=== PATIENT | female | born 1965 | race Caucasian/White ===

== ENCOUNTER → 2016-05-09 | Outpatient (CLI) | payer BC ==
[~2016-05-09] MED LIST: ACT/35 PO; ADVIN50050 INH; ALBINS/ INH; ALBU0.08 INH; ATV/1 PO; AZITTAB PO; BUPR-102 PO; BUPR-79 PO; CLON0.5T3 PO; FLUT1INH7 INH; IPRA1AER2 INH; LEVO1TAB35 PO; MONT1TAB3 PO; OMEP40CA41 PO; OXGN; PRED10TA PO; PRILOSEC PO; ROFL1TAB5 PO; SPRIN/30 INH; TIOTCAP INH; TRAZ50TA35 PO; ZOLP10TA PO; ZOLP10TA6 PO
[2016-05-09 12:49] LABS: BASO % 0.4 %; BASO ABS # 0.06 K/uL (0-0.2); COMPLETE YES; EOS % 3.6 %; HEMATOCRIT 41.9 % (37-47); IG% 0.3 %; LYMPH % 21.3 %; LYMPH ABS # 2.98 K/uL (1.2-3.4); MEAN CELL VOLUME 92.7 fL (80-100); MEAN CORPUSCULAR HEMOGLOBIN 30.5 pg (25-34); MEAN CORPUSCULAR HGB CONC 32.9 g/dl (32-36); MEAN PLATELET VOLUME 9.8 fL (7.4-10.4); MONO % 10.5 %; NEUT % 63.9 %; PLATELET COUNT 593 K/uL (130-400); RED BLOOD COUNT 4.52 M/uL (4.2-5.4); WHITE BLOOD COUNT 13.97 K/uL (4.8-10.8)
[2016-05-09 13:12] LABS: ESTIMATED AVERAGE GLUCOSE 120 mg/dl; HA1C FLAG Normal (Normal)
[2016-05-09 13:18] LABS: BLOOD UREA NITROGEN 6 mg/dl (7-18); BUN/CREATININE RATIO 8.1 (10-20); CALCIUM 9.4 mg/dl (8.5-10.1); CARBON DIOXIDE 30 mmol/L (21-32); CHLORIDE 102 mmol/L (98-107); CHOLESTEROL 184 mg/dl (0-200); CREATININE 0.76 mg/dl (0.60-1.20); GLUCOSE 104 mg/dl (70-99); POTASSIUM 4.4 mmol/L (3.5-5.1); SODIUM 141 mmol/L (136-145)
[2016-05-09 13:32] LABS: CHOLESTEROL/HDL RATIO 2.5; FERRITIN 898.2 ng/ml (8.0-388.0); HDL CHOLESTEROL 75 mg/dl; LDL CHOLESTEROL CALCULATED 84 mg/dl; MAGNESIUM 2.3 mg/dl (1.8-2.4); THYROID STIMULATING HORMONE 0.882 uIu/ml (0.300-4.500); TRIGLYCERIDES 127 mg/dl (0-150); VERY LOW DENSITY LIPOPROT CALC 25 mg/dl
== END | disposition home or self-care (01) ==
LOC: C.LABBFT 08:31
DX: E61.1 Iron deficiency (principal); J44.9 Chronic obstructive pulmonary disease, unspecified; R73.9 Hyperglycemia, unspecified; R53.83 Other fatigue; Z13.220 Encounter for screening for lipoid disorders

== ENCOUNTER → 2017-05-01 | Outpatient (CLI) | payer BC ==
[~2017-05-01] MED LIST changes: -CLON0.5T3 PO; +KLN/5 PO
== END | disposition home or self-care (01) ==
LOC: C.LABBFT 13:23
DX: E11.9 Type 2 diabetes mellitus without complications (principal)

== ENCOUNTER 2017-05-09 20:34 | Inpatient (IN) | payer OTHER ==
[~2017-05-09] VITALS: Ht 167.6 cm; Wt 72.5 kg
[~2017-05-09 20:34] MED LIST changes: -ACT/35 PO; -ALBINS/ INH; -AZITTAB PO; -BUPR-102 PO; +CLON0.5T3 PO; -FLUT1INH7 INH; -KLN/5 PO; -LEVO1TAB35 PO; -MONT1TAB3 PO; -OMEP40CA41 PO; -OXGN; -PRED10TA PO; -ROFL1TAB5 PO; -SPRIN/30 INH; -TRAZ50TA35 PO; -ZOLP10TA6 PO
[2017-05-09 20:39] VITALS: Ht 167.6 cm; Wt 72.5 kg
[2017-05-09] MEDS ORDERED: SODIUM CHLORIDE 0.9% 500ML 500 ML IV STA (21:16)
[2017-05-09] MEDS ORDERED: FENTANYL CITRATE INJ 50 MCG/1 ML 2 ML VIAL IV STA (21:16)
[2017-05-09] MEDS ORDERED: OPTIRAY 320 IV PRN (21:30)
--- NOTE | 2017-05-09 21:37 | EMERGENCY ROOM VISIT NOTE ---
History Report prepared by Neel: Haris Russell Under the Supervision of: Dr. Crystal Palmer D.O. First contact with patient: 21:00 Chief Complaint: CHEST PAIN Stated Complaint: CHEST PAINS History of Present Illness The patient is a 52 year old female who presents to the Emergency Room with complaints of severe and worsening chest pains that began last night. She describes her pain as "sharp" and notes that is is worsened by leaning over and deep inspiration. The pain is localized to her left chest, and was radiating into the left shoulder until this radiation spontaneously resolving. 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 She also has a history of "severe" COPD. The patient is experiencing chills and is congested in her chest, but she denies any fevers. She feels the need to cough but notes that it will hurt too much. The patient took 1 gram of Zithromax today due to the congestion in her chest. Source of History: patient Onset: One night [employer] Position: chest (left) Symptom Intensity: severe Quality: sharp Timing: constant Associated Symptoms: + chills, + cough, No fevers Review of Systems Pt denies headache, change in vision, fevers, chest pain, shortness of breath, nausea, vomiting, diarrhea, pain with urination, and melena. Past Medical & Surgical Medical Problems: (1) COPD (chronic obstructive pulmonary disease) (2) Pneumonia (3) Pulmonary emphysema Family History Patient reports no known family medical history. Social History Smoking Status: Former Smoker Alcohol Use: occasionally Marital Status: Housing Status: lives with family Occupation Status: employed Current/Historical Medications Scheduled Albuterol Sulf (Proventil 0.083% 2.5MG/3ML), 2.5 MG INH BID Bupropion Hcl (Smoking Deterre (Bupropion Hcl Sr), 10 MG PO BID Fluticasone Furoate-Vilanterol (Breo Ellipta 200-25 Mcg/INH), 1 PUFF INH DAILY Home O2 Therapy (Oxygen), 2 LITERS NA UD Montelukast Sodium (Singulair), 10 MG PO HS Omeprazole (Prilosec), 40 MG PO DAILY Risedronate Sod (Actonel), 35 MG PO WK Roflumilast (Daliresp), 500 MG PO DAILY Tiotropium [place] (Spiriva Handihaler), 1 CAP INH DAILY Trazodone Hcl (Trazodone), 25 MG PO HS Scheduled PRN Azithromycin (Zithromax Z-Benjamin), 250 MG PO UD PRN for COPD Rescue Ipratropium-Albuterol (Combivent Respimat), 1 PUFF INH Q4H PRN for SOB/Wheezing Zolpidem Tartrate (Zolpidem Tartrate), 10 MG PO HS PRN for Sleep Allergies Coded Allergies: Penicillins (Verified Allergy, Unknown, ?, 07/05/15) Physical Exam Vital Signs Date Time Temp Pulse Resp B/P (MAP) Pulse Ox O2 Delivery O2 Flow Rate FiO2 05/10/17 02:18 83 16 111/65 95 Nasal Cannula 2.0 05/10/17 02:16 Nasal Cannula 2.0 05/10/17 00:49 85 16 121/65 96 Nasal Cannula 2.0 05/10/17 00:02 88 05/09/17 23:22 94 16 156/78 95 Nasal Cannula 2.0 05/09/17 22:47 95 22 153/82 95 Nasal Cannula 2.0 05/09/17 20:39 37.1 109 18 157/81 99 Room Air Physical Exam GENERAL: alert, mild distress and uncomfortable appearing. well nourished, non- toxic EYE EXAM: normal conjunctiva, PERRL and EOM's grossly intact OROPHARYNX: no exudate, no erythema, lips, buccal mucosa, and tongue normal and mucous membranes are moist NECK: supple, no nuchal rigidity, no adenopathy, non-tender LUNGS: Clear to auscultation. Normal chest wall mechanics HEART: No reproducible tenderness to the chest. no murmurs, S1 normal and S2 normal ABDOMEN: abdomen soft, non-tender, normo-active bowel sounds, no masses, no rebound or guarding. BACK: Back is symmetrical on inspection and there is no deformity, no midline tenderness, no CVA tenderness. SKIN: no rashes and no bruising UPPER EXTREMITIES: upper extremities are grossly normal. LOWER EXTREMITIES: No pitting edema. NEURO EXAM: Normal sensorium. Medical Decision & Procedures ER Provider Diagnostic Interpretation: CT angio chest: Compared to 06/07/15 No PE. No aortic dissection. Emphysema. Lingular consolidation suspicious for pneumonia. Calcified pulmonary granulomas. Apical scarring also associated with calcified nodules are stable and the interval, felt to be benign. Radiologist: Saul Tapia M.D. Laboratory Results 05/09/17 21:25 Red Blood Count 4.17, Mean Corpuscular Volume 92.6, Mean Corpuscular Hemoglobin 31.2, Mean Corpuscular Hemoglobin Concent 33.7, Mean Platelet Volume 9.4, Neutrophils (%) (Auto) 72.0, Lymphocytes (%) (Auto) 16.2, Monocytes (%) (Auto) 10.3, Eosinophils (%) (Auto) 1.0, Basophils (%) (Auto) 0.2, Neutrophils # (Auto ) 12.73, Lymphocytes # (Auto) 2.86, Monocytes # (Auto) 1.82, Eosinophils # (Auto ) 0.17, Basophils # (Auto) 0.04 05/09/17 21:25 Test 05/09/17 21:25 05/09/17 21:42 White Blood Count 17.68 K/uL (4.8-10.8) Red Blood Count 4.17 M/uL (4.2-5.4) Hemoglobin 13.0 g/dL (12.0-16.0) Hematocrit 38.6 % (37-47) Mean Corpuscular Volume 92.6 fL (80-100) Mean Corpuscular Hemoglobin 31.2 pg (25-34) Mean Corpuscular Hemoglobin Concent 33.7 g/dl (32-36) Platelet Count 481 K/uL (130-400) Mean Platelet Volume 9.4 fL (7.4-10.4) Neutrophils (%) (Auto) 72.0 % Lymphocytes (%) (Auto) 16.2 % Monocytes (%) (Auto) 10.3 % Eosinophils (%) (Auto) 1.0 % Basophils (%) (Auto) 0.2 % Neutrophils # (Auto) 12.73 K/uL (1.4-6.5) Lymphocytes # (Auto) 2.86 K/uL (1.2-3.4) Monocytes # (Auto) 1.82 K/uL (0.11-0.59) Eosinophils # (Auto) 0.17 K/uL (0-0.5) Basophils # (Auto) 0.04 K/uL (0-0.2) RDW Standard Deviation 41.5 fL (36.4-46.3) RDW Coefficient of Variation 12.3 % (11.5-14.5) Immature Granulocyte % (Auto) 0.3 % Immature Granulocyte # (Auto) 0.06 K/uL (0.00-0.02) Prothrombin Time 9.6 SECONDS (9.0-12.0) Prothromb Time International Ratio 0.9 (0.9-1.1) Est Creatinine Clear Calc Drug Dose 88.6 ml/min Estimated GFR () 106.5 Estimated GFR (Non- 91.8 BUN/Creatinine Ratio 9.7 (10-20) Calcium Level 8.9 mg/dl (8.5-10.1) Magnesium Level 2.0 mg/dl (1.8-2.4) Total Bilirubin 0.4 mg/dl (0.2-1) Aspartate Amino Transf (AST/SGOT) 16 U/L (15-37) Alanine Aminotransferase (ALT/SGPT) 24 U/L (12-78) Alkaline Phosphatase 86 U/L (45-117) Troponin I < 0.015 ng/ml (0-0.045) Pro-B-Type Natriuretic Peptide 84 pg/ml (0-900) Total Protein 7.8 gm/dl (6.4-8.2) Albumin 3.6 gm/dl (3.4-5.0) Globulin 4.2 gm/dl (2.5-4.0) Albumin/Globulin Ratio 0.9 (0.9-2) Lipase 252 U/L (73-393) Bedside Hemoglobin 12.6 g/dl (12.0-16.0) Bedside Hematocrit 37 % (37-47) Bedside Sodium 139 mEq/L (135-144) Bedside Potassium 3.2 mEq/L (3.3-5.0) Bedside Chloride 102 mEq/L (101-112) Bedside Total CO2 26 mEq/l (24-31) Anion Gap 16.0 mmol/L (16-25) Bedside Blood Urea Nitrogen 6 mg/dl (7-18) Bedside Creatinine 0.7 mg/dl (0.6-1.3) Bedside Glucose (other) 122 mg/dl (70-99) Bedside Ionized Calcium (Alex) 1.14 mmol/l (1.12-1.32) Laboratory results per my review. Medications Administered Medications (Trade) Dose Ordered Sig/Vazquez Route Start Time Stop Time Status Last Admin Dose Admin Sodium Chloride 500 ml @ 999 mls/hr Q31M STAT IV 05/09/17 21:16 05/09/17 21:46 DC 05/09/17 21:46 999 MLS/HR Fentanyl Citrate (Fentanyl Inj) 50 mcg NOW STAT IV 05/09/17 21:16 05/09/17 21:18 DC 05/09/17 21:46 50 MCG Hydromorphone HCl (Dilaudid Inj) 1 mg NOW STAT IV 05/09/17 22:41 05/09/17 22:42 DC 05/09/17 22:44 1 MG Hydromorphone HCl (Dilaudid Inj) 1 mg Q15M PRN IV 05/09/17 23:30 05/10/17 06:42 DC 05/09/17 23:43 1 MG Ondansetron HCl (Zofran Inj) 4 mg NOW STAT IV 05/10/17 00:02 05/10/17 00:03 DC 05/10/17 00:05 4 MG Levofloxacin (Levaquin / D5W) 750 mg NOW STAT IV 05/10/17 00:35 05/10/17 00:36 DC 05/10/17 00:51 750 MG Methylprednisolone Sodium Succinate (Solu-Medrol IV) 60 mg NOW STAT IV 05/10/17 00:35 05/10/17 00:36 DC 05/10/17 00:50 60 MG Albuterol/ Ipratropium (Duoneb) 3 ml NOW STAT INH 05/10/17 00:36 05/10/17 00:37 DC 05/10/17 00:53 3 ML Ketorolac Tromethamine (Toradol Inj) 30 mg NOW STAT IV 05/10/17 00:37 05/10/17 00:38 DC 05/10/17 00:51 30 MG Ondansetron HCl (Zofran Inj) 4 mg NOW STAT IV 05/10/17 01:06 05/10/17 01:07 DC 05/10/17 00:53 4 MG Metoclopramide HCl (Reglan Inj) 10 mg STK-MED ONCE .ROUTE 05/10/17 01:58 05/10/17 01:59 DC 05/10/17 02:00 5 MG Acetaminophen (Tylenol Tab) 650 mg Q4H PRN PO 05/10/17 02:15 06/09/17 02:14 05/10/17 20:39 650 MG Albuterol/ Ipratropium (Duoneb) 3 ml QIDR INH 05/10/17 02:30 06/09/17 02:29 05/10/17 20:11 3 ML Zolpidem Tartrate (Ambien Tab) 10 mg HS PRN PO 05/10/17 02:30 06/09/17 02:29 05/10/17 22:01 10 MG ECG Indication: chest pain Rate (beats per minute): 96 Rhythm: normal sinus Findings: ST depression (Questionable V4, V5, V6), no acute ischemic change, no ectopy Comparison ECG Date: Change: PVC are not present from previous. ED Course 2101: The patient was evaluated in room C7. A complete history and physical exam was performed. 2115: Ordered Fentanyl 50 mcg IV, Sodium Chloride 500 mL @ 999 mL/hr IV. 2240: Ordered Dilaudid Inj 1 mg IV. 30: Updated pt on all results. Pt still with chest pain. Medical Decision Differential diagnosis: Etiologies such as cardiac ischemia, aortic dissection, pulmonary embolism, pneumonia, pneumothorax, musculoskeletal, infections, pericarditis, myocarditis , esophageal rupture, gastrointestinal, as well as others were entertained. Pt not overtly hypoxic, however concern given pneumonia with her hx of COPD and severe chest pain which required several doses of IV narcotics to help improve. VS otw stable. Pt subjectively felt improved with oxygen in place. No change with nebs. Pt given solumedrol and levaquin. No evidence of pe, dissection, other vascular pathology, no tamponade, no effusion. Leukocytosis noted. I have a low suspicion for bacteremia/sepsis. Doubt ACS, trop negative after >8 hours of pain. Discussed with hospitalist for additional evaluation. Medication Reconcilliation Current Medication List: was personally reviewed by me Blood Pressure Screening Patient's blood pressure: Elevated blood pressure Blood pressure disposition: Referred to PCP Consults Time Called: 39 Consulting Physician: Checo Returned Call: [address] Kessler. Impression Primary Impression: Chest pain Additional Impressions: Pneumonia COPD (chronic obstructive pulmonary disease) Scribe Attestation The scribe's documentation has been prepared under my direction and personally reviewed by me in its entirety. I confirm that the note above accurately reflects all work, treatment, procedures, and medical decision making performed by me. Departure Information Dispostion Being Evaluated By Hospitalist Referrals Sunday Villalobos Jr,D.O. (PCP) Patient Instructions My [facility] Problem Qualifiers Primary Impression: Chest pain Chest pain type: unspecified Qualified Codes: R07.9 - Chest pain, unspecified Additional Impressions: Pneumonia Pneumonia type: due to unspecified organism Laterality: left Lung location : unspecified part of lung Qualified Codes: J18.9 - Pneumonia, unspecified organism COPD (chronic obstructive pulmonary disease) COPD type: unspecified COPD Qualified Codes: J44.9 - Chronic obstructive pulmonary disease, unspecified
[2017-05-09] MEDS ORDERED: FLUT1INH7 INH (21:41)
[2017-05-09] MEDS ORDERED: BUPR-102 PO (21:41)
[2017-05-09] MEDS ORDERED: ROFL1TAB5 PO (21:41)
[2017-05-09] MEDS ORDERED: SPRIN/30 INH (21:41)
[2017-05-09] MEDS ORDERED: AZITTAB PO (21:41)
[2017-05-09] MEDS ORDERED: OMEP40CA41 PO (21:41)
[2017-05-09] MEDS ORDERED: IPRA1AER2 INH (21:41)
[2017-05-09] MEDS ORDERED: ALBINS/ INH (21:41)
[2017-05-09] MEDS ORDERED: ACT/35 PO (21:41)
[2017-05-09] MEDS ORDERED: MONT1TAB3 PO (21:41)
[2017-05-09] MEDS ORDERED: ZOLP10TA6 PO (21:41)
[2017-05-09] MEDS ORDERED: TRAZ50TA35 PO (21:41)
[2017-05-09] MEDS ORDERED: OXGN (21:41)
[2017-05-09 21:52] LABS: BASO % 0.2 %; BASO ABS # 0.04 K/uL (0-0.2); EOS ABS # 0.17 K/uL (0-0.5); HEMATOCRIT 38.6 % (37-47); IG# 0.06 K/uL (0.00-0.02); LYMPH % 16.2 %; LYMPH ABS # 2.86 K/uL (1.2-3.4); MEAN CELL VOLUME 92.6 fL (80-100); MEAN CORPUSCULAR HEMOGLOBIN 31.2 pg (25-34); MEAN CORPUSCULAR HGB CONC 33.7 g/dl (32-36); MEAN PLATELET VOLUME 9.4 fL (7.4-10.4); MONO % 10.3 %; MONO ABS # 1.82 K/uL (0.11-0.59); NEUT ABS # 12.73 K/uL (1.4-6.5); PLATELET COUNT 481 K/uL (130-400); RED CELL DISTRIBUTION WIDTH CV 12.3 % (11.5-14.5); RED CELL DISTRIBUTION WIDTH SD 41.5 fL (36.4-46.3); WHITE BLOOD COUNT 17.68 K/uL (4.8-10.8)
[2017-05-09 21:54] LABS: ISTAT CREATININE 0.7 mg/dl (0.6-1.3); ISTAT IONIZED CALCIUM 1.14 mmol/l (1.12-1.32); ISTAT POTASSIUM 3.2 mEq/L (3.3-5.0)
[2017-05-09 22:03] LABS: INR 0.9 (0.9-1.1)
[2017-05-09] MEDS ORDERED: HYDROmorphone INJ 1 MG/ML SYR IV STA (22:41)
[2017-05-09 22:53] LABS: ALBUMIN 3.6 gm/dl (3.4-5.0); ALKALINE PHOSPHATASE 86 U/L (45-117); ALT/SGPT 24 U/L (12-78); AST/SGOT 16 U/L (15-37); BLOOD UREA NITROGEN 7 mg/dl (7-18); CALCIUM 8.9 mg/dl (8.5-10.1); CARBON DIOXIDE 26 mmol/L (21-32); CREATININE 0.74 mg/dl (0.60-1.20); GLUCOSE 114 mg/dl (70-99); LIPASE 252 U/L (73-393); POTASSIUM 3.2 mmol/L (3.5-5.1); SODIUM 137 mmol/L (136-145); TOTAL PROTEIN 7.8 gm/dl (6.4-8.2)
[2017-05-09] MEDS ORDERED: HYDROmorphone INJ 1 MG/ML SYR IV PRN (23:30)
[2017-05-10] VITALS (8 sets, daily range): BP systolic 111–132; BP diastolic 57–78; PULSE 75–93; TEMP 36.3–37.1; O2SAT 92–98
[2017-05-10] MEDS ORDERED: ONDANSETRON INJ 2 MG/ML 2 ML VIAL IV STA ×2 (00:02→01:06)
[2017-05-10] MEDS ORDERED: ONDANSETRON INJ 2 MG/ML 2 ML VIAL ONE (00:03)
[2017-05-10] MEDS ORDERED: METHYLPREDNISOLONE 125 MG VIAL IV STA (00:35)
[2017-05-10] MEDS ORDERED: LEVAQUIN 750MG / 150ML D5W IV STA (00:35)
[2017-05-10] MEDS ORDERED: ALBUT/IPRATROP 3MG/0.5MG NEB 3 ML VIAL INH STA (00:36)
[2017-05-10] MEDS ORDERED: KETOROLAC TROMETHAMINE 30 MG/ML VIAL IV STA (00:37)
[2017-05-10] MEDS ORDERED: ONDANSETRON 4MG OD TAB PO ONE (01:00)
[2017-05-10] MEDS ORDERED: METOCLOPRAMIDE HCL INJ 5 MG/ML 2 ML VIAL IM STA (01:57)
[2017-05-10] MEDS ORDERED: METOCLOPRAMIDE HCL INJ 5 MG/ML 2 ML VIAL ONE (01:58)
[2017-05-10] MEDS ORDERED: MoRPHine SULFATE 2 MG/ML CARP IV PRN (02:15)
[2017-05-10] MEDS ORDERED: MAGNESIUM HYDROXIDE SUSP 30 ML UDC PO PRN (02:15)
[2017-05-10] MEDS ORDERED: ONDANSETRON INJ 2 MG/ML 2 ML VIAL IV PRN (02:15)
[2017-05-10] MEDS ORDERED: ALUMINUM/MAGNESIUM/SIMETH (MAALOX MAX) 30 ML UDC PO PRN (02:15)
[2017-05-10] MEDS ORDERED: ZOLPIDEM TARTRATE 10 MG TAB PO PRN (02:30)
[2017-05-10] MEDS ORDERED: IPRATROPIUM BROMIDE/ALBUTEROL respimat INH INH PRN (02:30)
--- NOTE | 2017-05-10 03:22 | History and Physical ---
History & Physical Date & Time of Service: May 10, 2017 at 02:32 Chief Complaint: Chest Pains Primary Care Physician: Sunday Villalobos Jr,D.O. History of Present Illness Patient is a 52 year old female with a past medical history of COPD and lung cancer s/p lobectomy that presents with a 3 days history of worsening shortness of breath. The patient also states that she has been having associated productive cough with yellow dark sputum and chills. The patient was previously on home oxygen and prednisone but has been able to weak her self off and has not been using those over the last 6 weeks. She has now been requiring 2L of oxygen the last few days (she was still using oxygen intermittently with exercise and with sleep through her CPAP). She states her chest has been tight and has felt very wheezy. She also began experiencing a sharp left sided chest pain associated with taking deep breaths this morning that continued throughout the day. She has been otherwise taking all of her home inhalers as prescribed. She also took her first dose of Azithromycin today but did not take any steroids. She states she has not smoked in the last 2 years. Past Medical/Surgical History Medical Problems: (1) COPD (chronic obstructive pulmonary disease) Status: Chronic (2) Pulmonary emphysema Status: Chronic Family History Patient reports no known family medical history. Social History Smoking Status: Former Smoker Marital Status: Housing status: lives with family Occupational Status: employed Immunizations History of Influenza Vaccine: Unknown History of Tetanus Vaccine?: Unknown History of Pneumococcal: Unknown History of Hepatitis B Vaccine: Unknown Multi-Drug Resistant Organisms History of MDRO: Yes Type of MDRO: MRSA Allergies Coded Allergies: Penicillins (Verified Allergy, Unknown, ?, 07/05/15) Home Medications Scheduled Albuterol Sulf (Proventil 0.083% 2.5MG/3ML), 2.5 MG INH BID Bupropion Hcl (Smoking [place] (Bupropion Hcl Sr), 10 MG PO BID Fluticasone Furoate-Vilanterol (Breo Ellipta 200-25 Mcg/INH), 1 PUFF INH DAILY Home O2 Therapy (Oxygen), 2 LITERS NA UD Montelukast Sodium (Singulair), 10 MG PO HS Omeprazole (Prilosec), 40 MG PO DAILY Risedronate Sod (Actonel), 35 MG PO WK Roflumilast (Daliresp), 500 MG PO DAILY Tiotropium [place] (Spiriva Handihaler), 1 CAP INH DAILY Trazodone Hcl (Trazodone), 25 MG PO HS Scheduled PRN Azithromycin (Zithromax Z-Benjamin), 250 MG PO UD PRN for COPD Rescue Ipratropium-Albuterol (Combivent Respimat), 1 PUFF INH Q4H PRN for SOB/Wheezing Zolpidem Tartrate (Zolpidem Tartrate), 10 MG PO HS PRN for Sleep Review of Systems Constitutional: + fatigue, No fever Respiratory: + cough, + sputum, + wheezing, + shortness of breath, + dyspnea on exertion, + dyspnea at rest Cardiovascular: + chest pain, No orthopnea, No edema, No palpitations Abdomen: No pain, No nausea, No vomiting, No diarrhea, No constipation Musculoskeletal: No joint pain Genitourinary - Female: No dysuria Integumentary: No rash Physical Exam Vital Signs Date Time Temp Pulse Resp B/P (MAP) Pulse Ox O2 Delivery O2 Flow Rate FiO2 05/10/17 02:18 83 16 111/65 95 Nasal Cannula 2.0 05/10/17 00:49 85 16 121/65 96 Nasal Cannula 2.0 05/10/17 00:02 88 05/09/17 23:22 94 16 156/78 95 Nasal Cannula 2.0 05/09/17 22:47 95 22 153/82 95 Nasal Cannula 2.0 05/09/17 20:39 37.1 109 18 157/81 99 Room Air General Appearance: WD/WN, no apparent distress Head: normocephalic, atraumatic Eyes: normal inspection, sclerae normal Neck: supple, no carotid bruits Respiratory/Chest: chest non-tender, lungs clear, normal breath sounds Cardiovascular: regular rate, rhythm, no edema, no gallop, no murmur Abdomen/GI: normal bowel sounds, non tender, soft Extremities/Musculoskelatal: no calf tenderness, no pedal edema Neurologic/Psych: alert, normal mood/affect, oriented x 3 Diagnostics Laboratory Results Results Past 24 Hours Test 05/09/17 21:25 05/09/17 21:42 Range/Units White Blood Count 17.68 4.8-10.8 K/uL Red Blood Count 4.17 4.2-5.4 M/uL Hemoglobin 13.0 12.0-16.0 g/dL Hematocrit 38.6 37-47 % Mean Corpuscular Volume 92.6 80-100 fL Mean Corpuscular Hemoglobin 31.2 25-34 pg Mean Corpuscular Hemoglobin Concent 33.7 32-36 g/dl Platelet Count 481 130-400 K/uL Mean Platelet Volume 9.4 7.4-10.4 fL Neutrophils (%) (Auto) 72.0 % Lymphocytes (%) (Auto) 16.2 % Monocytes (%) (Auto) 10.3 % Eosinophils (%) (Auto) 1.0 % Basophils (%) (Auto) 0.2 % Neutrophils # (Auto) 12.73 1.4-6.5 K/uL Lymphocytes # (Auto) 2.86 1.2-3.4 K/uL Monocytes # (Auto) 1.82 0.11-0.59 K/uL Eosinophils # (Auto) 0.17 0-0.5 K/uL Basophils # (Auto) 0.04 0-0.2 K/uL RDW Standard Deviation 41.5 36.4-46.3 fL RDW Coefficient of Variation 12.3 11.5-14.5 % Immature Granulocyte % (Auto) 0.3 % Immature Granulocyte # (Auto) 0.06 0.00-0.02 K/uL Prothrombin Time 9.6 9.0-12.0 SECONDS Prothromb Time International Ratio 0.9 0.9-1.1 Sodium Level 137 136-145 mmol/L Potassium Level 3.2 3.5-5.1 mmol/L Chloride Level 103 98-107 mmol/L Carbon Dioxide Level 26 21-32 mmol/L Anion Gap 8.0 16.0 16-25 mmol/L Blood Urea Nitrogen 7 7-18 mg/dl Creatinine 0.74 0.60-1.20 mg/dl Est Creatinine Clear Calc Drug Dose 88.6 ml/min Estimated GFR () 106.5 Estimated GFR (Non- 91.8 BUN/Creatinine Ratio 9.7 10-20 Random Glucose 114 70-99 mg/dl Calcium Level 8.9 8.5-10.1 mg/dl Magnesium Level 2.0 1.8-2.4 mg/dl Total Bilirubin 0.4 0.2-1 mg/dl Aspartate Amino Transf (AST/SGOT) 16 15-37 U/L Alanine Aminotransferase (ALT/SGPT) 24 12-78 U/L Alkaline Phosphatase 86 45-117 U/L Troponin I < 0.015 0-0.045 ng/ml Pro-B-Type Natriuretic Peptide 84 0-900 pg/ml Total Protein 7.8 6.4-8.2 gm/dl Albumin 3.6 3.4-5.0 gm/dl Globulin 4.2 2.5-4.0 gm/dl Albumin/Globulin Ratio 0.9 0.9-2 Lipase 252 73-393 U/L Bedside Hemoglobin 12.6 12.0-16.0 g/dl Bedside Hematocrit 37 37-47 % Bedside Sodium 139 135-144 mEq/L Bedside Potassium 3.2 3.3-5.0 mEq/L Bedside Chloride 102 101-112 mEq/L Bedside Total CO2 26 24-31 mEq/l Bedside Blood Urea Nitrogen 6 7-18 mg/dl Bedside Creatinine 0.7 0.6-1.3 mg/dl Bedside Glucose (other) 122 70-99 mg/dl Bedside Ionized Calcium (Alex) 1.14 1.12-1.32 mmol/l Impression Assessment and Plan Patient is a 52 year old female with a past medical history of COPD and lung cancer s/p lobectomy that presents with a 3 days history of worsening shortness of breath 1) Acute Hypoxic Respiratory failure Secondary to Community Acquired Pneumonia - Levaquin 750mg daily - Solumedrol 60mg IV q6h - Duonebs qid and q3h PRN - Supplemental oxygen as needed to maintain SpO2 > 90% --> Currently on 2L NC - Chest CT: Left Lingular Infiltrate, No PEs Visualized - Admit to med/surg 2) COPD Exacerbation - Medications as mentioned above - Continue home Combivent, Singulair, Dailiresp, Spiriva, and Breo Ellipta 3) Pleuritis - Toradol 30mg IV q6h - Morphine 2mg q4h IV for breakthrough pain 4) Smoking Cessation - Continue home Bupropion 10mg PO BID 5) GERD - Protonix 40mg Daily (On Prilosec 40mg PO Daily at home) 6) DVT - Lovenox 30mg 7) Code Status - Full Resuscitation Resident Physician Supervision Note: I was present with Dr. Land during the history and exam. I discussed the case with the resident and agree with the findings and plan as documented in the note. Any exceptions or clarifications are listed here: 52 y/o F Hx COPD, lobectomy due to nodules which in turn were benign - presenting with SOB, cough, pleuritic CP - CT chest is consistent with a lingular consolidation - she has required 02 continuously - normally uses intermittently only OE AAO x 3 S1,2 R Reduced air at L base NT, ND No CCE P: Pt will be treated for PNM and COPD exacerbation - Abx, nebs, 02 protocol Advised on smoking cessation Documented By: Mervin Ratliff Level of Care Med/Surg Resuscitation Status FULL RESUSCITATION VTE Prophylaxis VTE Risk Assessment Done? Y/N: Yes Risk Level: Moderate Given or contraindicated: Enoxaparin (Lovenox)SQ Resident Tracking Resident Involvement: Resident Care Provided Care Provided: Adult Hospital Medicine
[2017-05-10] MEDS ORDERED: IV FLUIDS COMPLETED PRN ×2 (05:30)
[2017-05-10] MEDS ORDERED: KETOROLAC TROMETHAMINE 30 MG/ML VIAL IV SCH (07:00)
[2017-05-10] MEDS: METHYLPREDNISOLONE IV 60 MG in SYRINGE 0 ML IV SCH ×3 (07:25→23:30)
--- NOTE | 2017-05-10 07:55 | DIAGNOSTIC IMAGING REPORT ---
(CHEST FOR PE) ANGIO WITH CT DOSE: 262.85 mGy.cm HISTORY: 52 years-old Female presents with acute left-sided chest pain. History of prior lobectomy TECHNIQUE: Multiple CTA images of the chest were obtained after the intravenous administration of 94 ml Optiray 320. Coronal and sagittal MIPS were obtained from the axial data set and were submitted for review. A dose lowering technique was utilized adhering to the principles of ALARA. COMPARISON: CTA of the chest 06/07/2015. FINDINGS: CTA: Heart is normal in size without pericardial effusion. No aortic aneurysm or dissection. There is mild atherosclerosis of the aorta. Proximal great vessels are patent. Pulmonary arterial tree is opacified to level of the distal segmental branches. The subsegmental branches are obscured secondary to respiratory motion. No pulmonary emboli identified. CT CHEST: Thyroid is homogeneous. No pathologic adenopathy identified. Multiple calcified granulomas are present bilaterally. Moderate emphysema with areas of pleural-parenchymal scarring. Surgical suture material is noted at the left lung apex anteromedially suggesting prior wedge resection of the left upper lobe. Associated nodularity near the suture material is again seen measuring up to 1.5 x 1.0 cm on image 223 series 4 which appears unchanged previously measuring 1.4 x 0.9 cm. Additionally, there is unchanged noncalcified nodules of the apical site in the right upper lobe adjacent to calcified granulomas, largest of which measures up to 7 mm on image 239 series 4. Nodules within this distribution appears somewhat linear. Calcified granulomas with areas of pleural-parenchymal scarring noted within the right upper lobe. There are patchy groundglass and consolidative opacities within the lingula suggesting pneumonia. Central airways are patent. Prior embolization of the left upper abdomen. Soft tissues are unremarkable. Bones appear intact. IMPRESSION: 1. No acute aortic pathology or evidence of pulmonary thromboembolic disease. 2. Patchy alveolar opacities of the lingula suggest pneumonia. 3. Postoperative changes of the left upper lobe redemonstrated as above with unchanged nodularity adjacent to the suture material suggesting associated scarring. 4. Prior granulomatous disease. There are a few new noncalcified pulmonary nodules of the right upper lobe apical segment adjacent to calcified granulomas as above measuring up to 7 mm. These likely reflect noncalcified granulomas, however could be followed accordingly as a precautionary measure. 5. Moderate emphysema. Please refer to below summary of Fleischner criteria recommendations for follow-up of incidental CT nodules (Casey Burgess, Guidelines for management of small pulmonary nodules detected on CT scans: A statement from the Fleischner Society, Radiology 237: [phone].) SOLID NODULES Multiple nodules size: 6-8 mm * Low risk patients: follow-up at 3-6 months, then consider further follow-up at 18-24 months * high risk patients: follow-up at 3-6 months, then at 18-24 months if no change Note: newly detected indeterminate nodule in persons 35 years of age or older. * Low risk patients: minimal or absent history of smoking and/or other known risk factors * high risk patients: history of smoking or of other known risk factors (e.g. first degree relative with lung cancer, or exposure to asbestos, radon, uranium) * if a nodule up to 8 mm is partly solid or is ground glass further follow-up is required after 24 months to exclude possible slow growing adenocarcinoma (ASHKAN) The above report was generated using voice recognition software. It may contain grammatical, syntax or spelling errors. Electronically signed by: Jr Carolina M.D. 05/10/2017 7:54 AM Dictated Date/Time: 05/10/2017 6:47 AM
[2017-05-10] MEDS: ALBUT/IPRATROP 3MG/0.5MG NEB 3 ML VIAL INH SCH ×3 (08:00→20:11)
[2017-05-10] MEDS: ROFLUMILAST 500 MCG TAB PO SCH (09:56)
[2017-05-10] MEDS: PANTOprazole SOD 40 MG TAB PO SCH (09:56)
[2017-05-10] MEDS: BuPROPion SR 150 MG TABCR PO SCH ×2 (09:57→20:39)
[2017-05-10] MEDS: TIOTROPIUM BROMIDE 5 PUFF/90 MCG INH INH SCH (09:57)
[2017-05-10] MEDS: ENOXAPARIN 30 MG/0.3 ML SYR SQ SCH ×2 (09:59→20:40)
--- NOTE | 2017-05-10 10:25 | Hospitalist Progress Note ---
Hospitalist Progress Note Date of Service May 10, 2017. (Malia Freeman ., PA-C) Subjective Pt evaluation today including: conversation w/ patient, physical exam, lab review, review of studies, review of inpatient medication list Voiding: no voiding problems Patient states she is feeling significantly improved since admission. Eating and drinking OK. On O2 NC supplement for comfort- has O2 supplement at home +productive cough- yellow sputum. L chest wall pain has improved to 4/10. Worse w/ movements, deep breathing, coughing- CT negative for PE. Recently got off chronic Prednisone 6 weeks ago. Follows w/ [facility]. Patient denies any fever, chills, sweats, lightheadedness, dizziness, vision changes, palpitations, edema, SOB, wheezing, abdominal pain, nausea, vomiting, diarrhea, urinary symptoms, melena, numbness/tingling, weakness, muscle/joint pain, anxiety/depression, active bleeding, or new skin discoloration/changes. (Malia Freeman ., PA-C) Medications Current Inpatient Medications Medications (Trade) Dose Ordered Sig/Vazquez Route Start Time Stop Time Status Last Admin Dose Admin Ioversol (Optiray 320) 100 ml UD PRN IV 05/09/17 21:30 05/13/17 21:29 Enoxaparin Sodium (Lovenox Inj) 30 mg Q12 SQ 05/10/17 09:00 06/09/17 08:59 05/10/17 09:59 30 MG Acetaminophen (Tylenol Tab) 650 mg Q4H PRN PO 05/10/17 02:15 06/09/17 02:14 Al Hydrox/Mg Hydrox/Simethicone (Maalox Max Susp) 15 ml Q4H PRN PO 05/10/17 02:15 06/09/17 02:14 Magnesium Hydroxide (Milk Of Magnesia Susp) 30 ml Q6H PRN PO 05/10/17 02:15 06/09/17 02:14 Ondansetron HCl (Zofran Inj) 4 mg Q6H PRN IV 05/10/17 02:15 06/09/17 02:14 Levofloxacin 750 mg/Prmx 150 ml @ 100 mls/hr Q24H IV 05/10/17 23:00 05/12/17 22:59 Methylprednisolone Sodium Succinate 60 mg/Syringe 0.96 ml @ 1.5 mls/min Q8H IV 05/10/17 08:00 06/09/17 07:59 05/10/17 07:25 1.5 MLS/MIN Ketorolac Tromethamine (Toradol Inj) 30 mg Q6H IV 05/10/17 07:00 05/15/17 06:59 05/10/17 07:24 30 MG Morphine Sulfate (MoRPHine SULFATE INJ) 2 mg Q4H PRN IV 05/10/17 02:15 05/24/17 02:14 Albuterol/ Ipratropium (Duoneb) 3 ml QIDR INH 05/10/17 02:30 06/09/17 02:29 Albuterol/ Ipratropium (Combivent Respimat Inh) 2 puffs Q4H PRN INH 05/10/17 02:30 06/09/17 02:29 Montelukast Sodium (Singulair Tab) 10 mg HS PO 05/10/17 21:00 06/09/17 20:59 Roflumilast (Daliresp Tab) 500 mcg DAILY PO 05/10/17 09:00 06/09/17 08:59 05/10/17 09:56 500 MCG Tiotropium [place] (Spiriva Handihaler Inhaler) 1 puff DAILY INH 05/10/17 09:00 06/09/17 08:59 05/10/17 09:57 1 PUFF Trazodone HCl (Desyrel Tab) 25 mg HS PO 05/10/17 21:00 06/09/17 20:59 Zolpidem Tartrate (Ambien Tab) 10 mg HS PRN PO 05/10/17 02:30 06/09/17 02:29 Bupropion HCl (Wellbutrin-Sr Tab) 150 mg BID PO 05/10/17 09:00 06/09/17 08:59 05/10/17 09:57 150 MG Miscellaneous Information (Order Awaiting Action) 1 ea QS N/A 05/10/17 08:00 06/09/17 07:59 Pantoprazole Sodium (Protonix Tab) 40 mg QAM PO 05/10/17 09:00 06/09/17 08:59 05/10/17 09:56 40 MG Miscellaneous (Iv Fluids Completed) 1 ea PRN PRN N/A 05/10/17 05:30 05/10/18 05:29 Potassium Chloride (Klor-Con Tab) 20 meq BID PO 05/10/17 09:00 05/11/17 09:01 (Malia Freeman PA-C) Objective Vital Signs Date Time Temp Pulse Resp B/P (MAP) Pulse Ox O2 Delivery O2 Flow Rate FiO2 05/10/17 07:03 36.4 75 16 111/65 (80) 97 Room Air 05/10/17 03:30 Room Air 05/10/17 03:30 37.1 85 16 132/78 (96) 93 Room Air 05/10/17 03:14 81 05/10/17 03:10 84 16 102/66 96 05/10/17 02:18 83 16 111/65 95 Nasal Cannula 2.0 05/10/17 02:16 Nasal Cannula 2.0 05/10/17 00:49 85 16 121/65 96 Nasal Cannula 2.0 05/10/17 00:02 88 05/09/17 23:22 94 16 156/78 95 Nasal Cannula 2.0 05/09/17 22:47 95 22 153/82 95 Nasal Cannula 2.0 05/09/17 20:39 37.1 109 18 157/81 99 Room Air (Malia Freeman PA-C) Physical Exam General Appearance: no apparent distress, + pertinent finding (O2 NC ) Eyes: normal inspection, PERRL ENT: hearing grossly normal Neck: supple Respiratory/Chest: no respiratory distress, no accessory muscle use, + decreased breath sounds (throughout ), + crackles (mild L lung base ) Cardiovascular: regular rate, rhythm Abdomen: normal bowel sounds, non tender, soft Extremities: no pedal edema, no calf tenderness, + pertinent finding (SCDs on ) Neurologic/Psychiatric: alert, normal mood/affect, oriented x 3 Skin: normal color, warm/dry, no rash (Malia Freeman PA-C) Laboratory Results Last 24 Hours Test 05/09/17 21:25 05/09/17 21:42 White Blood Count 17.68 K/uL Red Blood Count 4.17 M/uL Hemoglobin 13.0 g/dL Hematocrit 38.6 % Mean Corpuscular Volume 92.6 fL Mean Corpuscular Hemoglobin 31.2 pg Mean Corpuscular Hemoglobin Concent 33.7 g/dl Platelet Count 481 K/uL Mean Platelet Volume 9.4 fL Neutrophils (%) (Auto) 72.0 % Lymphocytes (%) (Auto) 16.2 % Monocytes (%) (Auto) 10.3 % Eosinophils (%) (Auto) 1.0 % Basophils (%) (Auto) 0.2 % Neutrophils # (Auto) 12.73 K/uL Lymphocytes # (Auto) 2.86 K/uL Monocytes # (Auto) 1.82 K/uL Eosinophils # (Auto) 0.17 K/uL Basophils # (Auto) 0.04 K/uL RDW Standard Deviation 41.5 fL RDW Coefficient of Variation 12.3 % Immature Granulocyte % (Auto) 0.3 % Immature Granulocyte # (Auto) 0.06 K/uL Prothrombin Time 9.6 SECONDS Prothromb Time International Ratio 0.9 Sodium Level 137 mmol/L Potassium Level 3.2 mmol/L Chloride Level 103 mmol/L Carbon Dioxide Level 26 mmol/L Anion Gap 8.0 mmol/L 16.0 mmol/L Blood Urea Nitrogen 7 mg/dl Creatinine 0.74 mg/dl Est Creatinine Clear Calc Drug Dose 88.6 ml/min Estimated GFR () 106.5 Estimated GFR (Non- 91.8 BUN/Creatinine Ratio 9.7 Random Glucose 114 mg/dl Calcium Level 8.9 mg/dl Magnesium Level 2.0 mg/dl Total Bilirubin 0.4 mg/dl Aspartate Amino Transf (AST/SGOT) 16 U/L Alanine Aminotransferase (ALT/SGPT) 24 U/L Alkaline Phosphatase 86 U/L Troponin I < 0.015 ng/ml Pro-B-Type Natriuretic Peptide 84 pg/ml Total Protein 7.8 gm/dl Albumin 3.6 gm/dl Globulin 4.2 gm/dl Albumin/Globulin Ratio 0.9 Lipase 252 U/L Bedside Hemoglobin 12.6 g/dl Bedside Hematocrit 37 % Bedside Sodium 139 mEq/L Bedside Potassium 3.2 mEq/L Bedside Chloride 102 mEq/L Bedside Total CO2 26 mEq/l Bedside Blood Urea Nitrogen 6 mg/dl Bedside Creatinine 0.7 mg/dl Bedside Glucose (other) 122 mg/dl Bedside Ionized Calcium (Alex) 1.14 mmol/l (Malia Freeman PA-C) Assessment and Plan Patient is a 52 y/o female with a past medical history of COPD and lung cancer s /p lobectomy that presents with a 3 days history of worsening shortness of breath Acute hypoxic respiratory failure, secondary to community-acquired PNA and acute on chronic COPD exacerbation: - Admitted to med/surg - O2 protocol, wean as tolerated- has O2 supplement at home - Levaquin 750 mg daily- treatment started on 05/10 - Solu-Medrol 60mg IV q6h - DuoNebs QID and PRN for SOB/wheezing - Continue home Combivent, Singulair, Dailiresp, Spiriva, and Breo Ellipta - Pleuritis: IV Toradol 30 mg q6 hrs and Morphine IV PRN- will changed vazquez Toradol to PRN due to IV Steroids for inflammation - Chest CT- L lingular infiltrate, no PEs visualized - Sputum culture pending Hypokalemia at 3.2: Replace w/ PO 20 mEq KCL supplement BID x3 doses, follow PRP and replace PRN Smoking cessation: Continue Bupropion 10mg PO BID GERD: Protonix 40mg daily- resume Prilosec at discharge DVT prophylaxis: Lovenox SQ BID Code Status: LEVEL I, FULL Dispo: From home- no discharge needs anticipated- likely discharge tomorrow (Malia Freeman ., PA-C) PA Physician Supervision Note: I interviewed and examined the patient. Discussed with Malia Freeamn PAC and agree with findings and plan as documented in the note. Any exceptions or clarifications are listed here: None Patient admitted with a left lingula pneumonia under her baseline history of COPD the patient states that she's had a good 6 months prior to this attributed to her stopping smoking she however usually gets bronchitis but waited too long and now she has x-ray evidence of a mild pneumonia. She feels approximately 50 % improved she'll are also notes she is not ready to leave the facility yet. We are continuing steroid nebulized treatment as well as intravenous antibiotics the patient had significant pleuritic chest pain on presentation which has improved to a great extent Vitals stable but the patient should require oxygen supplementation and she'll then she needs lungs show poor air movement consistent with her history of COPD there is no focal air loss or egophony cardiac exam is regular. Left lingular pneumonia in a patient with COPD continue levofloxacin Blood medications and steroid taper as appropriate Documented By: Dillon Prather (Dillon Prather M.D.)
[2017-05-10] MEDS: POTASSIUM CHLORIDE 20 MEQ TABCR PO SCH ×2 (11:41→20:38)
[2017-05-10] MEDS: KETOROLAC TROMETHAMINE 30 MG/ML VIAL IV PRN ×2 (16:28→22:03)
[2017-05-10] MEDS: ACETAMINOPHEN 325 MG TAB PO PRN (20:39)
[2017-05-10] MEDS ORDERED: TRAZODONE HCL 50 MG TAB PO SCH (21:00)
[2017-05-10] MEDS ORDERED: MONTELUKAST SOD 10 MG TAB PO SCH (21:00)
[2017-05-10] MEDS ORDERED: LEVOFLOXACIN / D5W 750 MG in PREMIXED IN D5W 150 ML IV SCH (23:00)
[2017-05-11 06:35] LABS: HEMATOCRIT 34.6 % (37-47); HEMOGLOBIN 11.5 g/dL (12.0-16.0); MEAN CELL VOLUME 92.8 fL (80-100); MEAN CORPUSCULAR HEMOGLOBIN 30.8 pg (25-34); MEAN CORPUSCULAR HGB CONC 33.2 g/dl (32-36); MEAN PLATELET VOLUME 9.3 fL (7.4-10.4); PLATELET COUNT 470 K/uL (130-400); RED CELL DISTRIBUTION WIDTH CV 12.3 % (11.5-14.5); RED CELL DISTRIBUTION WIDTH SD 41.9 fL (36.4-46.3); WHITE BLOOD COUNT 20.04 K/uL (4.8-10.8)
[2017-05-11 07:11] VITALS: BP 119/69; PULSE 97; TEMP 36.7; O2SAT 93
[2017-05-11 07:17] LABS: CALCIUM 8.5 mg/dl (8.5-10.1); CREATININE 0.72 mg/dl (0.60-1.20); POTASSIUM 3.7 mmol/L (3.5-5.1)
[2017-05-11 07:33] VITALS: PULSE 97; O2SAT 93
[2017-05-11] MEDS: ALBUT/IPRATROP 3MG/0.5MG NEB 3 ML VIAL INH SCH ×3 (07:33→15:51)
[2017-05-11] MEDS: TIOTROPIUM BROMIDE 5 PUFF/90 MCG INH INH SCH (08:46)
[2017-05-11] MEDS: POTASSIUM CHLORIDE 20 MEQ TABCR PO SCH (08:47)
[2017-05-11] MEDS: BuPROPion SR 150 MG TABCR PO SCH (08:47)
[2017-05-11] MEDS: ENOXAPARIN 30 MG/0.3 ML SYR SQ SCH (08:48)
[2017-05-11] MEDS: PANTOprazole SOD 40 MG TAB PO SCH (08:48)
[2017-05-11] MEDS: ROFLUMILAST 500 MCG TAB PO SCH (08:48)
[2017-05-11] MEDS: ACETAMINOPHEN 325 MG TAB PO PRN (12:03)
[2017-05-11] MEDS ORDERED: PRED10TA PO (12:10)
[2017-05-11] MEDS ORDERED: LEVO1TAB35 PO (12:10)
--- NOTE | 2017-05-11 12:17 | Discharge Instructions ---
Discharge Instructions Date of Service May 11, 2017. Admission Reason for Admission: Pneumonia Discharge Discharge Diagnosis / Problem: Pneumonia Discharge Goals Goal(s): Decrease discomfort, Improve function, Increase independence, Improve disease control Activity Recommendations Activity Limitations: resume your previous activity Lifting Limitations: no more than 25 pounds Exercise/Sports Limitations: rest today, gradually increase as tolerated May Resume Sexual Activity: when tolerated Shower/Bathe: no limitations Driving or Machine Use: no limitations . Instructions / Follow-Up Instructions / Follow-Up You were admitted to [facility] with pneumonia and diagnosed with the same. During your stay here you were treated with supportive care with antibiotics, steroids and supplemental oxygen. You were able to be weaned to your home oxygen needs. Imaging studies which were completed include CT of the chest, and were abnormal showing chronic changes as well as a lingular pneumonia which was treated. Your symptoms improved, substernal chest pain improved, cardiac workup was negative and you were stable for discharge to home. Medications: Continue taking your medications as above. Continue taking levaquin as directed x next 5 days to complete a 7 day course. Continue Prednisone taper as directed: Take 40 mg (4 tabs) x 2 days, then take Take 30 mg (3 tabs) x 3 days Take 20 mg (2 tabs) x 3 days Take 10 mg (1 tab) x 3 days then stop. FINISH on 05/22 Appointments: Follow up with your Primary Care Provider within 1 week. Current Hospital Diet Patient's current hospital diet: Regular Diet Discharge Diet Recommended Diet: Regular Diet Pending Studies Studies pending at discharge: no Medical Emergencies . Who to Call and When: Medical Emergencies: If at any time you feel your situation is an emergency, please call 911 immediately. . Non-Emergent Contact Non-Emergency issues call your: Primary Care Provider Call Non-Emergent contact if: you have a fever, temperature is above 100.5, your pain is not controlled, your pain is worsening, your pain is unusual for you, your pain is concerning you, you have any medication questions . Past History Medical & Surgical History: (1) Pneumonia (2) COPD (chronic obstructive pulmonary disease) (3) Pulmonary emphysema . "Provider Documentation" section prepared by Daisy Mixon. . VTE Core Measure Inpt VTE Proph given/why not?: Enoxaparin (Lovenox)SQ
[2017-05-11 13:30] VITALS: BP 119/69; PULSE 97; TEMP 36.7; O2SAT 93
--- NOTE | 2017-05-11 14:07 | Discharge Summary ---
Discharge Summary Date of Service May 11, 2017. Discharge Summary Admission Date: May 10, 2017 at 02:31 Discharge Date: May 11, 2017 Discharge Disposition: Home Principal Diagnosis: Pneumonia Problems/Secondary Diagnoses: Medical Problems: (1) COPD (chronic obstructive pulmonary disease) (2) Pneumonia (3) Pulmonary emphysema Pulmonary nodules Hx of Lung cx s/p lobectomy Hx of tobacco use - quit smoking 2 years ago Immunizations: Have You Had Influenza Vaccine: Unknown History of Tetanus Vaccine?: Unknown History of Pneumococcal: Unknown History of Hepatitis B Vaccine: Unknown Procedures: (CHEST FOR PE) ANGIO WITH 05/10/17 IMPRESSION: 1. No acute aortic pathology or evidence of pulmonary thromboembolic disease. 2. Patchy alveolar opacities of the lingula suggest pneumonia. 3. Postoperative changes of the left upper lobe redemonstrated as above with unchanged nodularity adjacent to the suture material suggesting associated scarring. 4. Prior granulomatous disease. There are a few new noncalcified pulmonary nodules of the right upper lobe apical segment adjacent to calcified granulomas as above measuring up to 7 mm. These likely reflect noncalcified granulomas, however could be followed accordingly as a precautionary measure. 5. Moderate emphysema. Medication Reconciliation New Medications: Levofloxacin (Levaquin) 750 Mg Tab 750 MG PO DAILY for 5 Days, #5 TAB Prednisone Tab (Prednisone) 10 Mg Tab 10 MG PO UD for 11 Days, #22 TAB Take 40 mg (4 tabs) x 2 days, then 30 mg x 3 days, then 20 mg x 3 days, then 10 mg x 3 days and STOP. Finish on 05/22 Continued Medications: Albuterol Sulf (Proventil 0.083% 2.5MG/3ML) 2.5 Mg/3 Ml Nebu 2.5 MG INH BID, EA Bupropion Hcl (Smoking [place] (Bupropion Hcl Sr) 150 Mg Tab 10 MG PO BID, TAB Fluticasone Furoate-Vilanterol (Breo Ellipta 200-25 Mcg/INH) 1 Inh Inh 1 PUFF INH DAILY RINSE MOUTH AFTER USE Home O2 Therapy (Oxygen) Gas 2 LITERS NA UD, BTL Ipratropium-Albuterol (Combivent Respimat) 1 Aer Aer 1 PUFF INH Q4H PRN for SOB/Wheezing, INH Montelukast Sodium (Singulair) 10 Mg Tab 10 MG PO HS, TAB Omeprazole (Prilosec) 40 Mg Cap 40 MG PO DAILY, CAP Risedronate Sod (Actonel) 35 Mg Tab 35 MG PO WK, TAB TAKE THIS MEDICATION EVERY SATURDAY Roflumilast (Daliresp) 500 Mcg Tab 500 MG PO DAILY, TAB Tiotropium [place] (Spiriva Handihaler) 30 Puff/540 Mcg Aerp 1 CAP INH DAILY, CAP Trazodone Hcl (Trazodone) 50 Mg Tab 25 MG PO HS, TAB Zolpidem Tartrate (Zolpidem Tartrate) 10 Mg Tab 10 MG PO HS PRN for Sleep, TAB Discontinued Medications: Azithromycin (Zithromax Z-Benjamin) 250 Mg Tab 250 MG PO UD PRN for COPD Rescue for 5 Days, #1 T COPD RESCUE KIT FOLLOWS: TAKE 2 TABLETS DAY 1 THEN 1 TABLET DAILY UNTIL GONE Discharge Exam The patient was seen and examined this morning. Pt reports doing well today. She has been up ambulating about the room without shortness of breath and is on room air. She feels well enough currently to go home. She reports the chest tightness has resolved. She denies any headache, chest pain, flutter, palpitations. Review of Systems: Constitutional: No fever, No chills, No sweats, No weight loss, No fatigue Eyes: No redness, No diplopia ENT: No unusual epistaxis, No sore throat Respiratory: No cough, No sputum, No wheezing, No shortness of breath Cardiovascular: No chest pain, No edema Abdomen: No pain, No nausea, No vomiting, No diarrhea, No constipation Musculoskeletal: No joint pain, No swelling Genitourinary - Female: No dysuria Neurologic: No memory loss, No weakness, No numbness/tingling Psychiatric: No depression symptoms, No anxiety Endocrine: No fatigue Integumentary: No rash, No itch Physical Exam: General Appearance: WD/WN, no apparent distress Eyes: PERRL, EOMI ENT: hearing grossly normal, pharynx normal Neck: supple, no JVD Respiratory/Chest: no respiratory distress, no accessory muscle use, + pertinent finding (faint crackles in bilateral bases, on RA, no other adventitious breath sounds) Cardiovascular: regular rate, rhythm, no murmur Abdomen / GI: normal bowel sounds, non tender, soft Extremities: no calf tenderness, no pedal edema Neurologic/Psychiatric: alert, normal mood/affect, oriented x 3 Skin: normal color, warm/dry Hospital Course History of Present Illness Patient is a 52 year old female with a past medical history of COPD and lung cancer s/p lobectomy that presents with a 3 days history of worsening shortness of breath. The patient also states that she has been having associated productive cough with yellow dark sputum and chills. The patient was previously on home oxygen and prednisone but has been able to weak her self off and has not been using those over the last 6 weeks. She has now been requiring 2L of oxygen the last few days (she was still using oxygen intermittently with exercise and with sleep through her CPAP). She states her chest has been tight and has felt very wheezy. She also began experiencing a sharp left sided chest pain associated with taking deep breaths this morning that continued throughout the day. She has been otherwise taking all of her home inhalers as prescribed. She also took her first dose of Azithromycin today but did not take any steroids. She states she has not smoked in the last 2 years. Physical Exam General Appearance: WD/WN, no apparent distress Head: normocephalic, atraumatic Eyes: normal inspection, sclerae normal Neck: supple, no carotid bruits Respiratory/Chest: chest non-tender, lungs clear, normal breath sounds Cardiovascular: regular rate, rhythm, no edema, no gallop, no murmur Abdomen/GI: normal bowel sounds, non tender, soft Extremities/Musculoskelatal: no calf tenderness, no pedal edema Neurologic/Psych: alert, normal mood/affect, oriented x 3 Hospital Course: Patient is a 52 year old female with a past medical history of COPD and lung cancer s/p lobectomy that presents with a 3 days history of worsening shortness of breath 1) Acute Hypoxic Respiratory failure Secondary to Community Acquired Pneumonia - Levaquin 750mg daily x 5 more days to complete a 7 day course. Finish on 05/16 - Solumedrol weaned down to prednisone- taper to finish 05/22/16. - Duonebs qid and q3h PRN - Supplemental oxygen as needed to maintain SpO2 > 90% - pt was able to be weaned down to room air. She has cpap QHS. - Chest CT: Left Lingular Infiltrate, No PEs Visualized 2) COPD Exacerbation - Medications as mentioned above - Continue home Combivent, Singulair, Dailiresp, Spiriva, and Breo Ellipta 3) Pleuritis - resolved - Toradol 30mg IV q6h - Morphine 2mg q4h IV for breakthrough pain 4) Smoking Cessation - quit 2 years ago - Continue home Bupropion 10mg PO BID 5) GERD - Protonix 40mg Daily (On Prilosec 40mg PO Daily at home) 6) DVT - Lovenox 30mg 7) Code Status - Full Resuscitation Disposition: From home, discharge home today. PA Physician Supervision Note: I interviewed and examined the patient. Discussed with Kate Mixon PAC and agree with findings and plan as documented in the note. Any exceptions or clarifications are listed here: None Patient states she feels remarkably better she's having no dyspnea with exertion she feels she is able to go home Vitals are stable she is off oxygen Cardiac exam is regular lungs are clear without wheezes or significant prolonged expiratory phase The patient be discharged to complete a course of levofloxacin for her pneumonia tapering her steroids continuing smoking cessation and her pulmonary medications as previous recommending follow-up in one week with her primary care provider Documented By: Dillon Prather Total Time Spent: Greater than 30 minutes This includes examination of the patient, discharge planning, medication reconciliation, and communication with other providers. Discharge Instructions Please refer to the electronic Patient Visit Report (Discharge Instructions) for additional information. Follow-Up Follow up with your Primary Care Provider within 1 week. Additional Copies To Sunday Villalobos Jr,LuisaO.
== END 2017-05-11 15:52 | disposition home or self-care (01) | DRG 193 ==
LOC: C.EDB 20:35 → C.MSN 05-10 02:31 → ENRESERV 05-10 03:05
PROVIDERS: ADMIT Student in an Organized Health Care Education/Training Program; ATTEND Internal Medicine
DX: J18.9 Pneumonia, unspecified organism (principal); J96.01 Acute respiratory failure with hypoxia; J44.1 Chronic obstructive pulmonary disease with (acute) exacerbation; I82.409 Acute embolism and thrombosis of unspecified deep veins of unspecified lower extremity; R91.1 Solitary pulmonary nodule; E87.6 Hypokalemia; Z87.01 Personal history of pneumonia (recurrent); Z87.891 Personal history of nicotine dependence

== ENCOUNTER 2018-11-26 15:57 | Inpatient (IN) ==
[2018-11-26] MEDS ORDERED: ACETAMINOPHEN 325 MG TAB PO PRN (18:33)
[2018-11-26] MEDS ORDERED: cefTRIAXone SODIUM 1,000 MG in DEXTROSE 5% 50 ML IV SCH (18:45)
--- NOTE | 2018-11-26 18:45 | History & Physical Report ---
Date of Service November 26, 2018 Assessment & Plan (1) COPD exacerbation: Patient has severe COPD with FEV1 only 32% of predicted at 0.82 L. Likely from smoking. She has a strong family history of COPD with her brother passing away from COPD recently. - IV abx, steroids, DuoNebs. - Sputum culture ordered - Guaifenacin - Continue home inhalers -> Transitioned to our formulary - Continue home O2 (2) Depression: Due to her COPD and trouble breathing. - Continue home meds - Lorazepam PRN (3) Hypothyroidism: TSH was 1.9 in 05/2018. No signs/symptoms of hypo-/hyperthyroidism. - Continue home Synthroid 50 mcg (4) DVT prophylaxis: SCDs - Low DVT risk per admission calculator History of Present Illness Primary Care Provider: Sunday Villalobos Jr, DO 53-year-old female with a history of severe COPD who presents with increased shortness of breath over the course of approximately 2 months. The patient reports that her increased shortness of breath began approximately in September. She reports she is also had increased cough with increased sputum production over this time course. Shortness of breath is been gradually increasing, and she presented in early November to the ED and was offered admission, but declined. She now visited her outpatient jitterbug operator Dr. das who instructed her that she had to go to the emergency department given her prolonged exacerbation of COPD. She denies any fevers or chills, nausea, vomiting, sweats, weight loss, chest pain, or other issues with her COPD exacerbation. She had a CTA chest today ordered by Dr. das which showed some right upper lobe nodular opacities that were consistent with a possible infectious or inflammatory cause. Allergies Allergy/AdvReac Type Severity Reaction Status Date / Time Penicillins Allergy Unknown Unknown Verified 11/08/18 20:06 Home Medications Home Medications Medication Instructions Recorded Confirmed Type albuterol sulfate 2 puff INHALATION Q6H PRN 06/11/18 11/08/18 History aripiprazole 10 mg PO QPM 06/11/18 11/08/18 History ascorbic acid (vitamin C) [Vitamin 500 mg PO QPM 06/11/18 11/08/18 History C] bupropion HCl 150 mg PO BID 06/11/18 11/08/18 History escitalopram oxalate 20 mg PO QAM 06/11/18 11/08/18 History dvxapswzpwy-tvuvwcujm-ubayeins 1 puff INHALATION QAM 06/11/18 11/08/18 History ipratropium-albuterol 1 puff INHALATION Q4H PRN 06/11/18 11/08/18 History montelukast 10 mg PO QPM 06/11/18 11/08/18 History omeprazole 40 mg PO QAM 06/11/18 11/08/18 History roflumilast 500 mcg PO QAM 06/11/18 11/08/18 History zolpidem 10 mg PO HS 06/11/18 11/08/18 History Trokendi XR 50 mg PO QPM 07/03/18 11/08/18 History albuterol sulfate 2.5 mg INHALATION QID PRN 07/03/18 11/08/18 History cholecalciferol (vitamin D3) 2,000 unit PO QAM 07/03/18 11/08/18 History [Vitamin D3] levothyroxine 50 mcg PO QAM 07/03/18 11/08/18 History multivitamin 1 tab PO QAM 07/03/18 11/08/18 History prednisone 10 mg PO DIRECTED 07/16/18 11/08/18 History azithromycin [Zithromax Z-Benjamin] See Rx Instructions .ROUTE 11/08/18 Rx .COMPLEX #6 tab mycophenolate mofetil 250 mg PO BID 11/08/18 11/08/18 History Past Med/Surg History Medical History COPD (chronic obstructive pulmonary disease) (Chronic) inhalers daily/prn Pulmonary emphysema (Chronic) Anxiety Depression Hypothyroidism On home oxygen therapy 2L at hs and prn Sleep apnea cpap with 2L Surgical History History of abdominal surgery repair of ruptured spleen History of appendectomy History of bronchoscopy History of cardiac cath SOB--05/22/2018 @ [facility]--no stents History of lung surgery benign nodule removal from left lung History of open reduction and internal fixation (ORIF) procedure left wrist--hardware removed History of tooth extraction all upper teeth History of wisdom tooth extraction Family History Daughter Family history of reaction to anesthesia takes a lot to put her out Brother Family history of cancer of tongue Social History Preferred Language: Lithuanian Communication Ability: Effective Beliefs That Will Affect Care: None Current Living Situation: Spouse Feels Safe at Home: Yes Smoking Status: Former smoker Cigarettes Per Day: 30 Second Hand Exposure: Yes ( smoked) Hx Alcohol Use: Yes Alcohol type: beer Hx Substance Use: No Review of Systems Review of Systems: All systems reviewed & are unremarkable except as noted in HPI & below Physical Exam Constitutional: WD/WN, vitals as above Eyes: EOM intact bilaterally; no conjunctival abnormality ENMT: external ear and nose normal, oropharynx normal Neck: trachea midline, no thyromegaly normal visual inspection Respiratory: normal respiratory effort, lungs clear to auscultation + uses accessory muscles; no respiratory distress Auscultation: + wheezes (Throughout) Cardiovascular: RRR, no murmur, no edema Gastrointestinal (Abdomen): Inspection/Auscultation: abdomen normal to inspection; abdomen not distended Musculoskeletal: no cyanosis or clubbing, extremities motor strength 5/5 Skin: no rashes, warm and dry Neurologic: moves all extremities and awake Psychiatric: Orientation: alert, oriented to person and cooperative Results & Data Vital Signs (Past 12 Hours) Vital Signs Temp Pulse Resp BP Pulse Ox 11/26/18 17:02 36.8 C 90 20 116/74 96 PG Care Time/CCT Total # of Minutes Spent Total Time Spent with Patient: Total time spent is greater than 50% in coordination of care (as documented) at patient's floor/unit and/or counseling patient:
[2018-11-26 19:08] LABS: Basophils # (auto) 0.07 K/uL (0-0.2); Basophils % (auto) 0.6 %; Eosinophils # (auto) 0.46 K/uL (0-0.5); Eosinophils % (auto) 3.8 %; Hematocrit (blood only) 38.2 % (37-47); Hemoglobin 12.2 g/dL (12.0-16.0); Immature Granulocytes # (auto) 0.04 K/uL (0.00-0.02); Immature Granulocytes % (auto) 0.3 %; Lymphocytes % (auto) 22.4 %; Mean Corpuscular Hgb Conc 31.9 g/dL (32-36); Mean Corpuscular Volume 93.6 fL (80-100); Mean Platelet Volume 9.1 fL (7.4-10.4); Monocytes # (auto) 1.02 K/uL (0.11-0.59); Monocytes % (auto) 8.5 %; Neutrophils # (auto) 7.74 K/uL (1.4-6.5); Neutrophils % (auto) 64.4 %; Platelet Count 504 K/uL (130-400); RDW Coefficient of Variation 13.5 % (11.5-14.5); RDW Standard Deviation 46.3 fL (36.4-46.3); Red Blood Count 4.08 M/uL (4.2-5.4); White Blood Count 12.03 K/uL (4.8-10.8)
[2018-11-26 19:26] LABS: Alanine Aminotransferase 30 U/L (12-78); Albumin Level 3.5 gm/dl (3.4-5.0); Aspartate Aminotransferase 21 U/L (15-37); BUN Creatinine Ratio 7.6 (10-20); Blood Urea Nitrogen 6 mg/dl (7-18); Calcium 8.9 mg/dl (8.5-10.1); Carbon Dioxide 29 mmol/L (21-32); Chloride 104 mmol/L (98-107); Est GFR (African American) 100.7; Est GFR (Non-African American) 86.9; Glucose 125 mg/dl (70-99); Magnesium 2.2 mg/dl (1.8-2.4); Potassium 3.6 mmol/L (3.5-5.1); Sodium 139 mmol/L (136-145)
[2018-11-26 19:28] LABS: Albumin Globulin Ratio 0.9 (0.9-2); Alkaline Phosphatase 77 U/L (45-117); Bilirubin,Total 0.3 mg/dl (0.2-1); Globulin 3.7 gm/dl (2.5-4.0); Phosphorus 3.8 mg/dl (2.5-4.9); Total Protein 7.2 gm/dl (6.4-8.2)
[2018-11-26] MEDS ORDERED: PATIENT'S HEIGHT AND/OR WEIGHT NEEDED SCH (19:30)
[2018-11-26] MEDS: methylPREDNISolone 60 MG in SYRINGE 0 ML IV SCH (20:57)
[2018-11-26] MEDS: BUDESONIDE/FORMOTEROL FUMARATE 160/4.5 60 PUFFS/INHALER INH SCH (21:00)
[2018-11-26] MEDS: AZITHROMYCIN 250 MG TAB PO SCH (21:03)
[2018-11-26] MEDS: TOPIRAMATE 25 MG TAB PO SCH (21:04)
[2018-11-26] MEDS: MONTELUKAST SODIUM 10 MG TABLET PO SCH (21:04)
[2018-11-26] MEDS: ASCORBIC ACID 500 MG TAB PO SCH (21:04)
[2018-11-26] MEDS: BuPROPion SR 150 MG TABCR PO SCH (21:04)
[2018-11-26] MEDS: guaiFENesin 600 MG TABCR PO SCH (21:04)
[2018-11-26] MEDS: ARIPiprazole 10 MG TAB PO SCH (21:04)
[2018-11-26] MEDS: ALBUT/IPRATROP 3MG/0.5MG NEB 3 ML VIAL NEB SCH ×2 (21:11→23:01)
[2018-11-26] MEDS: cefTRIAXone SODIUM 2,000 MG in DEXTROSE 5% 50 ML IV SCH (22:10)
[2018-11-26] MEDS: ZOLPIDEM TARTRATE 10 MG TAB PO SCH ×3 (22:11→23:45)
[2018-11-27] MEDS: ALBUT/IPRATROP 3MG/0.5MG NEB 3 ML VIAL NEB SCH ×6 (03:05→23:22)
[2018-11-27] MEDS: LEVOTHYROXINE SODIUM 50 MCG TABLET PO SCH (06:43)
[2018-11-27] MEDS: ESCITALOPRAM OXALATE 20 MG TAB PO SCH (07:53)
[2018-11-27] MEDS: BuPROPion SR 150 MG TABCR PO SCH ×2 (07:53→22:11)
[2018-11-27] MEDS: ROFLUMILAST 500 MCG TAB PO SCH (07:53)
[2018-11-27] MEDS: AZITHROMYCIN 250 MG TAB PO SCH (07:54)
[2018-11-27] MEDS: TOPIRAMATE 25 MG TAB PO SCH ×2 (07:54→22:10)
[2018-11-27] MEDS: BUDESONIDE/FORMOTEROL FUMARATE 160/4.5 60 PUFFS/INHALER INH SCH ×2 (07:54→22:06)
[2018-11-27] MEDS: guaiFENesin 600 MG TABCR PO SCH ×2 (07:55→22:10)
[2018-11-27] MEDS: TIOTROPIUM BROMIDE 5 PUFF/90 MCG INH INH SCH (07:55)
[2018-11-27] MEDS: methylPREDNISolone 60 MG in SYRINGE 0 ML IV SCH ×2 (08:32→22:06)
[2018-11-27] MEDS ORDERED: LORazepam 0.5 MG TAB PO PRN (14:41)
--- NOTE | 2018-11-27 14:41 | Hospitalist Progress Note ---
Date of Service November 27, 2018 Assessment & Plan (1) COPD exacerbation: Patient has severe COPD with FEV1 only 32% of predicted at 0.82 L. Likely from smoking. She has a strong family history of COPD with her brother passing away from COPD recently. - IV abx, steroids, DuoNebs. - Continue home inhalers -> Transitioned to our formulary - Continue home O2 - Sputum culture collected - Will follow up results (2) Depression: Due to her COPD and trouble breathing. - Continue home meds - Lorazepam PRN (3) Hypothyroidism: TSH was 1.9 in 05/2018. No signs/symptoms of hypo-/hyperthyroidism. - Continue home Synthroid 50 mcg (4) DVT prophylaxis: SCDs - Low DVT risk per admission calculator Subjective Maybe mild improvement. Not much. Review of Systems Review of Systems: All systems reviewed & are unremarkable except as noted in HPI & below Physical Exam Constitutional: WD/WN, vitals as above Eyes: EOM intact bilaterally; no conjunctival abnormality ENMT: external ear and nose normal, oropharynx normal Neck: trachea midline, no thyromegaly normal visual inspection Respiratory: normal respiratory effort, lungs clear to auscultation + uses accessory muscles; no respiratory distress Auscultation: + wheezes (Improving) Cardiovascular: RRR, no murmur, no edema Gastrointestinal (Abdomen): Inspection/Auscultation: abdomen normal to inspection; abdomen not distended Musculoskeletal: no cyanosis or clubbing, extremities motor strength 5/5 Skin: no rashes, warm and dry Neurologic: moves all extremities and awake Psychiatric: Orientation: alert, oriented to person and cooperative Results & Data Vital Signs (Past 12 Hours) Vital Signs Temp Pulse Resp BP Pulse Ox 11/27/18 11:32 100 H 16 94 11/27/18 07:16 36.2 C L 102 H 20 147/87 H 94 11/27/18 07:06 102 H 20 94 11/27/18 03:06 77 18 96 PG Care Time/CCT Total # of Minutes Spent Total Time Spent with Patient: Total time spent is greater than 50% in coordination of care (as documented) at patient's floor/unit and/or counseling patient:
[2018-11-27] MEDS: ASCORBIC ACID 500 MG TAB PO SCH (22:10)
[2018-11-27] MEDS: MONTELUKAST SODIUM 10 MG TABLET PO SCH (22:10)
[2018-11-27] MEDS: ARIPiprazole 10 MG TAB PO SCH (22:10)
[2018-11-27] MEDS: cefTRIAXone SODIUM 2,000 MG in DEXTROSE 5% 50 ML IV SCH (22:11)
[2018-11-27] MEDS: ZOLPIDEM TARTRATE 10 MG TAB PO SCH (22:13)
[2018-11-28] MEDS: ALBUT/IPRATROP 3MG/0.5MG NEB 3 ML VIAL NEB SCH ×2 (03:53→07:11)
[2018-11-28] MEDS: LEVOTHYROXINE SODIUM 50 MCG TABLET PO SCH (05:42)
[2018-11-28] MEDS: AZITHROMYCIN 250 MG TAB PO SCH (08:37)
[2018-11-28] MEDS: TOPIRAMATE 25 MG TAB PO SCH ×2 (08:38→21:02)
[2018-11-28] MEDS: guaiFENesin 600 MG TABCR PO SCH ×2 (08:38→21:02)
[2018-11-28] MEDS: ESCITALOPRAM OXALATE 20 MG TAB PO SCH (08:38)
[2018-11-28] MEDS: BuPROPion SR 150 MG TABCR PO SCH ×2 (08:38→21:02)
[2018-11-28] MEDS: ROFLUMILAST 500 MCG TAB PO SCH (08:38)
[2018-11-28] MEDS: TIOTROPIUM BROMIDE 5 PUFF/90 MCG INH INH SCH (08:39)
[2018-11-28] MEDS: methylPREDNISolone 60 MG in SYRINGE 0 ML IV SCH ×2 (08:39→20:58)
[2018-11-28] MEDS: BUDESONIDE/FORMOTEROL FUMARATE 160/4.5 60 PUFFS/INHALER INH SCH ×2 (08:39→20:57)
[2018-11-28] MEDS: IPRATROPIUM BROMIDE/ALBUTEROL respimat INH INH SCH ×3 (12:24→20:58)
--- NOTE | 2018-11-28 16:25 | Hospitalist Progress Note ---
Date of Service November 28, 2018 Assessment & Plan (1) COPD exacerbation: Patient has severe COPD with FEV1 only 32% of predicted at 0.82 L. Likely from smoking. She has a strong family history of COPD with her brother passing away from COPD recently. - IV abx, steroids, DuoNebs. - Continue home inhalers -> Transitioned to our formulary - Continue home O2 - Sputum culture collected on 11/27 - Light maximilian still present. (2) Depression: Due to her COPD and trouble breathing. - Continue home meds - Lorazepam PRN (3) Hypothyroidism: TSH was 1.9 in 05/2018. No signs/symptoms of hypo-/hyperthyroidism. - Continue home Synthroid 50 mcg (4) DVT prophylaxis: SCDs - Low DVT risk per admission calculator & she is walking the halls. Subjective Significant Narciso improved breathing today. Still with some sputum production. Feels she needs to stay another day for full improvement. Review of Systems Review of Systems: All systems reviewed & are unremarkable except as noted in HPI & below Physical Exam Constitutional: WD/WN, vitals as above Eyes: EOM intact bilaterally; no conjunctival abnormality ENMT: external ear and nose normal, oropharynx normal Neck: trachea midline, no thyromegaly normal visual inspection Respiratory: normal respiratory effort, lungs clear to auscultation + uses accessory muscles; no respiratory distress Auscultation: + wheezes (Improving) Cardiovascular: RRR, no murmur, no edema Gastrointestinal (Abdomen): Inspection/Auscultation: abdomen normal to inspection; abdomen not distended Musculoskeletal: no cyanosis or clubbing, extremities motor strength 5/5 Skin: no rashes, warm and dry Neurologic: moves all extremities and awake Psychiatric: Orientation: alert, oriented to person and cooperative Results & Data Vital Signs (Past 12 Hours) Vital Signs Temp Pulse Resp BP Pulse Ox 11/28/18 14:37 36.6 C 92 H 20 126/79 94 11/28/18 07:23 36.8 C 91 H 20 128/79 97 11/28/18 07:11 92 H 18 98 PG Care Time/CCT Total # of Minutes Spent Total Time Spent with Patient: Total time spent is greater than 50% in coordination of care (as documented) at patient's floor/unit and/or counseling patient:
[2018-11-28] MEDS: ALBUT/IPRATROP 3MG/0.5MG NEB 3 ML VIAL NEB PRN (19:07)
[2018-11-28] MEDS: MONTELUKAST SODIUM 10 MG TABLET PO SCH (21:02)
[2018-11-28] MEDS: ASCORBIC ACID 500 MG TAB PO SCH (21:02)
[2018-11-28] MEDS: ARIPiprazole 10 MG TAB PO SCH (21:02)
[2018-11-28] MEDS: cefTRIAXone SODIUM 2,000 MG in DEXTROSE 5% 50 ML IV SCH (21:07)
[2018-11-28] MEDS: ZOLPIDEM TARTRATE 10 MG TAB PO SCH (21:07)
[2018-11-29] MEDS: LEVOTHYROXINE SODIUM 50 MCG TABLET PO SCH (06:48)
[2018-11-29] MEDS: ALBUT/IPRATROP 3MG/0.5MG NEB 3 ML VIAL NEB PRN (07:02)
[2018-11-29] MEDS: guaiFENesin 600 MG TABCR PO SCH (08:01)
[2018-11-29] MEDS: IPRATROPIUM BROMIDE/ALBUTEROL respimat INH INH SCH (08:01)
[2018-11-29] MEDS: AZITHROMYCIN 250 MG TAB PO SCH (08:01)
[2018-11-29] MEDS: TOPIRAMATE 25 MG TAB PO SCH (08:02)
[2018-11-29] MEDS: BuPROPion SR 150 MG TABCR PO SCH (08:02)
[2018-11-29] MEDS: BUDESONIDE/FORMOTEROL FUMARATE 160/4.5 60 PUFFS/INHALER INH SCH (08:02)
[2018-11-29] MEDS: ESCITALOPRAM OXALATE 20 MG TAB PO SCH (08:02)
[2018-11-29] MEDS: ROFLUMILAST 500 MCG TAB PO SCH (08:02)
[2018-11-29] MEDS: TIOTROPIUM BROMIDE 5 PUFF/90 MCG INH INH SCH (08:02)
[2018-11-29] MEDS: methylPREDNISolone 60 MG in SYRINGE 0 ML IV SCH (08:02)
--- NOTE | 2018-11-29 18:48 | Discharge Summary ---
Date of Service November 29, 2018 Admission HPI Per Admitting Provider 53-year-old female with a history of severe COPD who presents with increased shortness of breath over the course of approximately 2 months. The patient reports that her increased shortness of breath began approximately in September. She reports she is also had increased cough with increased sputum production over this time course. Shortness of breath is been gradually increasing, and she presented in early November to the ED and was offered admission, but declined. She now visited her outpatient lithographic photographer Dr. retana who instructed her that she had to go to the emergency department given her prolonged exacerbation of COPD. She denies any fevers or chills, nausea, vomiting, sweats, weight loss, chest pain, or other issues with her COPD exacerbation. She had a CTA chest today ordered by Dr. retana which showed some right upper lobe nodular opacities that were consistent with a possible infectious or inflammatory cause. Principal Diagnosis COPD exacerbation Discharge Exam Constitutional WD/WN, vitals as above Eyes EOM intact bilaterally; no conjunctival abnormality ENMT external ear and nose normal, oropharynx normal Neck trachea midline, no thyromegaly normal visual inspection Respiratory normal respiratory effort, lungs clear to auscultation no respiratory distress and does not use accessory muscles Auscultation: + wheezes (Improving) Cardiovascular RRR, no murmur, no edema Gastrointestinal (Abdomen) Inspection/Auscultation: abdomen normal to inspection; abdomen not distended Musculoskeletal no cyanosis or clubbing, extremities motor strength 5/5 Skin no rashes, warm and dry Neurologic moves all extremities and awake Psychiatric Orientation: alert, oriented to person and cooperative Discharge Data Allergies Allergy/AdvReac Type Severity Reaction Status Date / Time Penicillins Allergy Unknown Unknown Verified 11/08/18 20:06 Hospital Course (1) COPD exacerbation: Patient has severe COPD with FEV1 only 32% of predicted at 0.82 L. Likely from smoking. She has a strong family history of COPD with her brother passing away from COPD recently. - IV abx, steroids, DuoNebs. - Continued home inhalers -> Transitioned to our formulary - Switched to PO abx and steroid taper on discharge. (2) Depression: Due to her COPD and trouble breathing. - Continue home meds - Lorazepam PRN (3) Hypothyroidism: TSH was 1.9 in 05/2018. No signs/symptoms of hypo-/hyperthyroidism. - Continue home Synthroid 50 mcg (4) DVT prophylaxis: SCDs - Low DVT risk per admission calculator & she is walking the halls. Total Time Total Time Spent Total Time Spent (In Minutes): 35 Total Time Includes: Examination of the Patient Discharge Plan Discharge Items Patient Disposition: Home - Self-Care Reason For Visit: COPD EXACERBATION Discharge Diagnosis: COPD exacerbation Discharge Goals: Decrease discomfort and Diagnostic testing Activity: Resume your previous activity Non-emergency contact: Primary Care Provider and Industrial Gas Servicer Helper Call non-emergency contact if: your symptoms worsen Follow-up/Referrals: Linden Retana, [Physician] - 12/02/18 2:30 pm (Please, follow up at [facility] Pulmonology Office with Dr. Retana's associate, Isabel SHARP, on SaturdayDecember 02 at 2:30 pm. *If you need to change this appointment, call their office at [phone].) Sunday Villalobos Jr, [Primary Care Provider] - 12/01/18 11:00 am (Please, follow up with Dr. Villalobos on SaturdayDecember 01 at 11:00 am. *If you need to change this appointment, call the office at [phone].) Diet: Regular Addtl Provider Instructions: Please take your prednisone as follows: Prednisone 40 mg (4 tabs) x 3 days, Prednisone 30 mg (3 tabs) x 3 days, Prednisone 20 mg (2 tabs) x 3 days, Prednisone 10 mg (1 tab) x 3 days, then stop. Please take your antibiotics for 3 more days, then you are finished with it. Take your first dose tonight. Prescriptions: New prednisone 10 mg tablet 40 mg PO DAILY Qty: 30 RF: 0 cephalexin [Keflex] 500 mg capsule 500 mg PO Q12H Qty: 7 RF: 0 Continued bupropion HCl 150 mg tablet sustained-release 12 hr 150 mg PO BID RF: 0 omeprazole 40 mg capsule,delayed release(DR/EC) 40 mg PO QAM RF: 0 ascorbic acid (vitamin C) [Vitamin C] 500 mg Tablet 500 mg PO QPM RF: 0 montelukast 10 mg tablet 10 mg PO QPM RF: 0 zolpidem 10 mg tablet 10 mg PO HS RF: 0 albuterol sulfate 90 mcg/actuation HFA aerosol inhaler 2 puff Inhalation Q6H PRN (Reason: Shortness Of Breath Or Wheezing) RF: 0 escitalopram oxalate 20 mg tablet 20 mg PO QAM RF: 0 roflumilast 500 mcg tablet 500 mcg PO QAM RF: 0 ipratropium-albuterol 20-100 mcg/actuation mist 1 puff Inhalation Q4H PRN (Reason: Shortness Of Breath Or Wheezing) RF: 0 u[place]gvn[place]apak-[place]-vkcornor 100-62.5-25 mcg blister with device 1 puff Inhalation QAM RF: 0 aripiprazole 10 mg tablet 10 mg PO QPM RF: 0 multivitamin Tablet 1 tab PO QAM RF: 0 albuterol sulfate 2.5 mg /3 mL (0.083 %) Solution For Nebulization 2.5 mg INHALATION QID PRN (Reason: Shortness Of Breath) RF: 0 levothyroxine 50 mcg Tablet 50 mcg PO QAM RF: 0 cholecalciferol (vitamin D3) [Vitamin D3] 2,000 unit Capsule 2,000 unit PO QAM RF: 0 Trokendi XR 50 mg Capsule,Extended Release 24hr 50 mg PO QPM RF: 0 Discontinued prednisone 10 mg Tablet 10 mg PO DIRECTED RF: 0 mycophenolate mofetil 250 mg capsule 250 mg PO BID RF: 0 azithromycin [Zithromax Z-Benjamin] 250 mg tablet See Rx Instructions .ROUTE .COMPLEX Qty: 6 RF: 0 Stand-Alone Forms: [facility], [facility] Discharge Orders: Discharge Order (Routine); Ordered 11/29/18 Ordered By: Mayank Haile Admission Data Admit Date/Time: 11/26/18 16:22 Attending Provider: Mayank Haile Admit Provider: Mayank Haile Primary Care Provider: Sunday Villalobos Jr Service: Medical Other Interventions: Discharge Summary Assessment (RN) Last Done: 11/29/18 13:09 DC Date/Time DO NOT enter until pt leaves facility: 11/29/18 13:48
== END 2018-11-29 13:48 | disposition home or self-care (01) | DRG 192 ==
LOC: 2W 16:22

== ENCOUNTER 2020-07-03 05:16 | Inpatient (IN) ==
[2020-07-03] MEDS ORDERED: DEXAMETHASONE SOD INJ 10 MG/ML VIAL IV ONE (05:41)
[2020-07-03] MEDS ORDERED: SODIUM CHLORIDE 0.9% 1000ML 1,000 ML IV ONE (05:41)
[2020-07-03] MEDS ORDERED: ALBUT/IPRATROP 3MG/0.5MG NEB 3 ML VIAL NEB ONE (05:41)
[2020-07-03] MEDS ORDERED: KETOROLAC TROMETHAMINE 15 MG/ML VIAL IV STA (05:41)
[2020-07-03] MEDS ORDERED: ONDANSETRON INJ 2 MG/ML 2 ML VIAL IV STA (05:42)
[2020-07-03] MEDS ORDERED: diphenhydrAMINE 50 MG/ML VIAL IV STA (05:43)
--- NOTE | 2020-07-03 05:44 | Emergency Department Note ---
Impression & Plan Acute exacerbation of chronic obstructive pulmonary disease, Headache ED Provider Note Name: EDDIE MCGARRY Age: 55 Sex: F Arrives Via: Walk-In Informant: Patient ED Provider: Alex Erazo MD Chief Complaint: Headache Impression: Acute Exacerbation of COPD Headache Medical Decision Makin yr old yr old female arrives for evaluation of headache and shortness of breath. Patient with history of COPD and trying to get on lung transplant list who notes recent treatment of azithro/prednisone with now worsening symptoms. Now having headache last few days without neuro deficits nor findings of sepsis nor meningitis. Suspect headache due to increased WOB and not sleeping the last few days due to breathing difficulties. She was feeling better with IV meds. She is finally able to breath some with prolonged neb though still quite short of breath. She is not back to her baseline and has failed outpatient treatment. Discussed with hospitalist for further management. With no fever, wbc at baseline, no infiltrate, will defer abx to hospitalist. Triage/Nursing Notes reviewed by Me Differentials:Reactive airway disease, pneumonia, pneumothorax, COPD, CHF, infections, cardiac ischemia, pulmonary embolism, musculoskeletal, gastrointestinal, as well as other pathologies. Vital Signs: reviewed and remarkable for no significant abnormalities Interventions: saline lock, toradol, benadryl, decadron, fentanyl, zofran, nss bolus, duoneb Labs:Reviewed and remarkable for no significant abnormalities (WBC at baseline) Imaging:X ray results are stated below per my interpretation: Chest: 1 view: No infiltrate, no effusion, normal cardiac border. EKG:Per My Interpretation: Indication shob: NSR 99 bpm, qtc 405. No Ectopy. No Ischemia. Compared to EKG 04/04/19, no significant changes. Cardiac/Tele Monitoring: Cardiac Monitoring: An Order was placed for continuous cardiac monitoring. The monitor shows a rate of 100 with a normal sinus rhythm. Consults:Dr Crescencio QUEEN Hospitlaist Plan: Disposition:Hospitalization. Condition: Fair History of Present Illness:55 yr old female arrives for evaluation of headache. Patient notes that she has had gradually worsening headache over the last 2 days. Associated with lack of sleep and anxiety. Frontal and right sided. No syncope, trauma, injuries, fevers, neck stiffness, rashes. She notes that her COPD has been acting up for the last 4 weeks, treated 2 weeks ago with azithro and prednisone. Notes symptoms of shortness of breath only briefly got better before worsening. Have continued worsening and she is concerned her lack of ability to breath is worsening her anxiety and causing her to loss sleep. Admits using BID Nebulizers without improvement. Currently on 10mg PO Pred nisone. Patient denies Headache and SOB. COPD exacerbation 2 weeks ago with azithro/prednisone. Minimally improved. Worsening sob last week. Neb BID without improvement. Now 2 days headache, frontal right. No syncope trauma nor sudden onset. Not usually getting headaches. ROS: See above HPI for pertinent positives & negatives. A total of 10 systems reviewed and were otherwise negative. Past Medical History:See Below Past Surgical History:See Below Family History:See Below Social History:See Below Home Medications:See Below Allergies:PNC Vitals:Blood Pressure: 155/85, Pulse 103, RR 23, T 36.3C, O2 97% on NC 4L Physical Exam: GENERAL: Patient is unwell appearing and in moderate distress. HEAD: AT/NC EYES: No scleral icterus, unremarkable pupils. ENT: Mucous membranes moist, no nasal congestion. NECK: No masses appreciated, nomeningismus, trachea is midline. RESPIRATORY: Very tight lung sounds distant wheezing, severely tachypne ic/dyspneic CARDIOVASCULAR: Tachy.No murmurs, rubs, gallops appreciated. GASTROINTESTINAL: Abdomen soft, non-tender, no peritonitis.Bowel sounds positive.No masses appreciated. BACK: No midline tenderness, no CVA tenderness EXTREMITIES: Normal motion all extremities, no cyanosis, no edema. NEUROLOGIC: Alert and oriented, no acute motor or sensory deficits, no focal weakness, cranial nerves grossly intact. SKIN: No rash, no jaundice, no diaphoresis. PSYCH: Appropriate GCS: 15 ED Course: Times/Reassessments: Improvement in breathing though still very tight and wheezing loudly now Alex Erazo MD Past Med/Surg History Medical History (Updated 07/03/20 @ 09:22 by Dillon Prather MD) Anxiety Chronic intermittent hypoxia with obstructive sleep apnea COPD (chronic obstructive pulmonary disease) Depression Hypothyroidism On home oxygen therapy 2L at hs and prn SAMUEL (obstructive sleep apnea) Overweight Pulmonary emphysema Sleep apnea cpap with 2L Surgical History (System 10/19/19 @ 10:22 by Norma Bell) History of abdominal surgery repair of ruptured spleen History of appendectomy History of bronchoscopy History of cardiac cath SOB--05/22/2018 @ [facility]--no stents History of lung surgery benign nodule removal from left lung History of open reduction and internal fixation (ORIF) procedure left wrist--hardware removed History of tooth extraction all upper teeth History of wisdom tooth extraction Family History (System 10/19/19 @ 10:22 by Norma Bell) Daughter Family history of reaction to anesthesia takes a lot to put her out Brother Family history of cancer of tongue Social History (System 10/19/19 @ 10:22 by Norma Bell) Smoking Status: Former smoker Tobacco Type: Cigarettes Cigarettes Per Day: 30; Second Hand Exposure: No ( also quit smoking); Hx Alcohol Use: Yes Alcohol type: beer Hx Substance Use: No Preferred Language: Monegasque Communication Ability: Effective Veneer Taper Required: No Beliefs That Will Affect Care: None Current Living Situation: Spouse Other Information That Helps Us Care for You: No Feels Safe at Home: Yes Safety Concerns: Feels Safe At This Time Assistive Devices: Oxygen - Continuous Allergies Allergies Allergy/AdvReac Type Severity Reaction Status Date / Time Penicillins Allergy Unknown Unknown Verified 07/03/20 05:46 Home Meds Home Medications Medication Instructions Recorded Confirmed albuterol sulfate [Ventolin HFA] 2 puff INHALATION Q6H PRN 06/11/18 07/03/20 aripiprazole [Abilify] 10 mg PO HS 06/11/18 07/03/20 ascorbic acid (vitamin C) [Vitamin 500 mg PO QPM 06/11/18 07/03/20 C] escitalopram oxalate [Lexapro] 20 mg PO QAM 06/11/18 07/03/20 [id number]-[id number] 1 puff INHALATION QAM 06/11/18 07/03/20 [Trelegy Ellipta] montelukast [Singulair] 10 mg PO HS 06/11/18 07/03/20 omeprazole 40 mg PO QAM 06/11/18 07/03/20 roflumilast [Daliresp] 500 mcg PO QAM 06/11/18 07/03/20 zolpidem [Ambien] 10 mg PO HS PRN 06/11/18 07/03/20 cholecalciferol (vitamin D3) 2,000 unit PO QAM 07/03/18 07/03/20 [Vitamin D3] phentermine [Adipex-P] 37.5 mg PO DAILY 04/04/19 07/03/20 budesonide 1 mg/2 mL suspension 0.5 mg INHALATION DAILY ml 05/20/19 07/03/20 for nebulization bupropion HCl 150 mg tablet,12 hr 150 mg PO DAILY ea 05/20/19 07/03/20 sustained-release trazodone 50 mg tablet 25 mg PO HS tab 05/20/19 07/03/20 albuterol sulfate 2.5 mg INHALATION DIRECTED PRN 07/03/20 07/03/20 ipratropium-albuterol 3 ml INHALATION DIRECTED PRN 07/03/20 07/03/20 ipratropium-albuterol [Combivent 1 puff INHALATION Q4H PRN 07/03/20 07/03/20 Respimat] prednisone 10 mg PO DAILY 07/03/20 07/03/20 Previous Rx's Medication Instructions Recorded nebulizers #1 ea 05/30/20 Results & Data (ED) Vital Signs Vital Signs - 24 hr 07/03/20 05:19 07/03/20 05:30 07/03/20 05:36 Temperature 36.3 C L Temperature Source Oral Pulse Rate 102 H 101 H 102 H Pulse Rate [Right Apical] Pulse Rate from SpO2 Sensor 101 H 102 H Respiratory Rate 20 20 21 Respiratory Effort / Characteristics Blood Pressure 128/74 155/85 H Blood Pressure Mean 92 108 Blood Pressure Position Lying Pulse Oximetry 96 98 97 Oxygen Delivery Method Nasal Cannula Oxygen Flow Rate 4 Sepsis Recent Fever Within 48 Hours No Sepsis New/Unexplained Change in Mental Status N/A Sepsis Action Taken by Nursing No Action Required 07/03/20 06:00 07/03/20 06:11 07/03/20 06:35 Temperature Temperature Source Pulse Rate 103 H 99 H Pulse Rate [Right Apical] 99 H Pulse Rate from SpO2 Sensor 101 H 99 H Respiratory Rate 24 23 19 Respiratory Effort / Characteristics Spontaneous SOB on Exertion Blood Pressure 138/90 Blood Pressure Mean 106 Blood Pressure Position Pulse Oximetry 99 97 98 Oxygen Delivery Method Nasal Cannula Oxygen Flow Rate 4 Sepsis Recent Fever Within 48 Hours Sepsis New/Unexplained Change in Mental Status Sepsis Action Taken by Nursing 07/03/20 07:00 Temperature Temperature Source Pulse Rate 99 H Pulse Rate [Right Apical] Pulse Rate from SpO2 Sensor 99 H Respiratory Rate 17 Respiratory Effort / Characteristics Blood Pressure 137/90 Blood Pressure Mean 105 Blood Pressure Position Pulse Oximetry 100 Oxygen Delivery Method Nebulizer Oxygen Flow Rate 7 Sepsis Recent Fever Within 48 Hours Sepsis New/Unexplained Change in Mental Status Sepsis Action Taken by Nursing Laboratory Data Result diagrams: 07/03/20 05:40 07/03/20 05:40 Lab Results 07/03/20 07/03/20 07/03/20 Range/Units 05:40 05:40 06:16 WBC 14.00 H (4.8-10.8) K/uL RBC 4.16 L (4.2-5.4) M/uL Hgb 11.7 L (12.0-16.0) g/dL Hct 39.8 (37-47) % MCV 95.7 (80-100) fL MCH 28.1 (25-34) pg MCHC 29.4 L (32-36) g/dL RDW Std Deviation 45.7 (36.4-46.3) fL RDW Coeff of Nicolle 13.2 (11.5-14.5) % Plt Count 497 H (130-400) K/uL MPV 9.2 (7.4-10.4) fL Immature Gran % (Auto) 0.2 % Neut % (Auto) 69.2 % Lymph % (Auto) 18.4 % [place] % (Auto) 7.9 % Eos % (Auto) 4.1 % Baso % (Auto) 0.2 % Neut # (Auto) 9.68 H (1.4-6.5) K/uL Lymph # (Auto) 2.58 (1.2-3.4) K/uL [place] # (Auto) 1.10 H (0.11-0.59) K/uL Eos # (Auto) 0.58 H (0-0.5) K/uL Baso # (Auto) 0.03 (0-0.2) K/uL Immature Gran # (Auto) 0.03 H (0.00-0.02) K/uL Sodium 140 (136-145) mmol/L Potassium 3.9 (3.5-5.1) mmol/L Chloride 101 (98-107) mmol/L Carbon Dioxide 36 H (21-32) mmol/L Anion Gap 3.0 (3-11) BUN 6 L (7-18) mg/dl Creatinine 0.60 (0.6-1.2) mg/dl Est Cr Clr Drug Dosing Not Reportable Est GFR ( Amer) 117.3 Est GFR (Non-Af Amer) 101.2 BUN/Creatinine Ratio 10.8 (10-20) Glucose 121 H (70-99) mg/dl Calcium 9.1 (8.5-10.1) mg/dl Magnesium 2.2 (1.8-2.4) mg/dl Troponin I < 0.015 (0-0.045) ng/ml COVID-19 Eval [facility] SARS-CoV-2, RNA, NAAT (NEGATIVE) 07/03/20 Range/Units 06:16 WBC (4.8-10.8) K/uL RBC (4.2-5.4) M/uL Hgb (12.0-16.0) g/dL Hct (37-47) % MCV (80-100) fL MCH (25-34) pg MCHC (32-36) g/dL RDW Std Deviation (36.4-46.3) fL RDW Coeff of Nicolle (11.5-14.5) % Plt Count (130-400) K/uL MPV (7.4-10.4) fL Immature Gran % (Auto) % Neut % (Auto) % Lymph % (Auto) % [place] % (Auto) % Eos % (Auto) % Baso % (Auto) % Neut # (Auto) (1.4-6.5) K/uL Lymph # (Auto) (1.2-3.4) K/uL [place] # (Auto) (0.11-0.59) K/uL Eos # (Auto) (0-0.5) K/uL Baso # (Auto) (0-0.2) K/uL Immature Gran # (Auto) (0.00-0.02) K/uL Sodium (136-145) mmol/L Potassium (3.5-5.1) mmol/L Chloride (98-107) mmol/L Carbon Dioxide (21-32) mmol/L Anion Gap (3-11) BUN (7-18) mg/dl Creatinine (0.6-1.2) mg/dl Est Cr Clr Drug Dosing Est GFR ( Amer) Est GFR (Non-Af Amer) BUN/Creatinine Ratio (10-20) Glucose (70-99) mg/dl Calcium (8.5-10.1) mg/dl Magnesium (1.8-2.4) mg/dl Troponin I (0-0.045) ng/ml COVID-19 Eval Order SARS-CoV-2, RNA, NAAT NEGATIVE (NEGATIVE) Administered Medications Acetaminophen (Acetaminophen 325 Mg Tab) 650 mg PO Q4H PRN PRN Reason: Pain or Fever Stop: 08/02/20 09:17 Last Admin: 07/04/20 00:39 Dose: 650 mg Documented by: [id number] Admin: 07/03/20 18:53 Dose: 650 mg Documented by: [id number] Admin: 07/03/20 11:59 Dose: 650 mg Documented by: [id number] Albuterol (Albut/Ipratrop 3mg/0.5mg Neb 3 Ml Vial) 3 ml INH Q4R [facility] Stop: 08/02/20 10:59 Last Admin: 07/03/20 22:12 Dose: Not Given Documented by: [id number] Admin: 07/03/20 19:08 Dose: 3 ml Documented by: [id number] Admin: 07/03/20 15:18 Dose: 3 ml Documented by: [id number] Admin: 07/03/20 11:24 Dose: 3 ml Documented by: [id number] Aripiprazole (Aripiprazole 10 Mg Tab) 10 mg PO [facility] Stop: 08/02/20 20:59 Last Admin: 07/03/20 20:04 Dose: 10 mg Documented by: [id number] Bupropion HCl (Bupropion Sr 150 Mg Tabcr) 150 mg PO [facility] Stop: 08/02/20 20:59 Last Admin: 07/03/20 20:03 Dose: 150 mg Documented by: [id number] Doxycycline Hyclate (Doxycycline Hyclate 100 Mg Cap) 100 mg PO BID [facility]; Protocol Stop: 07/10/20 09:17 Last Admin: 07/03/20 20:03 Dose: 100 mg Documented by: [id number] Admin: 07/03/20 11:59 Dose: 100 mg Documented by: [id number] Enoxaparin Sodium (Enoxaparin Inj 40 Mg/0.4 Ml Syr) 40 mg SQ Q24H [facility] Stop: 08/02/20 10:59 Last Admin: 07/03/20 10:42 Dose: 40 mg Documented by: [id number] Escitalopram Oxalate (Escitalopram Oxalate 20 Mg Tab) 20 mg PO QAM [facility] Stop: 08/02/20 09:17 Last Admin: 07/03/20 10:40 Dose: 20 mg Documented by: [id number] Formoterol Fumarate (Formoterol 20 Mcg/2 Ml Vial) 20 mcg NEB BIDR [facility] Stop: 08/02/20 18:59 Last Admin: 07/03/20 19:08 Dose: 20 mcg Documented by: [id number] Guaifenesin (Guaifenesin 600 Mg Tabcr) 1,200 mg PO BID [facility] Stop: 08/02/20 09:17 Last Admin: 07/03/20 20:03 Dose: 1,200 mg Documented by: [id number] Admin: 07/03/20 10:40 Dose: 1,200 mg Documented by: [id number] Hydromorphone HCl (Hydromorphone Inj 0.5 Mg/0.5 Ml Syr) 0.5 mg IV Q4H PRN PRN Reason: Pain Stop: 07/17/20 09:17 Last Admin: 07/03/20 15:16 Dose: 0.5 mg Documented by: [id number] Methylprednisolone 40 mg/ (Syringe) 0.64 mls @ 1.5 mls/min IV Q12H [facility] Stop: 08/02/20 17:59 Last Admin: 07/03/20 17:04 Dose: 1.5 mls/min Documented by: [id number] Montelukast Sodium (Montelukast Sodium 10 Mg Tablet) 10 mg PO [facility] Stop: 08/02/20 20:59 Last Admin: 07/03/20 20:04 Dose: 10 mg Documented by: [id number] Pantoprazole Sodium (Pantoprazole 40 Mg Tab) 40 mg PO QAM [facility] Stop: 08/02/20 09:17 Last Admin: 07/03/20 10:41 Dose: 40 mg Documented by: [id number] [facility]oflumilast ([facility]il[facility] 500 Mcg Tab) [facility] Stop: 08/02/20 09:17 Last Admin: 07/03/20 10:40 Dose: 500 mcg Documented by: [id number] Trazodone HCl (Trazodone Hcl 50 Mg Tab) 25 mg PO [facility] Stop: 08/02/20 20:59 Last Admin: 07/03/20 20:04 Dose: 25 mg Documented by: [id number] Vitamin D (Cholecalciferol 1,000 Units 25 Mcg Tab) 2,000 units PO QAM [facility] Stop: 08/02/20 09:17 Last Admin: 07/03/20 10:41 Dose: 2,000 units Documented by: [id number] Zolpidem Tartrate (Zolpidem Tartrate 10 Mg Tab) 10 mg PO HS PRN PRN Reason: Sleep Stop: 08/02/20 09:17 Last Admin: 07/03/20 20:03 Dose: 10 mg Documented by: [id number] Discontinued Medications Albuterol (Albut/Ipratrop 3mg/0.5mg Neb 3 Ml Vial) 12 ml NEB ONE ONE Stop: 07/03/20 05:42 Last Admin: 07/03/20 05:59 Dose: 12 ml Documented by: [id number] Bupropion HCl (Bupropion Sr 150 Mg Tabcr) 150 mg PO DAILY [facility] Stop: 08/02/20 09:17 Last Admin: 07/03/20 11:13 Dose: Not Given Documented by: [id number] Dexamethasone (Dexamethasone Sod Inj 10 Mg/Ml Vial) 10 mg IV NOW ONE Stop: 07/03/20 05:42 Last Admin: 07/03/20 05:49 Dose: 10 mg Documented by: [id number] Diphenhydramine HCl (Diphenhydramine 50 Mg/Ml Vial) 25 mg IV NOW STA Stop: 07/03/20 05:44 Last Admin: 07/03/20 05:55 Dose: 25 mg Documented by: [id number] Fentanyl Citrate (Fentanyl Citrate 100 Mcg/2 Ml Vial) 50 mcg IV NOW STA Stop: 07/03/20 07:23 Last Admin: 07/03/20 07:30 Dose: 50 mcg Documented by: [id number] Hydromorphone HCl (Hydromorphone Inj 0.5 Mg/0.5 Ml Syr) Confirm Administered Dose 0.5 mg .ROUTE .STK-MED ONE Stop: 07/03/20 09:31 Last Admin: 07/03/20 09:35 Dose: 0.5 mg Documented by: [id number] Sodium Chloride (Nss 1000ml) 1,000 mls @ 999 mls/hr IV .Q1H1M ONE Stop: 07/03/20 06:41 Last Infusion: 07/03/20 06:56 Dose: 0 mls/hr Documented by: [id number] Admin: 07/03/20 05:55 Dose: 999 mls/hr Documented by: [id number] Ketorolac Tromethamine (Ketorolac Tromethamine 15 Mg/Ml Vial) 15 mg IV NOW STA Stop: 07/03/20 05:42 Last Admin: 07/03/20 05:55 Dose: 15 mg Documented by: [id number] Ondansetron HCl (Ondansetron Inj 2 Mg/Ml 2 Ml Vial) 4 mg IV NOW STA Stop: 07/03/20 05:43 Last Admin: 07/03/20 05:49 Dose: 4 mg Documented by: [id number] Discharge Plan Visit Data Chief Complaint: Headache Stated Complaint: MIGRAINE ED Provider: Alex Erazo Discharge Problem: Acute exacerbation of chronic obstructive pulmonary disease, Headache Patient Disposition: Admitted As Inpatient Discharge Instructions Interventions: ED Discharge Assessment Last Done: 07/03/20 08:32 Discharge Problem: Headache Qualifiers: Headache type: unspecified Headache chronicity pattern: acute headache Intractability: not intractable Qualified Code(s): R51.9 - Headache, unspecified
[2020-07-03 05:49] LABS: Basophils # (auto) 0.03 K/uL (0-0.2); Basophils % (auto) 0.2 %; Eosinophils # (auto) 0.58 K/uL (0-0.5); Eosinophils % (auto) 4.1 %; Hematocrit (blood only) 39.8 % (37-47); Hemoglobin 11.7 g/dL (12.0-16.0); Immature Granulocytes # (auto) 0.03 K/uL (0.00-0.02); Immature Granulocytes % (auto) 0.2 %; Lymphocytes # (auto) 2.58 K/uL (1.2-3.4); Lymphocytes % (auto) 18.4 %; Mean Corpuscular Hemoglobin 28.1 pg (25-34); Mean Corpuscular Hgb Conc 29.4 g/dL (32-36); Mean Corpuscular Volume 95.7 fL (80-100); Mean Platelet Volume 9.2 fL (7.4-10.4); Monocytes % (auto) 7.9 %; Neutrophils # (auto) 9.68 K/uL (1.4-6.5); Neutrophils % (auto) 69.2 %; Platelet Count 497 K/uL (130-400); RDW Coefficient of Variation 13.2 % (11.5-14.5); RDW Standard Deviation 45.7 fL (36.4-46.3); Red Blood Count 4.16 M/uL (4.2-5.4)
[2020-07-03 06:06] LABS: BUN Creatinine Ratio 10.8 (10-20); Blood Urea Nitrogen 6 mg/dl (7-18); Calcium 9.1 mg/dl (8.5-10.1); Carbon Dioxide 36 mmol/L (21-32); Chloride 101 mmol/L (98-107); Est GFR (African American) 117.3; Est GFR (Non-African American) 101.2; Glucose 121 mg/dl (70-99); Magnesium 2.2 mg/dl (1.8-2.4); Potassium 3.9 mmol/L (3.5-5.1); Sodium 140 mmol/L (136-145)
[2020-07-03 06:11] LABS: Troponin I < 0.015 ng/ml (0-0.045)
--- NOTE | 2020-07-03 07:01 | CT Scan Report ---
CT OF THE HEAD WITHOUT CONTRAST CLINICAL HISTORY: frontal/right headache x 2 days COMPARISON STUDY: No previous studies for comparison. CT DOSE: 1225.46 mGy.cm TECHNIQUE: Helical axial images of the head were obtained without IV contrast. Automated exposure con trol was utilized for the study. A dose lowering technique was utilized adhering to the principles o f ALARA. FINDINGS: This exam is mildly compromised by motion artifact. No acute intracranial hemorrhage, midli ne shift or mass effect is present. The ventricular system is unremarkable. The basal cisterns are pa tent. No extra-axial collections are present. There are no findings to suggest acute dural sinus thro mbosis or acute territorial infarct. No significant calvarial abnormalities are present. Visualized p ortions of the sinuses and mastoid air cells are clear. IMPRESSION: No acute intracranial findings. Exam mildly compromised by artifact. ACT 112: Negative or not required by law. Electronically signed by: Emigdio Torres M.D. 07/03/2020 7:00 AM
--- NOTE | 2020-07-03 07:03 | XRay Report ---
XR chest 1V portable CLINICAL HISTORY: Shortness of breath. COMPARISON STUDY: Chest CT November 26, 2018. Chest radiograph March 18, 2019. FINDINGS: Lung volumes are normal. Lungs are clear. There is no pneumothorax or pleural effusion. Car diac size is normal. Mediastinal contours are normal. There is no evidence for pulmonary edema. Calci fied upper lobe nodules are unchanged. There is emphysema. IMPRESSION: No acute cardiopulmonary findings. No change in appearance of the chest. ACT 112: Negative or not required by law. Electronically signed by: Emigdio Torres M.D. 07/03/2020 7:01 AM
[2020-07-03] MEDS ORDERED: fentaNYL citrate 100 MCG/2 ML VIAL IV STA (07:22)
[2020-07-03] MEDS ORDERED: buPROPion SR 150 MG TABCR PO SCH (09:18)
[2020-07-03] MEDS ORDERED: MoRPHine SULFATE 2 MG/ML CARP IV PRN (09:18)
[2020-07-03] MEDS ORDERED: ALUMINUM/MAGNESIUM SUSP 30 ML UDC PO PRN (09:18)
[2020-07-03] MEDS ORDERED: ONDANSETRON INJ 2 MG/ML 2 ML VIAL IV PRN (09:18)
--- NOTE | 2020-07-03 09:21 | Electrocardiogram Report ---
Test Reason : Blood Pressure : / mmHG Vent. Rate : 099 BPM Atrial Rate : 099 BPM P-R Int : 146 ms QRS Dur : 072 ms QT Int : 316 ms P-R-T Axes : 058 059 054 degrees QTc Int : 405 ms Poor data quality, interpretation may be adversely affected Normal sinus rhythm Normal ECG When compared with ECG of 04-APR-2019 12:36, No significant change Confirmed by Jaden Goss [id number] on 07/03/2020 9:21:18 AM Referred By: REFERRED SELF Confirmed By:Jaden Goss
[2020-07-03] MEDS ORDERED: HYDROmorphone INJ 0.5 MG/0.5 ML SYR ONE (09:30)
[2020-07-03] MEDS ORDERED: PATIENT'S HEIGHT AND/OR WEIGHT NEEDED SCH (09:45)
--- NOTE | 2020-07-03 10:27 | History & Physical Report ---
Date of Service July 03, 2020 Assessment & Plan (1) Acute exacerbation of chronic obstructive pulmonary disease: Patient has COPD plus minus bronchitis as she has had change in sputum color will have on Solu-Medrol doxycycline albuterol Solu-Medrol she is maintained on oxygen for which she typically wears 5 L and BiPAP at night (2) Headache: Headache sounds to be more like a tension headache is not concerning for meningitis Contrast CT scan of the head performed 07/03/2020 shows no acute intracranial findings (3) SAMUEL (obstructive sleep apnea): Patient typically wears BiPAP 12/5 with a 5 L oxygen bleed in (4) Hypothyroidism: This is by history we will check it TSH and T4 she is on any supplementation (5) Depression: Continues on trazodone Lexapro and Wellbutrin Abilify (6) DVT prophylaxis: Patient is a full code remains on enoxaparin 40-day for DVT prevention Admission and Anticipated Discharge Date Admission Date: July 03, 2020 History of Present Illness Primary Care Provider: Sunday Villalobos Jr, DO 55-year-old female with a history of severe COPD secondary tobacco use who has been off cigarettes for 6 to 7 years. Patient is currently following with [facility] for consideration of lung transplant. Patient is attempting to have weight loss to be approved for the surgery. Patient was treated for a COPD exacerbation approximately 2 weeks ago with azithromycin and an outpatient prednisone. She is currently on 10 mg. Patient states over the last few days she has not been able to sleep due to severe shortness of breath and orthopnea. She is having a headache which is described as generalized bilaterally and did improve with opiates in the emergency department. Screening in the ER shows no fevers no leukocytosis no concern for secondary infection there is no pneumonia on chest x-ray and the thought is that she is having a COPD exacerbation causing sleep deprivation and headache. Allergies Allergy/AdvReac Type Severity Reaction Status Date / Time Penicillins Allergy Unknown Unknown Verified 07/03/20 05:46 Home Medications Medication Instructions Recorded Confirmed Type albuterol sulfate [Ventolin HFA] 2 puff INHALATION Q6H PRN 06/11/18 07/03/20 History aripiprazole [Abilify] 10 mg PO HS 06/11/18 07/03/20 History ascorbic acid (vitamin C) [Vitamin 500 mg PO QPM 06/11/18 07/03/20 History C] escitalopram oxalate [Lexapro] 20 mg PO QAM 06/11/18 07/03/20 History [id number] 1 puff INHALATION QAM 06/11/18 07/03/20 History [Trelegy Ellipta] montelukast [Singulair] 10 mg PO HS 06/11/18 07/03/20 History omeprazole 40 mg PO QAM 06/11/18 07/03/20 History roflumilast [Daliresp] 500 mcg PO QAM 06/11/18 07/03/20 History zolpidem [Ambien] 10 mg PO HS PRN 06/11/18 07/03/20 History cholecalciferol (vitamin D3) 2,000 unit PO QAM 07/03/18 07/03/20 History [Vitamin D3] phentermine [Adipex-P] 37.5 mg PO DAILY 04/04/19 07/03/20 History budesonide 1 mg/2 mL suspension 0.5 mg INHALATION DAILY ml 05/20/19 07/03/20 History for nebulization bupropion HCl 150 mg tablet,12 hr 150 mg PO DAILY ea 05/20/19 07/03/20 History sustained-release trazodone 50 mg tablet 25 mg PO HS tab 05/20/19 07/03/20 History nebulizers #1 ea 05/30/20 Rx albuterol sulfate 2.5 mg INHALATION DIRECTED PRN 07/03/20 07/03/20 History ipratropium-albuterol 3 ml INHALATION DIRECTED PRN 07/03/20 07/03/20 History ipratropium-albuterol [Combivent 1 puff INHALATION Q4H PRN 07/03/20 07/03/20 History Respimat] prednisone 10 mg PO DAILY 07/03/20 07/03/20 History Past Med/Surg History Medical History (Updated 07/03/20 @ 09:22 by Dillon Prather MD) Anxiety Chronic intermittent hypoxia with obstructive sleep apnea COPD (chronic obstructive pulmonary disease) Depression Hypothyroidism On home oxygen therapy 2L at hs and prn SAMUEL (obstructive sleep apnea) Overweight Pulmonary emphysema Sleep apnea cpap with 2L Surgical History (System 10/19/19 @ 10:22 by Norma Bell) History of abdominal surgery repair of ruptured spleen History of appendectomy History of bronchoscopy History of cardiac cath SOB--05/22/2018 @ [facility]--no stents History of lung surgery benign nodule removal from left lung History of open reduction and internal fixation (ORIF) procedure left wrist--hardware removed History of tooth extraction all upper teeth History of wisdom tooth extraction Family History (System 10/19/19 @ 10:22 by Norma Bell) Daughter Family history of reaction to anesthesia takes a lot to put her out Brother Family history of cancer of tongue Social History (System 10/19/19 @ 10:22 by Norma Bell) Smoking Status: Former smoker Tobacco Type: Cigarettes Cigarettes Per Day: 30; Second Hand Exposure: No ( also quit smoking); Hx Alcohol Use: Yes Alcohol type: beer Hx Substance Use: No Preferred Language: Kenyan Communication Ability: Effective Tavern Keeper Required: No Beliefs That Will Affect Care: None Current Living Situation: Spouse Other Information That Helps Us Care for You: No Feels Safe at Home: Yes Safety Concerns: Feels Safe At This Time Assistive Devices: Denture - Upper, Glasses and Oxygen - Continuous Review of Systems Review of Systems: Moderate distress and fatigue no headache, blurry or double vision no speech or swallowing issues no chest pain, pressure or palpitations Significant shortness of breath speaking in short sentences prolonged expiration phase no abdominal pain, nausea or vomiting, diarrhea or constipation no dysuria, hematuria or frequency no focal joint pain or swelling no back pain, CVA tenderness or radicular pain no bruising, bleeding or rashes no focal signs of weakness or numbness or altered sensation no complaints of anxiety or depression.. Physical Exam Physical Exam: The patient appeared well nourished and normally developed. She is in mild to moderate respiratory distress respiration rate is 24 in the chart however she appears to be higher on my examination Vital signs as documented. Head exam is normocephalic atraumatic no scleral icterus Neck is without JVD, thyromegaly, or carotid bruits. Lungs very poor air movement scant wheezes when she does move air Cardiac exam, Rhythm is regular.. No murmurs, rubs or gallops. Abdominal exam reveals normal bowel sounds, soft non tender, no masses Extremities are nonedematous and both pedal pulses are present Neurologic exam is alert and oriented, no focal loss of strength or sensation Skin is without bruises or rashes Psychologically is without concerns for anxiety or depression Results & Data Results & Data ([facility]) Vital Signs (Past 12 Hours) Vital Signs Temp Pulse Pulse Resp BP Pulse Ox 07/03/20 08:00 105 H 15 106/68 99 07/03/20 07:00 99 H 17 137/90 100 07/03/20 06:35 99 H 19 138/90 98 07/03/20 06:11 103 H 23 97 07/03/20 06:00 99 H 24 99 07/03/20 05:36 102 H 21 97 07/03/20 05:30 101 H 20 155/85 H 98 07/03/20 05:19 97.3 F L 102 H 20 128/74 96 Code Status & VTE Plan VTE Prophylaxis Plan VTE Prophylaxis will be ordered: Yes PG Care Time/CCT Total # of Minutes Spent Total Time Spent with Patient: Total time spent is greater than 50% in coordination of care (as documented) at patient's floor/unit and/or counseling patient: Coding Level of Care Code 30333 Initial Inpt Care Lvl 3 Diagnoses Acute exacerbation of chronic obstructive pulmonary disease J44.1 Headache R51.9 Headache chronicity pattern: acute headache Headache type: unspecified Intractability: not intractable SAMUEL (obstructive sleep apnea) G47.33 Hypothyroidism E03.9 Depression F32.9 DVT prophylaxis Z29.9 (1) Headache Headache chronicity pattern: acute headache Headache type: unspecified Intractability: not intractable Qualified Code(s): R51.9 - Headache, unspecified
[2020-07-03] MEDS ORDERED: Nursing to Pharmacy Communication SCH (10:30)
[2020-07-03] MEDS: ESCITALOPRAM OXALATE 20 MG TAB PO SCH (10:40)
[2020-07-03] MEDS: ROFLUMILAST 500 MCG TAB PO SCH (10:40)
[2020-07-03] MEDS: guaiFENesin 600 MG TABCR PO SCH ×2 (10:40→20:03)
[2020-07-03] MEDS: PANTOprazole 40 MG TAB PO SCH (10:41)
[2020-07-03] MEDS: CHOLECALCIFEROL 1,000 UNITS 25 MCG TAB PO SCH (10:41)
[2020-07-03] MEDS: ENOXAPARIN INJ 40 MG/0.4 ML SYR SQ SCH (10:42)
[2020-07-03] MEDS: ALBUT/IPRATROP 3MG/0.5MG NEB 3 ML VIAL INH SCH ×4 (11:24→22:12)
[2020-07-03] MEDS: ACETAMINOPHEN 325 MG TAB PO PRN ×2 (11:59→18:53)
[2020-07-03] MEDS: DOXYCYCLINE HYCLATE 100 MG CAP PO SCH ×2 (11:59→20:03)
[2020-07-03] MEDS: HYDROmorphone INJ 0.5 MG/0.5 ML SYR IV PRN (15:16)
[2020-07-03] MEDS: methylPREDNISolone 40 MG in SYRINGE 0 ML IV SCH (17:04)
[2020-07-03] MEDS: FORMOTEROL 20 MCG/2 ML VIAL NEB SCH (19:08)
[2020-07-03] MEDS: ZOLPIDEM TARTRATE 10 MG TAB PO PRN (20:03)
[2020-07-03] MEDS: buPROPion SR 150 MG TABCR PO SCH (20:03)
[2020-07-03] MEDS: MONTELUKAST SODIUM 10 MG TABLET PO SCH (20:04)
[2020-07-03] MEDS: ARIPiprazole 10 MG TAB PO SCH (20:04)
[2020-07-03] MEDS: traZODone HCL 50 MG TAB PO SCH (20:04)
[2020-07-04] MEDS: ACETAMINOPHEN 325 MG TAB PO PRN (00:39)
[2020-07-04] MEDS: ALBUT/IPRATROP 3MG/0.5MG NEB 3 ML VIAL INH SCH ×6 (03:13→22:19)
[2020-07-04] MEDS: methylPREDNISolone 40 MG in SYRINGE 0 ML IV SCH ×2 (06:51→17:19)
[2020-07-04] MEDS: FORMOTEROL 20 MCG/2 ML VIAL NEB SCH ×2 (07:35→19:17)
[2020-07-04] MEDS: HYDROmorphone INJ 0.5 MG/0.5 ML SYR IV PRN ×2 (08:09→12:34)
[2020-07-04] MEDS: ESCITALOPRAM OXALATE 20 MG TAB PO SCH (08:11)
[2020-07-04] MEDS: PANTOprazole 40 MG TAB PO SCH (08:11)
[2020-07-04] MEDS: ROFLUMILAST 500 MCG TAB PO SCH (08:11)
[2020-07-04] MEDS: guaiFENesin 600 MG TABCR PO SCH ×2 (08:11→20:26)
[2020-07-04] MEDS: CHOLECALCIFEROL 1,000 UNITS 25 MCG TAB PO SCH (08:12)
[2020-07-04] MEDS: DOXYCYCLINE HYCLATE 100 MG CAP PO SCH ×2 (08:12→20:23)
[2020-07-04] MEDS: ENOXAPARIN INJ 40 MG/0.4 ML SYR SQ SCH (12:34)
--- NOTE | 2020-07-04 14:51 | Hospitalist Progress Note ---
Date of Service July 04, 2020 Assessment & Plan (1) Acute exacerbation of chronic obstructive pulmonary disease: Patient has COPD plus minus bronchitis as she has had change in sputum color feeling a little better today Solu-Medrol 40mg IV q12 doxycycline albuterol maintained on oxygen for which she typically wears 5 L and BiPAP at night, no changes at this time (2) Headache: Headache sounds to be more like a tension headache but any headache that is described as 10 out of 10 could be a migraine Contrast CT scan of the head performed 07/03/2020 shows no acute intracranial findings which is good will try Maxalt, can have Benadryl, Phenergan, already on Solu Medrol schedule Tylenol 650mg q6 (3) SAMUEL (obstructive sleep apnea): Patient typically wears BiPAP 12/5 with a 5 L oxygen (4) Hypothyroidism: This is by history we will check it TSH and T4 she is on any supplementation (5) Depression: Continues on trazodone Lexapro and Wellbutrin Abilify (6) DVT prophylaxis: Patient is a full code remains on enoxaparin 40-day for DVT prevention Admission and Anticipated Discharge Date Admission Date: July 03, 2020 Subjective chart and labs reviewed patient still experiencing headache, has had it several times today, required Dilaudid her breathing is improved she is asking about tele monitor, no issues while here, can downgrade to medical status she said that the headache started on Saturday, got worse over the weekend, never gets headaches like this it was 10/10 at its worst, right now it is 3/10 but she got some Dilaudid recently she denies any h/o migraine headaches, no visual auras were seen, but she did have some changes in vision discussed that Dilaudid is not a great strategy, will try some Maxalt, can try Phenergan, Benadryl if needed, Tylenol Review of Systems Review of Systems: All systems reviewed & are unremarkable except as noted in Subjective Constitutional: no fever, no chills, no fatigue and no weakness Respiratory: + cough, + chest congestion, + dyspnea, + dyspnea on exertion and + wheezing Cardiovascular: no chest pain and no edema Neurologic: + headache(s) Physical Exam Constitutional: WD/WN, vitals as above Neck: trachea midline, no thyromegaly Respiratory: normal respiratory effort and + cough; no respiratory distress Auscultation: + diminished lung sounds and + wheezes; no crackles, no rales and no rhonchi Cardiovascular: RRR, no murmur, no edema Gastrointestinal (Abdomen): normal bowel sounds, soft, nontender, no hepatosplenomegaly Musculoskeletal: no cyanosis or clubbing, extremities motor strength 5/5 Skin: no rashes, warm and dry Neurologic: patellar DTR's 2+ bilat, sensation intact and PERRL, EOMI, accommodation nl, no face palsy, no dysarthria Psychiatric: A+Ox3, euthymic affect Lymphatic: no cervical or axillary lymphadenopathy Results & Data Results & Data ([facility] [place]) Vital Signs (Past 12 Hours) Vital Signs Temp Pulse Pulse Resp BP Pulse Ox 07/04/20 14:44 36.5 C 94 H 16 113/65 91 07/04/20 11:12 92 H 16 98 07/04/20 11:07 36.6 C 87 20 111/68 96 07/04/20 07:36 87 89 20 98 07/04/20 07:06 36.7 C 89 20 103/64 97 07/04/20 02:52 36.7 C 84 20 108/73 92 Medications Administered Current Inpatient Medications Acetaminophen (Acetaminophen 325 Mg Tab) 650 mg PO Q4H PRN PRN Reason: Pain or Fever Stop: 08/02/20 09:17 Last Admin: 07/04/20 00:39 Dose: 650 mg Documented by: Al Hydrox/Mg Hydrox/Simethicone (Aluminum/Magnesium Susp 30 Ml Udc) 15 ml PO Q4H PRN PRN Reason: Dyspepsia Stop: 08/02/20 09:17 Albuterol (Albut/Ipratrop 3mg/0.5mg Neb 3 Ml Vial) 3 ml INH Q4R [facility] Stop: 08/02/20 10:59 Last Admin: 07/04/20 11:11 Dose: 3 ml Documented by: Aripiprazole (Aripiprazole 10 Mg Tab) 10 mg PO HS [facility] Stop: 08/02/20 20:59 Last Admin: 07/03/20 20:04 Dose: 10 mg Documented by: Bupropion HCl (Bupropion Sr 150 Mg Tabcr) 150 mg PO HS [facility] Stop: 08/02/20 20:59 Last Admin: 07/03/20 20:03 Dose: 150 mg Documented by: Doxycycline Hyclate (Doxycycline Hyclate 100 Mg Cap) 100 mg PO BID [facility]; Protocol Stop: 07/10/20 09:17 Last Admin: 07/04/20 08:12 Dose: 100 mg Documented by: Enoxaparin Sodium (Enoxaparin Inj 40 Mg/0.4 Ml Syr) 40 mg SQ Q24H [facility] Stop: 08/02/20 10:59 Last Admin: 07/04/20 12:34 Dose: 40 mg Documented by: Escitalopram Oxalate (Escitalopram Oxalate 20 Mg Tab) 20 mg PO QAM [facility] Stop: 08/02/20 09:17 Last Admin: 07/04/20 08:11 Dose: 20 mg Documented by: Formoterol Fumarate (Formoterol 20 Mcg/2 Ml Vial) 20 mcg NEB BIDR [facility] Stop: 08/02/20 18:59 Last Admin: 07/04/20 07:35 Dose: 20 mcg Documented by: Guaifenesin (Guaifenesin 600 Mg Tabcr) 1,200 mg PO BID [facility] Stop: 08/02/20 09:17 Last Admin: 07/04/20 08:11 Dose: 1,200 mg Documented by: Hydromorphone HCl (Hydromorphone Inj 0.5 Mg/0.5 Ml Syr) 0.5 mg IV Q4H PRN PRN Reason: Pain Stop: 07/17/20 09:17 Last Admin: 07/04/20 12:34 Dose: 0.5 mg Documented by: Methylprednisolone 40 mg/ (Syringe) 0.64 mls @ 1.5 mls/min IV Q12H [facility] Stop: 08/02/20 17:59 Last Admin: 07/04/20 06:51 Dose: 1.5 mls/min Documented by: Montelukast Sodium (Montelukast Sodium 10 Mg Tablet) 10 mg PO HS [facility] Stop: 08/02/20 20:59 Last Admin: 07/03/20 20:04 Dose: 10 mg Documented by: Morphine Sulfate (Morphine Sulfate 2 Mg/Ml Carp) 2 mg IV Q30M PRN PRN Reason: Chest Pain Stop: 07/17/20 09:17 Ondansetron HCl (Ondansetron Inj 2 Mg/Ml 2 Ml Vial) 4 mg IV Q6H PRN PRN Reason: Nausea Stop: 08/02/20 09:17 Pantoprazole Sodium (Pantoprazole 40 Mg Tab) 40 mg PO QAM [facility] Stop: 08/02/20 09:17 Last Admin: 07/04/20 08:11 Dose: 40 mg Documented by: Roflumilast (Roflumilast 500 Mcg Tab) 500 mcg PO QAM [facility] Stop: 08/02/20 09:17 Last Admin: 07/04/20 08:11 Dose: 500 mcg Documented by: Trazodone HCl (Trazodone Hcl 50 Mg Tab) 25 mg PO HS [facility] Stop: 08/02/20 20:59 Last Admin: 07/03/20 20:04 Dose: 25 mg Documented by: Vitamin D (Cholecalciferol 1,000 Units 25 Mcg Tab) 2,000 units PO QAM [facility] Stop: 08/02/20 09:17 Last Admin: 07/04/20 08:12 Dose: 2,000 units Documented by: Zolpidem Tartrate (Zolpidem Tartrate 10 Mg Tab) 10 mg PO HS PRN PRN Reason: Sleep Stop: 08/02/20 09:17 Last Admin: 07/03/20 20:03 Dose: 10 mg Documented by: PG Care Time/CCT Total # of Minutes Spent Total Time Spent with Patient: Total time spent is greater than 50% in coordination of care (as documented) at patient's floor/unit and/or counseling patient: Coding Level of Care Code 54765 Subseq Hosp Care Lvl 2 Diagnoses Acute exacerbation of chronic obstructive pulmonary disease J44.1 Headache R51.9 Headache chronicity pattern: acute headache Headache type: unspecified Intractability: not intractable SAMUEL (obstructive sleep apnea) G47.33 Hypothyroidism E03.9 Depression F32.9 DVT prophylaxis Z29.9 (1) Headache Headache chronicity pattern: acute headache Headache type: unspecified Intractability: not intractable Qualified Code(s): R51.9 - Headache, unspecified
[2020-07-04] MEDS ORDERED: PROMETHAZINE HCL 12.5 MG in SODIUM CHLORIDE 0.9% 50 ML IV PRN (16:52)
[2020-07-04] MEDS ORDERED: HYDROmorphone INJ 0.5 MG/0.5 ML SYR IV PRN (16:52)
[2020-07-04] MEDS: ACETAMINOPHEN 325 MG TAB PO SCH ×2 (17:19→23:46)
[2020-07-04] MEDS: RIZATRIPTAN BENZOATE 10 MG TAB PO PRN (17:59)
[2020-07-04] MEDS: MONTELUKAST SODIUM 10 MG TABLET PO SCH (20:22)
[2020-07-04] MEDS: traZODone HCL 50 MG TAB PO SCH (20:24)
[2020-07-04] MEDS: ARIPiprazole 10 MG TAB PO SCH (20:25)
[2020-07-04] MEDS: buPROPion SR 150 MG TABCR PO SCH (20:26)
[2020-07-04] MEDS: ZOLPIDEM TARTRATE 10 MG TAB PO PRN (20:30)
[2020-07-05] MEDS: ALBUT/IPRATROP 3MG/0.5MG NEB 3 ML VIAL INH SCH ×6 (03:25→22:15)
[2020-07-05] MEDS: ACETAMINOPHEN 325 MG TAB PO SCH ×3 (05:23→17:45)
[2020-07-05] MEDS: methylPREDNISolone 40 MG in SYRINGE 0 ML IV SCH ×2 (05:23→17:45)
[2020-07-05] MEDS: FORMOTEROL 20 MCG/2 ML VIAL NEB SCH ×2 (07:00→19:23)
[2020-07-05] MEDS: DOXYCYCLINE HYCLATE 100 MG CAP PO SCH ×2 (08:04→20:54)
[2020-07-05] MEDS: guaiFENesin 600 MG TABCR PO SCH ×2 (08:04→20:54)
[2020-07-05] MEDS: PANTOprazole 40 MG TAB PO SCH (08:05)
[2020-07-05] MEDS: ROFLUMILAST 500 MCG TAB PO SCH (08:05)
[2020-07-05] MEDS: ESCITALOPRAM OXALATE 20 MG TAB PO SCH (08:05)
[2020-07-05] MEDS: CHOLECALCIFEROL 1,000 UNITS 25 MCG TAB PO SCH (08:05)
--- NOTE | 2020-07-05 09:42 | Hospitalist Progress Note ---
Date of Service July 05, 2020 Assessment & Plan (1) Acute exacerbation of chronic obstructive pulmonary disease: Patient has COPD plus minus bronchitis as she has had change in sputum color, it is yellow, typically clear breathing is stable at rest, gets short of breath on exertion in the room Solu-Medrol 40mg IV q12 for today, change to Prednisone 50mg tomorrow morning doxycycline 100mg BID x 7 days albuterol maintained on oxygen for which she typically wears 5 L and BiPAP at night, no changes at this time might be ready for discharge tomorrow (2) Headache: Headache sounds to be more like a tension headache but any headache that is described as 10 out of 10 could be a migraine Contrast CT scan of the head performed 07/03/2020 shows no acute intracranial findings which is good will try Maxalt -- no relief, makes Migraine less likely headache is only a 4 out of 10 today on scheduled Tylenol can have Benadryl, Phenergan, already on Solu Medrol (3) SAMUEL (obstructive sleep apnea): Patient typically wears BiPAP 12/5 with a 5 L oxygen she is compliant (4) Hypothyroidism: TSH stable (5) Depression: Continues on trazodone Lexapro and Wellbutrin Abilify (6) DVT prophylaxis: Patient is a full code remains on enoxaparin 40-day for DVT prevention Admission and Anticipated Discharge Date Admission Date: July 03, 2020 Subjective patient feeling a little better, coughing up more phlegm with the flutter valve, the sputum is still yellow, typically white/clear breathing is good at rest, gets winded quickly with any activity no fever/chills, no chest pain she says her headache is a 4 out of 10, overall better, the Tylenol is helping she did not see any relief with the Maxalt yesterday she was OOB in a chair three times yesterday, already up today, eating well discussed changing to Prednisone tomorrow, might be ready to go home tomorrow afternoon Review of Systems Review of Systems: All systems reviewed & are unremarkable except as noted in Subjective Physical Exam Constitutional: WD/WN, vitals as above Neck: trachea midline, no thyromegaly Respiratory: normal respiratory effort and + cough; no respiratory distress Auscultation: + diminished lung sounds and + wheezes; no crackles, no rales and no rhonchi Cardiovascular: RRR, no murmur, no edema Gastrointestinal (Abdomen): normal bowel sounds, soft, nontender, no hepatosplenomegaly Musculoskeletal: no cyanosis or clubbing, extremities motor strength 5/5 Skin: no rashes, warm and dry Neurologic: patellar DTR's 2+ bilat, sensation intact and PERRL, EOMI, accommodation nl, no face palsy, no dysarthria Psychiatric: A+Ox3, euthymic affect Lymphatic: no cervical or axillary lymphadenopathy Results & Data Results & Data ([facility]) Vital Signs (Past 12 Hours) Vital Signs Temp Pulse Resp BP Pulse Ox Pulse Ox 07/05/20 09:00 94 07/05/20 07:02 36.6 C 75 20 111/70 94 07/05/20 07:00 97 H 18 98 07/04/20 23:42 36.8 C 92 H 20 115/69 94 Medications Administered Current Inpatient Medications Acetaminophen (Acetaminophen 325 Mg Tab) 650 mg PO Q6H [facility] Stop: 08/03/20 16:59 Last Admin: 07/05/20 05:23 Dose: 650 mg Documented by: Al Hydrox/Mg Hydrox/Simethicone (Aluminum/Magnesium Susp 30 Ml Udc) 15 ml PO Q4H PRN PRN Reason: Dyspepsia Stop: 08/02/20 09:17 Albuterol (Albut/Ipratrop 3mg/0.5mg Neb 3 Ml Vial) 3 ml INH Q4R [facility] Stop: 08/02/20 10:59 Last Admin: 07/05/20 07:00 Dose: Not Given Documented by: Aripiprazole (Aripiprazole 10 Mg Tab) 10 mg PO HS [facility] Stop: 08/02/20 20:59 Last Admin: 07/04/20 20:25 Dose: 10 mg Documented by: Bupropion HCl (Bupropion Sr 150 Mg Tabcr) 150 mg PO HS [facility] Stop: 08/02/20 20:59 Last Admin: 07/04/20 20:26 Dose: 150 mg Documented by: Doxycycline Hyclate (Doxycycline Hyclate 100 Mg Cap) 100 mg PO BID [facility]; Protocol Stop: 07/10/20 09:17 Last Admin: 07/05/20 08:04 Dose: 100 mg Documented by: Enoxaparin Sodium (Enoxaparin Inj 40 Mg/0.4 Ml Syr) 40 mg SQ Q24H [facility] Stop: 08/02/20 10:59 Last Admin: 07/04/20 12:34 Dose: 40 mg Documented by: Escitalopram Oxalate (Escitalopram Oxalate 20 Mg Tab) 20 mg PO QAM [facility] Stop: 08/02/20 09:17 Last Admin: 07/05/20 08:05 Dose: 20 mg Documented by: Formoterol Fumarate (Formoterol 20 Mcg/2 Ml Vial) 20 mcg NEB BIDR [facility] Stop: 08/02/20 18:59 Last Admin: 07/05/20 07:00 Dose: 20 mcg Documented by: Guaifenesin (Guaifenesin 600 Mg Tabcr) 1,200 mg PO BID [facility] Stop: 08/02/20 09:17 Last Admin: 07/05/20 08:04 Dose: 1,200 mg Documented by: Hydromorphone HCl (Hydromorphone Inj 0.5 Mg/0.5 Ml Syr) 0.5 mg IV Q8 PRN PRN Reason: Pain Stop: 07/17/20 09:17 Methylprednisolone 40 mg/ (Syringe) 0.64 mls @ 1.5 mls/min IV Q12H [facility] Stop: 08/02/20 17:59 Last Admin: 07/05/20 05:23 Dose: 1.5 mls/min Documented by: Promethazine HCl 12.5 mg/ (Sodium Chloride) 50.5 mls @ 202 mls/hr IV Q6H PRN PRN Reason: Headache Stop: 08/03/20 16:51 Montelukast Sodium (Montelukast Sodium 10 Mg Tablet) 10 mg PO HS [facility] Stop: 08/02/20 20:59 Last Admin: 07/04/20 20:22 Dose: 10 mg Documented by: Ondansetron HCl (Ondansetron Inj 2 Mg/Ml 2 Ml Vial) 4 mg IV Q6H PRN PRN Reason: Nausea Stop: 08/02/20 09:17 Pantoprazole Sodium (Pantoprazole 40 Mg Tab) 40 mg PO QAM [facility] Stop: 08/02/20 09:17 Last Admin: 07/05/20 08:05 Dose: 40 mg Documented by: Rizatriptan Benzoate (Rizatriptan Benzoate 10 Mg Tab) 10 mg PO DAILY PRN PRN Reason: Headache Stop: 08/03/20 16:21 Last Admin: 07/04/20 17:59 Dose: 10 mg Documented by: Roflumilast (Roflumilast 500 Mcg Tab) 500 mcg PO QAM [facility] Stop: 08/02/20 09:17 Last Admin: 07/05/20 08:05 Dose: 500 mcg Documented by: Trazodone HCl (Trazodone Hcl 50 Mg Tab) 25 mg PO HS [facility] Stop: 08/02/20 20:59 Last Admin: 07/04/20 20:24 Dose: 25 mg Documented by: Vitamin D (Cholecalciferol 1,000 Units 25 Mcg Tab) 2,000 units PO QAM [facility] Stop: 08/02/20 09:17 Last Admin: 07/05/20 08:05 Dose: 2,000 units Documented by: Zolpidem Tartrate (Zolpidem Tartrate 10 Mg Tab) 10 mg PO HS PRN PRN Reason: Sleep Stop: 08/02/20 09:17 Last Admin: 07/04/20 20:30 Dose: 10 mg Documented by: PG Care Time/CCT Total # of Minutes Spent Total Time Spent with Patient: Total time spent is greater than 50% in coordination of care (as documented) at patient's floor/unit and/or counseling patient: Coding Level of Care Code 17149 Subseq Hosp Care Lvl 2 Diagnoses Acute exacerbation of chronic obstructive pulmonary disease J44.1 Headache R51.9 Headache chronicity pattern: acute headache Headache type: unspecified Intractability: not intractable SAMUEL (obstructive sleep apnea) G47.33 Hypothyroidism E03.9 Depression F32.9 DVT prophylaxis Z29.9 (1) Headache Headache chronicity pattern: acute headache Headache type: unspecified Intractability: not intractable Qualified Code(s): R51.9 - Headache, unspecified
[2020-07-05] MEDS: RIZATRIPTAN BENZOATE 10 MG TAB PO PRN (10:27)
[2020-07-05] MEDS: ENOXAPARIN INJ 40 MG/0.4 ML SYR SQ SCH (10:27)
[2020-07-05] MEDS: buPROPion SR 150 MG TABCR PO SCH (20:53)
[2020-07-05] MEDS: ARIPiprazole 10 MG TAB PO SCH (20:53)
[2020-07-05] MEDS: traZODone HCL 50 MG TAB PO SCH (20:53)
[2020-07-05] MEDS: MONTELUKAST SODIUM 10 MG TABLET PO SCH (20:54)
[2020-07-05] MEDS: ZOLPIDEM TARTRATE 10 MG TAB PO PRN (20:57)
[2020-07-06] MEDS: ACETAMINOPHEN 325 MG TAB PO SCH ×3 (01:03→12:02)
[2020-07-06] MEDS: ALBUT/IPRATROP 3MG/0.5MG NEB 3 ML VIAL INH SCH ×3 (02:10→11:37)
[2020-07-06] MEDS: ESCITALOPRAM OXALATE 20 MG TAB PO SCH (07:31)
[2020-07-06] MEDS: CHOLECALCIFEROL 1,000 UNITS 25 MCG TAB PO SCH (07:31)
[2020-07-06] MEDS: guaiFENesin 600 MG TABCR PO SCH (07:31)
[2020-07-06] MEDS: PANTOprazole 40 MG TAB PO SCH (07:31)
[2020-07-06] MEDS: ROFLUMILAST 500 MCG TAB PO SCH (07:32)
[2020-07-06] MEDS: DOXYCYCLINE HYCLATE 100 MG CAP PO SCH (07:32)
[2020-07-06] MEDS: FORMOTEROL 20 MCG/2 ML VIAL NEB SCH (07:50)
[2020-07-06] MEDS ORDERED: predniSONE 50 MG TAB PO SCH (09:00)
[2020-07-06] MEDS: ENOXAPARIN INJ 40 MG/0.4 ML SYR SQ SCH (10:52)
--- NOTE | 2020-07-06 12:54 | Discharge Summary ---
Date of Service July 06, 2020 Admission HPI Per Admitting Provider 55-year-old female with a history of severe COPD secondary tobacco use who has been off cigarettes for 6 to 7 years. Patient is currently following with [facility] for consideration of lung transplant. Patient is attempting to have weight loss to be approved for the surgery. Patient was treated for a COPD exacerbation approximately 2 weeks ago with azithromycin and an outpatient prednisone. She is currently on 10 mg. Patient states over the last few days she has not been able to sleep due to severe shortness of breath and orthopnea. She is having a headache which is described as generalized bilaterally and did improve with opiates in the emergency department. Screening in the ER shows no fevers no leukocytosis no concern for secondary infection there is no pneumonia on chest x-ray and the thought is that she is having a COPD exacerbation causing sleep deprivation and headache. Principal Diagnosis COPD exacerbation Discharge Exam Constitutional WD/WN, vitals as above Neck trachea midline, no thyromegaly Respiratory normal respiratory effort and + cough; no respiratory distress Auscultation: + diminished lung sounds; no crackles, no rales, no rhonchi and no wheezes Cardiovascular RRR, no murmur, no edema Gastrointestinal (Abdomen) normal bowel sounds, soft, nontender, no hepatosplenomegaly Musculoskeletal no cyanosis or clubbing, extremities motor strength 5/5 Skin no rashes, warm and dry Neurologic patellar DTR's 2+ bilat, sensation intact and PERRL, EOMI, accommodation nl, no face palsy, no dysarthria Psychiatric A+Ox3, euthymic affect Lymphatic no cervical or axillary lymphadenopathy Discharge Data Allergies Allergy/AdvReac Type Severity Reaction Status Date / Time Penicillins Allergy Unknown Unknown Verified 07/03/20 05:46 Consultations 07/03/20 07:22 ED Decision to Admit Stat 07/03/20 09:18 Consult Case Management - Discharge Planning Routine Ordered Studies 07/03/20 05:41 CT head/brain wo con Urgent Hospital Course (1) Acute exacerbation of chronic obstructive pulmonary disease: Patient has COPD plus minus bronchitis as she has had change in sputum color, it is yellow, typically clear breathing is stable at rest, gets short of breath on exertion in the room but now much better, close to her baseline dyspnea Solu-Medrol 40mg IV q12 initially, change to Prednisone 50mg qAM doxycycline 100mg BID x 7 days albuterol maintained on oxygen for which she typically wears 5 L and BiPAP at night, no changes at this time will discharge to home on Prednisone taper, finish Doxycycline follow up with PCP, she will be in contact with her transplant team in [facility] (2) Headache: Headache sounds to be more like a tension headache but any headache that is described as 10 out of 10 could be a migraine Contrast CT scan of the head performed 07/03/2020 shows no acute intracranial findings which is good will try Maxalt -- got some relief headache is only a 3 out of 10 today on scheduled Tylenol as outpatient, instructed her to try Tylenol, Ibuprofen if it is 10 out of 10 gave her prescription for Maxalt, take one tablet and lay down in dark, quiet environment follow up with PCP (3) SAMUEL (obstructive sleep apnea): Patient typically wears BiPAP / with a 5 L oxygen she is compliant (4) Hypothyroidism: TSH stable (5) Depression: Continues on trazodone Lexapro and Wellbutrin Abilify (6) Hypoxemia: chronic respiratory failure with hypoxemia continue on baseline 5L NC Total Time Total Time Spent Total Time Spent (In Minutes): 34 minutes Total Time Includes: Examination of the Patient, Discharge Planning and Medication Reconciliation Discharge Plan Discharge Items Patient Disposition: Home - Self-Care Reason For Visit: ACUTE ON CHRONIC RESPIRATORY FAILURE W/O HYPOXIA Discharge Diagnosis: COPD exacerbation Headache Chronic hypoxic respiratory failure Condition on Discharge: Good Goals: complete Prednisone taper Activity: Resume your previous activity Weightbearing: Full weightbearing Non-emergency contact: Primary Care Provider Call non-emergency contact if: you have any medication questions and your symptoms worsen Follow-up/Referrals: Sunday Villalobos Jr, [Primary Care Provider] - (one week) Diet: Regular Addtl Attending Provider Instructions: Medications: - PREDNISONE: complete the following taper, starting tomorrow morning, take 50mg daily x 2 days, 40mg daily x 3 days, 30mg daily x 3 days, 20mg daily x 3 days then resume 10mg daily - MUCINEX: over the counter, take 1200mg twice a day for several more days - DOXYCYCLINE: 100mg twice a day, next dose this evening, take for 6 more doses - MAXALT: can take as needed for any severe/migraine headache in the future you take at the onset of headache, 10mg, if you still have a severe headache at 2 hours later you can repeat the dose and if you still have a headache 2 hours after that you can take a 3rd dose but this is the max dose in 24 hour recommend taking Tylenol 650mg every 6 hours for the headache and you can always try ibuprofen 600mg every 8 hours as needed as well turn off lights, lay down, quiet room please follow up closely with Dr. Villalobos Pending Studies at Discharge: No Stand-Alone Forms: My [facility], Smoking Cessation Medications and DC Order Prescriptions: New rizatriptan 10 mg Tablet 10 mg PO DAILY PRN (Reason: migraine headache) 30 Days Qty: 30 RF: 0 prednisone 10 mg tablet 50 mg PO DAILY 10 Days Qty: 50 RF: 0 Continued (DME) AeroEclipse II Nebulizer Misc See Rx Instructions .ROUTE .MEDSUPPLY Qty: 1 RF: 0 omeprazole 40 mg capsule,delayed release(DR/EC) 40 mg PO QAM RF: 0 ascorbic acid (vitamin C) [Vitamin C] 500 mg Tablet 500 mg PO QPM RF: 0 montelukast [Singulair] 10 mg tablet 10 mg PO HS RF: 0 zolpidem [Ambien] 10 mg tablet 10 mg PO HS PRN (Reason: Sleep) RF: 0 albuterol sulfate [Ventolin HFA] 90 mcg/actuation HFA aerosol inhaler 2 puff Inhalation Q6H PRN (Reason: Shortness Of Breath Or Wheezing) RF: 0 escitalopram oxalate [Lexapro] 20 mg tablet 20 mg PO QAM RF: 0 Daliresp 500 mcg tablet 500 mcg PO QAM RF: 0 Trelegy Ellipta 100-62.5-25 mcg blister with device 1 puff Inhalation QAM RF: 0 aripiprazole [Abilify] 10 mg tablet 10 mg PO HS RF: 0 bupropion HCl [Wellbutrin SR] 150 mg tablet sustained-release 12 hr 150 mg PO DAILY RF: 0 cholecalciferol (vitamin D3) [Vitamin D3] 2,000 unit Capsule 2,000 unit PO QAM RF: 0 phentermine [Adipex-P] 37.5 mg tablet 37.5 mg PO DAILY RF: 0 budesonide 1 mg/2 mL suspension for nebulization 0.5 mg inhalation DAILY RF: 0 trazodone 50 mg tablet 25 mg PO HS RF: 0 prednisone 10 mg tablet 10 mg PO DAILY RF: 0 ipratropium-albuterol 0.5 mg-3 mg(2.5 mg base)/3 mL solution for nebulization 3 ml INHALATION DIRECTED PRN (Reason: Shortness Of Breath) RF: 0 albuterol sulfate 2.5 mg /3 mL (0.083 %) solution for nebulization 2.5 mg inhalation DIRECTED PRN (Reason: Shortness Of Breath) RF: 0 Combivent Respimat 20-100 mcg/actuation mist 1 puff INHALATION Q4H PRN (Reason: Cough) RF: 0 Discharge Orders: Discharge Order (Routine); Ordered 07/06/20 Ordered By: Ross Carranza Admission Data Admit Date/Time: 07/03/20 07:42 Attending Provider: Ross Carranza Admit Provider: Dillon Prather Primary Care Provider: Sunday Villalobos Jr Other Providers: Sil Garcia Other Interventions: Discharge Summary Assessment (RN) Last Done: 07/06/20 13:40 Coding Level of Care Code D/C Day Management >30 mins Diagnoses Acute exacerbation of chronic obstructive pulmonary disease J44.1 Headache R51.9 Headache chronicity pattern: acute headache Headache type: unspecified Intractability: not intractable SAMUEL (obstructive sleep apnea) G47.33 Hypothyroidism E03.9 Depression F32.9 Hypoxemia R09.02
[2020-07-06] MEDS: RIZATRIPTAN BENZOATE 10 MG TAB PO PRN (13:46)
== END 2020-07-06 14:18 | disposition home or self-care (01) | DRG 190 ==
LOC: ED 05:16 → SUATTDRO 07:42 → 2N 08:32

== ENCOUNTER 2021-02-23 17:29 | Inpatient (IN) ==
[2021-02-23 18:54] LABS: Mean Corpuscular Hgb Conc 33.2 g/dL (32-36); Mean Platelet Volume 8.7 fL (7.4-10.4); Platelet Count 349 K/uL (130-400)
[2021-02-23 19:19] LABS: Albumin Level 3.9 gm/dl (3.4-5.0); BUN Creatinine Ratio 16.6 (10-20); Bilirubin,Total 0.3 mg/dl (0.2-1); Calcium 9.5 mg/dl (8.5-10.1); Creatinine Clr Calc Pharmacy 29.3 ml/min; Est GFR (African American) 30.4 ml/min; Est GFR (Non-African American) 26.2 ml/min; Potassium 7.6 mmol/L (3.5-5.1); Total Protein 7.9 gm/dl (6.4-8.2)
[2021-02-23] MEDS ORDERED: CALCIUM GLUCONATE 1,000 MG/60 ML BAG IV STA (19:23)
[2021-02-23] MEDS ORDERED: SODIUM CHLORIDE 0.9% 1000ML 1,000 ML IV SCH ×2 (19:30→23:37)
[2021-02-23] MEDS ORDERED: NovoLIN-R INSULIN PER UNIT CHARGE IV STA ×2 (19:35→21:50)
[2021-02-23] MEDS ORDERED: DEXTROSE 50% 50 ML SYRINGE IV STA ×3 (19:35→22:04)
[2021-02-23 19:38] LABS: ALC (manual) 0.08 K/uL (1.2-3.4); ANC (manual) 8.24 K/uL (1.4-6.5); Echinocytes 1+; Eosinophils # (manual) 0.08 K/uL (0-0.5); Eosinophils % (manual) 0.9 %; Hematocrit (blood only) 34.6 % (37-47); Hemoglobin 11.5 g/dL (12.0-16.0); Lymphocytes # (manual) 0.08 K/uL (1.2-3.4); Lymphocytes % (manual) 0.9 %; Mean Corpuscular Hemoglobin 29.3 pg (25-34); Monocytes % (manual) 3.5 %; Neutrophils # (manual) 8.24 K/uL (1.4-6.5); Neutrophils % (manual) 94.7 %; Polychromasia 1+; RDW Coefficient of Variation 15.2 % (11.5-14.5); RDW Standard Deviation 49.6 fL (36.4-46.3); Red Blood Count 3.93 M/uL (4.2-5.4)
[2021-02-23 20:26] LABS: Albumin Level 3.4 gm/dl (3.4-5.0); BUN Creatinine Ratio 16.5 (10-20); Calcium 8.8 mg/dl (8.5-10.1); Creatinine Clr Calc Pharmacy 29.5 ml/min; Est GFR (African American) 30.6 ml/min; Est GFR (Non-African American) 26.4 ml/min; Potassium 7.8 mmol/L (3.5-5.1)
[2021-02-23 20:27] LABS: Bilirubin,Total 0.3 mg/dl (0.2-1); Globulin 3.5 gm/dl (2.5-4.0); Total Protein 6.9 gm/dl (6.4-8.2)
[2021-02-23] MEDS ORDERED: ONDANSETRON INJ 2 MG/ML 2 ML VIAL IV STA (20:51)
[2021-02-23] MEDS ORDERED: PANTOprazole 40 MG in SYRINGE 0 ML IV ONE (20:52)
[2021-02-23 21:23] LABS: BUN Creatinine Ratio 16.2 (10-20); Calcium 9.5 mg/dl (8.5-10.1); Creatinine Clr Calc Pharmacy 29.5 ml/min; Est GFR (African American) 30.6 ml/min; Est GFR (Non-African American) 26.4 ml/min; Potassium 6.8 mmol/L (3.5-5.1)
[2021-02-23] MEDS ORDERED: PATIROMER CALCIUM SORBITEX 8.4 GM PACK PO STA (21:51)
[2021-02-23] MEDS ORDERED: INSULIN HUMAN REGULAR PER UNIT 10 UNITS in SYRINGE 9.9 ML IV STA (22:05)
--- NOTE | 2021-02-23 22:10 | History & Physical Report ---
Date of Service February 23, 2021 Assessment & Plan (1) Hyperkalemia, diminished renal excretion: Plan: Hyperkalemia secondary to decreased renal excretion- Potassium 7.8 upon admission. In ED was given calcium gluconate 1 g IV, D50 followed by regular insulin 10 units IV, x2 Normal saline [place] 8.4 mg p.o. now, may reassess need of laboratories in the morning Hold amiloride that was added to her regimen 1 week ago, and potassium chloride We will repeat laboratories 1 hour after the above treatments, and repeat as needed (2) Acute kidney injury: Plan: Creatinine 2.03 upon admission, with most recent 1.19 Holding amiloride as noted above Continue NSS overnight, recheck laboratories as noted in in a.m. (3) Lung transplant status, bilateral: Plan: Continue atovaquone, mycophenolate, posaconazole, tacrolimus. Hold Cortef Hydrocortisone 100 mg IV every 8 hours (4) SAMUEL (obstructive sleep apnea): Plan: CPAP at bedtime as needed (5) Depression: Plan: Continue Abilify, Escitalopram, melatonin, trazodone (6) GERD (gastroesophageal reflux disease): Plan: Continue pantoprazole History of Present Illness Chief Complaint: The patient presents to the emergency department with complaint of fatigue, nausea, headache worsening over the past 24 hours Primary Care Provider: Sunday Villalobos Jr, DO The patient is a 56-year-old female with a past medical history including bilateral lung transplant, COPD, obstructive sleep apnea, hypothyroidism, depression, COPD exacerbation, pneumonia and pulmonary emphysema. She presents to the emergency department with the above symptoms, and decreased oral intake for liquids and solids. Abnormal laboratories: Sodium 127 potassium 7.8, creatinine 2.03, BUN 33 and glucose 130. Allergies Allergy/AdvReac Type Severity Reaction Status Date / Time Penicillins Allergy Unknown Unknown Verified 02/23/21 20:03 Home Medications Medication Instructions Recorded Confirmed Type aripiprazole 10 mg tablet (Abilify) 10 mg PO QAM 06/11/18 02/23/21 History escitalopram oxalate 20 mg tablet 20 mg PO QAM 06/11/18 02/23/21 History (Lexapro) acetaminophen 325 mg tablet 650 mg PO Q6H PRN 01/14/21 02/23/21 History (Tylenol) ergocalciferol (vitamin D2) 1,250 50,000 unit PO 3XWK 01/14/21 02/23/21 History mcg (50,000 unit) capsule hydrocortisone 10 mg tablet 10 - 20 mg PO UD 01/14/21 02/23/21 History loperamide 2 mg tablet 2 mg PO Q4H PRN 01/14/21 02/23/21 History magnesium chloride 64 mg PO HS 01/14/21 02/23/21 History melatonin 3 mg tablet 6 mg PO HS 01/14/21 02/23/21 History mycophenolate sodium 180 mg 720 mg PO BID 01/14/21 02/23/21 History tablet,delayed release (Myfortic) omega-3 acid ethyl esters 1 gram 2 g PO AMPM 01/14/21 02/23/21 History capsule ondansetron 4 mg disintegrating 4 mg PO Q8H PRN 01/14/21 02/23/21 History tablet pantoprazole 40 mg tablet,delayed 40 mg PO DAILYBB 01/14/21 02/23/21 History release posaconazole 100 mg tablet,delayed 300 mg PO QAM 01/14/21 02/23/21 History release tacrolimus 0.5 mg capsule, 0.5 mg PO PM 01/14/21 02/23/21 History immediate-release tacrolimus 1 mg capsule, 1 mg PO AMPM 01/14/21 02/23/21 History immediate-release trazodone 100 mg tablet 100 mg PO HS 01/14/21 02/23/21 History amiloride 5 mg tablet 5 mg PO DAILY 02/23/21 02/23/21 History atovaquone 750 mg/5 mL oral 1,500 mg PO DAILY 02/23/21 02/23/21 History suspension potassium chloride 20 mEq 20 meq PO UD 02/23/21 02/23/21 History tablet,extended release(part/cryst) trazodone 50 mg tablet 50 mg PO HS 02/23/21 02/23/21 History Past Med/Surg History Medical History (Updated 02/24/21 @ 05:43 by Gilberto Martinez MD) Anxiety Chronic intermittent hypoxia with obstructive sleep apnea COPD (chronic obstructive pulmonary disease) Depression GERD (gastroesophageal reflux disease) Hypothyroidism On home oxygen therapy 2L at hs and prn SAMUEL (obstructive sleep apnea) Overweight Pulmonary emphysema Sleep apnea cpap with 2L Surgical History (Updated 02/24/21 @ 05:41 by Gilberto Martinez MD) History of abdominal surgery repair of ruptured spleen History of appendectomy History of bronchoscopy History of cardiac cath SOB--05/22/2018 @ [facility]--no stents History of lung surgery benign nodule removal from left lung History of open reduction and internal fixation (ORIF) procedure left wrist--hardware removed History of tooth extraction all upper teeth History of wisdom tooth extraction Family History Daughter Family history of reaction to anesthesia takes a lot to put her out Brother Family history of cancer of tongue Social History Smoking Status: Former smoker Tobacco Type: Cigarettes Cigarettes Per Day: 30; Second Hand Exposure: No; Do You Dip or Chew Tobacco: No; Tobacco Cessation Education Requested by Patient: No Hx Alcohol Use: No Hx Substance Use: No Preferred Language: Chinese Communication Ability: Effective Superintendent Service Required: No Beliefs That Will Affect Care: None Current Living Situation: Family Other Information That Helps Us Care for You: No Feels Safe at Home: Yes Safety Concerns: Feels Safe At This Time Assistive Devices: Glasses Review of Systems Review of Systems: The patient denies chest pain, palpitations, shortness of breath, dyspnea on exertion, cough, lower extremity swelling, sore throat, fevers, chills, sweats, vomiting, diarrhea , constipation, abdominal pain, pelvic pain, blood in urine or stool, dysuria, urinary frequency or urgency, memory loss, loss of consciousness, rash, abnormal bruising or bleeding, imbalance, focal weakness, numbness or tingling in arms or legs, generalized arthralgias or myalgias, back or neck pain, or night sweats. The review of systems is otherwise negative other than for that already noted above, and at least 10 systems have been reviewed. Physical Exam Physical Exam: The patient is awake, alert and oriented 3, well developed and well nourished, normocephalic and atraumatic, lying in bed and in no acute distress. HEENT--PERRL, EOMI, mucous membranes and oropharynx dry. Neck--supple. No JVD. No bruits. Thyroid normal, trachea midline, no adenopathy. Heart--normal S1 and S2. No murmurs, rubs or gallops. Lungs--clear bilaterally, no respiratory distress, no accessory muscle use. Abdomen--normal bowel sounds and soft. Nontender. Nondistended. Extremities--no cyanosis or clubbing. No edema. Dermatologic--normal skin turgor, normal color, no abnormal lymph nodes, no rash. Neurologic--cranial nerves II through XII grossly intact. Rheumatologic--normal range of motion. Psychiatric--normal affect. Results & Data Results & Data ([facility]) Vital Signs (Past 12 Hours) Vital Signs Temp Pulse Resp BP Pulse Ox 02/23/21 21:30 86 21 156/81 H 99 02/23/21 21:00 85 21 170/107 H 99 02/23/21 20:30 88 17 156/77 H 98 02/23/21 20:00 91 H 34 H 181/77 H 98 02/23/21 19:31 112 H 17 97 02/23/21 17:48 97.5 F L 101 H 17 154/91 H 98 Laboratory Results Laboratory Results WBC 8.02 K/uL (4.8-10.8) 02/24/21 04:42 RBC 3.85 M/uL (4.2-5.4) L 02/24/21 04:42 Hgb 11.2 g/dL (12.0-16.0) L 02/24/21 04:42 Hct 34.3 % (37-47) L 02/24/21 04:42 MCV 89.1 fL (80-100) 02/24/21 04:42 MCH 29.1 pg (25-34) 02/24/21 04:42 MCHC 32.7 g/dL (32-36) 02/24/21 04:42 RDW Std Deviation 50.2 fL (36.4-46.3) H 02/24/21 04:42 RDW Coeff of Nicolle 15.4 % (11.5-14.5) H 02/24/21 04:42 Plt Count 332 K/uL (130-400) 02/24/21 04:42 MPV 8.8 fL (7.4-10.4) 02/24/21 04:42 Immature Gran % (Auto) 2.1 % 02/24/21 04:42 Neut % (Auto) 92.5 % 02/24/21 04:42 Lymph % (Auto) 3.4 % 02/24/21 04:42 [place] % (Auto) 1.6 % 02/24/21 04:42 Eos % (Auto) 0.4 % 02/24/21 04:42 Baso % (Auto) 0.0 % 02/24/21 04:42 Neut # (Auto) 7.42 K/uL (1.4-6.5) H 02/24/21 04:42 Lymph # (Auto) 0.27 K/uL (1.2-3.4) L 02/24/21 04:42 [place] # (Auto) 0.13 K/uL (0.11-0.59) 02/24/21 04:42 Eos # (Auto) 0.03 K/uL (0-0.5) 02/24/21 04:42 Baso # (Auto) 0.00 K/uL (0-0.2) 02/24/21 04:42 Immature Gran # (Auto) 0.17 K/uL (0.00-0.02) H 02/24/21 04:42 Neutrophils % (Manual) 94.7 % 02/23/21 18:33 Lymphocytes % (Manual) 0.9 % 02/23/21 18:33 Monocytes % (Manual) 3.5 % 02/23/21 18:33 Eosinophils % (Manual) 0.9 % 02/23/21 18:33 Neutrophils # (Manual) 8.24 K/uL (1.4-6.5) H 02/23/21 18:33 Total Absolute Neuts 8.24 K/uL (1.4-6.5) H 02/23/21 18:33 Lymphocytes # (Manual) 0.08 K/uL (1.2-3.4) L 02/23/21 18:33 Total Abs Lymphocytes 0.08 K/uL (1.2-3.4) L 02/23/21 18:33 Monocytes # (Manual) 0.30 K/uL (0.11-0.59) 02/23/21 18:33 Eosinophils # (Manual) 0.08 K/uL (0-0.5) 02/23/21 18:33 Polychromasia 1+ 02/23/21 18:33 Echinocytes 1+ 02/23/21 18:33 Sodium 129 mmol/L (136-145) L 02/24/21 00:06 Potassium 6.5 mmol/L (3.5-5.1) H* 02/24/21 00:06 Chloride 107 mmol/L (98-107) 02/24/21 00:06 Carbon Dioxide 17 mmol/L (21-32) L 02/24/21 00:06 Anion Gap 5.0 (3-11) 02/24/21 00:06 BUN 32 mg/dl (7-18) H 02/24/21 00:06 Creatinine 1.95 mg/dl (0.6-1.2) H 02/24/21 00:06 Est Cr Clr Drug Dosing 30.8 ml/min 02/24/21 00:06 Est GFR ( Amer) 32.1 ml/min 02/24/21 00:06 Est GFR (Non-Af Amer) 27.7 ml/min 02/24/21 00:06 BUN/Creatinine Ratio 16.4 (10-20) 02/24/21 00:06 Glucose 74 mg/dl (70-99) 02/24/21 00:06 POC Glucose 109 mg/dl (70-99) H 02/24/21 03:22 Calcium 9.5 mg/dl (8.5-10.1) 02/24/21 00:06 Total Bilirubin 0.3 mg/dl (0.2-1) 02/23/21 19:56 AST 12 U/L (15-37) L 02/23/21 19:56 ALT 13 U/L (12-78) 02/23/21 19:56 Alkaline Phosphatase 66 U/L (45-117) 02/23/21 19:56 Total Protein 6.9 gm/dl (6.4-8.2) 02/23/21 19:56 Albumin 3.4 gm/dl (3.4-5.0) 02/23/21 19:56 Globulin 3.5 gm/dl (2.5-4.0) 02/23/21 19:56 Albumin/Globulin Ratio 1.0 (0.9-2) 02/23/21 19:56 Lipase 146 U/L (73-393) 02/23/21 18:33 COVID-19 Eval Order Covid19 at [facility] 02/23/21 20:13 SARS-CoV-2 (PCR) NEGATIVE (Negative) 02/23/21 20:13 Code Status & VTE Plan Code Status Full code VTE Prophylaxis Plan VTE Prophylaxis will be ordered: Yes PG Care Time/CCT Total # of Minutes Spent Total Time Spent with Patient: Total time spent is greater than 50% in coordination of care (as documented) at patient's floor/unit and/or counseling patient: Coding Level of Care Code 75397 Initial Inpt Care Lvl 3 Diagnoses Hyperkalemia, diminished renal excretion E87.5 Acute kidney injury N17.9 SAMUEL (obstructive sleep apnea) G47.33 Depression F32.9 Lung transplant status, bilateral Z94.2 GERD (gastroesophageal reflux disease) K21.9
[2021-02-23] MEDS ORDERED: ACETAMINOPHEN 325 MG TAB PO PRN ×2 (23:37)
[2021-02-23] MEDS ORDERED: ONDANSETRON INJ 2 MG/ML 2 ML VIAL IV PRN (23:37)
[2021-02-23] MEDS ORDERED: HYDROCORTISONE SOD SUCCINATE 100 MG/2 ML VIAL IV SCH (23:37)
[2021-02-23] MEDS ORDERED: ENOXAPARIN INJ 30 MG/0.3 ML SYR SQ SCH (23:45)
[2021-02-23] MEDS ORDERED: TACROLIMUS 0.5 MG CAP PO SCH (23:45)
[2021-02-24] MEDS: MYCOPHENOLATE SODIUM 180 MG TAB PO SCH ×2 (00:24→08:58)
[2021-02-24] MEDS: HYDROCORTISONE SOD 100 MG in SYRINGE 0 ML IV SCH ×2 (00:25→09:18)
[2021-02-24] MEDS: TACROLIMUS 1 MG CAP PO SCH ×2 (00:25→08:49)
[2021-02-24] MEDS: POSACONAZOLE~ORDER AWAITING ACTION SCH ×3 (00:26→13:04)
[2021-02-24 01:01] LABS: BUN Creatinine Ratio 16.4 (10-20); Calcium 9.5 mg/dl (8.5-10.1); Creatinine Clr Calc Pharmacy 30.8 ml/min; Est GFR (African American) 32.1 ml/min; Est GFR (Non-African American) 27.7 ml/min; Potassium 6.5 mmol/L (3.5-5.1)
[2021-02-24 05:35] LABS: Eosinophils # (auto) 0.03 K/uL (0-0.5); Eosinophils % (auto) 0.4 %; Hematocrit (blood only) 34.3 % (37-47); Hemoglobin 11.2 g/dL (12.0-16.0); Immature Granulocytes # (auto) 0.17 K/uL (0.00-0.02); Immature Granulocytes % (auto) 2.1 %; Lymphocytes # (auto) 0.27 K/uL (1.2-3.4); Lymphocytes % (auto) 3.4 %; Mean Corpuscular Hemoglobin 29.1 pg (25-34); Mean Corpuscular Hgb Conc 32.7 g/dL (32-36); Mean Corpuscular Volume 89.1 fL (80-100); Mean Platelet Volume 8.8 fL (7.4-10.4); Monocytes # (auto) 0.13 K/uL (0.11-0.59); Monocytes % (auto) 1.6 %; Neutrophils # (auto) 7.42 K/uL (1.4-6.5); Neutrophils % (auto) 92.5 %; Platelet Count 332 K/uL (130-400); RDW Coefficient of Variation 15.4 % (11.5-14.5); RDW Standard Deviation 50.2 fL (36.4-46.3); Red Blood Count 3.85 M/uL (4.2-5.4); White Blood Count 8.02 K/uL (4.8-10.8)
[2021-02-24] MEDS ORDERED: DEXTROSE 50% 50 ML SYRINGE IV STA ×2 (05:36→10:41)
[2021-02-24] MEDS ORDERED: INSULIN HUMAN REGULAR PER UNIT 10 UNITS in SYRINGE 9.9 ML IV ONE ×2 (05:45→11:00)
[2021-02-24 06:18] LABS: Albumin Globulin Ratio 0.8 (0.9-2); Albumin Level 3.3 gm/dl (3.4-5.0); BUN Creatinine Ratio 15.5 (10-20); Bilirubin,Total 0.4 mg/dl (0.2-1); Calcium 9.2 mg/dl (8.5-10.1); Creatinine Clr Calc Pharmacy 31.7 ml/min; Est GFR (African American) 33.3 ml/min; Est GFR (Non-African American) 28.7 ml/min; Globulin 3.9 gm/dl (2.5-4.0); Magnesium 1.9 mg/dl (1.8-2.4); Potassium 7.3 mmol/L (3.5-5.1); Total Protein 7.2 gm/dl (6.4-8.2)
[2021-02-24] MEDS ORDERED: PANTOprazole 40 MG TAB PO SCH (06:30)
[2021-02-24] MEDS ORDERED: FUROSEMIDE 40 MG in SYRINGE 0 ML IV ONE (07:00)
--- NOTE | 2021-02-24 07:08 | XRay Report ---
XR chest 1V portable CLINICAL HISTORY: Bilateral lung transplant. COMPARISON STUDY: Chest CT July 14, 2020. Chest radiograph January 14, 2021. FINDINGS: Cardiomegaly is unchanged. Postoperative findings consistent with bilateral lung transplant are noted. There is no pneumothorax. There is no evidence for pulmonary edema. Left basilar opacity is noted. This has slightly improved since prior exam. There may be a trace left pleural effusion. En dovascular coils within the upper abdomen are incidentally noted. IMPRESSION: 1. Left basilar opacity, slightly improved since exam January 14, 2021. This could reflect resolvin g pneumonia. Continue radiographic follow-up to ensure complete resolution is recommended. 2. Suspected trace left pleural effusion. ACT 112: Negative or not required by law. Electronically signed by: Emigdio Torres M.D. 02/24/2021 7:07 AM
[2021-02-24] MEDS ORDERED: SODIUM BICARB 8.4% INJ 50 MEQ/50 ML SYR IV STA (07:49)
[2021-02-24] MEDS ORDERED: STAT IV STA (07:53)
[2021-02-24] MEDS ORDERED: CALCIUM GLUCONATE 10% 1,000 MG in SODIUM CHLORIDE 0.9% 50 ML IV ONE ×2 (08:00→18:15)
[2021-02-24] MEDS ORDERED: PATIROMER CALCIUM SORBITEX 8.4 GM PACK PO STA ×2 (08:04→10:58)
[2021-02-24] MEDS ORDERED: SODIUM BICARBONATE 8.4% 150 MEQ in DEXTROSE 5% 1,000 ML IV SCH (08:15)
[2021-02-24] MEDS: HYDROCORTISONE SOD 20 MG in SYRINGE 0 ML IV SCH ×2 (08:57→17:36)
[2021-02-24] MEDS ORDERED: ESCITALOPRAM OXALATE 20 MG TAB PO SCH (09:00)
[2021-02-24] MEDS ORDERED: ARIPiprazole 10 MG TAB PO SCH (09:00)
[2021-02-24] MEDS ORDERED: ATOVAQUONE 750 MG/5 ML UDC PO SCH (09:00)
[2021-02-24 09:06] LABS: Base Excess VBG -6.7 mEq/L; Oxygen Saturation VBG 80.5 %; pH VBG 7.35 (7.36-7.41)
--- NOTE | 2021-02-24 09:08 | Hospitalist Progress Note ---
Date of Service February 24, 2021 Assessment & Plan (1) Hyperkalemia, diminished renal excretion: Plan: Hyperkalemia secondary to decreased renal excretion- Potassium 7.8 upon admission. In ED was given calcium gluconate 1 g IV, D50 followed by regular insulin 10 units IV, x2 Normal saline Veltassa 8.4 mg p.o. now, may reassess need of laboratories in the morning Hold amiloride that was added to her regimen 1 week ago, and potassium chloride We will repeat laboratories 1 hour after the above treatments, and repeat as needed (2) Acute kidney injury: Plan: Creatinine 2.03 upon admission, with most recent 1.19 Holding amiloride as noted above Continue NSS overnight, recheck laboratories as noted in in a.m. (3) Lung transplant status, bilateral: Plan: Continue atovaquone, mycophenolate, posaconazole, tacrolimus. Hold Cortef Hydrocortisone 100 mg IV every 8 hours (4) SAMUEL (obstructive sleep apnea): Plan: CPAP at bedtime as needed (5) Depression: Plan: Continue Abilify, Escitalopram, melatonin, trazodone (6) GERD (gastroesophageal reflux disease): Plan: Continue pantoprazole Admission and Anticipated Discharge Date Admission Date: February 23, 2021 Results & Data Results & Data ([facility]) Vital Signs (Past 12 Hours) Vital Signs Temp Pulse Pulse Resp BP BP Pulse Ox 02/24/21 03:00 36.7 C 95 H 18 169/88 H 96 02/24/21 00:00 86 19 96 02/23/21 23:55 36.7 C 95 H 20 164/89 H 95 02/23/21 23:37 02/23/21 22:30 22 130/97 98 02/23/21 22:00 98 H 21 161/113 H 99 02/23/21 21:30 86 21 156/81 H 99 Pulse Ox 02/24/21 03:00 02/24/21 00:00 02/23/21 23:55 02/23/21 23:37 95 02/23/21 22:30 02/23/21 22:00 02/23/21 21:30 Laboratory Results Laboratory Results - last 24 hr 02/23/21 02/23/21 02/23/21 18:33 18:33 19:56 WBC 8.70 RBC 3.93 L Hgb 11.5 L Hct 34.6 L MCV 88.0 MCH 29.3 MCHC 33.2 RDW Std Deviation 49.6 H RDW Coeff of Nicolle 15.2 H Plt Count 349 MPV 8.7 Immature Gran % (Auto) Neut % (Auto) Lymph % (Auto) [place] % (Auto) Eos % (Auto) Baso % (Auto) Neut # (Auto) Lymph # (Auto) [place] # (Auto) Eos # (Auto) Baso # (Auto) Immature Gran # (Auto) Neutrophils % (Manual) 94.7 Lymphocytes % (Manual) 0.9 Monocytes % (Manual) 3.5 Eosinophils % (Manual) 0.9 Neutrophils # (Manual) 8.24 H Total Absolute Neuts 8.24 H Lymphocytes # (Manual) 0.08 L Total Abs Lymphocytes 0.08 L Monocytes # (Manual) 0.30 Eosinophils # (Manual) 0.08 Polychromasia 1+ Echinocytes 1+ VBG pH VBG pCO2 VBG pO2 VBG HCO3 VBG O2 Saturation VBG Base Excess Sodium 126 L 127 L Potassium 7.6 H* 7.8 H* Chloride 104 105 Carbon Dioxide 14 L 15 L Anion Gap 9.0 7.0 BUN 34 H 33 H Creatinine 2.04 H 2.03 H Est Cr Clr Drug Dosing 29.3 29.5 Est GFR ( Amer) 30.4 30.6 Est GFR (Non-Af Amer) 26.2 26.4 BUN/Creatinine Ratio 16.6 16.5 Glucose 136 H 130 H POC Glucose Calcium 9.5 8.8 Magnesium Total Bilirubin 0.3 0.3 AST 16 12 L ALT 14 13 Alkaline Phosphatase 74 66 Total Protein 7.9 6.9 Albumin 3.9 3.4 Globulin 4.0 3.5 Albumin/Globulin Ratio 1.0 1.0 Lipase 146 TSH COVID-19 Eval Order SARS-CoV-2 (PCR) 02/23/21 02/23/21 02/23/21 20:13 20:13 21:00 WBC RBC Hgb Hct MCV MCH MCHC RDW Std Deviation RDW Coeff of Nicolle Plt Count MPV Immature Gran % (Auto) Neut % (Auto) Lymph % (Auto) [place] % (Auto) Eos % (Auto) Baso % (Auto) Neut # (Auto) Lymph # (Auto) [place] # (Auto) Eos # (Auto) Baso # (Auto) Immature Gran # (Auto) Neutrophils % (Manual) Lymphocytes % (Manual) Monocytes % (Manual) Eosinophils % (Manual) Neutrophils # (Manual) Total Absolute Neuts Lymphocytes # (Manual) Total Abs Lymphocytes Monocytes # (Manual) Eosinophils # (Manual) Polychromasia Echinocytes VBG pH VBG pCO2 VBG pO2 VBG HCO3 VBG O2 Saturation VBG Base Excess Sodium 129 L Potassium 6.8 H* Chloride 106 Carbon Dioxide 16 L Anion Gap 6.0 BUN 33 H Creatinine 2.03 H Est Cr Clr Drug Dosing 29.5 Est GFR ( Amer) 30.6 Est GFR (Non-Af Amer) 26.4 BUN/Creatinine Ratio 16.2 Glucose 122 H POC Glucose Calcium 9.5 Magnesium Total Bilirubin AST ALT Alkaline Phosphatase Total Protein Albumin Globulin Albumin/Globulin Ratio Lipase TSH COVID-19 Eval Order Covid19 at [facility] SARS-CoV-2 (PCR) NEGATIVE 02/24/21 02/24/21 02/24/21 00:06 03:22 04:42 WBC 8.02 RBC 3.85 L Hgb 11.2 L Hct 34.3 L MCV 89.1 MCH 29.1 MCHC 32.7 RDW Std Deviation 50.2 H RDW Coeff of Nicolle 15.4 H Plt Count 332 MPV 8.8 Immature Gran % (Auto) 2.1 Neut % (Auto) 92.5 Lymph % (Auto) 3.4 [place] % (Auto) 1.6 Eos % (Auto) 0.4 Baso % (Auto) 0.0 Neut # (Auto) 7.42 H Lymph # (Auto) 0.27 L [place] # (Auto) 0.13 Eos # (Auto) 0.03 Baso # (Auto) 0.00 Immature Gran # (Auto) 0.17 H Neutrophils % (Manual) Lymphocytes % (Manual) Monocytes % (Manual) Eosinophils % (Manual) Neutrophils # (Manual) Total Absolute Neuts Lymphocytes # (Manual) Total Abs Lymphocytes Monocytes # (Manual) Eosinophils # (Manual) Polychromasia Echinocytes VBG pH VBG pCO2 VBG pO2 VBG HCO3 VBG O2 Saturation VBG Base Excess Sodium 129 L Potassium 6.5 H* Chloride 107 Carbon Dioxide 17 L Anion Gap 5.0 BUN 32 H Creatinine 1.95 H Est Cr Clr Drug Dosing 30.8 Est GFR ( Amer) 32.1 Est GFR (Non-Af Amer) 27.7 BUN/Creatinine Ratio 16.4 Glucose 74 POC Glucose 109 H Calcium 9.5 Magnesium Total Bilirubin AST ALT Alkaline Phosphatase Total Protein Albumin Globulin Albumin/Globulin Ratio Lipase TSH COVID-19 Eval Order SARS-CoV-2 (PCR) 02/24/21 02/24/21 02/24/21 04:42 08:30 08:40 WBC RBC Hgb Hct MCV MCH MCHC RDW Std Deviation RDW Coeff of Nicolle Plt Count MPV Immature Gran % (Auto) Neut % (Auto) Lymph % (Auto) [place] % (Auto) Eos % (Auto) Baso % (Auto) Neut # (Auto) Lymph # (Auto) [place] # (Auto) Eos # (Auto) Baso # (Auto) Immature Gran # (Auto) Neutrophils % (Manual) Lymphocytes % (Manual) Monocytes % (Manual) Eosinophils % (Manual) Neutrophils # (Manual) Total Absolute Neuts Lymphocytes # (Manual) Total Abs Lymphocytes Monocytes # (Manual) Eosinophils # (Manual) Polychromasia Echinocytes VBG pH VBG pCO2 VBG pO2 VBG HCO3 VBG O2 Saturation VBG Base Excess Sodium 127 L Potassium 7.3 H* Chloride 105 Carbon Dioxide 15 L Anion Gap 7.0 BUN 29 H Creatinine 1.89 H Est Cr Clr Drug Dosing 31.7 Est GFR ( Amer) 33.3 Est GFR (Non-Af Amer) 28.7 BUN/Creatinine Ratio 15.5 Glucose 112 H POC Glucose 146 H Calcium 9.2 Magnesium 1.9 Total Bilirubin 0.4 AST 15 ALT 14 Alkaline Phosphatase 72 Total Protein 7.2 Albumin 3.3 L Globulin 3.9 Albumin/Globulin Ratio 0.8 L Lipase TSH Pending COVID-19 Eval Order SARS-CoV-2 (PCR) 02/24/21 02/24/21 08:40 08:41 WBC RBC Hgb Hct MCV MCH MCHC RDW Std Deviation RDW Coeff of Nicolle Plt Count MPV Immature Gran % (Auto) Neut % (Auto) Lymph % (Auto) [place] % (Auto) Eos % (Auto) Baso % (Auto) Neut # (Auto) Lymph # (Auto) [place] # (Auto) Eos # (Auto) Baso # (Auto) Immature Gran # (Auto) Neutrophils % (Manual) Lymphocytes % (Manual) Monocytes % (Manual) Eosinophils % (Manual) Neutrophils # (Manual) Total Absolute Neuts Lymphocytes # (Manual) Total Abs Lymphocytes Monocytes # (Manual) Eosinophils # (Manual) Polychromasia Echinocytes VBG pH Pending VBG pCO2 Pending VBG pO2 Pending VBG HCO3 Pending VBG O2 Saturation Pending VBG Base Excess Pending Sodium Pending Potassium Pending Chloride Pending Carbon Dioxide Pending Anion Gap Pending BUN Pending Creatinine Pending Est Cr Clr Drug Dosing Pending Est GFR ( Amer) Pending Est GFR (Non-Af Amer) Pending BUN/Creatinine Ratio Pending Glucose Pending POC Glucose Calcium Pending Magnesium Total Bilirubin AST ALT Alkaline Phosphatase Total Protein Albumin Globulin Albumin/Globulin Ratio Lipase TSH COVID-19 Eval Order SARS-CoV-2 (PCR) PG Care Time/CCT Total # of Minutes Spent Total Time Spent with Patient: Total time spent is greater than 50% in coordination of care (as documented) at patient's floor/unit and/or counseling patient: Coding Diagnoses Hyperkalemia, diminished renal excretion E87.5 Acute kidney injury N17.9 Lung transplant status, bilateral Z94.2 SAMUEL (obstructive sleep apnea) G47.33 Depression F32.9 GERD (gastroesophageal reflux disease) K21.9
[2021-02-24 09:32] LABS: BUN Creatinine Ratio 15.1 (10-20); Calcium 10.3 mg/dl (8.5-10.1); Creatinine Clr Calc Pharmacy 32.2 ml/min; Est GFR (Non-African American) 29.3 ml/min; Potassium 7.1 mmol/L (3.5-5.1)
--- NOTE | 2021-02-24 10:30 | Electrocardiogram Report ---
Test Reason : Blood Pressure : / mmHG Vent. Rate : 089 BPM Atrial Rate : 089 BPM P-R Int : 192 ms QRS Dur : 112 ms QT Int : 352 ms P-R-T Axes : 042 042 028 degrees QTc Int : 428 ms Normal sinus rhythm Left atrial enlargement T wave abnormality, consider anterior ischemia Abnormal ECG When compared with ECG of 02-FEB-2021 16:29, QRS duration has increased T wave inversion no longer evident in Lateral leads Confirmed by Jaden Goss ([id number]) on 02/24/2021 10:29:55 AM Referred By: REFERRED SELF Confirmed By:Jaden Goss
--- NOTE | 2021-02-24 10:30 | Electrocardiogram Report ---
Test Reason : Blood Pressure : / mmHG Vent. Rate : 090 BPM Atrial Rate : 090 BPM P-R Int : 192 ms QRS Dur : 112 ms QT Int : 360 ms P-R-T Axes : 043 040 026 degrees QTc Int : 440 ms Normal sinus rhythm Left atrial enlargement T wave abnormality, consider anterior ischemia Abnormal ECG When compared with ECG of 23-FEB-2021 19:33, No significant change was found Confirmed by Jaden Goss ([id number]) on 02/24/2021 10:30:01 AM Referred By: REFERRED SELF Confirmed By:Jaden Goss
[2021-02-24 10:35] LABS: BUN Creatinine Ratio 13.8 (10-20); Calcium 9.5 mg/dl (8.5-10.1); Creatinine Clr Calc Pharmacy 31.4 ml/min; Est GFR (African American) 32.9 ml/min; Est GFR (Non-African American) 28.4 ml/min; Potassium 6.7 mmol/L (3.5-5.1)
--- NOTE | 2021-02-24 11:12 | Electrocardiogram Report ---
Test Reason : Blood Pressure : / mmHG Vent. Rate : 087 BPM Atrial Rate : 087 BPM P-R Int : 160 ms QRS Dur : 090 ms QT Int : 344 ms P-R-T Axes : 055 057 040 degrees QTc Int : 413 ms Normal sinus rhythm Left atrial enlargement T-wave inversion in Septal leads Borderline ECG When compared with ECG of 23-FEB-2021 19:33, QRS duration has decreased T-wave inversion in in lead V3 no longer present Confirmed by Jaden Goss ([id number]) on 02/24/2021 11:11:37 AM Referred By: REFERRED SELF Confirmed By:Jaden Goss
[2021-02-24] MEDS ORDERED: GANCICLOVIR SODIUM IV SCH (12:30)
[2021-02-24] MEDS ORDERED: SODIUM CHLORIDE 0.9% IV SCH (12:30)
--- NOTE | 2021-02-24 12:59 | Nephrology Consultation ---
Date of Consultation February 24, 2021 Assessment & Plan (1) Hyperkalemia, diminished renal excretion: (2) Acute kidney injury: (3) Hyponatremia: (4) Metabolic acidosis: 56-year-old critically ill female with recent double lung transplant for severe COPD, on immunosuppressive medications, looks like since her transplant she has been having variable creatinine with YE and multiple electrolyte abnormality including hyperkalemia, hyponatremia, hypomagnesemia, non gap metabolic acidosis. hyperkalemia possibly secondary to combination of multiple factors including YE, recent amiloride, questionable adrenal insufficiency ? Type 4 RTA, Bactrim and tacrolimus. Both YE and hyperkalemia could be secondary to tacrolimus toxicity as level was significantly elevated to more than 60 a month ago and recent level was 18 which is still higher than her goal trough of 10-12. Potassium has been resistant to improve after multiple doses of Veltassa, insulin, D50 and bicarbonate. Creatinine staying around 1.8-2. Sodium and bicarb staying same without any significant changes despite being on bicarb drip. Had communication with transplant center who recommended to keep her off of tacrolimus as well as Myfortic acid. both amiloride and Bactrim has been on hold. Potassium still elevated at 6.7 but the trend has been down. Overall she continues to feel somewhat poorly. CMV titer was extremely high. -- Continue to monitor potassium and sodium every 2 hours, give another dose of insulin and D50 and just received another dose of Veltassa as well. Continue on bicarb drip for now -- hopefully potassium will continue to trend down, if she continues to stay above 6.5, may need to consider a brief session of dialysis. Discussed with her and she is agreeable to that however considering her immunosuppressed status, would like to avoid placing a temporary dialysis catheter as much as possible as she has very high risk of infection. -- hydrocortisone change to 20 mg Q 8 hours as per recommendation from [facility] transplant. -- She is currently waiting for transfer to [facility] however no bed available at this time -- started on ganciclovir -- continue to monitor closely while waiting for transfer to [facility] Will follow Thank you for allowing me to participate in your patient's care. It was a pleasure to see Yashira. History of Present Illness Reason for Consultation: Hyperkalemia, YE and multiple electrolyte abnormality. Attending Physician: Saul oGmes History of Present Illness Ms. Yashira Pastrana is a 56-year-old female with multiple significant comorbidities including bilateral lung transplant, COPD, obstructive sleep apnea, hypothyroidism, depression admitted to hospital with critical hyperkalemia, YE and multiple electrolyte abnormality. Nephrology consult was requested for management mint of hyperkalemia and YE. EMR records are reviewed in detail during patient's visit. Gasper Reeder has history of severe COPD, status post double lung transplant on 11/22/2020 at [facility]. Transplant has been functioning well, no history of rejection. Her immunosuppressive regimens were tacrolimus, CellCept and prednisone however CellCept was discontinued due to GI upset and has been on Myfortic acid. Because of ongoing GI issues Myfortic acid was discontinued a w [place] ago however she continued to take it at home. Her tacrolimus level has been extremely variable, on 01/14/2021 her level was more than 60, dose adjusted and last at level was 17.6 a week ago and since then she has been taking 1 mg in a.m. and 1.5 mg in p.m.. She has been also on hydrocortisone 20 mg q.8 hours for questionable history of adrenal insufficiency. she has been on Bactrim 3 times a week and antiviral prophylaxis. She was starting in on amiloride 3 weeks ago for history of hypomagnesemia with magnesium as low as 1.0 requiring IV magnesium supplement. She has not been taking any NSAID or other nonprescription medication. No known family history of renal dysfunction. Ex- smoker she used to smoke 30 cigarettes per day for many years. She presented to ER yesterday with 3 days history of nausea, vomiting, poor p.o. intake and GI upset although no abdominal pain. She reports getting flu vaccine 2 days ago but no other changes in her medication or her healthy in [facility]. On admission lab showed potassium of 7.8, creatinine 2.0, BUN 33, sodium 127 and bicarb 16. EKG showed changes consistent with hyperkalemia. She was given insulin, D50, Veltassa, bicarbonate and calcium gluconate. potassium slightly improved to 6.7 overnight however, this morning potassium again increased to 7.3. Creatinine staying close to 1.8-2. Bicarb remained low around 16-17 with normal anion gap. Sodium staying around 128-129, urine osmolality appropriately low around 150s.. Record review showed she had normal renal function prior to the lung transplant, baseline creatinine was 0.5-0.6. Transplant was on 11/22/2020 and no labs in our system until January. Labs since January showed variability in creatinine and multiple electrolyte abnormality over last 1 month. Urinalysis was negative for proteinuria. She had lung biopsy last month which was unremarkable. CMV PCR was elevated at 850s on 02/13/2021 and increased to more than 2000 on 02/20/2021.. transplant team at [facility] was contacted last night and recommended to transfer her to [facility] however no bed or transportation was available and she was admitted here. Since admission her blood pressure has been elevated with prior normal blood pressure, has not been on any antihypertensive medications. Amiloride was for hypomagnesemia which is currently on hold. She denies any shortness of breath, no fever or chills however overall she feels poorly, extremely fatigued and continues to have nausea and abdominal discomfort. Allergies Allergy/AdvReac Type Severity Reaction Status Date / Time Penicillins Allergy Unknown Unknown Verified 02/23/21 20:03 Home Medications Medication Instructions Recorded Confirmed Type aripiprazole 10 mg tablet (Abilify) 10 mg PO QAM 06/11/18 02/23/21 History escitalopram oxalate 20 mg tablet 20 mg PO QAM 06/11/18 02/23/21 History (Lexapro) acetaminophen 325 mg tablet 650 mg PO Q6H PRN 01/14/21 02/23/21 History (Tylenol) ergocalciferol (vitamin D2) 1,250 50,000 unit PO 3XWK 01/14/21 02/23/21 History mcg (50,000 unit) capsule hydrocortisone 10 mg tablet 10 - 20 mg PO UD 01/14/21 02/23/21 History loperamide 2 mg tablet 2 mg PO Q4H PRN 01/14/21 02/23/21 History magnesium chloride 64 mg PO HS 01/14/21 02/23/21 History melatonin 3 mg tablet 6 mg PO HS 01/14/21 02/23/21 History mycophenolate sodium 180 mg 720 mg PO BID 01/14/21 02/23/21 History tablet,delayed release (Myfortic) omega-3 acid ethyl esters 1 gram 2 g PO AMPM 01/14/21 02/23/21 History capsule ondansetron 4 mg disintegrating 4 mg PO Q8H PRN 01/14/21 02/23/21 History tablet pantoprazole 40 mg tablet,delayed 40 mg PO DAILYBB 01/14/21 02/23/21 History release posaconazole 100 mg tablet,delayed 300 mg PO QAM 01/14/21 02/23/21 History release tacrolimus 0.5 mg capsule, 0.5 mg PO PM 01/14/21 02/23/21 History immediate-release tacrolimus 1 mg capsule, 1 mg PO AMPM 01/14/21 02/23/21 History immediate-release trazodone 100 mg tablet 100 mg PO HS 01/14/21 02/23/21 History amiloride 5 mg tablet 5 mg PO DAILY 02/23/21 02/23/21 History atovaquone 750 mg/5 mL oral 1,500 mg PO DAILY 02/23/21 02/23/21 History suspension potassium chloride 20 mEq 20 meq PO UD 02/23/21 02/23/21 History tablet,extended release(part/cryst) trazodone 50 mg tablet 50 mg PO HS 02/23/21 02/23/21 History Patient History Medical History (Updated 02/24/21 @ 13:03 by Sarah Marroquin MD) Anxiety Chronic intermittent hypoxia with obstructive sleep apnea COPD (chronic obstructive pulmonary disease) Depression GERD (gastroesophageal reflux disease) Hyponatremia Hypothyroidism Metabolic acidosis On home oxygen therapy 2L at hs and prn SAMUEL (obstructive sleep apnea) Overweight Pulmonary emphysema Sleep apnea cpap with 2L Surgical History (Updated 02/24/21 @ 05:41 by Gilberto Martinez MD) History of abdominal surgery repair of ruptured spleen History of appendectomy History of bronchoscopy History of cardiac cath SOB--05/22/2018 @ [facility]--no stents History of lung surgery benign nodule removal from left lung History of open reduction and internal fixation (ORIF) procedure left wrist--hardware removed History of tooth extraction all upper teeth History of wisdom tooth extraction Family History Daughter Family history of reaction to anesthesia takes a lot to put her out Brother Family history of cancer of tongue Social History Smoking Status: Former smoker Tobacco Type: Cigarettes Cigarettes Per Day: 30; Second Hand Exposure: No; Do You Dip or Chew Tobacco: No; Tobacco Cessation Education Requested by Patient: No Hx Alcohol Use: No Hx Substance Use: No Preferred Language: Arabic Communication Ability: Effective Senior Software Manager Required: No Beliefs That Will Affect Care: None Current Living Situation: Family Other Information That Helps Us Care for You: No Feels Safe at Home: Yes Safety Concerns: Feels Safe At This Time Assistive Devices: Glasses Physical Exam Physical Exam: detailed review of system was done and protein and findings were mentioned in HPI. Constitutional: WD/WN, vitals as above + ill appearing; no acute distress Eyes: + anicteric sclerae ENMT: Ears: no hearing impairment and no external ear abnormality Nose: nasal mucous membranes not dry Neck: normal visual inspection Thyroid: no thyromegaly Respiratory: normal respiratory effort; no respiratory distress and no cough Auscultation: lungs clear to auscultation bilaterally Cardiovascular: Rate/Rhythm: regular rate and regular rhythm Heart Sounds: normal S1 and normal S2 Extremities: no edema Gastrointestinal (Abdomen): Inspection/Auscultation: abdomen normal to inspection and normal bowel sounds Percussion/Palpation: abdomen soft; abdomen nontender Musculoskeletal: Extremities: extremities normal to inspection Skin: normal turgor; no rashes Neurologic: no focal motor deficits and not confused Psychiatric: Orientation: alert and oriented x 3 Affect: euthymic affect Results & Data ([facility]) Vital Signs (Past 12 Hours) Vital Signs Temp Pulse Resp BP Pulse Ox 02/24/21 11:02 36.8 C 96 H 15 158/92 H 97 02/24/21 03:00 36.7 C 95 H 18 169/88 H 96 PG Care Time/CCT Total # of Minutes Spent Total Time Spent with Patient: Total time spent is greater than 50% in coordination of care (as documented) at patient's floor/unit and/or counseling patient: Coding Level of Care Code 59973 Office/OBS Consult Lvl 5 Diagnoses Hyperkalemia, diminished renal excretion E87.5 Acute kidney injury N17.9 Hyponatremia E87.1 Metabolic acidosis E87.2
[2021-02-24 13:29] LABS: BUN Creatinine Ratio 13.1 (10-20); Calcium 10.2 mg/dl (8.5-10.1); Creatinine Clr Calc Pharmacy 28.8 ml/min; Est GFR (African American) 29.7 ml/min; Est GFR (Non-African American) 25.6 ml/min; Potassium 5.4 mmol/L (3.5-5.1)
[2021-02-24] MEDS ORDERED: MoRPHine SULFATE 2 MG/ML CARP IV STA (14:26)
--- NOTE | 2021-02-24 15:04 | Discharge Summary ---
Date of Service date of admission - February 23, 2021 date of discharge - February 24, 2021 Admission HPI Per Admitting Provider The patient is a 56-year-old female with a past medical history including bilateral lung transplant in summer 2020 at [facility], severe COPD, obstructive sleep apnea, hypothyroidism, and depression. She presents to the emergency department with fatigue, nausea, headache, and decreased oral intake for solids/liquids over the previous 2-3 days. Upon presentation laboratories showed a sodium of 127, potassium 7.8, creatinine 2.03, BUN 33 and glucose 130. Principal Diagnosis 1. severe hyperkalemia 2. acute kidney injury 3. bilateral lung transplant status 4. CMV + 5. possible adrenal insufficiency Discharge Exam gen - looks sick, alert/oriented x 3 mouth - MM dry neck - no JVD heart - RRR, s1 s2, no murmur lungs - CTA b/l abd - soft NT ND BS+ ext - no edema, pulses 2+ b/l skin - no rash Discharge Data Allergies Allergy/AdvReac Type Severity Reaction Status Date / Time Penicillins Allergy Unknown Unknown Verified 02/23/21 20:03 Consultations [facility] Procedures Performed Chest X-Ray 02/24/21 05:33 XR chest 1V portable CLINICAL HISTORY: Bilateral lung transplant. COMPARISON STUDY: Chest CT July 14, 2020. Chest radiograph January 14, 2021. FINDINGS: Cardiomegaly is unchanged. Postoperative findings consistent with b ilateral lung transplant are noted. There is no pneumothorax. There is no evidence for pulmonary edema. Left basilar opacity is noted. This has slightly improved since prior exam. There may be a trace left pleural effusion. Endovascular coils within the upper abdomen are incidentally noted. IMPRESSION: 1. Left basilar opacity, slightly improved since exam January 14, 2021. This could reflect resolving pneumonia. Continue radiographic follow-up to ensure complete resolution is recommended. 2. Suspected trace left pleural effusion. ACT 112: Negative or not required by law. Electronically signed by: Emigdio Torres M.D. 02/24/2021 7:07 AM Hospital Course (1) Hyperkalemia, diminished renal excretion: The patient's ACUTE HYPERKALEMIA was secondary to a host of factors including acute kidney injury (baseline Cr ~0.6 pre-lung transplant, creatinine 1.2-1.4 in January 2021, and then 2 upon presentation), recent addition of amiloride, potassium supplementation, as well as possible other factors (e.g. - Tacrolimus toxicity). She was treated with several IV pushes of sodium bicarbonate, insulin/D50, and multiple pushes of IV calcium. She was placed on IV bicarbonate infusion and received 3 doses of Veltassa binder. Amiloride, potassium supplementation, and Tacrolimus were held (latter after speaking with her transplant physician in [place]). Initially the potassium was refractory with levels staying 6 or higher despite aggressive treatment. By the afternoon of 02/24/21 the potassium level finally fell below 6. Fortunately she never had cardiac dysrhythmia during her stay. She remained hemodynamically stable during her brief stay with no hypotension. At time of transfer to [facility] in [place] her K level was 5.8. She was transferred on a bicarbonate infusion. She received additional IV calcium just prior to discharge. Dr Fozia Marroquin, [facility] Neph[facility], provided townsend recommendations for Ms Pastrana's care. (2) Acute kidney injury: Creatinine 2.03 upon admission, with most recent creatinine range of 1.2 to 1.4 in the month of January and early February, 2020. Creatinine upon transfer to [facility] was 1.98. Creatinine prior to her double lung transplant in 2020 was ~0.6. Exact etiology of her acute kidney injury was uncertain but Tacrolimus toxicity was possible. Records from [facility] on 02/02/21 showed that a Tacrolimus level had peaked at 19 sometime in late January with a target range of 10-12. Those same records indicate her Tacrolimus dose was reduced to 1mg BID in response to the high level. Pre-renal etiologies were also possible given lack of PO intake in the days leading up to this admission. Finally, records indicate that patient is positive for CMV and certainly active CMV could be contributing to YE. After speaking with the patient's transplant physician, Dr Pavithra Huerta, on the AM of 02/24/21 she advised a dose of IV gancyclovir. This was indeed administered to the patient prior to transfer/discharge. Again her creatinine was 1.98 upon discharge. Guido was in place. Obstructive etiologies were not suspected, however. (3) Lung transplant status, bilateral: 11/22/[address] [facility]. Transplant physician - Dr Pavithra Huerta. Recent transplant medications include mycophenolate, tacrolimus, and posaconazole/atovaquone. Had been on prednisone which was recently changed to hydrocortisone based on records from January 2021. Basal hydrocortisone dosing was 20mg qam, 10mg qafternoon, and 10mg qevening. During her brief stay here she was placed on Hydrocortisone IV 20mg TID due to NPO status. Atovaquone was given. Family brought posaconazole from home. After speaking with Dr Huerta she advised holding her tacrolimus (patient did r eceive 2 doses during her brief stay prior to this phone conversation). Given the complexity of her history, her severity of illness, inability to obtain tacrolimus levels in a rapid fashion, etc Dr Huerta recommended transfer to [facility] emergently. Ms Pastrana was transferred the afternoon of 02/24/21. Of note - patient had normal O2 sats in room air during her entire stay. (4) SAMUEL (obstructive sleep apnea): CPAP HS (5) Depression: Continue Abilify, Escitalopram, melatonin, trazodone (6) GERD (gastroesophageal reflux disease): Continue pantoprazole (7) CMV (cytomegalovirus infection) status positive: On 02/20/21 at [facility] her CMV RT-PCR was positive with level of >2000. Dr Huerta, her transplant physician, confirmed that patient previously had been taking Valcyte. During this brief stay patient received 1 dose of IV ganciclovir at Dr Huerta's recommendation. (8) COPD (chronic obstructive pulmonary disease): History of. Reason for b/l lung transplant. Normal lung exam and O2 sats during this hospitalization. On day of discharge I provided 120 minutes of critical care time including - complex care coordination, management & treatment of life- threatening/severe/refractory hyperkalemia in a high-risk transplant patient, discussing care with [facility] transplant physician Dr Huerta, transfer preparation, etc. Total Time Total Time Spent Total Time Spent (In Minutes): 120 Discharge Plan Discharge Items Patient Disposition: Transfer Acute Care Hospital Reason For Visit: HYPERKALEMIA, YE Discharge Diagnosis: Severe Hyperkalemia. Acute Kidney Injury. B/l Lung Transplant 2020. Activity: As commented below Activity Comment: bedrest Non-emergency contact: Primary Care Provider Call non-emergency contact if: you have any medication questions Follow-up/Referrals: Sunday Villalobos Jr, DO [Primary Care Provider] - Diet: Other - See Diet Comment Addtl Attending Provider Instructions: Further instructions to follow after your hospitalization at [facility]. Pending Studies at Discharge: No Stand-Alone Forms: My [facility] Skilled Items Patient informed of condition?: Yes DNR: No Discharge Level of Care: Other Communicable Disease: No Discharge Prognosis: Other Lines: Peripheral IV Urinary Catheter: Yes Medications and DC Order Prescriptions: Continued escitalopram oxalate [Lexapro] 20 mg tablet 20 mg PO QAM RF: 0 aripiprazole [Abilify] 10 mg tablet 10 mg PO QAM RF: 0 atovaquone 750 mg/5 mL Suspension 1,500 mg PO DAILY RF: 0 trazodone 50 mg tablet 50 mg PO HS RF: 0 acetaminophen [Tylenol] 325 mg Tablet 650 mg PO Q6H PRN (Reason: Pain) RF: 0 loperamide 2 mg Tablet 2 mg PO Q4H PRN (Reason: Diarrhea) RF: 0 melatonin 3 mg Tablet 6 mg PO HS RF: 0 trazodone 100 mg tablet 100 mg PO HS RF: 0 pantoprazole 40 mg tablet,delayed release (DR/EC) 40 mg PO DAILYBB RF: 0 hydrocortisone 10 mg tablet 10 - 20 mg PO UD RF: 0 ondansetron 4 mg tablet,disintegrating 4 mg PO Q8H PRN (Reason: Nausea) RF: 0 omega-3 acid ethyl esters 1 gram capsule 2 g PO AMPM RF: 0 posaconazole 100 mg tablet,delayed release (DR/EC) 300 mg PO QAM RF: 0 Discontinued amiloride 5 mg tablet 5 mg PO DAILY RF: 0 potassium chloride 20 mEq tablet,ER particles/crystals 20 meq PO UD RF: 0 ergocalciferol (vitamin D2) 1,250 mcg (50,000 unit) capsule 50,000 unit PO 3XWK RF: 0 tacrolimus 1 mg capsule 1 mg PO AMPM RF: 0 tacrolimus 0.5 mg capsule 0.5 mg PO PM RF: 0 mycophenolate sodium [Myfortic] 180 mg Tablet,Delayed Release (Dr/Ec) 720 mg PO BID RF: 0 magnesium chloride 64 mg magnesium Tablet 64 mg PO HS RF: 0 Discharge Orders: Discharge Order (Routine); Ordered 02/24/21 Ordered By: Saul Gomes Admission Data Admit Date/Time: 02/23/21 22:08 Attending Provider: Saul Gomes Admit Provider: Gilberto Martinez Primary Care Provider: Sunday Villalobos Jr Other Providers: Gilberto Martinez ; Sarah Marroquin Other Interventions: Discharge Summary Assessment (RN) Last Done: 02/24/21 19:15 Coding Level of Care Code None Diagnoses Hyperkalemia, diminished renal excretion E87.5 Acute kidney injury N17.9 Lung transplant status, bilateral Z94.2 SAMUEL (obstructive sleep apnea) G47.33 Depression F32.9 GERD (gastroesophageal reflux disease) K21.9 CMV (cytomegalovirus infection) status positive B25.9 COPD (chronic obstructive pulmonary disease) J44.9 COPD type: unspecified COPD Time Spent (min) 120 Comment CPTs -- 34068 + 31306 (CC 1st hour + CC each additional)
[2021-02-24 17:34] LABS: BUN Creatinine Ratio 12.9 (10-20); Calcium 9.3 mg/dl (8.5-10.1); Creatinine Clr Calc Pharmacy 30.3 ml/min; Est GFR (African American) 31.5 ml/min; Est GFR (Non-African American) 27.2 ml/min; Potassium 5.8 mmol/L (3.5-5.1)
[2021-02-24] MEDS ORDERED: MELATONIN 3 MG TAB PO PRN (21:00)
[2021-02-24] MEDS ORDERED: traZODone HCL 50 MG TAB PO SCH (21:00)
[2021-02-24] MEDS ORDERED: MAGNESIUM OXIDE 400 MG TAB PO SCH (21:00)
[2021-02-24] MEDS ORDERED: traZODone HCL 100 MG TAB PO SCH (21:00)
--- NOTE | 2021-02-26 22:41 | Emergency Department Note ---
Impression & Plan Acute hyperkalemia, Acute kidney injury, Lung transplant status, bilateral ED Provider Note CHIEF COMPLAINT: Nausea, vomiting, shaking HISTORY OF PRESENT ILLNESS: This 56-year-old female patient presents to the emergency department with complaints of nausea, vomiting and shaking. The patient had a double lung transplant for advanced COPD in [place] 3 months ago. Patient states she had a flu shot 2 days ago, became flushed, nausea and has been sick ever since. Patient has been able to keep down her medicine she believes. She has had an extremely low magnesium and states she has been supplemented with both magnesium and potassium recently. She does not believe she has been able to keep up with her fluids. Transplant surgery advised her to come to [place] however patient did not feel that she would tolerate the car ride there. They have been advised the patient to come to our facility. Patient denies any recent fevers, blood in the emesis or stools. REVIEW OF SYSTEMS: A review of systems was performed with positives and pertinent negatives listed in the history of present illness. 10 systems were reviewed and are otherwise negative. ALLERGIES: see below MEDICATIONS: see below PMH: see below SOCIAL HISTORY: see below DDx: Transplant rejection, vaccine reaction, pneumonia, UTI, Covid, electrolyte abnormality, metabolic abnormality, dehydration, amongst others PHYSICAL EXAM: Vital signs reviewed. General: Somewhat ill-appearing 56-year-old female, in no significant distress. HEENT: No scleral icterus, PERRLA, neck supple. Atraumatic. Cardiovascular: Tachycardic but regular, no extra sounds Pulmonary: Clear to auscultation bilaterally, normal work of breathing. Abdomen: Soft, nontender, nondistended, positive bowel sounds. Musculoskeletal: Atraumatic, no peripheral edema. Neurologic: Patient awake alert and oriented x 3 Skin: Warm, dry, no rash EMERGENCY DEPARTMENT COURSE/MDM: This patient was evaluated and appeared to be in no significant distress. IV access was obtained and laboratory work was drawn. Patient's laboratory work reveals a potassium of 7.6. EKG reveals a T wave abnormality in the anterior leads although clear peaked T waves is not certain. Patient was given IV calcium gluconate, IV dextrose and IV insulin. I V fluids were initiated really aggressively. I suspect the patient's hyperkalemia is twofold, dehydration and supplemental potassium intake. Case was discussed with the hospitalist service who will evaluate the patient for further management. Patient and daughter were made aware of the plan and a greed. Attempt to contact the transplant team at [facility] was made however they were unable to return a call through the transfer center. MONITORING: An order for cardiac monitoring was placed and the patient is noted to be in a sinus tachycardia at 112 beats per minute. RADIOLOGY: See below EKG: Normal sinus rhythm at 87 bpm. Normal axis, no PVC, no PAC. Normal ST segments. T wave abnormality in the anterior leads. I have personally spent 35 minutes of critical care time in the direct manag ement of this patient. This was a life threatening event. This 35 minutes is in excess of all separately billable procedures. DISPOSITION: Admission Past Med/Surg History Medical History (Updated 03/02/21 @ 00:07 by Background Denisse) Acute kidney injury Anxiety Chronic intermittent hypoxia with obstructive sleep apnea COPD (chronic obstructive pulmonary disease) Depression Hypothyroidism On home oxygen therapy 2L at hs and prn Overweight Pulmonary emphysema Sleep apnea cpap with 2L Surgical History (Updated 03/02/21 @ 00:07 by Background Denisse) History of abdominal surgery repair of ruptured spleen History of appendectomy History of bronchoscopy History of cardiac cath SOB--05/22/[address] [facility]--no stents History of lung surgery benign nodule removal from left lung History of open reduction and internal fixation (ORIF) procedure left wrist--hardware removed History of tooth extraction all upper teeth History of wisdom tooth extraction Lung transplant status, bilateral Family History Daughter Family history of reaction to anesthesia takes a lot to put her out Brother Family history of cancer of tongue Social History Smoking Status: Former smoker Tobacco Type: Cigarettes Cigarettes Per Day: 30; Second Hand Exposure: No; Hx Alcohol Use: No Hx Substance Use: No Preferred Language: Serbian Communication Ability: Effective Chandelier Maker Required: No Beliefs That Will Affect Care: None Current Living Situation: Family Feels Safe at Home: Yes Assistive Devices: None Allergies Allergies Allergy/AdvReac Type Severity Reaction Status Date / Time Penicillins Allergy Unknown Unknown Verified 02/23/21 20:03 Home Meds Home Medications Medication Instructions Recorded Confirmed aripiprazole 10 mg tablet (Abilify) 10 mg PO QAM 06/11/18 02/23/21 escitalopram oxalate 20 mg tablet 20 mg PO QAM 06/11/18 02/23/21 (Lexapro) acetaminophen 325 mg tablet 650 mg PO Q6H PRN 01/14/21 02/23/21 (Tylenol) hydrocortisone 10 mg tablet 10 - 20 mg PO UD 01/14/21 02/23/21 loperamide 2 mg tablet 2 mg PO Q4H PRN 01/14/21 02/23/21 melatonin 3 mg tablet 6 mg PO HS 01/14/21 02/23/21 omega-3 acid ethyl esters 1 gram 2 g PO AMPM 01/14/21 02/23/21 capsule ondansetron 4 mg disintegrating 4 mg PO Q8H PRN 01/14/21 02/23/21 tablet pantoprazole 40 mg tablet,delayed 40 mg PO DAILYBB 01/14/21 02/23/21 release posaconazole 100 mg tablet,delayed 300 mg PO QAM 01/14/21 02/23/21 release trazodone 100 mg tablet 100 mg PO HS 01/14/21 02/23/21 atovaquone 750 mg/5 mL oral 1,500 mg PO DAILY 02/23/21 02/23/21 suspension trazodone 50 mg tablet 50 mg PO HS 02/23/21 02/23/21 Results & Data (ED) Home Medications Current Medication List: was personally reviewed by me Laboratory Data Attestation: I reviewed the patient's lab results. Result diagrams: 02/24/21 04:42 02/24/21 16:38 Lab Results 02/23/21 02/23/21 02/23/21 Range/Units 18:33 18:33 19:56 WBC 8.70 (4.8-10.8) K/uL RBC 3.93 L (4.2-5.4) M/uL Hgb 11.5 L (12.0-16.0) g/dL Hct 34.6 L (37-47) % MCV 88.0 (80-100) fL MCH 29.3 (25-34) pg MCHC 33.2 (32-36) g/dL RDW Std Deviation 49.6 H (36.4-46.3) fL RDW Coeff of Nicolle 15.2 H (11.5-14.5) % Plt Count 349 (130-400) K/uL MPV 8.7 (7.4-10.4) fL Neutrophils % (Manual) 94.7 % Lymphocytes % (Manual) 0.9 % Monocytes % (Manual) 3.5 % Eosinophils % (Manual) 0.9 % Neutrophils # (Manual) 8.24 H (1.4-6.5) K/uL Total Absolute Neuts 8.24 H (1.4-6.5) K/uL Lymphocytes # (Manual) 0.08 L (1.2-3.4) K/uL Total Abs Lymphocytes 0.08 L (1.2-3.4) K/uL Monocytes # (Manual) 0.30 (0.11-0.59) K/uL Eosinophils # (Manual) 0.08 (0-0.5) K/uL Polychromasia 1+ Echinocytes 1+ Sodium 126 L 127 L (136-145) mmol/L Potassium 7.6 H* 7.8 H* (3.5-5.1) mmol/L Chloride 104 105 (98-107) mmol/L Carbon Dioxide 14 L 15 L (21-32) mmol/L Anion Gap 9.0 7.0 (3-11) BUN 34 H 33 H (7-18) mg/dl Creatinine 2.04 H 2.03 H (0.6-1.2) mg/dl Est Cr Clr Drug Dosing 29.3 29.5 ml/min Est GFR ( Amer) 30.4 30.6 ml/min Est GFR (Non-Af Amer) 26.2 26.4 ml/min BUN/Creatinine Ratio 16.6 16.5 (10-20) Glucose 136 H 130 H (70-99) mg/dl Calcium 9.5 8.8 (8.5-10.1) mg/dl Total Bilirubin 0.3 0.3 (0.2-1) mg/dl AST 16 12 L (15-37) U/L ALT 14 13 (12-78) U/L Alkaline Phosphatase 74 66 (45-117) U/L Total Protein 7.9 6.9 (6.4-8.2) gm/dl Albumin 3.9 3.4 (3.4-5.0) gm/dl Globulin 4.0 3.5 (2.5-4.0) gm/dl Albumin/Globulin Ratio 1.0 1.0 (0.9-2) Lipase 146 (73-393) U/L COVID-19 Eval Order SARS-CoV-2 (PCR) (Negative) 02/23/21 02/23/21 02/23/21 Range/Units 20:13 20:13 21:00 WBC (4.8-10.8) K/uL RBC (4.2-5.4) M/uL Hgb (12.0-16.0) g/dL Hct (37-47) % MCV (80-100) fL MCH (25-34) pg MCHC (32-36) g/dL RDW Std Deviation (36.4-46.3) fL RDW Coeff of Nicolle (11.5-14.5) % Plt Count (130-400) K/uL MPV (7.4-10.4) fL Neutrophils % (Manual) % Lymphocytes % (Manual) % Monocytes % (Manual) % Eosinophils % (Manual) % Neutrophils # (Manual) (1.4-6.5) K/uL Total Absolute Neuts (1.4-6.5) K/uL Lymphocytes # (Manual) (1.2-3.4) K/uL Total Abs Lymphocytes (1.2-3.4) K/uL Monocytes # (Manual) (0.11-0.59) K/uL Eosinophils # (Manual) (0-0.5) K/uL Polychromasia Echinocytes Sodium 129 L (136-145) mmol/L Potassium 6.8 H* (3.5-5.1) mmol/L Chloride 106 (98-107) mmol/L Carbon Dioxide 16 L (21-32) mmol/L Anion Gap 6.0 (3-11) BUN 33 H (7-18) mg/dl Creatinine 2.03 H (0.6-1.2) mg/dl Est Cr Clr Drug Dosing 29.5 ml/min Est GFR ( Amer) 30.6 ml/min Est GFR (Non-Af Amer) 26.4 ml/min BUN/Creatinine Ratio 16.2 (10-20) Glucose 122 H (70-99) mg/dl Calcium 9.5 (8.5-10.1) mg/dl Total Bilirubin (0.2-1) mg/dl AST (15-37) U/L ALT (12-78) U/L Alkaline Phosphatase (45-117) U/L Total Protein (6.4-8.2) gm/dl Albumin (3.4-5.0) gm/dl Globulin (2.5-4.0) gm/dl Albumin/Globulin Ratio (0.9-2) Lipase (73-393) U/L COVID-19 Eval Order Covid[address] [facility] SARS-CoV-2 (PCR) NEGATIVE (Negative) Administered Medications Discontinued Medications Acetaminophen (Acetaminophen 325 Mg Tab) 650 mg PO Q4H PRN PRN Reason: Pain or Fever Stop: 03/25/21 23:36 Last Admin: 02/24/21 13:18 Dose: 650 mg Documented by: [id number] Aripiprazole (Aripiprazole 10 Mg Tab) 10 mg PO QAM JEROME Stop: 03/26/21 08:59 Last Admin: 02/24/21 08:49 Dose: 10 mg Documented by: [id number] Atovaquone (Atovaquone 750 Mg/5 Ml Udc) 1,500 mg PO DAILY JEROME Stop: 03/26/21 08:59 Last Admin: 02/24/21 08:49 Dose: 1,500 mg Documented by: [id number] Dextrose (Dextrose 50% 50 Ml Syringe) 50 ml IV NOW STA Stop: 02/23/21 19:36 Last Admin: 02/23/21 19:53 Dose: 50 ml Documented by: [id number] Dextrose (Dextrose 50% 50 Ml Syringe) 50 ml IV ONE STA Stop: 02/23/21 22:05 Last Admin: 02/23/21 22:19 Dose: 50 ml Documented by: [id number] Dextrose (Dextrose 50% 50 Ml Syringe) 50 ml IV ONE STA Stop: 02/24/21 05:37 Last Admin: 02/24/21 05:48 Dose: 50 ml Documented by: [id number] Dextrose (Dextrose 50% 50 Ml Syringe) 50 ml IV NOW STA Stop: 02/24/21 10:42 Last Admin: 02/24/21 11:05 Dose: 50 ml Documented by: [id number] Enoxaparin Sodium (Enoxaparin Inj 30 Mg/0.3 Ml Syr) 30 mg SQ HS JEROME Stop: 03/25/21 23:44 Last Admin: 02/24/21 00:23 Dose: 30 mg Documented by: [id number] Escitalopram Oxalate (Escitalopram Oxalate 20 Mg Tab) 20 mg PO QAM JEROME Stop: 03/26/21 08:59 Last Admin: 02/24/21 08:49 Dose: 20 mg Documented by: [id number] Sodium Chloride (Nss 1000ml) 1,000 mls @ 125 mls/hr IV .Q8H JEROME Stop: 03/25/21 19:29 Last Infusion: 02/24/21 00:45 Dose: 0 mls/hr Documented by: [id number] Admin: 02/23/21 19:54 Dose: 125 mls/hr Documented by: [id number] Calcium Gluconate () 1,000 mg in 60 mls @ 240 mls/hr IV NOW STA Stop: 02/23/21 19:37 Last Infusion: 02/23/21 20:14 Dose: 0 mls/hr Documented by: [id number] Admin: 02/23/21 19:54 Dose: 240 mls/hr Documented by: [id number] Pantoprazole Sodium 40 mg/ (Syringe) 10 mls @ 5 mls/min IV NOW ONE Stop: 02/23/21 20:53 Last Admin: 02/23/21 21:11 Dose: 5 mls/min Documented by: [id number] Insulin Human Regular 10 units (/ Syringe) 10 mls @ 30 mls/min IV ONE STA Stop: 02/23/21 22:06 Last Admin: 02/23/21 22:19 Dose: 30 mls/min Documented by: [id number] Cosigned by: [id number] Sodium Chloride (Nss 1000ml) 1,000 mls @ 100 mls/hr IV .Q10H JEROME Stop: 02/24/21 09:36 Last Infusion: 02/24/21 08:00 Dose: 0 mls/hr Documented by: [id number] Admin: 02/24/21 01:03 Dose: 100 mls/hr Documented by: [id number] Hydrocortisone Sodium (Succinate 100 mg/ Syringe) 2 mls @ 4 mls/min IV Q8H JEROME Stop: 03/26/21 00:00 Last Admin: 02/24/21 09:18 Dose: Not Given Documented by: [id number] Admin: 02/24/21 00:25 Dose: 4 mls/min Documented by: [id number] Insulin Human Regular 10 units (/ Syringe) 10 mls @ 20 mls/min IV ONE ONE Stop: 02/24/21 05:46 Last Admin: 02/24/21 05:47 Dose: 20 mls/min Documented by: [id number] Cosigned by: [id number] Furosemide 40 mg/ Syringe 4 mls @ 4 mls/min IV ONE ONE Stop: 02/24/21 07:01 Last Admin: 02/24/21 07:08 Dose: 4 mls/min Documented by: [id number] Calcium Gluconate 1,000 mg/ (Sodium Chloride) 60 mls @ 240 mls/hr IV NOW ONE Stop: 02/24/21 08:14 Last Infusion: 02/24/21 08:36 Dose: 0 mls/hr Documented by: [id number] Admin: 02/24/21 08:04 Dose: 240 mls/hr Documented by: [id number] Sodium Bicarbonate 150 meq/ (Dextrose) 1,150 mls @ 100 mls/hr IV .[id number] JEROME Stop: 03/26/21 08:14 Last Admin: 02/24/21 08:20 Dose: 100 mls/hr Documented by: [id number] Hydrocortisone Sodium (Succinate 20 mg/ Syringe) 0.4 mls @ 4 mls/min IV Q8H JEROME Stop: 03/26/21 08:29 Last Admin: 02/24/21 17:36 Dose: 4 mls/min Documented by: [id number] Admin: 02/24/21 08:57 Dose: 4 mls/min Documented by: [id number] Insulin Human Regular 10 units (/ Syringe) 10 mls @ 30 mls/min IV ONE ONE Stop: 02/24/21 11:01 Last Admin: 02/24/21 11:05 Dose: 30 mls/min Documented by: [id number] Cosigned by: [id number] Ganciclovir Sodium 173.5 mg/ (Sodium Chloride) 103.47 mls @ 103.47 mls/hr IV Q24H JEROME; Protocol Stop: 03/03/21 12:29 Last Infusion: 02/24/21 15:27 Dose: 0 mls/hr Documented by: [id number] Cosigned by: [id number] Admin: 02/24/21 12:59 Dose: 103.5 mls/hr Documented by: [id number] Cosigned by: [id number] Calcium Gluconate 1,000 mg/ (Sodium Chloride) 60 mls @ 240 mls/hr IV 181 ONE Stop: 02/24/21 18:29 Last Admin: 02/24/21 18:14 Dose: 240 mls/hr Documented by: [id number] Insulin Human Regular (Novolin-R Insulin Per Unit Charge) 10 units IV NOW STA Stop: 02/23/21 19:36 Last Admin: 02/23/21 19:54 Dose: 10 units Documented by: [id number] Cosigned by: [id number] Miscellaneous (Posaconazole~Order Awaiting Action) 1 ea N/A QS [facility] Stop: 03/26/21 00:00 Last Admin: 02/24/21 13:04 Dose: 1 ea Documented by: [id number] Admin: 02/24/21 08:57 Dose: Not Given Documented by: [id number] Admin: 02/24/21 00:26 Dose: Not Given Documented by: [id number] Morphine Sulfate (Morphine Sulfate 2 Mg/Ml Carp) 2 mg IV NOW STA Stop: 02/24/21 14:27 Last Admin: 02/24/21 14:34 Dose: 2 mg Documented by: [id number] Mycophenolate Sodium (Mycophenolate Sodium 180 Mg Tab) 720 mg PO BID [facility] Stop: 03/25/21 23:44 Last Admin: 02/24/21 08:58 Dose: 720 mg Documented by: [id number] Admin: 02/24/21 00:24 Dose: 720 mg Documented by: [id number] Ondansetron HCl (Ondansetron Inj 2 Mg/Ml 2 Ml Vial) 4 mg IV NOW STA Stop: 02/23/21 20:52 Last Admin: 02/23/21 21:11 Dose: 4 mg Documented by: [id number] Ondansetron HCl (Ondansetron Inj 2 Mg/Ml 2 Ml Vial) 4 mg IV Q6H PRN PRN Reason: Nausea Stop: 03/25/21 23:36 Last Admin: 02/24/21 13:33 Dose: 4 mg Documented by: [id number] Pantoprazole Sodium (Pantoprazole 40 Mg Tab) 40 mg PO DAILYBB [facility] Stop: 03/26/21 06:29 Last Admin: 02/24/21 05:07 Dose: 40 mg Documented by: [id number] Patiromer (Patiromer Calcium Sorbitex 8.4 Gm Pack) 8.4 gm PO NOW STA Stop: 02/23/21 21:52 Last Admin: 02/23/21 22:18 Dose: 8.4 gm Documented by: [id number] Patiromer (Patiromer Calcium Sorbitex 8.4 Gm Pack) 8.4 gm PO ONE STA Stop: 02/24/21 08:05 Last Admin: 02/24/21 08:44 Dose: 8.4 gm Documented by: [id number] Patiromer (Patiromer Calcium Sorbitex 8.4 Gm Pack) 8.4 gm PO ONE STA Stop: 02/24/21 10:59 Last Admin: 02/24/21 14:53 Dose: 8.4 gm Documented by: [id number] Sodium Bicarbonate (Sodium Bicarb 8.4% Inj 50 Meq/50 Ml Syr) 50 meq IV NOW STA Stop: 02/24/21 07:50 Last Admin: 02/24/21 08:04 Dose: 50 meq Documented by: [id number] Tacrolimus (Tacrolimus 1 Mg Cap) 1 mg PO BID JEROME Stop: 03/25/21 23:44 Last Admin: 02/24/21 08:49 Dose: 1 mg Documented by: [id number] Admin: 02/24/21 00:25 Dose: 1 mg Documented by: [id number] Tacrolimus (Tacrolimus 0.5 Mg Cap) 0.5 mg PO PM JEROME Stop: 03/25/21 23:44 Last Admin: 02/24/21 00:25 Dose: 0.5 mg Documented by: [id number] Discharge Plan Visit Data Chief Complaint: Vomiting Stated Complaint: DOUBLE LUNG TRANSPLANT, VOMITING ED Provider: Stephanie Robles Discharge Problem: Acute hyperkalemia, Acute kidney injury, Lung transplant status, bilateral Patient Disposition: Admitted As Inpatient Discharge Instructions Interventions: ED Discharge Assessment Last Done: 02/23/21 23:29
== END 2021-02-24 19:17 | disposition short-term general hospital (02) | DRG 683 ==
LOC: ED 17:29 → 1E 22:08 → SUATTDRO 22:08 → 1E 23:29

== ENCOUNTER 2021-03-17 20:15 | Observation (INO) ==
--- NOTE | 2021-03-17 20:51 | XRay Report ---
XR chest 2V PA/lateral CLINICAL HISTORY: Resp sx c/w COVID-19 TECHNIQUE: AP and lateral frontal radiograph of the chest was obtained. Comparison: Comparison is made to chest one view 02/24/2021 FINDINGS: A right PICC terminates in the upper SVC. Median sternotomy wires and surgical clips are unchanged. C ardiomegaly is noted. A bilateral airspace opacities are seen predominantly in the lower lungs. No evidence of pleural effu flakita or pneumothorax. IMPRESSION: Faint bilateral airspace opacities which may represent atelectasis, pneumonia, and/or aspiration. ACT 112: Negative or not required by law. Electronically signed by: Ross Leiva M.D. 03/17/2021 8:50 PM
[2021-03-18] MEDS ORDERED: ACETAMINOPHEN 1000 MG/100 ML IV IV STA (01:13)
[2021-03-18] MEDS ORDERED: diphenhydrAMINE 50 MG/ML VIAL IV STA (01:13)
[2021-03-18] MEDS ORDERED: ONDANSETRON INJ 2 MG/ML 2 ML VIAL IV STA (01:13)
[2021-03-18] MEDS ORDERED: SODIUM CHLORIDE 0.9% 1000ML 1,000 ML IV SCH (01:15)
[2021-03-18 01:52] LABS: Basophils # (auto) 0.02 K/uL (0-0.2); Basophils % (auto) 0.3 %; Eosinophils # (auto) 0.04 K/uL (0-0.5); Eosinophils % (auto) 0.6 %; Hematocrit (blood only) 33.5 % (37-47); Hemoglobin 10.8 g/dL (12.0-16.0); Immature Granulocytes # (auto) 0.07 K/uL (0.00-0.02); Immature Granulocytes % (auto) 1.1 %; Lymphocytes # (auto) 0.58 K/uL (1.2-3.4); Lymphocytes % (auto) 9.3 %; Mean Corpuscular Hemoglobin 29.9 pg (25-34); Mean Corpuscular Hgb Conc 32.2 g/dL (32-36); Mean Corpuscular Volume 92.8 fL (80-100); Mean Platelet Volume 8.9 fL (7.4-10.4); Monocytes # (auto) 0.43 K/uL (0.11-0.59); Monocytes % (auto) 6.9 %; Neutrophils % (auto) 81.8 %; Platelet Count 502 K/uL (130-400); RDW Coefficient of Variation 15.2 % (11.5-14.5); RDW Standard Deviation 51.6 fL (36.4-46.3); Red Blood Count 3.61 M/uL (4.2-5.4); White Blood Count 6.24 K/uL (4.8-10.8)
[2021-03-18 02:12] LABS: Alanine Aminotransferase 12 U/L (12-78); Albumin Level 3.1 gm/dl (3.4-5.0); Aspartate Aminotransferase 14 U/L (15-37); BUN Creatinine Ratio 8.8 (10-20); Blood Urea Nitrogen 21 mg/dl (7-18); Calcium 8.6 mg/dl (8.5-10.1); Carbon Dioxide 20 mmol/L (21-32); Chloride 109 mmol/L (98-107); Est GFR (African American) 24.8 ml/min; Est GFR (Non-African American) 21.4 ml/min; Glucose 111 mg/dl (70-99); Potassium 4.7 mmol/L (3.5-5.1); Sodium 134 mmol/L (136-145)
[2021-03-18 02:14] LABS: Albumin Globulin Ratio 0.8 (0.9-2); Alkaline Phosphatase 66 U/L (45-117); Bilirubin,Total 0.3 mg/dl (0.2-1); Globulin 3.7 gm/dl (2.5-4.0); Total Protein 6.8 gm/dl (6.4-8.2)
--- NOTE | 2021-03-18 03:51 | History & Physical Report ---
Date of Service March 18, 2021 Assessment & Plan (1) Acute kidney injury: Plan: Samreen Pastrana is a 56y/o F who is s/p bilateral lung transplants earlier this year who presents to the hospital for evaluation of decreased oral intake. Acute Kidney injury: -Cr 2.41 (baseline 1.1) -likely secondary to decreased oral intake -1L NSS bolus in ED -continue LR overnight with recheck of labs in AM Bilateral Lung Transplant: -continue home atovaquone, mycophenolate, posconazole, tacrolimus, and amiloride Diet:Regular CODE STATUS: Full code (2) Lung transplant recipient: History of Present Illness Primary Care Provider: Sunday Villalobos Jr, Samreen Pastrana is a 56y/o F who is s/p bilateral lung transplants earlier this year who presents to the hospital for evaluation of decreased oral intake. Over the last several months in combination with her the transplant team at [facility] she has been making continued modifications to her medication regimen. Was last seen by them on 03/16. ER work-up demonstrated an elevated creatinine level. Allergies Allergy/AdvReac Type Severity Reaction Status Date / Time Penicillins Allergy Unknown Unknown Verified 03/07/21 20:22 Home Medications Medication Instructions Recorded Confirmed Type aripiprazole 10 mg tablet (Abilify) 10 mg PO QAM 06/11/18 03/18/21 History escitalopram oxalate 20 mg tablet 20 mg PO QAM 06/11/18 03/18/21 History (Lexapro) acetaminophen 325 mg tablet 650 mg PO Q6H PRN 01/14/21 03/18/21 History (Tylenol) hydrocortisone 10 mg tablet 10 - 20 mg PO UD 01/14/21 03/18/21 History loperamide 2 mg tablet 2 mg PO Q4H PRN 01/14/21 03/18/21 History melatonin 3 mg tablet 6 mg PO HS 01/14/21 03/18/21 History omega-3 acid ethyl esters 1 gram 2 g PO AMPM 01/14/21 03/18/21 History capsule ondansetron 4 mg disintegrating 4 mg PO Q8H PRN 01/14/21 03/18/21 History tablet pantoprazole 40 mg tablet,delayed 40 mg PO DAILYBB 01/14/21 03/18/21 History release posaconazole 100 mg tablet,delayed 300 mg PO QAM 01/14/21 03/18/21 History release (Noxafil) trazodone 100 mg tablet 100 mg PO HS 01/14/21 03/18/21 History atovaquone 750 mg/5 mL oral 1,500 mg PO DAILY 02/23/21 03/18/21 History suspension (Mepron) amiloride 5 mg tablet 5 mg PO BID 03/07/21 03/18/21 History azathioprine 50 mg tablet (Imuran) 75 mg PO QAM 03/07/21 03/18/21 History everolimus (immunosuppressive) 0.5 1 mg PO Q12H 03/07/21 03/18/21 History mg tablet (Zortress) magnesium oxide 500 mg capsule 500 mg PO HS #20 cap 03/07/21 03/18/21 Rx omeprazole 40 mg capsule,delayed 40 mg PO QAM 03/07/21 03/18/21 History release potassium chloride 20 mEq 20 meq PO DAILY #20 tab 03/07/21 03/18/21 Rx tablet,extended release tacrolimus 5 mg capsule, 5 mg PO BID 03/07/21 03/18/21 History immediate-release (Prograf) Past Med/Surg History Medical History (Updated 03/18/21 @ 06:38 by Lewis Simmons MD) Acute kidney injury Anxiety Chronic intermittent hypoxia with obstructive sleep apnea COPD (chronic obstructive pulmonary disease) Depression Hypothyroidism Lung transplant recipient On home oxygen therapy 2L at hs and prn Overweight Pulmonary emphysema Sleep apnea cpap with 2L Surgical History History of abdominal surgery repair of ruptured spleen History of appendectomy History of bronchoscopy History of cardiac cath SOB--05/22/2018 @ [facility]--no stents History of lung surgery benign nodule removal from left lung History of open reduction and internal fixation (ORIF) procedure left wrist--hardware removed History of tooth extraction all upper teeth History of wisdom tooth extraction Lung transplant status, bilateral Family History Daughter Family history of reaction to anesthesia takes a lot to put her out Brother Family history of cancer of tongue Social History Smoking Status: Former smoker Tobacco Type: Cigarettes Cigarettes Per Day: 30; Second Hand Exposure: No; Hx Alcohol Use: No Hx Substance Use: No Preferred Language: Azeri Communication Ability: Effective [employer]off [employer] Required: No Beliefs That Will Affect Care: None Current Living Situation: Family Feels Safe at Home: Yes Safety Concerns: Feels Safe At This Time Assistive Devices: None Review of Systems Review of Systems: All systems reviewed & are unremarkable except as noted in HPI & below Physical Exam Constitutional: WD/WN, vitals as above Eyes: PERRL, conjunctivae normal, anicteric sclerae Respiratory: normal respiratory effort, lungs clear to auscultation Auscultation: no crackles, no rales, no rhonchi and no wheezes Cardiovascular: Rate/Rhythm: regular rate and regular rhythm Heart Sounds: no gallop, no murmur and no cardiac rub Vessels: normal peripheral pulses; no JVD Extremities: no edema Gastrointestinal (Abdomen): Inspection/Auscultation: normal bowel sounds; abdomen not distended Percussion/Palpation: abdomen soft; abdomen nontender and no guarding Musculoskeletal: no cyanosis or clubbing, extremities motor strength 5/5 Skin: no rashes, warm and dry Neurologic: PERRL, EOMI, accommodation nl, no face palsy, no dysarthria CN's II-XI intact bilaterally and moves all extremities Psychiatric: Orientation: alert and oriented x 3 Results & Data Results & Data ([facility]) Vital Signs (Past 12 Hours) Vital Signs Temp Pulse Pulse Resp BP BP Pulse Ox 03/18/21 03:00 85 18 176/90 H 100 03/18/21 01:47 82 20 147/86 H 100 03/17/21 20:33 36.6 C 85 18 147/81 H 98 Laboratory Results 03/18/21 03/18/21 03/17/21 Range/Units 01:39 01:39 20:35 WBC 6.24 (4.8-10.8) K/uL RBC 3.61 L (4.2-5.4) M/uL Hgb 10.8 L (12.0-16.0) g/dL Hct 33.5 L (37-47) % MCV 92.8 (80-100) fL MCH 29.9 (25-34) pg MCHC 32.2 (32-36) g/dL RDW Std Deviation 51.6 H (36.4-46.3) fL RDW Coeff of Nicolle 15.2 H (11.5-14.5) % Plt Count 502 H (130-400) K/uL MPV 8.9 (7.4-10.4) fL Immature Gran % (Auto) 1.1 % Neut % (Auto) 81.8 % Lymph % (Auto) 9.3 % Fallon % (Auto) 6.9 % Eos % (Auto) 0.6 % Baso % (Auto) 0.3 % Neut # (Auto) 5.10 (1.4-6.5) K/uL Lymph # (Auto) 0.58 L (1.2-3.4) K/uL Fallon # (Auto) 0.43 (0.11-0.59) K/uL Eos # (Auto) 0.04 (0-0.5) K/uL Baso # (Auto) 0.02 (0-0.2) K/uL Immature Gran # (Auto) 0.07 H (0.00-0.02) K/uL Sodium 134 L (136-145) mmol/L Potassium 4.7 (3.5-5.1) mmol/L Chloride 109 H (98-107) mmol/L Carbon Dioxide 20 L (21-32) mmol/L Anion Gap 5.0 (3-11) BUN 21 H (7-18) mg/dl Creatinine 2.41 H (0.6-1.2) mg/dl Est Cr Clr Drug Dosing Not Reportable Est GFR ( Amer) 24.8 ml/min Est GFR (Non-Af Amer) 21.4 ml/min BUN/Creatinine Ratio 8.8 L (10-20) Glucose 111 H (70-99) mg/dl Calcium 8.6 (8.5-10.1) mg/dl Total Bilirubin 0.3 (0.2-1) mg/dl AST 14 L (15-37) U/L ALT 12 (12-78) U/L Alkaline Phosphatase 66 (45-117) U/L Total Protein 6.8 (6.4-8.2) gm/dl Albumin 3.1 L (3.4-5.0) gm/dl Globulin 3.7 (2.5-4.0) gm/dl Albumin/Globulin Ratio 0.8 L (0.9-2) COVID-19 Eval Order SARS-CoV-2 (PCR) NEGATIVE (Negative) 03/17/21 Range/Units 20:35 WBC (4.8-10.8) K/uL RBC (4.2-5.4) M/uL Hgb (12.0-16.0) g/dL Hct (37-47) % MCV (80-100) fL MCH (25-34) pg MCHC (32-36) g/dL RDW Std Deviation (36.4-46.3) fL RDW Coeff of Nicolle (11.5-14.5) % Plt Count (130-400) K/uL MPV (7.4-10.4) fL Immature Gran % (Auto) % Neut % (Auto) % Lymph % (Auto) % Fallon % (Auto) % Eos % (Auto) % Baso % (Auto) % Neut # (Auto) (1.4-6.5) K/uL Lymph # (Auto) (1.2-3.4) K/uL Fallon # (Auto) (0.11-0.59) K/uL Eos # (Auto) (0-0.5) K/uL Baso # (Auto) (0-0.2) K/uL Immature Gran # (Auto) (0.00-0.02) K/uL Sodium (136-145) mmol/L Potassium (3.5-5.1) mmol/L Chloride (98-107) mmol/L Carbon Dioxide (21-32) mmol/L Anion Gap (3-11) BUN (7-18) mg/dl Creatinine (0.6-1.2) mg/dl Est Cr Clr Drug Dosing Est GFR ( Amer) ml/min Est GFR (Non-Af Amer) ml/min BUN/Creatinine Ratio (10-20) Glucose (70-99) mg/dl Calcium (8.5-10.1) mg/dl Total Bilirubin (0.2-1) mg/dl AST (15-37) U/L ALT (12-78) U/L Alkaline Phosphatase (45-117) U/L Total Protein (6.4-8.2) gm/dl Albumin (3.4-5.0) gm/dl Globulin (2.5-4.0) gm/dl Albumin/Globulin Ratio (0.9-2) COVID-19 Eval Order Covid19 at [facility] SARS-CoV-2 (PCR) (Negative) Medications Administered Home Medication List Medication Instructions Recorded aripiprazole 10 mg tablet (Abilify) 10 mg PO QAM 06/11/18 escitalopram oxalate 20 mg tablet 20 mg PO QAM 06/11/18 (Lexapro) acetaminophen 325 mg tablet 650 mg PO Q6H PRN 01/14/21 (Tylenol) hydrocortisone 10 mg tablet 10 - 20 mg PO UD 01/14/21 loperamide 2 mg tablet 2 mg PO Q4H PRN 01/14/21 melatonin 3 mg tablet 6 mg PO HS 01/14/21 omega-3 acid ethyl esters 1 gram 2 g PO AMPM 01/14/21 capsule ondansetron 4 mg disintegrating 4 mg PO Q8H PRN 01/14/21 tablet pantoprazole 40 mg tablet,delayed 40 mg PO DAILYBB 01/14/21 release posaconazole 100 mg tablet,delayed 300 mg PO QAM 01/14/21 release (Noxafil) trazodone 100 mg tablet 100 mg PO HS 01/14/21 atovaquone 750 mg/5 mL oral 1,500 mg PO DAILY 02/23/21 suspension (Mepron) amiloride 5 mg tablet 5 mg PO BID 03/07/21 azathioprine 50 mg tablet (Imuran) 75 mg PO QAM 03/07/21 everolimus (immunosuppressive) 0.5 1 mg PO Q12H 03/07/21 mg tablet (Zortress) magnesium oxide 500 mg capsule 500 mg PO HS #20 cap 03/07/21 omeprazole 40 mg capsule,delayed 40 mg PO QAM 03/07/21 release potassium chloride 20 mEq 20 meq PO DAILY #20 tab 03/07/21 tablet,extended release tacrolimus 5 mg capsule, 5 mg PO BID 03/07/21 immediate-release (Prograf) Supervising Physician Co-Signing Physician Notes Attending addendum: I have supervised the medical residents activities, and agree with the H&P unles s as otherwise noted. Assessment and Plan: Acute kidney injury- Creatinine 2.41, with most recent 1.04 Has had recent decreased oral intake Status post 1 L NSS bolus in the ED Placed on LR overnight and recheck laboratories in a.m. Hold amiloride Bilateral lung transplant- Continue atovaquone, mycophenolate, posaconazole, tacrolimus Hold amiloride as above Had recent tacrolimus level done with lung transplant service, attempt to get results of labs in a.m. and coordinate with lung transplant service Remaining orders and notations as noted Resident Activity Tracking Resident Involvement: Resident Care Provided Care Provided: Adult [facility] Medicine
[2021-03-18] MEDS ORDERED: ONDANSETRON INJ 2 MG/ML 2 ML VIAL IV PRN (05:32)
[2021-03-18] MEDS ORDERED: MAGNESIUM HYDROXIDE SUSP 30 ML UDC PO PRN (05:32)
[2021-03-18] MEDS ORDERED: POLYETHYLENE (MIRALAX) 17 GM PACK PO PRN (05:32)
[2021-03-18] MEDS ORDERED: ALUMINUM/MAGNESIUM SUSP 30 ML UDC PO PRN (05:32)
[2021-03-18] MEDS ORDERED: ONDANSETRON 4 MG OD TAB PO PRN (05:50)
[2021-03-18] MEDS: LACTATED RINGER'S 1,000 ML IV SCH (06:11)
[2021-03-18] MEDS: PANTOprazole 40 MG TAB PO SCH (06:11)
[2021-03-18] MEDS: ACETAMINOPHEN 325 MG TAB PO PRN ×2 (06:12→15:20)
[2021-03-18] MEDS: HYDROCORTISONE 10 MG TAB PO SCH ×3 (08:58→19:51)
[2021-03-18] MEDS: TACROLIMUS 1 MG CAP PO SCH (08:58)
[2021-03-18] MEDS: azaTHIOprine 25 MG TAB PO SCH (08:58)
[2021-03-18] MEDS: ESCITALOPRAM OXALATE 20 MG TAB PO SCH (08:59)
[2021-03-18] MEDS: aMILoride HCL 5 MG TAB PO SCH ×2 (08:59→19:51)
[2021-03-18] MEDS: ATOVAQUONE 750 MG/5 ML UDC PO SCH (08:59)
[2021-03-18] MEDS: POTASSIUM CHLORIDE CRTAB 20 MEQ TABCR PO SCH (08:59)
[2021-03-18] MEDS: ARIPiprazole 10 MG TAB PO SCH (08:59)
[2021-03-18] MEDS: MAGNESIUM OXIDE 400 MG TAB PO SCH ×2 (08:59→19:50)
[2021-03-18 11:27] LABS: BUN Creatinine Ratio 9.6 (10-20); Calcium 7.8 mg/dl (8.5-10.1); Est GFR (African American) 34.4 ml/min; Est GFR (Non-African American) 29.7 ml/min
[2021-03-18] MEDS ORDERED: LORazepam 0.5 MG/1 ML VIAL IV PRN (12:11)
[2021-03-18] MEDS ORDERED: diphenhydrAMINE 50 MG/ML VIAL IV PRN (12:11)
[2021-03-18] MEDS ORDERED: PYRIDOXINE HCL 50 MG TAB PO PRN (12:11)
--- NOTE | 2021-03-18 12:13 | Communication Note ---
Date of Service: March 18, 2021 Bridge note, patient seen 0351hrs for admission Samreen Reeder is seen at bedside. She appears she feels okay, and clinically improved from yesterday. She reports she has had about 24 hours of nausea/vomiting and 3 episodes of liquid diarrhea yesterday. Nausea and vomiting have improved today, she had a normal formed brown stool today. She reports she was previously eating and drinking okay, but had not been in the 24 hours prior to admission. Reports she had had a severe episode of abdominal pain and kidney injury several months ago which required a 5-day stay in the hospital, but this feels much more mild and she feels around 80% back to baseline. On review of labs creatinine is downtrending but remains elevated. No leukocytosis. Physical exam: No acute distress, lungs CTA B, regular rate and rhythm without murmurs, skin warm and dry, alert and oriented x3. A/P Acute kidney injury 2/2 gastroenteritis Improving/symptoms resolving Creatinine baseline 1.1 acutely elevated to 2.41 on admission Creatinine downtrending but not yet normal Received 1 L normal saline bolus in ER, continue on lactated Ringer IVF M while p.o. intake improving Defer Zofran for nausea 2/2 QT prolongation with nasal medications and YE Doxylamine/pyridoxine for nausea, consider low-dose Ativan for nausea due to QT P Bilateral lung transplant Continue home atovaquone Continue home mycophenolate Continue home tacrolimus Continue home ethan ride Posaconazole temporarily held due to YE with reduced GFR. While dose adjustment not necessarily required for clearance under 50, hers currently is at 30 and she QT prolongation at baseline. Will hold today, follow creatinine, LFTs, and BMP daily. Anticipate resume tomorrow with improvement of kidney function Diet: Regular CODE STATUS: Full code
[2021-03-18] MEDS: EVEROLIMUS 0.5 MG TABLET PO SCH ×2 (12:36→19:53)
[2021-03-18] MEDS: POSACONAZOLE 100 MG TABLET PO SCH (12:37)
[2021-03-18] MEDS: OMEGA ACID ETHYL ESTERS PO SCH ×2 (12:37→19:52)
[2021-03-18] MEDS ORDERED: GANCICLOVIR IV SCH (18:05)
[2021-03-18] MEDS ORDERED: SODIUM CHLORIDE 0.9% IV SCH (18:45)
[2021-03-18] MEDS ORDERED: GANCICLOVIR SODIUM IV SCH (18:45)
--- NOTE | 2021-03-18 20:02 | Billing Data ---
Date of Service March 18, 2021 Coding Level of Care Code INT OBSERVATION CARE 70M LVL 3
[2021-03-18] MEDS ORDERED: MELATONIN 3 MG TAB PO SCH (21:00)
[2021-03-18] MEDS ORDERED: TACROLIMUS 0.5 MG CAP PO SCH (21:00)
[2021-03-18] MEDS ORDERED: traZODone HCL 100 MG TAB PO SCH (21:00)
--- NOTE | 2021-03-18 23:27 | Emergency Department Note ---
Impression & Plan Tacrolimus-induced nephrotoxicity, Headache, S/P lung transplant ED Provider Note CHIEF COMPLAINT: Headache, shaky, nausea HISTORY OF PRESENT ILLNESS: This 56-year-old female patient presents to the emergency department with complaints of headache, shakiness, nausea and some shortness of breath that began this morning. The patient states she is status post bilateral lung transplant in November of this year. She contacted her transplant team today who referred her to the emergency department. Patient was seen just yesterday by transplant at [facility] and had laboratory work done. She does not have the results. She has been feeling well in general until today. The base and is on multiple medications including tacrolimus for her transplant for which she has been changing the dose based on her levels lately. She denies any fevers, chills, chest pain or shortness of breath. She denies any vomiting or diarrhea. REVIEW OF SYSTEMS: A review of systems was performed with positives and pertinent negatives listed in the history of present illness. 10 systems were reviewed and are otherwise negative. ALLERGIES: see below MEDICATIONS: see below PMH: see below SOCIAL HISTORY: see below DDx: Infection, dehydration, metabolic abnormality, hypo/hyperglycemia, electrolyte disturbance, anemia, hypoxia, cardiac sources, intracerebral event, toxicologic, neurologic, as well as other pathologies. PHYSICAL EXAM: Vital signs reviewed. General: Chronically ill-appearing 56-year-old female, shaky but in no significant distress. Somewhat flushed in appearance HEENT: No scleral icterus, PERRLA, neck supple. Atraumatic. Cardiovascular: Regular rate and rhythm, no extra sounds. Pulmonary: Clear to auscultation bilaterally, normal work of breathing. Abdomen: Soft, nontender, nondistended, positive bowel sounds. Musculoskeletal: Atraumatic, no peripheral edema. Neurologic: Patient awake alert and oriented x 3, speech is clear, positive peripheral tremors Skin: Warm, dry, no rash EMERGENCY DEPARTMENT COURSE/MDM: This patient was evaluated and appeared to be in no significant distress. IV access was obtained and laboratory work was drawn. The patient was placed on the engine monitor and noted to be in a normal sinus rhythm. She was hydrated with normal saline solution. Laboratory work reveals an YE with a creatinine of 2.41. pt's daughter was able to access her [facility] patient portal and realized her tacrolimus level was greater than 22.9. It appears that the patient is having a tacrolimus toxicity. She stated she had an MRI of the brain 2 weeks ago through [facility]. I suspect the headache is related to the toxicity and repeat imaging is felt not to be warranted at this time. Patient was hydrated with normal saline solution, given IV Tylenol, IV Benadryl and IV Zofran for nausea. She was feeling much proved. Given the elevated creatinine over just several days, I feel evaluation by the hospitalist is in her best interest. She is agreeable and the case was discussed with Dr. Knight. He will evaluate the patient for further management. MONITORING: An order for cardiac monitoring was placed and the patient is noted to be in a normal sinus rhythm at 82 beats per minute. RADIOLOGY: See below DISPOSITION: Hospitalist evaluation for admission Past Med/Surg History Medical History (Updated 03/18/21 @ 23:27 by Stephanie Robels MD) Acute kidney injury Anxiety Chronic intermittent hypoxia with obstructive sleep apnea COPD (chronic obstructive pulmonary disease) Depression Hypothyroidism Lung transplant recipient On home oxygen therapy 2L at hs and prn Overweight Pulmonary emphysema Sleep apnea cpap with 2L Surgical History (Updated 03/18/21 @ 23:27 by Stephanie Robles MD) History of abdominal surgery repair of ruptured spleen History of appendectomy History of bronchoscopy History of cardiac cath SOB--05/22/2018 @ [facility]--no stents History of lung surgery benign nodule removal from left lung History of open reduction and internal fixation (ORIF) procedure left wrist--hardware removed History of tooth extraction all upper teeth History of wisdom tooth extraction Lung transplant status, bilateral Family History Daughter Family history of reaction to anesthesia takes a lot to put her out Brother Family history of cancer of tongue Social History Smoking Status: Former smoker Tobacco Type: Cigarettes Cigarettes Per Day: 30; Second Hand Exposure: No; Hx Alcohol Use: No Hx Substance Use: No Preferred Language: Yi Communication Ability: Effective Waste Handling Technician Required: No Beliefs That Will Affect Care: None Current Living Situation: Family Feels Safe at Home: Yes Safety Concerns: Feels Safe At This Time Assistive Devices: None Allergies Allergies Allergy/AdvReac Type Severity Reaction Status Date / Time Penicillins Allergy Unknown Unknown Verified 03/07/21 20:22 Home Meds Home Medications Medication Instructions Recorded Confirmed aripiprazole 10 mg tablet (Abilify) 10 mg PO QAM 06/11/18 03/18/21 escitalopram oxalate 20 mg tablet 20 mg PO QAM 06/11/18 03/18/21 (Lexapro) acetaminophen 325 mg tablet 650 mg PO Q6H PRN 01/14/21 03/18/21 (Tylenol) hydrocortisone 10 mg tablet 10 - 20 mg PO UD 01/14/21 03/18/21 loperamide 2 mg tablet 2 mg PO Q4H PRN 01/14/21 03/18/21 melatonin 3 mg tablet 6 mg PO HS 01/14/21 03/18/21 omega-3 acid ethyl esters 1 gram 2 g PO AMPM 01/14/21 03/18/21 capsule ondansetron 4 mg disintegrating 4 mg PO Q8H PRN 01/14/21 03/18/21 tablet pantoprazole 40 mg tablet,delayed 40 mg PO DAILYBB 01/14/21 03/18/21 release posaconazole 100 mg tablet,delayed 300 mg PO QAM 01/14/21 03/18/21 release (Noxafil) trazodone 100 mg tablet 100 mg PO HS 01/14/21 03/18/21 atovaquone 750 mg/5 mL oral 1,500 mg PO DAILY 02/23/21 03/18/21 suspension (Mepron) amiloride 5 mg tablet 5 mg PO BID 03/07/21 03/18/21 azathioprine 50 mg tablet (Imuran) 75 mg PO QAM 03/07/21 03/18/21 everolimus (immunosuppressive) 0.5 1 mg PO Q12H 03/07/21 03/18/21 mg tablet (Zortress) omeprazole 40 mg capsule,delayed 40 mg PO QAM 03/07/21 03/18/21 release tacrolimus 5 mg capsule, 5 mg PO BID 03/07/21 03/18/21 immediate-release (Prograf) Previous Rx's Medication Instructions Recorded magnesium oxide 500 mg capsule 500 mg PO HS #20 cap 03/07/21 potassium chloride 20 mEq 20 meq PO DAILY #20 tab 03/07/21 tablet,extended release Results & Data (ED) Vital Signs Vital Signs - 24 hr 03/18/21 01:47 03/18/21 03:00 Pulse Rate [Finger] 82 85 Pulse Rhythm [Finger] Regular Respiratory Rate 20 18 Respiratory Effort / Characteristics Non-Labored Non-Labored Respiratory Depth Normal Normal Respiratory Pattern Regular Blood Pressure [Left Arm] 147/86 H 176/90 H Blood Pressure Mean [Left Arm] 106 118 Blood Pressure Position [Left Arm] Lying Lying Pulse Oximetry 100 100 Oxygen Delivery Method Room Air Room Air Home Medications Current Medication List: was personally reviewed by me Laboratory Data Attestation: I reviewed the patient's lab results. Result diagrams: 03/18/21 01:39 03/18/21 10:48 Lab Results 03/17/21 03/17/21 03/18/21 Range/Units 20:35 20:35 01:39 WBC 6.24 (4.8-10.8) K/uL RBC 3.61 L (4.2-5.4) M/uL Hgb 10.8 L (12.0-16.0) g/dL Hct 33.5 L (37-47) % MCV 92.8 (80-100) fL MCH 29.9 (25-34) pg MCHC 32.2 (32-36) g/dL RDW Std Deviation 51.6 H (36.4-46.3) fL RDW Coeff of Nicolle 15.2 H (11.5-14.5) % Plt Count 502 H (130-400) K/uL MPV 8.9 (7.4-10.4) fL Immature Gran % (Auto) 1.1 % Neut % (Auto) 81.8 % Lymph % (Auto) 9.3 % Miller % (Auto) 6.9 % Eos % (Auto) 0.6 % Baso % (Auto) 0.3 % Neut # (Auto) 5.10 (1.4-6.5) K/uL Lymph # (Auto) 0.58 L (1.2-3.4) K/uL Miller # (Auto) 0.43 (0.11-0.59) K/uL Eos # (Auto) 0.04 (0-0.5) K/uL Baso # (Auto) 0.02 (0-0.2) K/uL Immature Gran # (Auto) 0.07 H (0.00-0.02) K/uL Sodium (136-145) mmol/L Potassium (3.5-5.1) mmol/L Chloride (98-107) mmol/L Carbon Dioxide (21-32) mmol/L Anion Gap (3-11) BUN (7-18) mg/dl Creatinine (0.6-1.2) mg/dl Est Cr Clr Drug Dosing Est GFR ( Amer) ml/min Est GFR (Non-Af Amer) ml/min BUN/Creatinine Ratio (10-20) Glucose (70-99) mg/dl Calcium (8.5-10.1) mg/dl Total Bilirubin (0.2-1) mg/dl AST (15-37) U/L ALT (12-78) U/L Alkaline Phosphatase (45-117) U/L Total Protein (6.4-8.2) gm/dl Albumin (3.4-5.0) gm/dl Globulin (2.5-4.0) gm/dl Albumin/Globulin Ratio (0.9-2) COVID-19 Eval Order Covid19 at [facility] SARS-CoV-2 (PCR) NEGATIVE (Negative) 03/18/21 Range/Units 01:39 WBC (4.8-10.8) K/uL RBC (4.2-5.4) M/uL Hgb (12.0-16.0) g/dL Hct (37-47) % MCV (80-100) fL MCH (25-34) pg MCHC (32-36) g/dL RDW Std Deviation (36.4-46.3) fL RDW Coeff of Nicolle (11.5-14.5) % Plt Count (130-400) K/uL MPV (7.4-10.4) fL Immature Gran % (Auto) % Neut % (Auto) % Lymph % (Auto) % Miller % (Auto) % Eos % (Auto) % Baso % (Auto) % Neut # (Auto) (1.4-6.5) K/uL Lymph # (Auto) (1.2-3.4) K/uL Miller # (Auto) (0.11-0.59) K/uL Eos # (Auto) (0-0.5) K/uL Baso # (Auto) (0-0.2) K/uL Immature Gran # (Auto) (0.00-0.02) K/uL Sodium 134 L (136-145) mmol/L Potassium 4.7 (3.5-5.1) mmol/L Chloride 109 H (98-107) mmol/L Carbon Dioxide 20 L (21-32) mmol/L Anion Gap 5.0 (3-11) BUN 21 H (7-18) mg/dl Creatinine 2.41 H (0.6-1.2) mg/dl Est Cr Clr Drug Dosing Not Reportable Est GFR ( Amer) 24.8 ml/min Est GFR (Non-Af Amer) 21.4 ml/min BUN/Creatinine Ratio 8.8 L (10-20) Glucose 111 H (70-99) mg/dl Calcium 8.6 (8.5-10.1) mg/dl Total Bilirubin 0.3 (0.2-1) mg/dl AST 14 L (15-37) U/L ALT 12 (12-78) U/L Alkaline Phosphatase 66 (45-117) U/L Total Protein 6.8 (6.4-8.2) gm/dl Albumin 3.1 L (3.4-5.0) gm/dl Globulin 3.7 (2.5-4.0) gm/dl Albumin/Globulin Ratio 0.8 L (0.9-2) COVID-19 Eval Order SARS-CoV-2 (PCR) (Negative) Administered Medications Acetaminophen (Acetaminophen 325 Mg Tab) 650 mg PO Q6H PRN PRN Reason: Pain Stop: 04/17/21 05:31 Last Admin: 03/18/21 15:20 Dose: 650 mg Documented by: [id number] Admin: 03/18/21 06:12 Dose: 650 mg Documented by: [id number] Amiloride HCl (Amiloride Hcl 5 Mg Tab) 5 mg PO BID JEROME Stop: 04/17/21 08:59 Last Admin: 03/18/21 19:51 Dose: 5 mg Documented by: [id number] Admin: 03/18/21 08:59 Dose: 5 mg Documented by: [id number] Aripiprazole (Aripiprazole 10 Mg Tab) 10 mg PO QAM JEROME Stop: 04/17/21 08:59 Last Admin: 03/18/21 08:59 Dose: 10 mg Documented by: [id number] Atovaquone (Atovaquone 750 Mg/5 Ml Udc) 1,500 mg PO DAILY [facility] Stop: 04/17/21 08:59 Last Admin: 03/18/21 08:59 Dose: 1,500 mg Documented by: [id number] Azathioprine (Azathioprine 25 Mg Tab) 75 mg PO QAM [facility] Stop: 04/17/21 08:59 Last Admin: 03/18/21 08:58 Dose: 75 mg Documented by: [id number] Escitalopram Oxalate (Escitalopram Oxalate 20 Mg Tab) 20 mg PO QAM [facility] Stop: 04/17/21 08:59 Last Admin: 03/18/21 08:59 Dose: 20 mg Documented by: [id number] Everolimus (Everolimus 0.5 Mg Tablet) 2 ea PO BID [facility] Stop: 04/17/21 12:29 Last Admin: 03/18/21 19:53 Dose: 2 ea Documented by: [id number] Admin: 03/18/21 12:36 Dose: 2 ea Documented by: [id number] Hydrocortisone (Hydrocortisone 10 Mg Tab) 20 mg PO QAM [facility] Stop: 04/17/21 08:59 Last Admin: 03/18/21 08:58 Dose: 20 mg Documented by: [id number] Hydrocortisone (Hydrocortisone 10 Mg Tab) 10 mg PO BID@1400,2100 [facility] Stop: 04/17/21 13:59 Last Admin: 03/18/21 19:51 Dose: 10 mg Documented by: [id number] Admin: 03/18/21 14:54 Dose: 10 mg Documented by: [id number] Lactated Ringer's (Lr) 1,000 mls @ 80 mls/hr IV .[id number] [facility] Stop: 04/17/21 03:59 Last Admin: 03/18/21 06:11 Dose: 80 mls/hr Documented by: [id number] Ganciclovir Sodium 175 mg/ (Sodium Chloride) 100 mls @ 100 mls/hr IV DAILY@1600 JEROME; Protocol Stop: 04/17/21 18:44 Last Infusion: 03/18/21 21:06 Dose: 0 mls/hr Documented by: [id number] Cosigned by: [id number] Admin: 03/18/21 20:06 Dose: 100 mls/hr Documented by: [id number] Cosigned by: [id number] Magnesium Oxide (Magnesium Oxide 400 Mg Tab) 400 mg PO BID [facility] Stop: 04/17/21 08:59 Last Admin: 03/18/21 19:50 Dose: 400 mg Documented by: [id number] Admin: 03/18/21 08:59 Dose: 400 mg Documented by: [id number] Melatonin (Melatonin 3 Mg Tab) 6 mg PO HS JEROME Stop: 04/17/21 20:59 Last Admin: 03/18/21 21:18 Dose: 6 mg Documented by: [id number] Ethyl Esters (Adrian-3 Acid Ethyl Esters) 2 ea PO BID JEROME Stop: 04/17/21 12:29 Last Admin: 03/18/21 19:52 Dose: 2 ea Documented by: [id number] Admin: 03/18/21 12:37 Dose: 2 ea Documented by: [id number] Pantoprazole Sodium (Pantoprazole 40 Mg Tab) 40 mg PO DAILYBB JEROME Stop: 04/17/21 06:29 Last Admin: 03/18/21 06:11 Dose: 40 mg Documented by: [id number] Posaconazole (Posaconazole 100 Mg Tablet) 3 ea PO QAM JEROME Stop: 04/18/21 08:59 Last Admin: 03/18/21 12:37 Dose: 3 ea Documented by: [id number] Potassium Chloride (Potassium Chloride Crtab 20 Meq Tabcr) 20 meq PO DAILY JEROME Stop: 04/17/21 08:59 Last Admin: 03/18/21 08:59 Dose: 20 meq Documented by: [id number] Pyridoxine HCl (Pyridoxine Hcl 50 Mg Tab) 50 mg PO Q8H PRN PRN Reason: Nausea Stop: 04/17/21 12:14 Last Admin: 03/18/21 12:36 Dose: 50 mg Documented by: [id number] Tacrolimus (Tacrolimus 1 Mg Cap) 1 mg PO QAM JEROME Stop: 04/17/21 08:59 Last Admin: 03/18/21 08:58 Dose: 1 mg Documented by: [id number] Tacrolimus (Tacrolimus 0.5 Mg Cap) 0.5 mg PO PM JEROME Stop: 04/17/21 20:59 Last Admin: 03/18/21 19:49 Dose: 0.5 mg Documented by: [id number] Trazodone HCl (Trazodone Hcl 100 Mg Tab) 100 mg PO HS JEROME Stop: 04/17/21 20:59 Last Admin: 03/18/21 21:18 Dose: 100 mg Documented by: [id number] Discontinued Medications Acetaminophen (Acetaminophen 1000 Mg/100 Ml Iv) 1,000 mg IV NOW STA Stop: 03/18/21 01:14 Last Admin: 03/18/21 01:25 Dose: 1,000 mg Documented by: [id number] Diphenhydramine HCl (Diphenhydramine 50 Mg/Ml Vial) 25 mg IV NOW STA Stop: 03/18/21 01:14 Last Admin: 03/18/21 01:23 Dose: 25 mg Documented by: [id number] Sodium Chloride (Nss 1000ml) 1,000 mls @ 999 mls/hr IV .Q1H1M JEROME Stop: 03/18/21 02:15 Last Infusion: 03/18/21 03:06 Dose: 0 mls/hr Documented by: [id number] Admin: 03/18/21 01:38 Dose: 999 mls/hr Documented by: [id number] Ondansetron HCl (Ondansetron Inj 2 Mg/Ml 2 Ml Vial) 4 mg IV NOW STA Stop: 03/18/21 01:14 Last Admin: 03/18/21 01:23 Dose: 4 mg Documented by: [id number] Imaging Data Radiologist's Impression: Chest X-Ray 03/17/21 20:36 XR chest 2V PA/lateral CLINICAL HISTORY: Resp sx c/w COVID-19 TECHNIQUE: AP and lateral frontal radiograph of the chest was obtained. Comparison: Comparison is made to chest one view 02/24/2021 FINDINGS: A right PICC terminates in the upper SVC. Median sternotomy wires and surgical clips are unchanged. Cardiomegaly is noted. A bilateral airspace opacities are seen predominantly in the lower lungs. No evidence of pleural effusion or pneumothorax. IMPRESSION: Faint bilateral airspace opacities which may represent atelectasis, pneumonia, and/or aspiration. ACT 112: Negative or not required by law. Electronically signed by: Ross Leiva M.D. 03/17/2021 8:50 PM Blood Pressure Blood Pressure Findings: Elevated blood pressure Blood Pressure Disposition: Referred to patients primary care provider Discharge Plan Visit Data Chief Complaint: Headache Stated Complaint: HEADACHE, TIRED, SHAKES, SOB ED Provider: Stephanie Robles Discharge Problem: Tacrolimus-induced nephrotoxicity, Headache, S/P lung transplant Patient Disposition: Admitted As Inpatient Discharge Instructions Interventions: ED Discharge Assessment Last Done: 03/18/21 05:57 Discharge Problem: Headache Qualifiers: Headache type: unspecified Headache chronicity pattern: acute headache Intractability: not intractable Qualified Code(s): R51.9 - Headache, unspecified
[2021-03-19] MEDS: LACTATED RINGER'S 1,000 ML IV SCH (03:45)
[2021-03-19 06:00] LABS: Basophils # (auto) 0.02 K/uL (0-0.2); Basophils % (auto) 0.4 %; Eosinophils # (auto) 0.04 K/uL (0-0.5); Eosinophils % (auto) 0.7 %; Hemoglobin 10.3 g/dL (12.0-16.0); Immature Granulocytes # (auto) 0.06 K/uL (0.00-0.02); Immature Granulocytes % (auto) 1.1 %; Lymphocytes # (auto) 0.51 K/uL (1.2-3.4); Lymphocytes % (auto) 9.4 %; Mean Corpuscular Hemoglobin 30.1 pg (25-34); Mean Corpuscular Hgb Conc 32.2 g/dL (32-36); Mean Corpuscular Volume 93.6 fL (80-100); Mean Platelet Volume 8.8 fL (7.4-10.4); Monocytes # (auto) 0.24 K/uL (0.11-0.59); Monocytes % (auto) 4.4 %; Neutrophils # (auto) 4.57 K/uL (1.4-6.5); Platelet Count 408 K/uL (130-400); RDW Coefficient of Variation 15.2 % (11.5-14.5); RDW Standard Deviation 52.3 fL (36.4-46.3); Red Blood Count 3.42 M/uL (4.2-5.4); White Blood Count 5.44 K/uL (4.8-10.8)
[2021-03-19] MEDS: PANTOprazole 40 MG TAB PO SCH (06:02)
[2021-03-19 06:30] LABS: BUN Creatinine Ratio 10.9 (10-20); Calcium 8.1 mg/dl (8.5-10.1); Creatinine Clr Calc Pharmacy 32.5 ml/min; Est GFR (African American) 37.9 ml/min; Est GFR (Non-African American) 32.7 ml/min; Potassium 5.4 mmol/L (3.5-5.1)
[2021-03-19] MEDS: ATOVAQUONE 750 MG/5 ML UDC PO SCH (09:45)
[2021-03-19] MEDS: MAGNESIUM OXIDE 400 MG TAB PO SCH (09:47)
[2021-03-19] MEDS: HYDROCORTISONE 10 MG TAB PO SCH (09:48)
[2021-03-19] MEDS: TACROLIMUS 1 MG CAP PO SCH (09:48)
[2021-03-19] MEDS: aMILoride HCL 5 MG TAB PO SCH (09:49)
[2021-03-19] MEDS: POTASSIUM CHLORIDE CRTAB 20 MEQ TABCR PO SCH (09:49)
[2021-03-19] MEDS: ARIPiprazole 10 MG TAB PO SCH (09:49)
[2021-03-19] MEDS: ESCITALOPRAM OXALATE 20 MG TAB PO SCH (09:49)
[2021-03-19] MEDS: azaTHIOprine 25 MG TAB PO SCH (09:49)
[2021-03-19] MEDS: EVEROLIMUS 0.5 MG TABLET PO SCH (09:53)
[2021-03-19] MEDS: OMEGA ACID ETHYL ESTERS PO SCH (09:53)
[2021-03-19] MEDS: POSACONAZOLE 100 MG TABLET PO SCH (09:55)
--- NOTE | 2021-03-19 10:55 | Discharge Summary ---
Date of Service March 19, 2021 Admission HPI Per Admitting Provider Samreen Pastrana is a 56y/o F who is s/p bilateral lung transplants earlier this year who presents to the hospital for evaluation of decreased oral intake. Over the last several months in combination with her the transplant team at [facility] she has been making continued modifications to her medication regimen. Was last seen by them on 03/16. ER work-up demonstrated an elevated creatinine level. Principal Diagnosis YE Discharge Exam The patient is awake, alert and oriented 3, well developed and well nourished, normocephalic and atraumatic, lying in bed and in no acute distress. HEENT--PERRL, EOMI, mucous membranes and oropharynx mildly dry Neck--supple. No JVD. No bruits. Thyroid normal, trachea midline, no adenopathy. Heart--normal S1 and S2. No murmurs, rubs or gallops. Lungs--clear bilaterally, no respiratory distress, no accessory muscle use. Abdomen--normal bowel sounds and soft. Mild epigastric and left sided abdominal pain Extremities--no cyanosis or clubbing. No edema. Dermatologic--normal skin turgor, normal color, no abnormal lymph nodes, no rash. Neurologic--cranial nerves II through XII grossly intact. Rheumatologic--normal range of motion. Psychiatric--normal affect. Discharge Data Allergies Allergy/AdvReac Type Severity Reaction Status Date / Time Penicillins Allergy Unknown Unknown Verified 03/07/21 20:22 Consultations 03/18/21 02:42 ED Decision to Admit Stat Hospital Course (1) Acute kidney injury: Samreen Pastrana is a 56y/o F who is s/p bilateral lung transplants earlier this year who presents to the hospital for evaluation of decreased oral intake. Acute Kidney injury: -Cr 2.41 (baseline 1.1) -likely secondary to decreased oral intake -1L NSS bolus in ED -continue LR overnight with recheck of labs in AM Bilateral Lung Transplant: -continue home atovaquone, mycophenolate, posconazole, tacrolimus, and amiloride Diet:Regular CODE STATUS: Full code Following IV fluids, her kidney function improved and her appetite also improved She expressed a willingness to be discharged (2) Lung transplant recipient: Total Time Total Time Spent Total Time Spent (In Minutes): 35 min Discharge Plan Discharge Items Patient Disposition: Home - Self-Care Reason For Visit: ACUTE KIDNEY INJURY Discharge Diagnosis: YE, diarrhea Activity: Resume your previous activity Non-emergency contact: Primary Care Provider Call non-emergency contact if: you have any medication questions and your symptoms worsen Follow-up/Referrals: Sunday Villalobos Jr, DO [Primary Care Provider] - Diet: Regular Addtl Attending Provider Instructions: please make appointment to follow up with your regular PCP and transplant surggeon Pending Studies at Discharge: No Stand-Alone Forms: My [facility] As It [facility], Smoking Cessation Medications and DC Order Prescriptions: Continued escitalopram oxalate [Lexapro] 20 mg tablet 20 mg PO QAM RF: 0 aripiprazole [Abilify] 10 mg tablet 10 mg PO QAM RF: 0 atovaquone [Mepron] 750 mg/5 mL Suspension 1,500 mg PO DAILY RF: 0 acetaminophen [Tylenol] 325 mg Tablet 650 mg PO Q6H PRN (Reason: Pain) RF: 0 loperamide 2 mg Tablet 2 mg PO Q4H PRN (Reason: Diarrhea) RF: 0 melatonin 3 mg Tablet 6 mg PO HS RF: 0 trazodone 100 mg tablet 100 mg PO HS RF: 0 pantoprazole 40 mg tablet,delayed release (DR/EC) 40 mg PO DAILYBB RF: 0 hydrocortisone 10 mg tablet 10 - 20 mg PO UD RF: 0 ondansetron 4 mg tablet,disintegrating 4 mg PO Q8H PRN (Reason: Nausea) RF: 0 omega-3 acid ethyl esters 1 gram capsule 2 g PO AMPM RF: 0 posaconazole [Noxafil] 100 mg tablet,delayed release (DR/EC) 300 mg PO QAM RF: 0 azathioprine [Imuran] 50 mg tablet 75 mg PO QAM RF: 0 amiloride 5 mg tablet 5 mg PO BID RF: 0 tacrolimus [Prograf] 5 mg capsule 5 mg PO BID RF: 0 omeprazole 40 mg capsule,delayed release(DR/EC) 40 mg PO QAM RF: 0 everolimus (immunosuppressive) [Zortress] 0.5 mg tablet 1 mg PO Q12H RF: 0 potassium chloride 20 mEq tablet extended release 20 meq PO DAILY Qty: 20 RF: 0 magnesium oxide 500 mg capsule 500 mg PO HS Qty: 20 RF: 0 Discharge Orders: Discharge Order (Routine); Ordered 03/19/21 Ordered By: Heriberto Aguirre Admission Data Admit Date/Time: 03/18/21 03:47 Attending Provider: Heriberto Aguirre Admit Provider: Lewis Simmons Primary Care Provider: Sunday Villalobos Jr Other Providers: Gilberto Martinez Coding Level of Care Code D/C DAY MANAGEMENT >30 MINS Diagnoses Acute kidney injury N17.9 Lung transplant recipient Z94.2
== END 2021-03-19 11:48 | disposition home or self-care (01) ==
LOC: ED 20:15 → EDINP 20:15 → SUATTDRO 03-18 03:47 → 2N 03-18 05:57
DX: Z94.2 Lung transplant status; Z87.891 Personal history of nicotine dependence; Z20.822 Contact with and (suspected) exposure to COVID-19; N17.9 Acute kidney failure, unspecified; Z88.0 Allergy status to penicillin; E03.9 Hypothyroidism, unspecified; G47.30 Sleep apnea, unspecified; J44.9 Chronic obstructive pulmonary disease, unspecified; Z79.899 Other long term (current) drug therapy

== ENCOUNTER 2022-11-11 08:20 | Inpatient (IN) ==
[2022-11-11] MEDS ORDERED: ONDANSETRON 4 MG OD TAB PO STA (08:50)
--- NOTE | 2022-11-11 08:53 | Emergency Department Note ---
Impression & Plan Vomiting, Acute electrocardiogram changes, Esophagitis Admit to the [facility] ED Provider Note NAME: EDDIE MCGARRY AGE: 57 SEX: F ARRIVES VIA: Walk-In INFORMANT: Patient and her ED PROVIDER(S): Aisha Patel DO CHIEF COMPLAINT: Abdominal pain and vomiting PLAN: Disposition: Admit to the [facility] Condition: Guarded MEDICAL DECISION MAKING: This is a 57-year-old female patient who presents to the emergency department with sudden onset of abdominal pain and vomiting. 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 She was in her usual state of health until 2 AM this morning when she awoke from sleep with severe nausea and vomiting. She then developed some epigastric abdominal pain. She does have a history of GERD for which she takes Pepcid at night. She admits to eating some pizza and Caesar salad earlier in the evening. Patient was treated with Zofran ODT with moderate relief of her symptoms. She then went on to receive GI cocktail and Pepcid with more significant relief of her discomfort. CT scan of the abdomen/pelvis shows some evidence of esophagitis but more concerning was the fact the patient had moderate EKG changes in comparison to previous EKGs. Troponin remain negative. I discussed the case with the [facility] Hospitalist and they will evaluate for further inpatient care. Triage Nursing notes reviewed and agree with them. Additional history obtained from patient's is at the bedside Vital Signs: reviewed and remarkable for hypertension Differential diagnosis: Pancreatitis, gastritis, foodborne illness, GERD, esophagitis ER treatment provided: Cardiac monitoring Twelve-lead EKG Zofran ODT IV Pepcid GI cocktail IV normal saline solution Diagnostics interpreted by me: ECG: Normal sinus rhythm at a rate of [address] segment depression in lead I and aVL with T wave inversions in leads V2, V3, V4, V5 and V6. This was new in comparison to previous EKGs. Repeat ECG: Normal sinus rhythm at a rate of [address] segment depression in leads I and aVL with with T wave inversions persisting in the anterior and lateral leads. Cardiac Monitoring: Normal sinus rhythm at 77 Laboratory studies: See below Imaging studies: Portable chest x-ray: See radiology report CT scan of the abdomen/pelvis: See report HPI: 57/F arrives for evaluation of epigastric pain and vomiting. Patient awoke from sleep at 2 AM in the morning with nausea and vomiting. The patient is a double lung transplant patient status post end-stage COPD. She has been in good health recently. She had eaten pizza and Caesar salad around 6 PM in the evening. She does have a history of GERD for which she takes Pepcid. PAST MEDICAL HISTORY:See Below PAST SURGICAL HISTORY:See Below FAMILY HISTORY:See Below SOCIAL HISTORY:See Below HOME MEDICATIONS: See list ALLERGIES: Penicillin VITALS:See Below PHYSICAL EXAMINATION: HEENT: Head - normocephalic and atraumatic. Pupils are equal, round, and reactive to light. Extraocular eye muscles are intact, and sclera are anict gosia. Nose - moist nasal mucosa without discharge. Mouth - moist buccal mucosa. Oropharynx is nonerythematous and there is no tonsillar exudate or edema noted. Neck: Supple; no JVD, nuchal rigidity, cervical lymphadenopathy, or auscultated bruits. Heart: Regular rate and rhythm. There is a normal S1 and S2 with no murmurs, clicks, or gallops appreciated. Lungs: Clear to auscultation bilaterally with no wheezes, rales, or rhonchi. Abdomen: Soft, moderately tender to palpation in the epigastrium, nondistended, with good bowel sounds. There are no palpable pulsatile masses or hepatosplenomegaly. There is no guarding, rigidity, or rebound noted. Extremities: No evidence of cyanosis, clubbing, or edema. There are easily palpable peripheral pulses. Skin: warm and dry with good turgor and no rashes. ED COURSE: Times/Reassessments: 835 the patient was evaluated in room C12. A complete history and physical was performed. A twelve-lead EKG was obtained as described above. An order was placed for continuous cardiac monitoring. The patient was in a normal sinus rhythm at a rate of 77. Patient was given Zofran ODT for significant nausea. An IV lock was initiated and labs were drawn as above. Portable chest x-ray was performed. Patient went for CT scan of the chest. Upon returning from radiology, she had significant belching and burning in her esophagus and was given a dose of IV Pepcid and a GI cocktail. Her twelve-lead EKG was repeated. I discussed the case with the [facility] Hospitalist and they will evaluate for further management. Aisha Patel DO Past Med/Surg History Medical History Acute kidney injury Anxiety Chronic intermittent hypoxia with obstructive sleep apnea COPD (chronic obstructive pulmonary disease) Depression Depression GERD (gastroesophageal reflux disease) Hyperkalemia, diminished renal excretion Hyponatremia Hypothyroidism Lung transplant recipient Metabolic acidosis SAMUEL (obstructive sleep apnea) Overweight Sleep apnea cpap with 2L Surgical History History of abdominal surgery repair of ruptured spleen History of appendectomy History of bronchoscopy History of cardiac cath SOB--05/22/2018 @ [facility]--no stents History of lung surgery benign nodule removal from left lung History of open reduction and internal fixation (ORIF) procedure left wrist--hardware removed History of tooth extraction all upper teeth History of wisdom tooth extraction Lung transplant status, bilateral Family History Daughter Family history of reaction to anesthesia takes a lot to put her out Brother Family history of cancer of tongue Social History Smoking Status: Former smoker Tobacco Type: Cigarettes Cigarettes Per Day: 30; Second Hand Exposure: No; Do You Dip or Chew Tobacco: No; Tobacco Cessation Education Requested by Patient: No Hx Alcohol Use: Yes Alcohol type: beer Hx Substance Use: No Preferred Language: Ethiopian Communication Ability: Effective 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 Beliefs That Will Affect Care: None Current Living Situation: Spouse Other Information That Helps Us Care for You: No Feels Safe at Home: Yes Safety Concerns: Feels Safe At This Time Assistive Devices: BiPap, Denture - Upper and Glasses Allergies Allergies Allergy/AdvReac Type Severity Reaction Status Date / Time Penicillins AdvReac Intermediate JITTERY/CHI Verified 10/25/22 14:02 LLS Home Meds Home Medications Medication Instructions Recorded Confirmed hydrocortisone 10 mg tablet 10 mg PO QPM 01/14/21 11/11/22 melatonin 3 mg tablet 6 mg PO HS 01/14/21 11/11/22 trazodone 100 mg tablet 100 mg PO HS 01/14/21 11/11/22 azathioprine 50 mg tablet (Imuran) 100 mg PO QAM 03/07/21 11/11/22 azithromycin 250 mg tablet 250 mg PO 3XWK 07/14/21 11/11/22 belatacept 250 mg intravenous 250 mg IV MONTHLY 07/14/21 11/11/22 solution everolimus (immunosuppressive) 0.5 0.5 mg PO UD 07/14/21 11/11/22 mg tablet metoprolol tartrate 25 mg tablet 50 mg PO BID 07/14/21 11/11/22 pantoprazole 40 mg tablet,delayed 40 mg PO BID 07/14/21 11/11/22 release sumatriptan succinate 50 mg tablet 50 mg PO DAILY PRN Migraine 07/14/21 11/11/22 Headache hydrocortisone 20 mg tablet 20 mg PO QAM 08/06/21 11/11/22 bupropion HCl 300 mg 24 hr tablet, 300 mg PO QAM 07/05/22 11/11/22 extended release (Wellbutrin XL) sitagliptin phosphate 25 mg tablet 50 mg PO DAILY 07/05/22 11/11/22 (Januvia) Pepcid 20 mg PO HS 11/11/22 11/11/22 denosumab 60 mg/mL subcutaneous 60 mg subcut UD 11/11/22 11/11/22 syringe (Prolia) ezetimibe 10 mg tablet (Zetia) 10 mg PO DAILY 11/11/22 11/11/22 fluoxetine 20 mg capsule 20 mg PO DAILY 11/11/22 11/11/22 fluoxetine 40 mg capsule 40 mg PO DAILY 11/11/22 11/11/22 montelukast 10 mg tablet 10 mg PO HS 11/11/22 11/11/22 (Singulair) oxybutynin chloride 5 mg 5 mg PO QAM 11/11/22 11/11/22 tablet,extended release 24 hr pravastatin 40 mg tablet 40 mg PO DAILY 11/11/22 11/11/22 sulfamethoxazole 400 1 tab PO USEASDIRECTD 11/11/22 11/11/22 mg-trimethoprim 80 mg tablet Results & Data (ED) Vital Signs Vital Signs - 24 hr 11/11/22 08:24 11/11/22 08:54 11/11/22 08:57 Temperature 36.7 C Temperature Source Temporal Artery Scan Pulse Rate 91 H 77 Pulse Rate [Left Brachial] Pulse Rate from SpO2 Sensor Pulse Rhythm [Left Brachial] Pulse Strength [Left Brachial] Respiratory Rate 20 Respiratory Effort / Characteristics Non-Labored Respiratory Depth Normal Respiratory Pattern Blood Pressure 129/87 Blood Pressure [Left Arm] Blood Pressure Mean 101 Blood Pressure Mean [Left Arm] Blood Pressure Position Sitting Pulse Oximetry 98 98 Oxygen Delivery Method Room Air Room Air Oxygen Flow Rate Sepsis Recent Fever Within 48 Hours No Sepsis New/Unexplained Change in Mental Status No Sepsis Action Taken by Nursing No Action Required 11/11/22 08:56 11/11/22 09:00 11/11/22 09:10 Temperature Temperature Source Pulse Rate 75 76 75 Pulse Rate [Left Brachial] Pulse Rate from SpO2 Sensor Pulse Rhythm [Left Brachial] Pulse Strength [Left Brachial] Respiratory Rate 29 H 22 27 H Respiratory Effort / Characteristics Respiratory Depth Respiratory Pattern Blood Pressure Blood Pressure [Left Arm] Blood Pressure Mean Blood Pressure Mean [Left Arm] Blood Pressure Position Pulse Oximetry Oxygen Delivery Method Oxygen Flow Rate Sepsis Recent Fever Within 48 Hours Sepsis New/Unexplained Change in Mental Status Sepsis Action Taken by Nursing 11/11/22 09:20 11/11/22 09:23 11/11/22 09:23 Temperature Temperature Source Pulse Rate 78 75 Pulse Rate [Left Brachial] Pulse Rate from SpO2 Sensor 78 75 Pulse Rhythm [Left Brachial] Pulse Strength [Left Brachial] Respiratory Rate 29 H 26 H Respiratory Effort / Characteristics Respiratory Depth Respiratory Pattern Blood Pressure 145/79 H Blood Pressure [Left Arm] Blood Pressure Mean 96 Blood Pressure Mean [Left Arm] Blood Pressure Position Pulse Oximetry 100 100 Oxygen Delivery Method Oxygen Flow Rate Sepsis Recent Fever Within 48 Hours Sepsis New/Unexplained Change in Mental Status Sepsis Action Taken by Nursing 11/11/22 09:30 11/11/22 09:30 11/11/22 09:40 Temperature Temperature Source Pulse Rate 70 77 Pulse Rate [Left Brachial] Pulse Rate from SpO2 Sensor 70 77 Pulse Rhythm [Left Brachial] Pulse Strength [Left Brachial] Respiratory Rate 30 H 29 H Respiratory Effort / Characteristics Respiratory Depth Respiratory Pattern Blood Pressure 157/80 H Blood Pressure [Left Arm] Blood Pressure Mean 106 Blood Pressure Mean [Left Arm] Blood Pressure Position Pulse Oximetry 97 99 Oxygen Delivery Method Oxygen Flow Rate Sepsis Recent Fever Within 48 Hours Sepsis New/Unexplained Change in Mental Status Sepsis Action Taken by Nursing 11/11/22 09:50 11/11/22 10:00 11/11/22 10:00 Temperature Temperature Source Pulse Rate 78 76 Pulse Rate [Left Brachial] Pulse Rate from SpO2 Sensor 77 77 Pulse Rhythm [Left Brachial] Pulse Strength [Left Brachial] Respiratory Rate 28 H 25 H Respiratory Effort / Characteristics Respiratory Depth Respiratory Pattern Blood Pressure 154/86 H Blood Pressure [Left Arm] Blood Pressure Mean 106 Blood Pressure Mean [Left Arm] Blood Pressure Position Pulse Oximetry 100 100 Oxygen Delivery Method Oxygen Flow Rate Sepsis Recent Fever Within 48 Hours Sepsis New/Unexplained Change in Mental Status Sepsis Action Taken by Nursing 11/11/22 11:02 11/11/22 13:03 11/11/22 13:06 Temperature Temperature Source Pulse Rate 76 Pulse Rate [Left Brachial] 81 83 Pulse Rate from SpO2 Sensor Pulse Rhythm [Left Brachial] Regular Regular Pulse Strength [Left Brachial] Normal Normal Respiratory Rate 20 22 Respiratory Effort / Characteristics Non-Labored Spontaneous Non-Labored Spontaneous Respiratory Depth Normal Normal Respiratory Pattern Regular Blood Pressure Blood Pressure [Left Arm] 134/90 176/90 H Blood Pressure Mean Blood Pressure Mean [Left Arm] 104 118 Blood Pressure Position Pulse Oximetry 100 100 Oxygen Delivery Method Nasal Cannula Nasal Cannula Oxygen Flow Rate 2 2 Sepsis Recent Fever Within 48 Hours Sepsis New/Unexplained Change in Mental Status Sepsis Action Taken by Nursing 11/11/22 17:01 Temperature Temperature Source Pulse Rate 77 Pulse Rate [Left Brachial] Pulse Rate from SpO2 Sensor Pulse Rhythm [Left Brachial] Pulse Strength [Left Brachial] Respiratory Rate Respiratory Effort / Characteristics Respiratory Depth Respiratory Pattern Blood Pressure Blood Pressure [Left Arm] Blood Pressure Mean Blood Pressure Mean [Left Arm] Blood Pressure Position Pulse Oximetry Oxygen Delivery Method Oxygen Flow Rate Sepsis Recent Fever Within 48 Hours Sepsis New/Unexplained Change in Mental Status Sepsis Action Taken by Nursing Laboratory Data 11/11/22 09:00 11/11/22 09:00 Lab Results 11/11/22 11/11/22 11/11/22 Range/Units 09:00 09:00 13:55 WBC 6.92 (4.8-10.8) K/ul RBC 4.29 (4.20-5.40) M/uL Hgb 12.5 (12.0-16.0) g/dl Hct 37.6 (37.0-47.0) % MCV 87.6 D (80.0-100.0) fL MCH 29.1 (25.0-34.0) pg MCHC 33.2 (32.0-36.0) g/dL RDW Std Deviation 46.2 (36.4-46.3) fL RDW Coeff of Nicolle 14.4 (11.5-14.5) % Plt Count 329 (130-400) K/uL MPV 9.3 L (9.4-12.4) fL Neutrophils % (Manual) 86 % Lymphocytes % (Manual) 6 % Monocytes % (Manual) 7 % Basophils % (Manual) 1 % Neutrophils # (Manual) 5.95 (1.40-6.50) K/uL Total Absolute Neuts 5.95 (1.4-6.5) K/uL Lymphocytes # (Manual) 0.42 L (1.2-3.4) K/uL Total Abs Lymphocytes 0.42 L (1.2-3.4) K/uL Monocytes # (Manual) 0.48 (0.11-0.59) K/uL Basophils # (Manual) 0.07 (0-0.2) K/uL Polychromasia 1+ Sodium 137 (136-145) mmol/L Potassium 4.0 (3.5-5.1) mmol/L Chloride 105 (98-107) mmol/L Carbon Dioxide 21 (21-32) mmol/L Anion Gap 11 (3-11) BUN 14 (6-23) mg/dl Creatinine 1.38 H (0.6-1.2) mg/dl Est Cr Clr Drug Dosing 48.4 ml/min Est GFR ( Amer) 48.4 ml/min Est GFR (Non-Af Amer) 41.7 ml/min BUN/Creatinine Ratio 10.1 (10-20) Glucose 156 H (70-99(Fasting)) mg/dl Calcium 10.5 H (8.6-10.3) mg/dl Total Bilirubin 0.5 (0.2-1.0) mg/dl AST 34 (13-39) U/L ALT 16 (7-52) U/L Alkaline Phosphatase 63 (34-104) U/L Troponin I High Sens 7.5 (0-14) pg/ml Total Protein 7.2 (6.0-8.3) gm/dl Albumin 4.2 (3.4-5.0) gm/dl Globulin 3.0 (2.5-4.0) gm/dl Albumin/Globulin Ratio 1.4 (0.9-2) Lipase 48 (11-82) U/L Urine Color Yellow Urine Appearance Clear (Clear) Urine pH 5.0 (4.5-7.5) Ur Specific [place] 1.030 (1.000-1.030) Urine Protein Negative (Negative) Urine Glucose (UA) Negative (Negative) Urine Ketones Trace H (Negative) Urine Blood Negative (Negative) Urine Nitrite Negative (Negative) Urine Bilirubin Negative (Negative) Urine Urobilinogen Negative (Negative) Ur Leukocyte Esterase 2+ H (Negative) Urine WBC (Auto) 5-10 H (0-5) /hpf Urine RBC (Auto) 0-4 (0-4) /hpf U Hyaline Cast (Auto) 1-5 (0-5) /lpf U Epithel Cells (Auto) 5-10 H (0-5) /lpf Urine Bacteria (Auto) Negative (Negative) SARS-CoV-2, RNA, NAAT (NEGATIVE) 11/11/22 Range/Units 16:00 WBC (4.8-10.8) K/ul RBC (4.20-5.40) M/uL Hgb (12.0-16.0) g/dl Hct (37.0-47.0) % MCV (80.0-100.0) fL MCH (25.0-34.0) pg MCHC (32.0-36.0) g/dL RDW Std Deviation (36.4-46.3) fL RDW Coeff of Nicolle (11.5-14.5) % Plt Count (130-400) K/uL MPV (9.4-12.4) fL Neutrophils % (Manual) % Lymphocytes % (Manual) % Monocytes % (Manual) % Basophils % (Manual) % Neutrophils # (Manual) (1.40-6.50) K/uL Total Absolute Neuts (1.4-6.5) K/uL Lymphocytes # (Manual) (1.2-3.4) K/uL Total Abs Lymphocytes (1.2-3.4) K/uL Monocytes # (Manual) (0.11-0.59) K/uL Basophils # (Manual) (0-0.2) K/uL Polychromasia Sodium (136-145) mmol/L Potassium (3.5-5.1) mmol/L Chloride (98-107) mmol/L Carbon Dioxide (21-32) mmol/L Anion Gap (3-11) BUN (6-23) mg/dl Creatinine (0.6-1.2) mg/dl Est Cr Clr Drug Dosing ml/min Est GFR ( Amer) ml/min Est GFR (Non-Af Amer) ml/min BUN/Creatinine Ratio (10-20) Glucose (70-99(Fasting)) mg/dl Calcium (8.6-10.3) mg/dl Total Bilirubin (0.2-1.0) mg/dl AST (13-39) U/L ALT (7-52) U/L Alkaline Phosphatase (34-104) U/L Troponin I High Sens (0-14) pg/ml Total Protein (6.0-8.3) gm/dl Albumin (3.4-5.0) gm/dl Globulin (2.5-4.0) gm/dl Albumin/Globulin Ratio (0.9-2) Lipase (11-82) U/L Urine Color Urine Appearance (Clear) Urine pH (4.5-7.5) Ur Specific [place] (1.000-1.030) Urine Protein (Negative) Urine Glucose (UA) (Negative) Urine Ketones (Negative) Urine Blood (Negative) Urine Nitrite (Negative) Urine Bilirubin (Negative) Urine Urobilinogen (Negative) Ur Leukocyte Esterase (Negative) Urine WBC (Auto) (0-5) /hpf Urine RBC (Auto) (0-4) /hpf U Hyaline Cast (Auto) (0-5) /lpf U Epithel Cells (Auto) (0-5) /lpf Urine Bacteria (Auto) (Negative) SARS-CoV-2, RNA, NAAT NEGATIVE (NEGATIVE) Administered Medications Discontinued Medications Al Hydrox/Mg Hydrox/Simethicone (Aluminum/Magnesium Susp 30 Ml Udc) 30 ml PO NOW STA Stop: 11/11/22 12:11 Last Admin: 11/11/22 12:18 Dose: 30 ml Documented By: TRAM Ciprofloxacin (Ciprofloxacin 500 Mg Tab) 500 mg PO NOW STA Stop: 11/11/22 15:18 Last Admin: 11/11/22 15:35 Dose: Not Given Documented By: TRAM Famotidine (Pepcid 20mg Iv Push) 20 mg in 5 mls @ 2.5 mls/min IV NOW STA Stop: 11/11/22 12:11 Last Admin: 11/11/22 12:14 Dose: 2.5 mls/min Documented By: TRAM Sodium Chloride (Nss 1000ml) 1,000 mls @ 999 mls/hr IV .Q1H1M ONE Stop: 11/11/22 13:48 Last Infusion: 11/11/22 14:39 Dose: 0 mls/hr Documented By: Admin: 11/11/22 13:05 Dose: 999 mls/hr Documented By: TRAM Ioversol (Optiray 320 100ml) 94 ml IV ONCE ONE Stop: 11/11/22 13:17 Last Admin: 11/11/22 13:16 Dose: 94 ml Documented By: TITA Ondansetron HCl (Ondansetron 4 Mg Od Tab) 4 mg PO NOW STA Stop: 11/11/22 08:51 Last Admin: 11/11/22 08:53 Dose: 4 mg Documented By: AM Imaging Data Radiologist's Impression: Abdomen/Pelvis CT 11/11/22 12:[address] WITH IV CONTRAST CT DOSE: 1294.47 mGy.cm HISTORY: Acute epigastric abdominal pain eval epigastric pain TECHNIQUE: Multiaxial CT images of the abdomen and pelvis were performed following the IV administration of 94 cc of Optiray, A dose lowering technique was utilized adhering to the principles of ALARA. COMPARISON STUDY: 01/14/2021 FINDINGS: Cardiomegaly with prior median sternotomy. Trace pleural effusions. Mild subsegmental bibasilar atelectasis. No pneumatosis or pneumoperitoneum. Unremarkable spleen, mildly atrophic pancreas and adrenal glands. Charlette lithiasis. Unremarkable liver. Patent portal vein. Embolization coils noted within the distribution of the splenic artery. 11 mm mixed attenuating nodule anterior to the pancreatic body is unchanged and likely benign. No hydronephrosis. Subcentimeter hypodensity in the anterior interpolar left kidney is too small to characterize. Unremarkable urinary bladder, uterus and adnexa. Atherosclerosis of the aorta. Diminutive appearance of the celiac trunk which is suboptimally visualized secondary to streak artifact from the aforementioned coils. No lymphadenopathy. There is partially imaged moderate circumferential soft tissue swelling with mucosal hyperemia involving the distal esophagus. There is adjacent inflammatory stranding with trace periesophageal fluid. No bowel obstruction or bowel wall thickening. Colonic diverticulosis. Appendectomy. Unremarkable soft tissues. No acute fracture. IMPRESSION: 1. Moderate wall thickening of the distal esophagus with mucosal hyperemia and periesophageal fluid is suggestive a nonspecific esophagitis. Findings could be correlated with endoscopy to exclude an underlying mucosal lesion. 2. No bowel obstruction or bowel wall thickening. 3. Cholelithiasis. 4. Additional findings as above. ACT 112: Negative or not required by law. The above report was generated using voice recognition software. It may contain grammatical, syntax or spelling errors. Electronically signed by: Shin Carolina M.D. 11/11/2022 1:41 PM Chest X-Ray 11/11/22 17:03 XR chest 1V portable HISTORY: 57 years-old Female chest pain acute chest pain COMPARISON: 03/30/2022 TECHNIQUE: AP view of the chest FINDINGS: Cardiac silhouette is enlarged. Prior median sternotomy with surgical clips project over the chest. No pneumothorax, pleural effusion or overt pulmonary edema. Chronic blunting of the costophrenic angles with subsegmental basilar atelectasis versus scarring. Embolization coils of the abdominal left upper quadrant. Bones appear grossly intact. IMPRESSION: Cardiomegaly without acute process. ACT 112: Negative or not required by law. The above report was generated using voice recognition software. It may contain grammatical, syntax or spelling errors. Electronically signed by: Shin Carolina M.D. 11/11/2022 6:04 PM Discharge Plan Visit Data Chief Complaint: Vomiting Stated Complaint: VOMITING ED Provider: Aisha Patel Discharge Problem: Vomiting, Acute electrocardiogram changes, Esophagitis Patient Disposition: Admitted As Inpatient Discharge Instructions Interventions: ED Discharge Assessment Last Done: 11/11/22 18:40
[2022-11-11 09:35] LABS: Hematocrit (blood only) 37.6 % (37.0-47.0); Hemoglobin 12.5 g/dl (12.0-16.0); Mean Corpuscular Hemoglobin 29.1 pg (25.0-34.0); Mean Corpuscular Hgb Conc 33.2 g/dL (32.0-36.0); Mean Corpuscular Volume 87.6 fL (80.0-100.0); Mean Platelet Volume 9.3 fL (9.4-12.4); Platelet Count 329 K/uL (130-400); RDW Coefficient of Variation 14.4 % (11.5-14.5); RDW Standard Deviation 46.2 fL (36.4-46.3); Red Blood Count 4.29 M/uL (4.20-5.40); White Blood Count 6.92 K/ul (4.8-10.8)
[2022-11-11 09:39] LABS: ALC (manual) 0.42 K/uL (1.2-3.4); ANC (manual) 5.95 K/uL (1.4-6.5); Albumin Globulin Ratio 1.4 (0.9-2); Albumin Level 4.2 gm/dl (3.4-5.0); BUN Creatinine Ratio 10.1 (10-20); Basophils # (manual) 0.07 K/uL (0-0.2); Basophils % (manual) 1 %; Bilirubin,Total 0.5 mg/dl (0.2-1.0); Calcium 10.5 mg/dl (8.6-10.3); Creatinine Clr Calc Pharmacy 48.4 ml/min; Est GFR (African American) 48.4 ml/min; Est GFR (Non-African American) 41.7 ml/min; Lymphocytes # (manual) 0.42 K/uL (1.2-3.4); Lymphocytes % (manual) 6 %; Monocytes # (manual) 0.48 K/uL (0.11-0.59); Monocytes % (manual) 7 %; Neutrophils # (manual) 5.95 K/uL (1.40-6.50); Neutrophils % (manual) 86 %; Polychromasia 1+; Total Protein 7.2 gm/dl (6.0-8.3)
[2022-11-11 10:43] LABS: Troponin I High Sensitivity 7.5 pg/ml (0-14)
[2022-11-11] MEDS ORDERED: ALUMINUM/MAGNESIUM SUSP 30 ML UDC PO STA (12:10)
[2022-11-11] MEDS ORDERED: FAMOTIDINE 20MG IV PUSH 20 MG/5 ML SYR IV STA (12:10)
[2022-11-11] MEDS ORDERED: SODIUM CHLORIDE 0.9% 1000ML 1,000 ML IV ONE ×2 (12:48→18:38)
[2022-11-11] MEDS ORDERED: OPTIRAY 320 100ml IV ONE (13:16)
--- NOTE | 2022-11-11 13:43 | CT Scan Report ---
ABDOMEN AND PELVIS CT WITH IV CONTRAST CT DOSE: 1294.47 mGy.cm HISTORY: Acute epigastric abdominal pain eval epigastric pain TECHNIQUE: Multiaxial CT images of the abdomen and pelvis were performed following the IV administrat ion of 94 cc of Optiray, A dose lowering technique was utilized adhering to the principles of ALARA. COMPARISON STUDY: 01/14/2021 FINDINGS: Cardiomegaly with prior median sternotomy. Trace pleural effusions. Mild subsegmental bibas ilar atelectasis. No pneumatosis or pneumoperitoneum. Unremarkable spleen, mildly atrophic pancreas a nd adrenal glands. Cholelithiasis. Unremarkable liver. Patent portal vein. Embolization coils noted w ithin the distribution of the splenic artery. 11 mm mixed attenuating nodule anterior to the pancreat ic body is unchanged and likely benign. No hydronephrosis. Subcentimeter hypodensity in the anterior interpolar left kidney is too small to characterize. Unremarkable urinary bladder, uterus and adnexa. Atherosclerosis of the aorta. Diminutive appearance of the celiac trunk which is suboptimally visual ized secondary to streak artifact from the aforementioned coils. No lymphadenopathy. There is partially imaged moderate circumferential soft tissue swelling with mucosal hyperemia involv ing the distal esophagus. There is adjacent inflammatory stranding with trace periesophageal fluid. N o bowel obstruction or bowel wall thickening. Colonic diverticulosis. Appendectomy. Unremarkable soft tissues. No acute fracture. IMPRESSION: 1. Moderate wall thickening of the distal esophagus with mucosal hyperemia and periesophageal fluid i s suggestive a nonspecific esophagitis. Findings could be correlated with endoscopy to exclude an und erlying mucosal lesion. 2. No bowel obstruction or bowel wall thickening. 3. Cholelithiasis. 4. Additional findings as above. ACT 112: Negative or not required by law. The above report was generated using voice recognition software. It may contain grammatical, syntax o r spelling errors. Electronically signed by: Shin Carolina M.D. 11/11/2022 1:41 PM
[2022-11-11 14:14] LABS: Appearance Urine Clear (Clear); Bacteria Urine Automated Negative (Negative); Bilirubin Urine Negative (Negative); Blood Urine Negative (Negative); Color Urine Yellow; Glucose Urine UA Negative (Negative); Ketones Urine Trace (Negative); Leukocyte Esterase Urine 2+ (Negative); Nitrite Urine Negative (Negative); Protein Urine Negative (Negative); RBC Urine Automated 0-4 /hpf (0-4); Urobilinogen Urine Negative (Negative)
--- NOTE | 2022-11-11 15:03 | History & Physical Report ---
Date of Service November 11, 2022 Assessment & Plan (1) Esophagitis: Plan: Epigastric abdominal pain/Nausea/Vomiting Likely due to esophagitis. Rule out peptic ulcer disease H/O GERD --CT ABD:Moderate wall thickening of the distal esophagus with mucosal hyperemia and periesophageal fluid is suggestive a nonspecific esophagitis. Findings could be correlated with endoscopy to exclude an underlying mucosal lesion. No bowel obstruction or bowel wall thickening. Cholelithiasis. -- Normal lipase, LFTs Gentle IV fluids, IV PPI Also on Pepcid Liquid diet for now N.p.o. after midnight for possible endoscopy GI consulted Monitor H&H, avoid NSAIDs Atypical chest pain Abnormal EKG Rule out ACS Initial troponin negative Obtain chest x-ray Continue statin Trend cardiac enzymes, check resting ECHO Discussed with exhibitions and collections manager on-call-we will hold off on IV heparin for now Low threshold to start IV heparin if troponin rises Cardiology consulted Hypertension Blood pressure elevated likely situational secondary to pain Continue home medications Monitor BP Abnormal urinalysis Patient denies any urinary symptoms Hold antibiotics for now DM Type II: Will hold oral diabetic meds ISS, basal Insulin, Accu checks, Diabetic diet Monitor BGs CKD II H/O tacrolimus induced nephrotoxicity Cr at baseline Monitor renal function Chronic hypercalcemia On Prolia at baseline Monitor calcium levels Ordered IV fluids Advanced COPD S/P bilateral lung transplant in 2020 at [facility] Past tobacco use Currently not on any inhalers Continue chronic suppressive therapy Bipolar disorder Depression/Anxiety disorder Insomnia Continue home medications ACTH deficiency Continue hydrocortisone Chronic intermittent hypoxia Obstructive sleep apnea Obesity hypoventilation syndrome As per records Supplemental oxygen as needed DVT Px: SCDs Re: Esophagitis Code Status Full Code History of Present Illness Chief Complaint: Chest/Epigastric Pain Primary Care Provider: Sara Sena MD Patient is a 57-year-old female with history of advanced COPD S/P bilateral lung transplant in 2020 at [facility], peripheral vascular disease, splenic artery aneurysm, immunocompromise state, bipolar disorder, depression, ACTH deficiency, past tobacco use, anxiety disorder, insomnia, tacrolimus induced nephrotoxicity, chronic intermittent hypoxia with obstructive sleep apnea, obesity hypoventilation syndrome, diabetes mellitus and other medical problems presents with history epigastric abdominal pain associated with gurgling/burping, nausea, vomiting. Patient states she woke up this morning at around 3 AM and started to have significant " acid brown" vomiting this morning which she describes as burning sensation. She also states having retrosternal pressure-like sensation, at times associated with shortness of breathand back pain. As per patient, patient had endoscopy about 1-1/2 years ago which showed no acute findings. Also reports having cardiac catheterization prior to lung transplant in 2020 which showed no issues. Epigastric pain has been intermittent and she tried Tums at home with no significant relief. She reports having Caesar salad along with pizza at 6 PM yesterday. Denies any history of dizziness, pedal edema, diaphoresis, cough, hemoptysis, fever, chills, headache, change in vision, blood in stools, diarrhea, dysuria, hematuria. Allergies Allergy/AdvReac Type Severity Reaction Status Date / Time Penicillins AdvReac Intermediate JITTERY/CHI Verified 10/25/22 14:02 LLS Home Medications Medication Instructions Recorded Confirmed Type hydrocortisone 10 mg tablet 10 mg PO QPM 01/14/21 11/11/22 History melatonin 3 mg tablet 6 mg PO HS 01/14/21 11/11/22 History trazodone 100 mg tablet 100 mg PO HS 01/14/21 11/11/22 History azathioprine 50 mg tablet (Imuran) 100 mg PO QAM 03/07/21 11/11/22 History azithromycin 250 mg tablet 250 mg PO 3XWK 07/14/21 11/11/22 History belatacept 250 mg intravenous 250 mg IV MONTHLY 07/14/21 11/11/22 History solution everolimus (immunosuppressive) 0.5 0.5 mg PO UD 07/14/21 11/11/22 History mg tablet metoprolol tartrate 25 mg tablet 50 mg PO BID 07/14/21 11/11/22 History pantoprazole 40 mg tablet,delayed 40 mg PO BID 07/14/21 11/11/22 History release sumatriptan succinate 50 mg tablet 50 mg PO DAILY PRN Migraine 07/14/21 11/11/22 History Headache hydrocortisone 20 mg tablet 20 mg PO QAM 08/06/21 11/11/22 History bupropion HCl 300 mg 24 hr tablet, 300 mg PO QAM 07/05/22 11/11/22 History extended release (Wellbutrin XL) sitagliptin phosphate 25 mg tablet 50 mg PO DAILY 07/05/22 11/11/22 History (Januvia) Pepcid 20 mg PO HS 11/11/22 11/11/22 History denosumab 60 mg/mL subcutaneous 60 mg subcut UD 11/11/22 11/11/22 History syringe (Prolia) ezetimibe 10 mg tablet (Zetia) 10 mg PO DAILY 11/11/22 11/11/22 History fluoxetine 20 mg capsule 20 mg PO DAILY 11/11/22 11/11/22 History fluoxetine 40 mg capsule 40 mg PO DAILY 11/11/22 11/11/22 History montelukast 10 mg tablet 10 mg PO HS 11/11/22 11/11/22 History (Singulair) oxybutynin chloride 5 mg 5 mg PO QAM 11/11/22 11/11/22 History tablet,extended release 24 hr pravastatin 40 mg tablet 40 mg PO DAILY 11/11/22 11/11/22 History sulfamethoxazole 400 1 tab PO USEASDIRECTD 11/11/22 11/11/22 History mg-trimethoprim 80 mg tablet Past Med/Surg History Medical History Acute kidney injury Anxiety Chronic intermittent hypoxia with obstructive sleep apnea COPD (chronic obstructive pulmonary disease) Depression Depression GERD (gastroesophageal reflux disease) Hyperkalemia, diminished renal excretion Hyponatremia Hypothyroidism Lung transplant recipient Metabolic acidosis SAMUEL (obstructive sleep apnea) Overweight Sleep apnea cpap with 2L Surgical History History of abdominal surgery repair of ruptured spleen History of appendectomy History of bronchoscopy History of cardiac cath SOB--05/22/2018 @ [facility]--no stents History of lung surgery benign nodule removal from left lung History of open reduction and internal fixation (ORIF) procedure left wrist--hardware removed History of tooth extraction all upper teeth History of wisdom tooth extraction Lung transplant status, bilateral Family History Daughter Family history of reaction to anesthesia takes a lot to put her out Brother Family history of cancer of tongue Social History Smoking Status: Never smoker Tobacco Type: Cigarettes Cigarettes Per Day: 30; Second Hand Exposure: No; Do You Dip or Chew Tobacco: No; Hx Alcohol Use: No Hx Substance Use: No Preferred Language: Amharic Communication Ability: Effective Sales Representative Metals Required: No Beliefs That Will Affect Care: None Current Living Situation: Family Feels Safe at Home: Yes Assistive Devices: None Review of Systems Review of Systems: All systems reviewed & are unremarkable except as noted in Subjective Physical Exam Physical Exam: Physical Exam: Vitals signs as noted above General Appearance:Obese, no apparent distress Head: normocephalic, Atraumatic Eyes: normal inspection, EOMI Neck: supple, Trachea midline Respiratory/Chest: Normal breath sounds, CTA, No accessory muscle use Cardiovascular: S1, S2, No murmur Abdomen/GI:Soft, Epigastric tender, Bowel sounds present Extremities/Musculoskeletal:normal inspection, no edema Neurologic/Psych:AAOX3, grossly no focal neurological deficits Skin: normal color, warm Results & Data Results & Data Vital Signs (Past 12 Hours) Vital Signs Temp Pulse Pulse Resp BP BP Pulse Ox 11/11/22 13:06 83 22 176/90 H 100 11/11/22 13:03 76 11/11/22 11:02 81 20 134/90 100 11/11/22 10:00 76 25 H 100 11/11/22 10:00 154/86 H 11/11/22 09:50 78 28 H 100 11/11/22 09:40 77 29 H 99 11/11/22 09:30 70 30 H 97 11/11/22 09:30 157/80 H 11/11/22 09:23 145/79 H 11/11/22 09:23 75 26 H 100 11/11/22 09:20 78 29 H 100 11/11/22 09:10 75 27 H 11/11/22 09:00 76 22 11/11/22 08:56 75 29 H 11/11/22 08:57 77 11/11/22 08:54 98 11/11/22 08:24 36.7 C 91 H 20 129/87 98 O2 Del Method O2 Flow Rate 11/11/22 13:06 Nasal Cannula 2 11/11/22 13:03 11/11/22 11:02 Nasal Cannula 2 11/11/22 10:00 11/11/22 10:00 11/11/22 09:50 11/11/22 09:40 11/11/22 09:30 11/11/22 09:30 11/11/22 09:23 11/11/22 09:23 11/11/22 09:20 11/11/22 09:10 11/11/22 09:00 11/11/22 08:56 11/11/22 08:57 11/11/22 08:54 Room Air 11/11/22 08:24 Room Air Laboratory Results Short CBC 11/11/22 Range/Units 09:00 WBC 6.92 (4.8-10.8) K/ul Hgb 12.5 (12.0-16.0) g/dl Hct 37.6 (37.0-47.0) % Plt Count 329 (130-400) K/uL BMP 11/11/22 09:00 Sodium 137 Potassium 4.0 Chloride 105 Carbon Dioxide 21 BUN 14 Creatinine 1.38 H Glucose 156 H Calcium 10.5 H Liver Function 11/11/22 Range/Units 09:00 Total Bilirubin 0.5 (0.2-1.0) mg/dl AST 34 (13-39) U/L ALT 16 (7-52) U/L Alkaline Phosphatase 63 (34-104) U/L Albumin 4.2 (3.4-5.0) gm/dl Urine 11/11/22 Range/Units 13:55 Urine Color Yellow Urine Appearance Clear (Clear) Urine pH 5.0 (4.5-7.5) Ur Specific [place] 1.030 (1.000-1.030) Urine Protein Negative (Negative) Urine Glucose (UA) Negative (Negative) Diagnostic Findings --CT ABD:Moderate wall thickening of the distal esophagus with mucosal hyperemia and periesophageal fluid is suggestive a nonspecific esophagitis. Findings could be correlated with endoscopy to exclude an underlying mucosal lesion. No bowel obstruction or bowel wall thickening. Cholelithiasis. -- ECG Additional Comments: EKG: Normal sinus rhythm, ST and T wave abnormalities, mild depression and anterior leads, T wave inversion in lateral leads.
[2022-11-11] MEDS ORDERED: CIPROFLOXACIN 500 MG TAB PO STA (15:17)
--- NOTE | 2022-11-11 18:07 | XRay Report ---
XR chest 1V portable HISTORY: 57 years-old Female chest pain acute chest pain COMPARISON: 03/30/2022 TECHNIQUE: AP view of the chest FINDINGS: Cardiac silhouette is enlarged. Prior median sternotomy with surgical clips project over the chest. N o pneumothorax, pleural effusion or overt pulmonary edema. Chronic blunting of the costophrenic angle s with subsegmental basilar atelectasis versus scarring. Embolization coils of the abdominal left upp er quadrant. Bones appear grossly intact. IMPRESSION: Cardiomegaly without acute process. ACT 112: Negative or not required by law. The above report was generated using voice recognition software. It may contain grammatical, syntax o r spelling errors. Electronically signed by: Shin Carolina M.D. 11/11/2022 6:04 PM
[2022-11-11] MEDS ORDERED: CARBOHYDRATES FOR HYPOGLYCEMIA PO PRN (18:38)
[2022-11-11] MEDS ORDERED: DEXTROSE 50% 50 ML SYRINGE IV PRN (18:38)
[2022-11-11] MEDS ORDERED: GLUCOSE 40% GEL 15 GM TUBE PO PRN (18:38)
[2022-11-11] MEDS ORDERED: GLUCAGON FOR INJ 1 MG VIAL SQ PRN (18:38)
[2022-11-11] MEDS ORDERED: GLUCOSE 10 TAB/TUBE PO PRN (18:38)
[2022-11-11] MEDS ORDERED: POLYETHYLENE (MIRALAX) 17 GM PACK PO PRN (18:38)
[2022-11-11] MEDS ORDERED: NITROGLYCERIN SL 0.4 MG/TAB TAB SL PRN (18:38)
[2022-11-11] MEDS ORDERED: PROMETHAZINE HCL 6.25 MG in SODIUM CHLORIDE 0.9% 50 ML IV PRN (18:38)
[2022-11-11] MEDS ORDERED: LABETALOL HCL IV 5 MG/ML 20ML IV PRN (18:39)
[2022-11-11] MEDS: MoRPHine SULFATE 2 MG/ML CARP IV PRN (19:43)
[2022-11-11] MEDS: ACETAMINOPHEN 325 MG TAB PO PRN (19:48)
[2022-11-11] MEDS: ALUMINUM/MAGNESIUM/SIMETH (MAALOX MAX) 30 ML UDC PO PRN (19:49)
[2022-11-11] MEDS: FAMOTIDINE 20 MG in SYRINGE 3 ML IV SCH (19:50)
[2022-11-11] MEDS: PANTOprazole 40 MG in SYRINGE 0 ML IV SCH (19:50)
[2022-11-11] MEDS: SODIUM CHLORIDE 0.9% 1000ML 1,000 ML IV SCH (19:52)
[2022-11-11] MEDS: MONTELUKAST SODIUM 10 MG TABLET PO SCH (20:02)
[2022-11-11] MEDS: MELATONIN 3 MG TAB PO SCH (20:02)
[2022-11-11] MEDS: HYDROCORTISONE 10 MG TAB PO SCH (20:02)
[2022-11-11] MEDS: METOPROLOL TARTRATE 50 MG TAB PO SCH (20:03)
[2022-11-11] MEDS: traZODone HCL 100 MG TAB PO SCH (20:03)
[2022-11-11] MEDS: EVEROLIMUS PO SCH (21:05)
[2022-11-11] MEDS: INSULIN ASPART PER UNIT CHARGE SC SCH ×2 (21:06→21:07)
[2022-11-11] MEDS: LANTUS PER UNIT CHARGE SQ SCH (21:25)
[2022-11-12] MEDS: ACETAMINOPHEN 325 MG TAB PO PRN ×2 (04:32→19:57)
[2022-11-12] MEDS: ALUMINUM/MAGNESIUM/SIMETH (MAALOX MAX) 30 ML UDC PO PRN ×2 (04:32→16:36)
[2022-11-12] MEDS: MoRPHine SULFATE 2 MG/ML CARP IV PRN ×5 (04:33→19:59)
[2022-11-12 06:13] LABS: Hematocrit (blood only) 31.3 % (37.0-47.0); Mean Corpuscular Hemoglobin 29.1 pg (25.0-34.0); Mean Corpuscular Hgb Conc 31.9 g/dL (32.0-36.0); Mean Platelet Volume 9.3 fL (9.4-12.4); Platelet Count 262 K/uL (130-400); RDW Coefficient of Variation 15.1 % (11.5-14.5); RDW Standard Deviation 49.7 fL (36.4-46.3); Red Blood Count 3.44 M/uL (4.20-5.40); White Blood Count 4.42 K/ul (4.8-10.8)
[2022-11-12 06:55] LABS: Albumin Globulin Ratio 1.4 (0.9-2); Albumin Level 3.3 gm/dl (3.4-5.0); BUN Creatinine Ratio 9.7 (10-20); Bilirubin,Total 0.4 mg/dl (0.2-1.0); Calcium 8.2 mg/dl (8.6-10.3); Chol HDL Ratio 4.4 (0-5); Creatinine Clr Calc Pharmacy 49.8 ml/min; Est GFR (African American) 50.1 ml/min; Est GFR (Non-African American) 43.3 ml/min; Globulin 2.3 gm/dl (2.5-4.0); Magnesium 1.9 mg/dl (1.7-2.4); Total Protein 5.6 gm/dl (6.0-8.3)
[2022-11-12 08:03] LABS: Estimated Average Glucose 128 mg/dl; Hemoglobin A1C 6.1 % (4.5-5.6)
[2022-11-12] MEDS: PANTOprazole 40 MG in SYRINGE 0 ML IV SCH ×2 (08:10→19:52)
[2022-11-12] MEDS: FAMOTIDINE 20 MG in SYRINGE 3 ML IV SCH ×2 (08:10→20:01)
[2022-11-12] MEDS: SODIUM CHLORIDE 0.9% 1000ML 1,000 ML IV SCH (08:10)
[2022-11-12] MEDS: INSULIN ASPART PER UNIT CHARGE SC SCH ×4 (08:20→20:10)
[2022-11-12] MEDS: METOPROLOL TARTRATE 50 MG TAB PO SCH ×2 (08:55→20:10)
[2022-11-12] MEDS: FLUoxetine HCL 20 MG CAP PO SCH (08:55)
[2022-11-12] MEDS: OXYBUTYNIN CHLORIDE XL 5 MG TABCR PO SCH (08:56)
[2022-11-12] MEDS: SULFA/TRIMETH 400/80MG TAB PO SCH (08:56)
[2022-11-12] MEDS: azaTHIOprine 50 MG TAB PO SCH (08:56)
[2022-11-12] MEDS: AZITHROMYCIN 250 MG TAB PO SCH (08:56)
[2022-11-12] MEDS: PRAVASTATIN SOD 40 MG TAB PO SCH (08:56)
[2022-11-12] MEDS: buPROPion XL 300 MG TABCR PO SCH (08:56)
[2022-11-12] MEDS: HYDROCORTISONE 10 MG TAB PO SCH ×2 (08:56→19:50)
[2022-11-12] MEDS: EZETIMIBE 10 MG TABLET PO SCH (08:56)
[2022-11-12] MEDS: EVEROLIMUS PO SCH ×2 (08:57→19:55)
[2022-11-12] MEDS: LANTUS PER UNIT CHARGE SQ SCH ×2 (08:58→19:56)
[2022-11-12] MEDS ORDERED: FLUoxetine HCL 20 MG CAP PO SCH ×2 (09:00)
--- NOTE | 2022-11-12 09:37 | Cardiology Consultation ---
Date of Consultation November 12, 2022 Assessment & Plan (1) Chest pain at rest: (2) Abnormal EKG: (3) Esophagitis: (4) Nausea and vomiting: Plan Atypical chest pain - Esophagitis. As per GI and hospitalist. Benefits of endoscopy appear to outweigh risk. - Musculoskeletal chest pain. General measures advised. Abnormal EKG - ? Secondary to the acute abdominal process and medications - High-sensitivity troponin I negative x3. - Resting echocardiography with preserved LV systolic function, without wall motion abnormality. - Catheterizations in May 2018 and September 2020 without coronary artery disease - Risks of further cardiac evaluation appear greater than the benefit at this time Hypertension - Likely situational, aggravated by pain - Continue home medications - Monitor Advanced COPD - Reformed smoker, quit circa 8-9 years ago - Status post bilateral lung transplant in 2020 at [facility] Supervising Physician Co-Signing Physician Notes 57-year-old female admitted with epigastric and chest discomfort. CT with evidence of esophagitis. Notes ongoing chest burning and pressure. No orthopnea, PND, or edema. Normal coronary arteries per cardiac catheterization x2 as noted above. Telemetry reveals sinus rhythm. Preliminary review of bedside echocardiogram demonstrates normal wall motion without pericardial effusion. PE: VSS. Gen: NAD, AAO x 3. Heart: Regular rhythm, normal S1-S2. No murmur. Reproducible anterior chest wall tenderness. Lungs: Clear bilateral, no rales, rhonchi, wheeze. Extremities: No clubbing, cyanosis, or edema. A/P: Agree with above PA-C history, physical exam, assessment and plan. 57-year-old female presenting with epigastric and chest discomfort. There is clearly musculoskeletal component reproducible with palpation and evidence of esophagitis on CT. Cardiac enzymes are normal. There are no regional wall motion abnormalities on echocardiogram. With history of normal coronary angiography x2 within the past 3 years, symptoms are more likely related to esophagitis and chest wall trauma. History of Present Illness Reason for Consultation: Chest pain. EKG changes. Requesting Physician: June Attending Physician: Danielle History of Present Illness Ms. Yashira Pastrana is a 57 year old female who presented to the [facility] ER in the staff developer of November 11, 2022 with substernal/epigastric burning and pressure with associated vomiting. Patient notes "I started throwing up at 3 AM. I was throwing up acid brown stuff. + History of GERD. Dinner meal consisted of one half of a Caesar salad, a slice of pizza, and a 1 [place] beer. She notes trying Tums at home without significant relive. In the ER the patient initially received Zofran for nausea with some improvement. After returning from radiology she was noted to have significant belching and burning and was given IV Pepcid as well as a GI cocktail with significant improvement. Imaging of the abdomen revealed moderate wall thickening of the distal esophagus with mucosal hyperemia and paraesophageal fluid suggestive of nonspecific esophagitis. It should also be noted that on Saturday the patient was swimming at [facility]. After swimming for approximately 20 minutes her legs were weak and she had trouble getting back in to the boat. Her helped pull her back in the boat and she notes hitting her lower chest on the side of the boat. This resulted in some worsening discomfort "under the stitches." She also notes chronic breast numbness. Patient notes undergoing diagnostic cardiac catheterization x2, first with Dr. Canales in 2018 and again at [facility] in September 2020. Catheterization on May 22, 2018 revealed normal codominant coronary anatomy with normal LV systolic function, normal left ventricular end-diastolic pressure, normal right heart pressures, normal cardiac output. No pulmonary hypertension. Repeat catheterization report from September 2020 not available for review; patient and daughter note clean coronaries at that time as well. EKG on presentation to the [facility] on 11/11/2022 revealed normal sinus rhythm at 73 bpm with anterolateral STT wave changes. When compared to prior available tracings, the anterior STT wave changes may be slightly worse and the lateral changes are new. QTc 412 ms. A second EKG on November 11, 2022 at 12:11:25 showed no significant change compared to prior. EKG this morning reveals sinus bradycardia at 52 bpm with more pronounced anterolateral ST changes and nonspecific inferior ST changes. QTc 461 ms. High-sensitivity troponin I negative x3 at 7.5, 9.6, 9.7 pg/ml. Resting echocardiography on November 12, 2022, as interpreted by Dr. Mars, was technically limited with no comparison study available. Ejection fraction 60 to 65%. Normal LV wall motion. Grade 1 diastolic dysfunction. Mild tricuspid regurgitation. Doppler findings do not suggest pulmonary hypertension. Chest x-ray shows cardiomegaly without acute process Allergies Allergy/AdvReac Type Severity Reaction Status Date / Time Penicillins AdvReac Intermediate JITTERY/CHI Verified 10/25/22 14:02 LLS Home Medications Medication Instructions Recorded Confirmed Type hydrocortisone 10 mg tablet 10 mg PO QPM 01/14/21 11/11/22 History melatonin 3 mg tablet 6 mg PO HS 01/14/21 11/11/22 History trazodone 100 mg tablet 100 mg PO HS 01/14/21 11/11/22 History azathioprine 50 mg tablet (Imuran) 100 mg PO QAM 03/07/21 11/11/22 History azithromycin 250 mg tablet 250 mg PO 3XWK 07/14/21 11/11/22 History belatacept 250 mg intravenous 250 mg IV MONTHLY 07/14/21 11/11/22 History solution everolimus (immunosuppressive) 0.5 0.5 mg PO UD 07/14/21 11/11/22 History mg tablet metoprolol tartrate 25 mg tablet 50 mg PO BID 07/14/21 11/11/22 History pantoprazole 40 mg tablet,delayed 40 mg PO BID 07/14/21 11/11/22 History release sumatriptan succinate 50 mg tablet 50 mg PO DAILY PRN Migraine 07/14/21 11/11/22 History Headache hydrocortisone 20 mg tablet 20 mg PO QAM 08/06/21 11/11/22 History bupropion HCl 300 mg 24 hr tablet, 300 mg PO QAM 07/05/22 11/11/22 History extended release (Wellbutrin XL) sitagliptin phosphate 25 mg tablet 50 mg PO DAILY 07/05/22 11/11/22 History (Januvia) Pepcid 20 mg PO HS 11/11/22 11/11/22 History denosumab 60 mg/mL subcutaneous 60 mg subcut UD 11/11/22 11/11/22 History syringe (Prolia) ezetimibe 10 mg tablet (Zetia) 10 mg PO DAILY 11/11/22 11/11/22 History fluoxetine 20 mg capsule 20 mg PO DAILY 11/11/22 11/11/22 History fluoxetine 40 mg capsule 40 mg PO DAILY 11/11/22 11/11/22 History montelukast 10 mg tablet 10 mg PO HS 11/11/22 11/11/22 History (Singulair) oxybutynin chloride 5 mg 5 mg PO QAM 11/11/22 11/11/22 History tablet,extended release 24 hr pravastatin 40 mg tablet 40 mg PO DAILY 11/11/22 11/11/22 History sulfamethoxazole 400 1 tab PO USEASDIRECTD 11/11/22 11/11/22 History mg-trimethoprim 80 mg tablet Patient History Medical History Acute kidney injury Anxiety Chronic intermittent hypoxia with obstructive sleep apnea COPD (chronic obstructive pulmonary disease) Depression Depression GERD (gastroesophageal reflux disease) Hyperkalemia, diminished renal excretion Hyponatremia Hypothyroidism Lung transplant recipient Metabolic acidosis SAMUEL (obstructive sleep apnea) Overweight Sleep apnea cpap with 2L Surgical History History of abdominal surgery repair of ruptured spleen History of appendectomy History of bronchoscopy History of cardiac cath SOB--05/22/2018 @ [facility]--no stents History of lung surgery benign nodule removal from left lung History of open reduction and internal fixation (ORIF) procedure left wrist--hardware removed History of tooth extraction all upper teeth History of wisdom tooth extraction Lung transplant status, bilateral Family History Daughter Family history of reaction to anesthesia takes a lot to put her out Brother Family history of cancer of tongue Social History Smoking Status: Former smoker Tobacco Type: Cigarettes Cigarettes Per Day: 30; Second Hand Exposure: No; Do You Dip or Chew Tobacco: No; Tobacco Cessation Education Requested by Patient: No Hx Alcohol Use: Yes Alcohol type: beer Hx Substance Use: No Preferred Language: Somali Communication Ability: Effective Porcelain Enamel Sprayer Required: No Beliefs That Will Affect Care: None Current Living Situation: Spouse Other Information That Helps Us Care for You: No Feels Safe at Home: Yes Safety Concerns: Feels Safe At This Time Assistive Devices: BiPap, Denture - Upper and Glasses Review of Systems Review of Systems: Notes recent addition of Bactrim and ? Prevacid. Migraines. On Imitrex. Normal BM last night. No hemoptysis. No melena or hematochezia. COPD. Status post bilateral lung transplant. SAMUEL. No history of PE. Renal dysfunction No amaurosis fugax. No activity related chest pain. No palpitations. No orthopnea, PND, or peripheral edema. No lightheadedness, dizziness, near syncope, or true syncope. No fevers or chills Complete Review of Systems is as stated above, negative, or noncontributory. Physical Exam Physical Exam: General: A&Ox3. NAD. HENT: Normocephalic. Atraumatic. Eyes: PER. Conjunctiva pink, sclera clear. Neck: No carotid bruits. No JVD. Heart: Regular at 64 bpm. No murmur. No rub. Lungs: Clear to auscultation anterolaterally Chest: Substernal and epigastric discomfort with palpation. Abdomen: +BS. Epigastic tenderness. No masses or organomegaly. Extremities: No clubbing, cyanosis, or edema. Limited neurological examination is without focal deficits. Pulses: radial=2/4, posterior tibial=2/4. Results & Data Vital Signs (Past 12 Hours) Vital Signs Temp Pulse Pulse Resp BP Pulse Ox Pulse Ox 11/12/22 08:02 36.8 C 56 L 20 117/62 100 11/12/22 04:26 36.4 C L 58 L 20 119/66 99 11/12/22 04:26 99 11/11/22 23:51 36.7 C 58 L 18 98/47 L 98 11/11/22 23:00 70 11/11/22 23:14 100 O2 Del Method O2 Del Method O2 Flow Rate O2 Flow Rate 11/12/22 08:02 Room Air 11/12/22 04:26 Room Air 11/12/22 04:26 Room Air 11/11/22 23:51 Nasal Cannula 2 11/11/22 23:00 11/11/22 23:14 Nasal Cannula 2 Laboratory Results Cardiac Enzymes 11/11/22 11/11/22 11/11/22 Range/Units 09:00 18:44 23:36 AST (13-39) U/L Troponin I High Sens 7.5 9.6 9.7 (0-14) pg/ml 11/12/22 Range/Units 05:42 AST 23 (13-39) U/L Troponin I High Sens (0-14) pg/ml Lipids 11/12/22 Range/Units 05:42 Triglycerides 311 H (0-150) mg/dl Cholesterol 170 (0-200) mg/dl HDL Cholesterol 39 mg/dl Cholesterol/HDL Ratio 4.4 (0-5) CBC 11/12/22 Range/Units 05:42 WBC 4.42 L (4.8-10.8) K/ul RBC 3.44 L (4.20-5.40) M/uL Hgb 10.0 L (12.0-16.0) g/dl Hct 31.3 L (37.0-47.0) % Plt Count 262 (130-400) K/uL Comprehensive Metabolic Panel 11/12/22 Range/Units 05:42 Sodium 139 (136-145) mmol/L Potassium 4.0 (3.5-5.1) mmol/L Chloride 108 H (98-107) mmol/L Carbon Dioxide 25 (21-32) mmol/L BUN 13 (6-23) mg/dl Creatinine 1.34 H (0.6-1.2) mg/dl Glucose 114 H (70-99(Fasting)) mg/dl Calcium 8.2 L D (8.6-10.3) mg/dl AST 23 (13-39) U/L ALT 11 (7-52) U/L Alkaline Phosphatase 46 (34-104) U/L Total Protein 5.6 L D (6.0-8.3) gm/dl Albumin 3.3 L (3.4-5.0) gm/dl Intake and Output 11/11/22 11/12/22 11/12/22 22:59 06:59 14:59 Intake Total 230 / 1260 30 / 1260 984 / 984 Balance 230 / 1260 30 / 1260 984 / 984 Intake: IV 984 / 984 Sodium Chloride 0.9% 1000ML 1, 984 / 984 000 ml @ 80 mls/hr IV .[id number] JEROME Rx#:[id number] Oral 230 / 260 30 / 260 Other: # Unmeasured Voids 1 Weight 89 kg 89 kg Weight Measurement Method [facility] Diagnostic Findings Continuous car dumper operator reveals sinus/sinus bradycardia throughout with heart rates ranging from 50 to 80 bpm.
[2022-11-12] MEDS ORDERED: ALUMINUM/MAGNESIUM SUSP 30 ML UDC PO STA (10:23)
--- NOTE | 2022-11-12 10:53 | Gastrointestinal Consultation ---
Date of Consultation November 12, 2022 Assessment & Plan (1) Nausea and vomiting: (2) Esophagitis: Plan patient presented to ED with nausea, vomiting, atypical chest pain, stomach pain in the middle of Saturday evening. She saw improvement in symptoms with Maalox as well as IV protonix and pepcid as well as antiemetics. Discussed case with Dr. Pringle who helped advise on plan. She is likely higher risk for procedures given her extensive medical history and given this as well as the fact she has seen benefit since admission with her medications, no plan for EGD at this time. She has seen benefit with current interventions and would continue with the maalox q 6 hours prn, as well as BID pepcid/protonix. Suspect symptoms are related to esophagitis. Can consider EGD as outpatient - she tells me she has followed with PS in the past. Supervising Physician Co-Signing Physician Notes Agree with JOLIE Crocker as above Abd: Soft, NT, ND, +BS Continues to complain of chest burning CT chest showed esophagitis Continue current therapy Consider EGD if symptoms persist History of Present Illness Reason for Consultation: Esophagitis/abdominal pain Requesting Physician: Pablo Watkins MD Attending Physician: Charbel Santos MD History of Present Illness Patient is a year old female with history of advanced COPD S/P bilateral lung transplant in 2020 at [facility], peripheral vascular disease, splenic artery aneurysm, immunocompromise state, bipolar disorder, depression, ACTH deficiency, past tobacco use, anxiety disorder, insomnia, tacrolimus induced nephrotoxicity, chronic intermittent hypoxia with obstructive sleep apnea, obesity hypoventilation syndrome, diabetes mellitus presented to ED with complaints of nausea, vomiting, atypical chest pain, and epigastric pain that woke her up at Saturday night. She tells me that Saturday night before she went to bed she had pizza, a kimmy salad and beer which she does not typical do. She admits that over the past few weeks she has been noticing more heartburn symptoms but felt it was being controlled with some pepcid otc at bedtime. She had CT scan done showing moderate thickening of distal esophagus and correlation with endoscopy was recommended to rule out underlying lesion. She also had abnormal EKG but thus far negative troponin levels. Cardiology also following patient. she tells me that when she came in her pain was 10/10 but after using maalox she has seen improvement. Currently she rates pain as a 7/10. nausea has also improved. no further vomiting. denies nsaids. rest of GI ros unremarkable. She tells me she has never had an EGD. Has seen [facility] for GI care in the past. Allergies Allergy/AdvReac Type Severity Reaction Status Date / Time Penicillins AdvReac Intermediate JITTERY/CHI Verified 10/25/22 14:02 LLS Home Medications Medication Instructions Recorded Confirmed Type hydrocortisone 10 mg tablet 10 mg PO QPM 01/14/21 11/11/22 History melatonin 3 mg tablet 6 mg PO HS 01/14/21 11/11/22 History trazodone 100 mg tablet 100 mg PO HS 01/14/21 11/11/22 History azathioprine 50 mg tablet (Imuran) 100 mg PO QAM 03/07/21 11/11/22 History azithromycin 250 mg tablet 250 mg PO 3XWK 07/14/21 11/11/22 History belatacept 250 mg intravenous 250 mg IV MONTHLY 07/14/21 11/11/22 History solution everolimus (immunosuppressive) 0.5 0.5 mg PO UD 07/14/21 11/11/22 History mg tablet metoprolol tartrate 25 mg tablet 50 mg PO BID 07/14/21 11/11/22 History pantoprazole 40 mg tablet,delayed 40 mg PO BID 07/14/21 11/11/22 History release sumatriptan succinate 50 mg tablet 50 mg PO DAILY PRN Migraine 07/14/21 11/11/22 History Headache hydrocortisone 20 mg tablet 20 mg PO QAM 08/06/21 11/11/22 History bupropion HCl 300 mg 24 hr tablet, 300 mg PO QAM 07/05/22 11/11/22 History extended release (Wellbutrin XL) sitagliptin phosphate 25 mg tablet 50 mg PO DAILY 07/05/22 11/11/22 History (Januvia) Pepcid 20 mg PO HS 11/11/22 11/11/22 History denosumab 60 mg/mL subcutaneous 60 mg subcut UD 11/11/22 11/11/22 History syringe (Prolia) ezetimibe 10 mg tablet (Zetia) 10 mg PO DAILY 11/11/22 11/11/22 History fluoxetine 20 mg capsule 20 mg PO DAILY 11/11/22 11/11/22 History fluoxetine 40 mg capsule 40 mg PO DAILY 11/11/22 11/11/22 History montelukast 10 mg tablet 10 mg PO HS 11/11/22 11/11/22 History (Singulair) oxybutynin chloride 5 mg 5 mg PO QAM 11/11/22 11/11/22 History tablet,extended release 24 hr pravastatin 40 mg tablet 40 mg PO DAILY 11/11/22 11/11/22 History sulfamethoxazole 400 1 tab PO USEASDIRECTD 11/11/22 11/11/22 History mg-trimethoprim 80 mg tablet Patient History Medical History Acute kidney injury Anxiety Chronic intermittent hypoxia with obstructive sleep apnea COPD (chronic obstructive pulmonary disease) Depression Depression GERD (gastroesophageal reflux disease) Hyperkalemia, diminished renal excretion Hyponatremia Hypothyroidism Lung transplant recipient Metabolic acidosis SAMUEL (obstructive sleep apnea) Overweight Sleep apnea cpap with 2L Surgical History History of abdominal surgery repair of ruptured spleen History of appendectomy History of bronchoscopy History of cardiac cath SOB--05/22/2018 @ [facility]--no stents History of lung surgery benign nodule removal from left lung History of open reduction and internal fixation (ORIF) procedure left wrist--hardware removed History of tooth extraction all upper teeth History of wisdom tooth extraction Lung transplant status, bilateral Family History Daughter Family history of reaction to anesthesia takes a lot to put her out Brother Family history of cancer of tongue Social History Smoking Status: Former smoker Tobacco Type: Cigarettes Cigarettes Per Day: 30; Second Hand Exposure: No; Do You Dip or Chew Tobacco: No; Tobacco Cessation Education Requested by Patient: No Hx Alcohol Use: Yes Alcohol type: beer Hx Substance Use: No Preferred Language: Latvian Communication Ability: Effective Electron Beam Operator Required: No Beliefs That Will Affect Care: None Current Living Situation: Spouse Other Information That Helps Us Care for You: No Feels Safe at Home: Yes Safety Concerns: Feels Safe At This Time Assistive Devices: BiPap, Denture - Upper and Glasses Review of Systems Review of Systems: All systems reviewed & are unremarkable except as noted in HPI & below Cardiovascular: + chest pain and + dyspnea Physical Exam Constitutional: WD/WN, vitals as above Respiratory: normal respiratory effort, lungs clear to auscultation Cardiovascular: RRR, no murmur, no edema Gastrointestinal (Abdomen): normal bowel sounds, soft, nontender, no hepatosplenomegaly Skin: no rashes, warm and dry Psychiatric: Orientation: alert and oriented x 3 Affect: euthymic affect Results & Data Vital Signs (Past 12 Hours) Vital Signs Temp Pulse Pulse Resp BP Pulse Ox Pulse Ox 11/12/22 10:41 97.7 F 61 18 162/63 H 91 11/12/22 08:02 98.2 F 56 L 20 117/62 100 11/12/22 04:26 97.5 F L 58 L 20 119/66 99 11/12/22 04:26 99 11/11/22 23:51 98.1 F 58 L 18 98/47 L 98 11/11/22 23:00 70 11/11/22 23:14 100 O2 Del Method O2 Del Method O2 Flow Rate O2 Flow Rate 11/12/22 10:41 Room Air 11/12/22 08:02 Room Air 11/12/22 04:26 Room Air 11/12/22 04:26 Room Air 11/11/22 23:51 Nasal Cannula 2 11/11/22 23:00 11/11/22 23:14 Nasal Cannula 2 PG Care Time/CCT Total # of Minutes Spent Total Time Spent with Patient: Total time spent is greater than 50% in coordination of care (as documented) at patient's floor/unit and/or counseling patient: Coding Level of Care Code 03109 IN/OBS CONSULT LVL 3,45M Diagnoses Nausea and vomiting R11.2 Esophagitis K20.90 Time Spent (min) 48
[2022-11-12] MEDS ORDERED: ALUMINUM/MAGNESIUM SUSP 30 ML UDC PO PRN (11:36)
--- NOTE | 2022-11-12 11:44 | Hospitalist Progress Note ---
Date of Service November 12, 2022 Assessment & Plan (1) Esophagitis: Plan: Epigastric abdominal pain/Nausea/Vomiting Likely due to esophagitis. Rule out peptic ulcer disease Patient is a 57-year-old female who presented with epigastric and substernal pain. --CT ABD personally reviewed:Moderate wall thickening of the distal esophagus with mucosal hyperemia and periesophageal fluid is suggestive a nonspecific esophagitis. Findings could be correlated with endoscopy to exclude an underlying mucosal lesion. No bowel obstruction or bowel wall thickening. Cholelithiasis. -- Normal lipase, LFTs Discussed with GI; recommend Protonix twice daily, Pepcid, Maalox. Full liquid diet. GI recommends outpatient endoscopy. CBC tomorrow a.m. Pain control with as needed morphine Atypical chest pain Abnormal EKG Rule out ACS High-sensitivity troponin negative Chest x-ray personally reviewed; no infiltrate EKG personally reviewed;Normal sinus rhythm; diffuse T wave inversion Continue statin Echocardiogram results reviewed; EF of 60 to 65% with grade 1 diastolic dysfunction Cardiology on board; Hypertension Blood pressure elevated likely situational secondary to pain Continue home medications Monitor BP Abnormal urinalysis Patient denies any urinary symptoms Hold antibiotics for now DM Type II: Will hold oral diabetic meds ISS, basal Insulin, Accu checks, Diabetic diet Monitor BGs CKD II H/O tacrolimus induced nephrotoxicity Cr at baseline Monitor renal function Chronic hypercalcemia On Prolia at baseline Monitor calcium levels Ordered IV fluids Advanced COPD S/P bilateral lung transplant in 2020 at [facility] Past tobacco use Currently not on any inhalers Continue chronic suppressive therapy Bipolar disorder Depression/Anxiety disorder Insomnia Continue home medications ACTH deficiency Continue hydrocortisone Chronic intermittent hypoxia Obstructive sleep apnea Obesity hypoventilation syndrome As per records Supplemental oxygen as needed DVT Px: SCDs Re: Esophagitis Time spent evaluating patient, direct bedside care, chart review, placing orders, interpretation of diagnostic studies, discussion with consultants, patient, and family members, as well as other required patient management activities is 60 minutes. Please note the above document was generated using voice recognition software. It may contain grammatical, syntax or spelling errors. Any formal questions or concerns about the content, text or information contained within the body of this dictation should be directly addressed to the provider for clarification Admission and Anticipated Discharge Date Admission Date: November 11, 2022 Subjective Patient seen and examined at bedside. She is complaining of epigastric and substernal pain. Denies dark stool. Review of Systems Review of Systems: All systems reviewed & are unremarkable except as noted in Subjective Physical Exam Physical Exam: Constitutional: WD/WN, vitals as above, NAD, sitting up in bed, pleasant, conversing easily Respiratory: normal respiratory effort, lungs clear to auscultation, no wheeze, rales, rhonchi. Normal insp/exp effort, no accessory muscle use Cardiovascular: RRR, no murmur, no edema Vessels: no JVD or carotid bruit Chest: normal inspection of chest Abdomen: Tenderness in epigastric pain Musculoskeletal: no cyanosis or clubbing, extremities motor strength 5/5 Skin: no rashes, warm and dry normal turgor Neurologic: PERRL, EOMI, accommodation nl, no face palsy, no dysarthria CN's II- XI intact bilaterally and moves all extremities Psychiatric: A+Ox3, euthymic affect Results & Data Results & Data Vital Signs (Past 12 Hours) Vital Signs Temp Pulse Resp BP Pulse Ox Pulse Ox O2 Del Method 11/12/22 10:41 36.5 C 61 18 162/63 H 91 Room Air 11/12/22 08:02 36.8 C 56 L 20 117/62 100 Room Air 11/12/22 04:26 36.4 C L 58 L 20 119/66 99 Room Air 11/12/22 04:26 99 11/11/22 23:51 36.7 C 58 L 18 98/47 L 98 Nasal Cannula O2 Del Method O2 Flow Rate 11/12/22 10:41 11/12/22 08:02 11/12/22 04:26 11/12/22 04:26 Room Air 11/11/22 23:51 2 Laboratory Results Laboratory Results WBC 4.42 K/ul (4.8-10.8) L 11/12/22 05:42 RBC 3.44 M/uL (4.20-5.40) L 11/12/22 05:42 Hgb 10.0 g/dl (12.0-16.0) L 11/12/22 05:42 Hct 31.3 % (37.0-47.0) L 11/12/22 05:42 MCV 91.0 fL (80.0-100.0) 11/12/22 05:42 MCH 29.1 pg (25.0-34.0) 11/12/22 05:42 MCHC 31.9 g/dL (32.0-36.0) L 11/12/22 05:42 RDW Std Deviation 49.7 fL (36.4-46.3) H 11/12/22 05:42 RDW Coeff of Nicolle 15.1 % (11.5-14.5) H 11/12/22 05:42 Plt Count 262 K/uL (130-400) 11/12/22 05:42 MPV 9.3 fL (9.4-12.4) L 11/12/22 05:42 Neutrophils % (Manual) 86 % 11/11/22 09:00 Lymphocytes % (Manual) 6 % 11/11/22 09:00 Monocytes % (Manual) 7 % 11/11/22 09:00 Basophils % (Manual) 1 % 11/11/22 09:00 Neutrophils # (Manual) 5.95 K/uL (1.40-6.50) 11/11/22 09:00 Total Absolute Neuts 5.95 K/uL (1.4-6.5) 11/11/22 09:00 Lymphocytes # (Manual) 0.42 K/uL (1.2-3.4) L 11/11/22 09:00 Total Abs Lymphocytes 0.42 K/uL (1.2-3.4) L 11/11/22 09:00 Monocytes # (Manual) 0.48 K/uL (0.11-0.59) 11/11/22 09:00 Basophils # (Manual) 0.07 K/uL (0-0.2) 11/11/22 09:00 Polychromasia 1+ 11/11/22 09:00 Sodium 139 mmol/L (136-145) 11/12/22 05:42 Potassium 4.0 mmol/L (3.5-5.1) 11/12/22 05:42 Chloride 108 mmol/L (98-107) H 11/12/22 05:42 Carbon Dioxide 25 mmol/L (21-32) 11/12/22 05:42 Anion Gap 6 (3-11) 11/12/22 05:42 BUN 13 mg/dl (6-23) 11/12/22 05:42 Creatinine 1.34 mg/dl (0.6-1.2) H 11/12/22 05:42 Est Cr Clr Drug Dosing 49.8 ml/min 11/12/22 05:42 Est GFR ( Amer) 50.1 ml/min 11/12/22 05:42 Est GFR (Non-Af Amer) 43.3 ml/min 11/12/22 05:42 BUN/Creatinine Ratio 9.7 (10-20) L 11/12/22 05:42 Glucose 114 mg/dl (70-99(Fasting)) H 11/12/22 05:42 POC Glucose 111 mg/dl (70-99) H 11/12/22 08:03 Estimat Average Glucose 128 mg/dl 11/12/22 05:42 Hemoglobin A1c 6.1 % (4.5-5.6) H 11/12/22 05:42 Calcium 8.2 mg/dl (8.6-10.3) L D 11/12/22 05:42 Magnesium 1.9 mg/dl (1.7-2.4) 11/12/22 05:42 Total Bilirubin 0.4 mg/dl (0.2-1.0) 11/12/22 05:42 AST 23 U/L (13-39) 11/12/22 05:42 ALT 11 U/L (7-52) 11/12/22 05:42 Alkaline Phosphatase 46 U/L (34-104) 11/12/22 05:42 Troponin I High Sens 9.7 pg/ml (0-14) 11/11/22 23:36 Total Protein 5.6 gm/dl (6.0-8.3) L D 11/12/22 05:42 Albumin 3.3 gm/dl (3.4-5.0) L 11/12/22 05:42 Globulin 2.3 gm/dl (2.5-4.0) L 11/12/22 05:42 Albumin/Globulin Ratio 1.4 (0.9-2) 11/12/22 05:42 Triglycerides 311 mg/dl (0-150) H 11/12/22 05:42 Cholesterol 170 mg/dl (0-200) 11/12/22 05:42 LDL Cholesterol, Calc 69 mg/dl 11/12/22 05:42 VLDL Cholesterol, Calc 62 mg/dl (0-30) H 11/12/22 05:42 HDL Cholesterol 39 mg/dl 11/12/22 05:42 Cholesterol/HDL Ratio 4.4 (0-5) 11/12/22 05:42 Lipase 48 U/L (11-82) 11/11/22 09:00 Urine Color Yellow 11/11/22 13:55 Urine Appearance Clear (Clear) 11/11/22 13:55 Urine pH 5.0 (4.5-7.5) 11/11/22 13:55 Ur Specific [place] 1.030 (1.000-1.030) 11/11/22 13:55 Urine Protein Negative (Negative) 11/11/22 13:55 Urine Glucose (UA) Negative (Negative) 11/11/22 13:55 Urine Ketones Trace (Negative) H 11/11/22 13:55 Urine Blood Negative (Negative) 11/11/22 13:55 Urine Nitrite Negative (Negative) 11/11/22 13:55 Urine Bilirubin Negative (Negative) 11/11/22 13:55 Urine Urobilinogen Negative (Negative) 11/11/22 13:55 Ur Leukocyte Esterase 2+ (Negative) H 11/11/22 13:55 Urine WBC (Auto) 5-10 /hpf (0-5) H 11/11/22 13:55 Urine RBC (Auto) 0-4 /hpf (0-4) 11/11/22 13:55 U Hyaline Cast (Auto) 1-5 /lpf (0-5) 11/11/22 13:55 U Epithel Cells (Auto) 5-10 /lpf (0-5) H 11/11/22 13:55 Urine Bacteria (Auto) Negative (Negative) 11/11/22 13:55 SARS-CoV-2, RNA, NAAT NEGATIVE (NEGATIVE) 11/11/22 16:00 Impressions Abdomen/Pelvis CT 11/11/22 12:[address] WITH IV CONTRAST CT DOSE: 1294.47 mGy.cm HISTORY: Acute epigastric abdominal pain eval epigastric pain TECHNIQUE: Multiaxial CT images of the abdomen and pelvis were performed following the IV administration of 94 cc of Optiray, A dose lowering technique was utilized adhering to the principles of ALARA. COMPARISON STUDY: 01/14/2021 FINDINGS: Cardiomegaly with prior median sternotomy. Trace pleural effusions. Mild subsegmental bibasilar atelectasis. No pneumatosis or pneumoperitoneum. Unremarkable spleen, mildly atrophic pancreas and adrenal glands. Cholelithiasis. Unremarkable liver. Patent portal vein. Embolization coils noted within the distribution of the splenic artery. 11 mm mixed attenuating nodule anterior to the pancreatic body is unchanged and likely benign. No hydronephrosis. Subcentimeter hypodensity in the anterior interpolar left kidney is too small to characterize. Unremarkable urinary bladder, uterus and adnexa. Atherosclerosis of the aorta. Diminutive appearance of the celiac trunk which is suboptimally visualized secondary to streak artifact from the aforementioned coils. No lymphadenopathy. There is partially imaged moderate circumferential soft tissue swelling with mucosal hyperemia involving the distal esophagus. There is adjacent inflammatory stranding with trace periesophageal fluid. No bowel obstruction or bowel wall thickening. Colonic diverticulosis. Appendectomy. Unremarkable soft tissues. No acute fracture. IMPRESSION: 1. Moderate wall thickening of the distal esophagus with mucosal hyperemia and periesophageal fluid is suggestive a nonspecific esophagitis. Findings could be correlated with endoscopy to exclude an underlying mucosal lesion. 2. No bowel obstruction or bowel wall thickening. 3. Cholelithiasis. 4. Additional findings as above. ACT 112: Negative or not required by law. The above report was generated using voice recognition software. It may contain grammatical, syntax or spelling errors. Electronically signed by: Shin Carolina M.D. 11/11/2022 1:41 PM Chest X-Ray 11/11/22 17:03 XR chest 1V portable HISTORY: 57 years-old Female chest pain acute chest pain COMPARISON: 03/30/2022 TECHNIQUE: AP view of the chest FINDINGS: Cardiac silhouette is enlarged. Prior median sternotomy with surgical clips project over the chest. No pneumothorax, pleural effusion or overt pulmonary edema. Chronic blunting of the costophrenic angles with subsegmental basilar atelectasis versus scarring. Embolization coils of the abdominal left upper quadrant. Bones appear grossly intact. IMPRESSION: Cardiomegaly without acute process. ACT 112: Negative or not required by law. The above report was generated using voice recognition software. It may contain grammatical, syntax or spelling errors. Electronically signed by: Shin Carolina M.D. 11/11/2022 6:04 PM
--- NOTE | 2022-11-12 18:03 | Electrocardiogram Report ---
Test Reason : Blood Pressure : / mmHG Vent. Rate : 073 BPM Atrial Rate : 073 BPM P-R Int : 160 ms QRS Dur : 078 ms QT Int : 374 ms P-R-T Axes : 015 023 121 degrees QTc Int : 412 ms Normal sinus rhythm Abnormal ECG When compared with ECG of 24-JAN-2022 14:14, ST now depressed in Anterior leads T wave inversion more evident in Lateral leads Confirmed by Florin Mcduffie ([id number]) on 11/12/2022 6:03:21 PM Referred By: REFERRED SELF Confirmed By:Rojelio Mcduffie
--- NOTE | 2022-11-12 18:04 | Electrocardiogram Report ---
Test Reason : Blood Pressure : / mmHG Vent. Rate : 079 BPM Atrial Rate : 079 BPM P-R Int : 168 ms QRS Dur : 084 ms QT Int : 356 ms P-R-T Axes : 025 017 104 degrees QTc Int : 408 ms Normal sinus rhythm Abnormal ECG When compared with ECG of 11-NOV-2022 09:18, (unconfirmed) No significant change was found Confirmed by Florin Mcduffie ([id number]) on 11/12/2022 6:04:24 PM Referred By: REFERRED SELF Confirmed By:Rojelio Mcduffie
--- NOTE | 2022-11-12 18:22 | Electrocardiogram Report ---
Test Reason : Blood Pressure : / mmHG Vent. Rate : 052 BPM Atrial Rate : 052 BPM P-R Int : 176 ms QRS Dur : 096 ms QT Int : 496 ms P-R-T Axes : 031 021 089 degrees QTc Int : 461 ms Sinus bradycardia Prolonged QT Abnormal ECG When compared with ECG of 11-NOV-2022 12:11, (unconfirmed) Vent. rate has decreased BY 27 BPM Nonspecific T wave abnormality now evident in Inferior leads QT has lengthened Confirmed by Florin Mcduffie ([id number]) on 11/12/2022 6:22:06 PM Referred By: REFERRED SELF Confirmed By:Rojelio Mcduffie
[2022-11-12] MEDS: MONTELUKAST SODIUM 10 MG TABLET PO SCH (19:48)
[2022-11-12] MEDS: MELATONIN 3 MG TAB PO SCH (19:49)
[2022-11-12] MEDS: traZODone HCL 100 MG TAB PO SCH (19:51)
[2022-11-13] MEDS: ALUMINUM/MAGNESIUM/SIMETH (MAALOX MAX) 30 ML UDC PO PRN ×2 (05:44→20:55)
[2022-11-13] MEDS: ACETAMINOPHEN 325 MG TAB PO PRN (05:44)
[2022-11-13] MEDS: MoRPHine SULFATE 2 MG/ML CARP IV PRN ×2 (05:44→10:50)
[2022-11-13 06:13] LABS: Basophils # (auto) 0.02 K/uL (0-0.2); Basophils % (auto) 0.5 %; Eosinophils # (auto) 0.22 K/uL (0-0.50); Eosinophils % (auto) 5.3 %; Hematocrit (blood only) 31.6 % (37.0-47.0); Hemoglobin 10.1 g/dl (12.0-16.0); Immature Granulocytes # (auto) 0.09 K/uL (0.01-0.20); Immature Granulocytes % (auto) 2.1 %; Lymphocytes # (auto) 0.23 K/uL (1.2-3.4); Lymphocytes % (auto) 5.5 %; Mean Corpuscular Hemoglobin 28.9 pg (25.0-34.0); Mean Corpuscular Volume 90.3 fL (80.0-100.0); Mean Platelet Volume 9.3 fL (9.4-12.4); Monocytes # (auto) 0.88 K/uL (0.11-0.59); Neutrophils # (auto) 2.75 K/uL (1.40-6.50); Neutrophils % (auto) 65.6 %; Platelet Count 272 K/uL (130-400); RDW Standard Deviation 49.5 fL (36.4-46.3); White Blood Count 4.19 K/ul (4.8-10.8)
[2022-11-13 06:37] LABS: BUN Creatinine Ratio 8.6 (10-20); Calcium 7.7 mg/dl (8.6-10.3); Creatinine Clr Calc Pharmacy 58.4 ml/min; Est GFR (African American) 59.7 ml/min; Est GFR (Non-African American) 51.5 ml/min; Potassium 3.9 mmol/L (3.5-5.1)
[2022-11-13] MEDS: PANTOprazole 40 MG in SYRINGE 0 ML IV SCH ×2 (08:36→20:56)
[2022-11-13] MEDS: azaTHIOprine 50 MG TAB PO SCH (08:37)
[2022-11-13] MEDS: METOPROLOL TARTRATE 50 MG TAB PO SCH ×2 (08:37→21:00)
[2022-11-13] MEDS: EZETIMIBE 10 MG TABLET PO SCH (08:37)
[2022-11-13] MEDS: HYDROCORTISONE 10 MG TAB PO SCH ×2 (08:37→20:58)
[2022-11-13] MEDS: buPROPion XL 300 MG TABCR PO SCH (08:37)
[2022-11-13] MEDS: PRAVASTATIN SOD 40 MG TAB PO SCH (08:37)
[2022-11-13] MEDS: FLUoxetine HCL 20 MG CAP PO SCH (08:37)
[2022-11-13] MEDS: OXYBUTYNIN CHLORIDE XL 5 MG TABCR PO SCH (08:38)
[2022-11-13] MEDS: EVEROLIMUS PO SCH ×2 (08:38→20:59)
[2022-11-13] MEDS: INSULIN ASPART PER UNIT CHARGE SC SCH ×4 (08:38→20:59)
[2022-11-13] MEDS: FAMOTIDINE 20 MG in SYRINGE 3 ML IV SCH ×2 (08:39→20:56)
[2022-11-13] MEDS: LANTUS PER UNIT CHARGE SQ SCH ×2 (08:45→21:00)
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
--- NOTE | 2022-11-13 11:08 | Communication Note ---
Date of Service: November 13, 2022 Patient tells me she still has some pain in her chest today, but tells me that her nausea and abdominal pain has resolved. she tells me pain in chest is imp roved from when she came in. She tells me that it tends to feel better about 30 minutes after getting her medications. I explained to the patient that she will likely continue to improve and that this will take time but it is reassuring that she is making improvements. Discussed case with Dr. Pringle, no role for EGD at this time. Recommend continue with maalox every 6 hours, protonix 40mg bid, and famotidine 20mg bid which will treat the esophagitis.
--- NOTE | 2022-11-13 11:19 | Hospitalist Progress Note ---
Date of Service November 13, 2022 Assessment & Plan (1) Esophagitis: Plan: Epigastric abdominal pain/Nausea/Vomiting Likely due to esophagitis. Rule out peptic ulcer disease Patient is a 57-year-old female who presented with epigastric and substernal pain. --CT ABD personally reviewed:Moderate wall thickening of the distal esophagus with mucosal hyperemia and periesophageal fluid is suggestive a nonspecific esophagitis. Findings could be correlated with endoscopy to exclude an underlying mucosal lesion. No bowel obstruction or bowel wall thickening. Cholelithiasis. -- Normal lipase, LFTs Discussed with GI; recommend to continue Protonix, Pepcid and Maalox. As per GI, it will take some time for symptoms to improve. Patient to follow-up with GI as outpatient for endoscopy Full liquid diet. Monitor CBC daily Pain control with as needed morphine Atypical chest pain Abnormal EKG Rule out ACS High-sensitivity troponin negative Chest x-ray personally reviewed; no infiltrate EKG personally reviewed;Normal sinus rhythm; diffuse T wave inversion Continue statin Echocardiogram results reviewed; EF of 60 to 65% with grade 1 diastolic dysfunction Cardiology on board; recommended CT chest without contrast to evaluate sternum. Hypertension Blood pressure elevated likely situational secondary to pain Continue home medications Blood pressure improved. Abnormal urinalysis Patient denies any urinary symptoms Hold antibiotics for now DM Type II: Will hold oral diabetic meds ISS, basal Insulin, Accu checks, Diabetic diet Monitor BGs CKD II H/O tacrolimus induced nephrotoxicity Cr at baseline Monitor renal function Chronic hypercalcemia On Prolia at baseline Monitor calcium levels Ordered IV fluids Advanced COPD S/P bilateral lung transplant in 2020 at [facility] Past tobacco use Currently not on any inhalers Continue chronic suppressive therapy Bipolar disorder Depression/Anxiety disorder Insomnia Continue home medications ACTH deficiency Continue hydrocortisone Chronic intermittent hypoxia Obstructive sleep apnea Obesity hypoventilation syndrome As per records DVT Px: SCDs Re: Esophagitis Time spent evaluating patient, direct bedside care, chart review, placing or ders, interpretation of diagnostic studies, discussion with consultants, patient, and family members, as well as other required patient management activities is 60 minutes. Please note the above document was generated using voice recognition software. It may contain grammatical, syntax or spelling errors. Any formal questions or concerns about the content, text or information contained within the body of this dictation should be directly addressed to the provider for clarification Admission and Anticipated Discharge Date Admission Date: November 11, 2022 Subjective Patient seen and examined at bedside. She reports slight improvement in abdo elli pain and chest pain. Review of Systems Review of Systems: All systems reviewed & are unremarkable except as noted in Subjective Physical Exam Physical Exam: Constitutional: WD/WN, vitals as above, NAD, sitting up in bed, pleasant, conversing easily Respiratory: normal respiratory effort, lungs clear to auscultation, no wheeze, rales, rhonchi. Normal insp/exp effort, no accessory muscle use Cardiovascular: RRR, no murmur, no edema Vessels: no JVD or carotid bruit Chest: normal inspection of chest Abdomen: Tenderness in epigastric pain Musculoskeletal: no cyanosis or clubbing, extremities motor strength 5/5 Skin: no rashes, warm and dry normal turgor Neurologic: PERRL, EOMI, accommodation nl, no face palsy, no dysarthria CN's II- XI intact bilaterally and moves all extremities Psychiatric: A+Ox3, euthymic affect Results & Data Results & Data Vital Signs (Past 12 Hours) Vital Signs Temp Pulse Pulse Resp BP Pulse Ox O2 Del Method 11/13/22 08:00 54 L 11/13/22 07:27 36.7 C 53 L 16 136/63 99 Room Air 11/13/22 02:44 36.8 C 58 L 18 139/58 L 98 Room Air 11/12/22 23:44 57 L Laboratory Results Laboratory Results WBC 4.19 K/ul (4.8-10.8) L 11/13/22 05:53 RBC 3.50 M/uL (4.20-5.40) L 11/13/22 05:53 Hgb 10.1 g/dl (12.0-16.0) L 11/13/22 05:53 Hct 31.6 % (37.0-47.0) L 11/13/22 05:53 MCV 90.3 fL (80.0-100.0) 11/13/22 05:53 MCH 28.9 pg (25.0-34.0) 11/13/22 05:53 MCHC 32.0 g/dL (32.0-36.0) 11/13/22 05:53 RDW Std Deviation 49.5 fL (36.4-46.3) H 11/13/22 05:53 RDW Coeff of [place] 15.0 % (11.5-14.5) H 11/13/22 05:53 Plt Count 272 K/uL (130-400) 11/13/22 05:53 MPV 9.3 fL (9.4-12.4) L 11/13/22 05:53 Immature Gran % (Auto) 2.1 % 11/13/22 05:53 Neut % (Auto) 65.6 % 11/13/22 05:53 Lymph % (Auto) 5.5 % 11/13/22 05:53 [place] % (Auto) 21.0 % 11/13/22 05:53 Eos % (Auto) 5.3 % 11/13/22 05:53 Baso % (Auto) 0.5 % 11/13/22 05:53 Neut # (Auto) 2.75 K/uL (1.40-6.50) 11/13/22 05:53 Lymph # (Auto) 0.23 K/uL (1.2-3.4) L 11/13/22 05:53 [place] # (Auto) 0.88 K/uL (0.11-0.59) H 11/13/22 05:53 Eos # (Auto) 0.22 K/uL (0-0.50) 11/13/22 05:53 Baso # (Auto) 0.02 K/uL (0-0.2) 11/13/22 05:53 Immature Gran # (Auto) 0.09 K/uL (0.01-0.20) 11/13/22 05:53 Neutrophils % (Manual) 86 % 11/11/22 09:00 Lymphocytes % (Manual) 6 % 11/11/22 09:00 Monocytes % (Manual) 7 % 11/11/22 09:00 Basophils % (Manual) 1 % 11/11/22 09:00 Neutrophils # (Manual) 5.95 K/uL (1.40-6.50) 11/11/22 09:00 Total Absolute Neuts 5.95 K/uL (1.4-6.5) 11/11/22 09:00 Lymphocytes # (Manual) 0.42 K/uL (1.2-3.4) L 11/11/22 09:00 Total Abs Lymphocytes 0.42 K/uL (1.2-3.4) L 11/11/22 09:00 Monocytes # (Manual) 0.48 K/uL (0.11-0.59) 11/11/22 09:00 Basophils # (Manual) 0.07 K/uL (0-0.2) 11/11/22 09:00 Polychromasia 1+ 11/11/22 09:00 Sodium 140 mmol/L (136-145) 11/13/22 05:53 Potassium 3.9 mmol/L (3.5-5.1) 11/13/22 05:53 Chloride 110 mmol/L (98-107) H 11/13/22 05:53 Carbon Dioxide 24 mmol/L (21-32) 11/13/22 05:53 Anion Gap 6 (3-11) 11/13/22 05:53 BUN 10 mg/dl (6-23) 11/13/22 05:53 Creatinine 1.16 mg/dl (0.6-1.2) 11/13/22 05:53 Est Cr Clr Drug Dosing 58.4 ml/min 11/13/22 05:53 Est GFR ( Amer) 59.7 ml/min 11/13/22 05:53 Est GFR (Non-Af Amer) 51.5 ml/min 11/13/22 05:53 BUN/Creatinine Ratio 8.6 (10-20) L 11/13/22 05:53 Glucose 97 mg/dl (70-99(Fasting)) 11/13/22 05:53 POC Glucose 92 mg/dl (70-99) 11/13/22 07:29 Estimat Average Glucose 128 mg/dl 11/12/22 05:42 Hemoglobin A1c 6.1 % (4.5-5.6) H 11/12/22 05:42 Calcium 7.7 mg/dl (8.6-10.3) L 11/13/22 05:53 Magnesium 1.9 mg/dl (1.7-2.4) 11/12/22 05:42 Total Bilirubin 0.4 mg/dl (0.2-1.0) 11/12/22 05:42 AST 23 U/L (13-39) 11/12/22 05:42 ALT 11 U/L (7-52) 11/12/22 05:42 Alkaline Phosphatase 46 U/L (34-104) 11/12/22 05:42 Troponin I High Sens 9.7 pg/ml (0-14) 11/11/22 23:36 Total Protein 5.6 gm/dl (6.0-8.3) L D 11/12/22 05:42 Albumin 3.3 gm/dl (3.4-5.0) L 11/12/22 05:42 Globulin 2.3 gm/dl (2.5-4.0) L 11/12/22 05:42 Albumin/Globulin Ratio 1.4 (0.9-2) 11/12/22 05:42 Triglycerides 311 mg/dl (0-150) H 11/12/22 05:42 Cholesterol 170 mg/dl (0-200) 11/12/22 05:42 LDL Cholesterol, Calc 69 mg/dl 11/12/22 05:42 VLDL Cholesterol, Calc 62 mg/dl (0-30) H 11/12/22 05:42 HDL Cholesterol 39 mg/dl 11/12/22 05:42 Cholesterol/HDL Ratio 4.4 (0-5) 11/12/22 05:42 Lipase 48 U/L (11-82) 11/11/22 09:00 Urine Color Yellow 11/11/22 13:55 Urine Appearance Clear (Clear) 11/11/22 13:55 Urine pH 5.0 (4.5-7.5) 11/11/22 13:55 Ur Specific [place] 1.030 (1.000-1.030) 11/11/22 13:55 Urine Protein Negative (Negative) 11/11/22 13:55 Urine Glucose (UA) Negative (Negative) 11/11/22 13:55 Urine Ketones Trace (Negative) H 11/11/22 13:55 Urine Blood Negative (Negative) 11/11/22 13:55 Urine Nitrite Negative (Negative) 11/11/22 13:55 Urine Bilirubin Negative (Negative) 11/11/22 13:55 Urine Urobilinogen Negative (Negative) 11/11/22 13:55 Ur Leukocyte Esterase 2+ (Negative) H 11/11/22 13:55 Urine WBC (Auto) 5-10 /hpf (0-5) H 11/11/22 13:55 Urine RBC (Auto) 0-4 /hpf (0-4) 11/11/22 13:55 U Hyaline Cast (Auto) 1-5 /lpf (0-5) 11/11/22 13:55 U Epithel Cells (Auto) 5-10 /lpf (0-5) H 11/11/22 13:55 Urine Bacteria (Auto) Negative (Negative) 11/11/22 13:55 SARS-CoV-2, RNA, NAAT NEGATIVE (NEGATIVE) 11/11/22 16:00 Impressions Abdomen/Pelvis CT 11/11/22 12:[address] WITH IV CONTRAST CT DOSE: 1294.47 mGy.cm HISTORY: Acute epigastric abdominal pain eval epigastric pain TECHNIQUE: Multiaxial CT images of the abdomen and pelvis were performed following the IV administration of 94 cc of Optiray, A dose lowering technique was utilized adhering to the principles of ALARA. COMPARISON STUDY: 01/14/2021 FINDINGS: Cardiomegaly with prior median sternotomy. Trace pleural effusions. Mild subsegmental bibasilar atelectasis. No pneumatosis or pneumoperitoneum. Unremarkable spleen, mildly atrophic pancreas and adrenal glands. Cholelithia sis. Unremarkable liver. Patent portal vein. Embolization coils noted within the distribution of the splenic artery. 11 mm mixed attenuating nodule anterior to the pancreatic body is unchanged and likely benign. No hydronephrosis. Subcentimeter hypodensity in the anterior interpolar left kidney is too small to characterize. Unremarkable urinary bladder, uterus and adnexa. Atherosclerosis of the aorta. Diminutive appearance of the celiac trunk which is suboptimally visualized secondary to streak artifact from the aforementioned coils. No lymphadenopathy. There is partially imaged moderate circumferential soft tissue swelling with mucosal hyperemia involving the distal esophagus. There is adjacent inflammatory stranding with trace periesophageal fluid. No bowel obstruction or bowel wall th ickening. Colonic diverticulosis. Appendectomy. Unremarkable soft tissues. No acute fracture. IMPRESSION: 1. Moderate wall thickening of the distal esophagus with mucosal hyperemia and periesophageal fluid is suggestive a nonspecific esophagitis. Findings could be correlated with endoscopy to exclude an underlying mucosal lesion. 2. No bowel obstruction or bowel wall thickening. 3. Cholelithiasis. 4. Additional findings as above. ACT 112: Negative or not required by law. The above report was generated using voice recognition software. It may contain grammatical, syntax or spelling errors. Electronically signed by: Shin Carolina M.D. 11/11/2022 1:41 PM Chest X-Ray 11/11/22 17:03 XR chest 1V portable HISTORY: 57 years-old Female chest pain acute chest pain COMPARISON: 03/30/2022 TECHNIQUE: AP view of the chest FINDINGS: Cardiac silhouette is enlarged. Prior median sternotomy with surgical clips project over the chest. No pneumothorax, pleural effusion or overt pulmonary edema. Chronic blunting of the costophrenic angles with subsegmental basilar atelectasis versus scarring. Embolization coils of the abdominal left upper quadrant. Bones appear grossly intact. IMPRESSION: Cardiomegaly without acute process. ACT 112: Negative or not required by law. The above report was generated using voice recognition software. It may contain grammatical, syntax or spelling errors. Electronically signed by: Shin Carolina M.D. 11/11/2022 6:04 PM
[2022-11-13] MEDS ORDERED: MoRPHine SULFATE 2 MG/ML CARP IV PRN (12:49)
[2022-11-13] MEDS: oxyCODONE HCL IR 5 MG TAB (IMMEDIATE RELEASE) PO PRN ×3 (12:54→20:55)
--- NOTE | 2022-11-13 17:22 | CT Scan Report ---
CT chest diagnostic wo con CT DOSE: 714.69 mGy.cm HISTORY: Sternal pain. History of lung transplant. Reproducible chest pain. Eval sternum alignment TECHNIQUE: Multiaxial CT images of the chest were performed without contrast. A dose lowering techni que was utilized adhering to the principles of ALARA. COMPARISON: Chest CTA 07/14/2020. FINDINGS: Postoperative changes consistent with prior clamshell sternotomy for double lung transplant . The sternal wires appear intact. There is up to 7 mm of anterior displacement/step-off at the myers al edges. However, the sternal edges are fused/healed. No acute fractures identified. There are multi ple old, healed bilateral anterolateral rib fractures. Limited views of the upper abdomen demonstrate a normal liver and spleen. Mild circumferential thickening within the esophagus. There are trace viviane ateral pleural effusions. No pericardial effusion. The heart is mildly enlarged. This has progressed. Mild calcified plaque within the normal caliber thoracic aorta. No mediastinal or hilar lymphadenopa thy. Mild soft tissue/fat stranding surrounding the distal mainstem bronchi is likely due to the post operative change. This is adjacent to the suture material at these locations. This is most pronounced on the right. The main pulmonary artery is normal in caliber. The central airways are patent. No pne umothorax. Small linear scarlike density within the left lung apex. A few small bibasilar linear dens ities favor subsegmental atelectasis are scarring. No focal lung consolidations to suggest a pneumoni a. No evidence for pulmonary edema. IMPRESSION: 1. Postoperative changes consistent with prior clamshell sternotomy for double lung transplant with i ntact sternal wires. 2. There is up to 7 mm of anterior displacement/step-off at the sternal edges. However, the sternal e dges are fused/healed. No acute fractures identified. 3. Trace bilateral pleural effusions. 4. Mild cardiomegaly which has progressed. 5. Mild circumferential thickening within the esophagus consistent with a nonspecific esophagitis. 6. Additional findings as described above. ACT 112: Negative or not required by law. Electronically signed by: Moses Valverde M.D. 11/13/2022 5:21 PM
--- NOTE | 2022-11-13 18:00 | Electrocardiogram Report ---
Test Reason : Blood Pressure : / mmHG Vent. Rate : 053 BPM Atrial Rate : 053 BPM P-R Int : 184 ms QRS Dur : 090 ms QT Int : 484 ms P-R-T Axes : 025 016 036 degrees QTc Int : 454 ms Poor data quality, interpretation may be adversely affected Sinus bradycardia Abnormal ECG When compared with ECG of 12-NOV-2022 07:16, No significant change was found Confirmed by Florin Mcduffie ([id number]) on 11/13/2022 6:00:27 PM Referred By: REFERRED SELF Confirmed By:Rojelio Mcduffie
[2022-11-13] MEDS: traZODone HCL 100 MG TAB PO SCH (20:57)
[2022-11-13] MEDS: MELATONIN 3 MG TAB PO SCH (20:57)
[2022-11-13] MEDS: MONTELUKAST SODIUM 10 MG TABLET PO SCH (20:57)
[2022-11-14] MEDS: ALUMINUM/MAGNESIUM/SIMETH (MAALOX MAX) 30 ML UDC PO PRN (06:02)
[2022-11-14] MEDS: oxyCODONE HCL IR 5 MG TAB (IMMEDIATE RELEASE) PO PRN (06:02)
[2022-11-14 07:17] LABS: BUN Creatinine Ratio 6.7 (10-20); Calcium 8.3 mg/dl (8.6-10.3); Creatinine Clr Calc Pharmacy 56.3 ml/min; Est GFR (African American) 57.3 ml/min; Est GFR (Non-African American) 49.4 ml/min; Potassium 3.9 mmol/L (3.5-5.1)
[2022-11-14 07:27] LABS: Hematocrit (blood only) 32.4 % (37.0-47.0); Hemoglobin 10.8 g/dl (12.0-16.0); Mean Corpuscular Hemoglobin 29.2 pg (25.0-34.0); Mean Corpuscular Hgb Conc 33.3 g/dL (32.0-36.0); Mean Corpuscular Volume 87.6 fL (80.0-100.0); Mean Platelet Volume 9.8 fL (9.4-12.4); Platelet Count 291 K/uL (130-400); RDW Coefficient of Variation 14.5 % (11.5-14.5); RDW Standard Deviation 46.2 fL (36.4-46.3); White Blood Count 4.37 K/ul (4.8-10.8)
[2022-11-14 08:00] LABS: Basophils # (auto) 0.02 K/uL (0-0.2); Basophils % (auto) 0.5 %; Eosinophils # (auto) 0.17 K/uL (0-0.50); Eosinophils % (auto) 3.9 %; Immature Granulocytes # (auto) 0.14 K/uL (0.01-0.20); Immature Granulocytes % (auto) 3.2 %; Lymphocytes # (auto) 0.28 K/uL (1.2-3.4); Lymphocytes % (auto) 6.4 %; Monocytes # (auto) 0.96 K/uL (0.11-0.59); Toxic Vacuolation 1+
[2022-11-14] MEDS: LANTUS PER UNIT CHARGE SQ SCH (08:48)
[2022-11-14] MEDS: INSULIN ASPART PER UNIT CHARGE SC SCH ×2 (08:48→11:28)
[2022-11-14] MEDS: OXYBUTYNIN CHLORIDE XL 5 MG TABCR PO SCH (08:49)
[2022-11-14] MEDS: FLUoxetine HCL 20 MG CAP PO SCH (08:49)
[2022-11-14] MEDS: azaTHIOprine 50 MG TAB PO SCH (08:49)
[2022-11-14] MEDS: SULFA/TRIMETH 400/80MG TAB PO SCH (08:49)
[2022-11-14] MEDS: HYDROCORTISONE 10 MG TAB PO SCH (08:49)
[2022-11-14] MEDS: AZITHROMYCIN 250 MG TAB PO SCH (08:49)
[2022-11-14] MEDS: METOPROLOL TARTRATE 50 MG TAB PO SCH (08:49)
[2022-11-14] MEDS: PANTOprazole 40 MG in SYRINGE 0 ML IV SCH (08:49)
[2022-11-14] MEDS: buPROPion XL 300 MG TABCR PO SCH (08:50)
[2022-11-14] MEDS: EVEROLIMUS PO SCH (08:50)
[2022-11-14] MEDS: EZETIMIBE 10 MG TABLET PO SCH (08:50)
[2022-11-14] MEDS: PRAVASTATIN SOD 40 MG TAB PO SCH (08:50)
[2022-11-14] MEDS: FAMOTIDINE 20 MG in SYRINGE 3 ML IV SCH (08:51)
--- NOTE | 2022-11-14 10:53 | Cardiology Progress Note ---
Date of Service November 14, 2022 Assessment & Plan (1) Chest pain at rest: (2) Abnormal EKG: (3) Esophagitis: (4) Nausea and vomiting: Plan Atypical chest pain - Esophagitis. As per GI and hospitalist. - Musculoskeletal chest pain. Personal review of the PA and lateral chest x-ray from March 2022 shows issues with sternal alignment post medial sternotomy. Noncontrast CT of the chest on 11/13/2022 revealed 7 mm of anterior displacement/step-off at the sternal edges which are fused/healed, without acute fracture identified. CP improving. General measures advised. Abnormal EKG - High-sensitivity troponin I negative x3. - Resting echocardiography with preserved LV systolic function, without wall motion abnormality. - Catheterizations in May 2018 and September 2020 without coronary artery disease - No further cardiac evaluation planned this admission. Hypertension - Likely situational, aggravated by pain, resolved. - Monitor Advanced COPD - Reformed smoker, quit circa 8-9 years ago - Status post bilateral lung transplant in 2020 at [facility] Signing off. Please contact with any questions or concerns. Admission and Anticipated Discharge Date Admission Date: November 13, 2022 Supervising Physician Co-Signing Physician Notes 57-year-old female admitted with epigastric and chest discomfort. CT with evidence of esophagitis. No evidence of sternal fracture per CT of the chest. Chest discomfort improved overnight. Feeling better today. No orthopnea, PND, or edema. Normal coronary arteries per cardiac catheterization x2 as noted above. Telemetry reveals sinus rhythm. PE: VSS. Gen: NAD, AAO x 3. Heart: Regular rhythm, normal S1-S2. No murmur. Reproducible anterior chest wall tenderness. Lungs: Clear bilateral, no rales, rhonchi, wheeze. Extremities: No clubbing, cyanosis, or edema. A/P: Agree with above PA-C history, physical exam, assessment and plan. Continue treatment of esophagitis per gastroenterology and musculoskeletal chest discomfort as per internal medicine. No further inpatient cardiac testing or intervention at this time. Cardiology will sign off. Please call with [employer]. Subjective Patient seen and examined. Chart, medications, and telemetry reviewed. CT scan results discussed. Patient notes considerable improvement in musculoskeletal chest pain this morning. She continues to have acid. Otherwise, feeling well. Continuous environmental monitoring specialist reveals sinus/sinus bradycardia with heart rates ranging from 55 bpm to 70 bpm. No arrhythmias observed. Review of Systems Review of Systems: Complete review of systems is otherwise as stated above, negative, noncontributory. Physical Exam Physical Exam: General: A&Ox3. No acute distress HENT: Normocephalic. Atraumatic. Eyes: PER. Conjunctiva pink, sclera clear. Neck: No carotid bruits. No JVD. Heart: Regular at 60 bpm. No murmur. No rub. Lungs: Clear to auscultation anteriorly. Chest: Substernal discomfort with palpation. Abdomen: +BS. Soft. Nontender. No masses. Extremities: No clubbing, cyanosis, or edema. Limited neurological examination is without focal deficits. Pulses: Posterior tibial=2/4. Results & Data Vital Signs (Past 12 Hours) Vital Signs Temp Pulse Pulse Resp BP Pulse Ox O2 Del Method 11/14/22 08:00 53 L 11/14/22 08:23 36.8 C 65 18 100/50 L 98 Room Air 11/14/22 03:49 36.8 C 56 L 18 98/60 L 98 Room Air 11/14/22 00:00 61 11/13/22 23:18 37.2 C 55 L 18 113/57 L 95 Room Air Laboratory Results CBC 11/14/22 Range/Units 06:12 WBC 4.37 L (4.8-10.8) K/ul RBC 3.70 L (4.20-5.40) M/uL Hgb 10.8 L (12.0-16.0) g/dl Hct 32.4 L (37.0-47.0) % Plt Count 291 (130-400) K/uL Neut # (Auto) 2.80 (1.40-6.50) K/uL Lymph # (Auto) 0.28 L (1.2-3.4) K/uL [place] # (Auto) 0.96 H (0.11-0.59) K/uL Eos # (Auto) 0.17 (0-0.50) K/uL Baso # (Auto) 0.02 (0-0.2) K/uL Comprehensive Metabolic Panel 11/14/22 Range/Units 06:12 Sodium 139 (136-145) mmol/L Potassium 3.9 (3.5-5.1) mmol/L Chloride 107 (98-107) mmol/L Carbon Dioxide 25 (21-32) mmol/L BUN 8 (6-23) mg/dl Creatinine 1.20 (0.6-1.2) mg/dl Glucose 89 (70-99(Fasting)) mg/dl Calcium 8.3 L (8.6-10.3) mg/dl Intake and Output 11/13/22 11/14/22 11/14/22 22:59 06:59 14:59 Intake Total 360 / 1330 490 / 1330 Output Total 950 / 1750 Balance 360 / -420 -460 / -420 Intake: Oral 360 / 1330 490 / 1330 Output: Urine 950 / 1750 Other: # Unmeasured Voids 1 0 Weight 91.2 kg Weight Measurement Method Built in [facility]
--- NOTE | 2022-11-14 13:21 | Hospitalist Progress Note ---
Date of Service November 14, 2022 Assessment & Plan (1) Esophagitis: Plan: Patient is a 57-year-old female who presented with epigastric and substernal pain. Epigastric abdominal pain/Nausea/Vomiting Likely due to esophagitis. Rule out peptic ulcer disease --CT ABD personally reviewed:Moderate wall thickening of the distal esophagus with mucosal hyperemia and periesophageal fluid is suggestive a nonspecific esophagitis. Findings could be correlated with endoscopy to exclude an underlying mucosal lesion. No bowel obstruction or bowel wall thickening. Cholelithiasis. -- Normal lipase, LFTs Appreciate GI input GI recommends to get endoscopy as outpatient Continue Protonix, Pepcid Advance diet as tolerated Advised to follow-up with GI as outpatient Atypical chest pain Abnormal EKG Rule out ACS High-sensitivity troponin negative Chest x-ray personally reviewed; no infiltrate EKG personally reviewed;Normal sinus rhythm; diffuse T wave inversion Continue statin Echocardiogram results reviewed; EF of 60 to 65% with grade 1 diastolic dysfunction -CT Chest:Postoperative changes consistent with prior clamshell sternotomy for double lung transplant with intact sternal wires. There is up to 7 mm of anterior displacement/step-off at the sternal edges. However, the sternal edges are fused/healed. No acute fractures identified. Trace bilateral pleural effusions. Mild cardiomegaly which has progressed. Mild circumferential thickening within the esophagus consistent with a nonspecific esophagitis. Appreciate Cardiology Input Hypertension Continue home medications Blood pressure improved. 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 Monitor renal function Chronic hypercalcemia On Prolia at baseline Monitor calcium levels Normalized with IV fluids Advanced COPD S/P bilateral lung transplant in 2020 at [facility] Past tobacco use Currently not on any inhalers Continue chronic suppressive therapy Bipolar disorder Depression/Anxiety disorder Insomnia Continue home medications ACTH deficiency Continue hydrocortisone Chronic intermittent hypoxia Obstructive sleep apnea Obesity hypoventilation syndrome As per records DVT Px: SCDs Re: Esophagitis Disposition Home Admission and Anticipated Discharge Date Admission Date: November 13, 2022 Subjective Patient is seen and examined at bedside States feeling better today Denies any abdominal pain Tolerating diet Still has some chest discomfort but much improved Discussed with cardiology today No other complaints Plan to be discharged home today Review of Systems Review of Systems: All systems reviewed & are unremarkable except as noted in Subjective Physical Exam Physical Exam: Physical Exam: Vitals signs as noted above General Appearance:Obese, no apparent distress Head: normocephalic, Atraumatic Eyes: normal inspection, EOMI Neck: supple, Trachea midline Respiratory/Chest: Normal breath sounds, CTA, No accessory muscle use Cardiovascular: S1, S2, No murmur Abdomen/GI:Soft, mild epigastric tender, Bowel sounds present Extremities/Musculoskeletal:normal inspection, no edema Neurologic/Psych:AAOX3, grossly no focal neurological deficits Skin: normal color, warm Results & Data Results & Data Vital Signs (Past 12 Hours) Vital Signs Temp Pulse Pulse Resp BP Pulse Ox O2 Del Method 11/14/22 08:00 53 L 11/14/22 08:23 36.8 C 65 18 100/50 L 98 Room Air 11/14/22 03:49 36.8 C 56 L 18 98/60 L 98 Room Air Laboratory Results Short CBC 11/14/22 Range/Units 06:12 WBC 4.37 L (4.8-10.8) K/ul Hgb 10.8 L (12.0-16.0) g/dl Hct 32.4 L (37.0-47.0) % Plt Count 291 (130-400) K/uL BMP 11/14/22 06:12 Sodium 139 Potassium 3.9 Chloride 107 Carbon Dioxide 25 BUN 8 Creatinine 1.20 Glucose 89 Calcium 8.3 L
--- NOTE | 2022-11-14 13:51 | Discharge Summary ---
Date of Service November 14, 2022 Admission HPI Per Admitting Provider Patient is a 57-year-old female with history of advanced COPD S/P bilateral lung transplant in [address] [facility], peripheral vascular disease, splenic artery aneurysm, immunocompromise state, bipolar disorder, depression, ACTH deficiency, past tobacco use, anxiety disorder, insomnia, tacrolimus induced nephrotoxicity, chronic intermittent hypoxia with obstructive sleep apnea, obesity hypoventilation syndrome, diabetes mellitus and other medical problems presents with history epigastric abdominal pain associated with gurgling/burping, nausea, vomiting. Patient states she woke up this morning at around 3 AM and started to have significant " acid brown" vomiting this morning which she describes as burning sensation. She also states having retrosternal pressure-like sensation, at times associated with shortness of breathand back pain. As per patient, patient had endoscopy about 1-1/2 years ago which showed no acute findings. Also reports having cardiac catheterization prior to lung transplant in 2020 which showed no issues. Epigastric pain has been intermittent and she tried Tums at home with no significant relief. She reports having Caesar salad along with pizza at 6 PM yesterday. Denies any history of dizziness, pedal edema, diaphoresis, cough, hemoptysis, fever, chills, headache, change in vision, blood in stools, diarrhea, dysuria, hematuria. Admission Exam Per Admitting Provider Physical Exam Physical Exam: Physical Exam: Vitals signs as noted above General Appearance:Obese, no apparent distress Head: normocephalic, Atraumatic Eyes: normal inspection, EOMI Neck: supple, Trachea midline Respiratory/Chest: Normal breath sounds, CTA, No accessory muscle use Cardiovascular: S1, S2, No murmur Abdomen/GI:Soft, Epigastric tender, Bowel sounds present Extremities/Musculoskeletal:normal inspection, no edema Neurologic/Psych:AAOX3, grossly no focal neurological deficits Skin: normal color, warm Principal Diagnosis Esophagitis Atypical chest pain Discharge Data Allergies Allergy/AdvReac Type Severity Reaction Status Date / Time Penicillins AdvReac Intermediate JITTERY/CHI Verified 10/25/22 14:02 LLS Consultations 11/11/22 15:03 ED Decision to Admit Stat 11/11/22 15:58 Consult Cardiology Routine 11/12/22 08:00 Consult Gastroenterology Routine Procedures Performed Laboratory Results WBC 4.37 K/ul (4.8-10.8) L 11/14/22 06:12 RBC 3.70 M/uL (4.20-5.40) L 11/14/22 06:12 Hgb 10.8 g/dl (12.0-16.0) L 11/14/22 06:12 Hct 32.4 % (37.0-47.0) L 11/14/22 06:12 MCV 87.6 fL (80.0-100.0) 11/14/22 06:12 MCH 29.2 pg (25.0-34.0) 11/14/22 06:12 MCHC 33.3 g/dL (32.0-36.0) 11/14/22 06:12 RDW Std Deviation 46.2 fL (36.4-46.3) 11/14/22 06:12 RDW Coeff of Nicolle 14.5 % (11.5-14.5) 11/14/22 06:12 Plt Count 291 K/uL (130-400) 11/14/22 06:12 MPV 9.8 fL (9.4-12.4) 11/14/22 06:12 Immature Gran % (Auto) 3.2 % 11/14/22 06:12 Neut % (Auto) 64.0 % 11/14/22 06:12 Lymph % (Auto) 6.4 % 11/14/22 06:12 Dauphin % (Auto) 22.0 % 11/14/22 06:12 Eos % (Auto) 3.9 % 11/14/22 06:12 Baso % (Auto) 0.5 % 11/14/22 06:12 Neut # (Auto) 2.80 K/uL (1.40-6.50) 11/14/22 06:12 Lymph # (Auto) 0.28 K/uL (1.2-3.4) L 11/14/22 06:12 Dauphin # (Auto) 0.96 K/uL (0.11-0.59) H 11/14/22 06:12 Eos # (Auto) 0.17 K/uL (0-0.50) 11/14/22 06:12 Baso # (Auto) 0.02 K/uL (0-0.2) 11/14/22 06:12 Immature Gran # (Auto) 0.14 K/uL (0.01-0.20) 11/14/22 06:12 Neutrophils % (Manual) 86 % 11/11/22 09:00 Lymphocytes % (Manual) 6 % 11/11/22 09:00 Monocytes % (Manual) 7 % 11/11/22 09:00 Basophils % (Manual) 1 % 11/11/22 09:00 Neutrophils # (Manual) 5.95 K/uL (1.40-6.50) 11/11/22 09:00 Total Absolute Neuts 5.95 K/uL (1.4-6.5) 11/11/22 09:00 Lymphocytes # (Manual) 0.42 K/uL (1.2-3.4) L 11/11/22 09:00 Total Abs Lymphocytes 0.42 K/uL (1.2-3.4) L 11/11/22 09:00 Monocytes # (Manual) 0.48 K/uL (0.11-0.59) 11/11/22 09:00 Basophils # (Manual) 0.07 K/uL (0-0.2) 11/11/22 09:00 Toxic Vacuolation 1+ 11/14/22 06:12 Polychromasia 1+ 11/11/22 09:00 Sodium 139 mmol/L (136-145) 11/14/22 06:12 Potassium 3.9 mmol/L (3.5-5.1) 11/14/22 06:12 Chloride 107 mmol/L (98-107) 11/14/22 06:12 Carbon Dioxide 25 mmol/L (21-32) 11/14/22 06:12 Anion Gap 7 (3-11) 11/14/22 06:12 BUN 8 mg/dl (6-23) 11/14/22 06:12 Creatinine 1.20 mg/dl (0.6-1.2) 11/14/22 06:12 Est Cr Clr Drug Dosing 56.3 ml/min 11/14/22 06:12 Est GFR ( Amer) 57.3 ml/min 11/14/22 06:12 Est GFR (Non-Af Amer) 49.4 ml/min 11/14/22 06:12 BUN/Creatinine Ratio 6.7 (10-20) L 11/14/22 06:12 Glucose 89 mg/dl (70-99(Fasting)) 11/14/22 06:12 POC Glucose 102 mg/dl (70-99) H 11/14/22 11:27 Estimat Average Glucose 128 mg/dl 11/12/22 05:42 Hemoglobin A1c 6.1 % (4.5-5.6) H 11/12/22 05:42 Calcium 8.3 mg/dl (8.6-10.3) L 11/14/22 06:12 Magnesium 1.9 mg/dl (1.7-2.4) 11/12/22 05:42 Total Bilirubin 0.4 mg/dl (0.2-1.0) 11/12/22 05:42 AST 23 U/L (13-39) 11/12/22 05:42 ALT 11 U/L (7-52) 11/12/22 05:42 Alkaline Phosphatase 46 U/L (34-104) 11/12/22 05:42 Troponin I High Sens 9.7 pg/ml (0-14) 11/11/22 23:36 Total Protein 5.6 gm/dl (6.0-8.3) L D 11/12/22 05:42 Albumin 3.3 gm/dl (3.4-5.0) L 11/12/22 05:42 Globulin 2.3 gm/dl (2.5-4.0) L 11/12/22 05:42 Albumin/Globulin Ratio 1.4 (0.9-2) 11/12/22 05:42 Triglycerides 311 mg/dl (0-150) H 11/12/22 05:42 Cholesterol 170 mg/dl (0-200) 11/12/22 05:42 LDL Cholesterol, Calc 69 mg/dl 11/12/22 05:42 VLDL Cholesterol, Calc 62 mg/dl (0-30) H 11/12/22 05:42 HDL Cholesterol 39 mg/dl 11/12/22 05:42 Cholesterol/HDL Ratio 4.4 (0-5) 11/12/22 05:42 Lipase 48 U/L (11-82) 11/11/22 09:00 Urine Color Yellow 11/11/22 13:55 Urine Appearance Clear (Clear) 11/11/22 13:55 Urine pH 5.0 (4.5-7.5) 11/11/22 13:55 Ur Specific Marion 1.030 (1.000-1.030) 11/11/22 13:55 Urine Protein Negative (Negative) 11/11/22 13:55 Urine Glucose (UA) Negative (Negative) 11/11/22 13:55 Urine Ketones Trace (Negative) H 11/11/22 13:55 Urine Blood Negative (Negative) 11/11/22 13:55 Urine Nitrite Negative (Negative) 11/11/22 13:55 Urine Bilirubin Negative (Negative) 11/11/22 13:55 Urine Urobilinogen Negative (Negative) 11/11/22 13:55 Ur Leukocyte Esterase 2+ (Negative) H 11/11/22 13:55 Urine WBC (Auto) 5-10 /hpf (0-5) H 11/11/22 13:55 Urine RBC (Auto) 0-4 /hpf (0-4) 11/11/22 13:55 U Hyaline Cast (Auto) 1-5 /lpf (0-5) 11/11/22 13:55 U Epithel Cells (Auto) 5-10 /lpf (0-5) H 11/11/22 13:55 Urine Bacteria (Auto) Negative (Negative) 11/11/22 13:55 SARS-CoV-2, RNA, NAAT NEGATIVE (NEGATIVE) 11/11/22 16:00 Impressions Abdomen/Pelvis CT 11/11/22 12:[address] WITH IV CONTRAST CT DOSE: 1294.47 mGy.cm HISTORY: Acute epigastric abdominal pain eval epigastric pain TECHNIQUE: Multiaxial CT images of the abdomen and pelvis were performed following the IV administration of 94 cc of Optiray, A dose lowering technique was utilized adhering to the principles of ALARA. COMPARISON STUDY: 01/14/2021 FINDINGS: Cardiomegaly with prior median sternotomy. Trace pleural effusions. Mild subsegmental bibasilar atelectasis. No pneumatosis or pneumoperitoneum. Unremarkable spleen, mildly atrophic pancreas and adrenal glands. Cholelithiasis. Unremarkable liver. Patent portal vein. Embolization coils noted within the distribution of the splenic artery. 11 mm mixed attenuating nodule anterior to the pancreatic body is unchanged and likely benign. No hydronephrosis. Subcentimeter hypodensity in the anterior interpolar left kidney is too small to characterize. Unremarkable urinary bladder, uterus and adnexa. Atherosclerosis of the aorta. Diminutive appearance of the celiac trunk which is suboptimally visualized secondary to streak artifact from the aforementioned coils. No lymphadenopathy. There is partially imaged moderate circumferential soft tissue swelling with mucosal hyperemia involving the distal esophagus. There is adjacent inflammatory stranding with trace periesophageal fluid. No bowel obstruction or bowel wall thickening. Colonic diverticulosis. Appendectomy. Unremarkable soft tissues. No acute fracture. IMPRESSION: 1. Moderate wall thickening of the distal esophagus with mucosal hyperemia and periesophageal fluid is suggestive a nonspecific esophagitis. Findings could be correlated with endoscopy to exclude an underlying mucosal lesion. 2. No bowel obstruction or bowel wall thickening. 3. Cholelithiasis. 4. Additional findings as above. ACT 112: Negative or not required by law. The above report was generated using voice recognition software. It may contain grammatical, syntax or spelling errors. Electronically signed by: Shin Carolina M.D. 11/11/2022 1:41 PM Chest X-Ray 11/11/22 17:03 XR chest 1V portable HISTORY: 57 years-old Female chest pain acute chest pain COMPARISON: 03/30/2022 TECHNIQUE: AP view of the chest FINDINGS: Cardiac silhouette is enlarged. Prior median sternotomy with surgical clips project over the chest. No pneumothorax, pleural effusion or overt pulmonary edema. Chronic blunting of the costophrenic angles with subsegmental basilar atelectasis versus scarring. Embolization coils of the abdominal left upper quadrant. Bones appear grossly intact. IMPRESSION: Cardiomegaly without acute process. ACT 112: Negative or not required by law. The above report was generated using voice recognition software. It may contain grammatical, syntax or spelling errors. Electronically signed by: Shin Carolina M.D. 11/11/2022 6:[address] 11/13/22 10:42 CT chest diagnostic wo con CT DOSE: 714.69 mGy.cm HISTORY: Sternal pain. History of lung transplant. Reproducible chest pain. Eval sternum alignment TECHNIQUE: Multiaxial CT images of the chest were performed without contrast. A dose lowering technique was utilized adhering to the principles of ALARA. COMPARISON: Chest CTA 07/14/2020. FINDINGS: Postoperative changes consistent with prior clamshell sternotomy for double lung transplant. The sternal wires appear intact. There is up to 7 mm of anterior displacement/step-off at the sternal edges. However, the sternal edges are fused/healed. No acute fractures identified. There are multiple old, healed bilateral anterolateral rib fractures. Limited views of the upper abdomen demonstrate a normal liver and spleen. Mild circumferential thickening within the esophagus. There are trace bilateral pleural effusions. No pericardial effusion. The heart is mildly enlarged. This has progressed. Mild calcified plaque within the normal caliber thoracic aorta. No mediastinal or hilar lymphadenopathy. Mild soft tissue/fat stranding surrounding the distal mainstem bronchi is likely due to the postoperative change. This is adjacent to the suture material at these locations. This is most pronounced on the right. The main pulmonary artery is normal in caliber. The central airways are patent. No pneumothorax. Small linear scarlike density within the left lung apex. A few small bibasilar linear densities favor subsegmental atelectasis are scarring. No focal lung consolidations to suggest a pneumonia. No evidence for pulmonary edema. IMPRESSION: 1. Postoperative changes consistent with prior clamshell sternotomy for double lung transplant with intact sternal wires. 2. There is up to 7 mm of anterior displacement/step-off at the sternal edges. However, the sternal edges are fused/healed. No acute fractures identified. 3. Trace bilateral pleural effusions. 4. Mild cardiomegaly which has progressed. 5. Mild circumferential thickening within the esophagus consistent with a nonspecific esophagitis. 6. Additional findings as described above. ACT 112: Negative or not required by law. Electronically signed by: Moses Valverde M.D. 11/13/2022 5:21 PM Ordered Studies 11/11/22 12:27 CT Abd and Pelvis [CT abd pelvis IV con only] Stat 11/13/22 10:42 CT chest diagnostic wo con Routine Hospital Course (1) Esophagitis: Patient is a 57-year-old female who presented with epigastric and substernal pain. Epigastric abdominal pain/Nausea/Vomiting Likely due to esophagitis. Rule out peptic ulcer disease --CT ABD personally reviewed:Moderate wall thickening of the distal esophagus with mucosal hyperemia and periesophageal fluid is suggestive a nonspecific esophagitis. Findings could be correlated with endoscopy to exclude an underlying mucosal lesion. No bowel obstruction or bowel wall thickening. Cholelithiasis. -- Normal lipase, LFTs Appreciate GI input GI recommends to get endoscopy as outpatient Continue Protonix, Pepcid Advance diet as tolerated Advised to follow-up with GI as outpatient Atypical chest pain Abnormal EKG Rule out ACS High-sensitivity troponin negative Chest x-ray personally reviewed; no infiltrate EKG personally reviewed;Normal sinus rhythm; diffuse T wave inversion Continue statin Echocardiogram results reviewed; EF of 60 to 65% with grade 1 diastolic dysfunction -CT Chest:Postoperative changes consistent with prior clamshell sternotomy for double lung transplant with intact sternal wires. There is up to 7 mm of anterior displacement/step-off at the sternal edges. However, the sternal edges are fused/healed. No acute fractures identified. Trace bilateral pleural effusions. Mild cardiomegaly which has progressed. Mild circumferential thickening within the esophagus consistent with a nonspecific esophagitis. Appreciate Cardiology Input Hypertension Continue home medications Blood pressure improved. 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 Past tobacco use Currently not on any inhalers Continue chronic suppressive therapy Bipolar disorder Depression/Anxiety disorder Insomnia Continue home medications ACTH deficiency Continue hydrocortisone Chronic intermittent hypoxia Obstructive sleep apnea Obesity hypoventilation syndrome As per records DVT Px: SCDs Re: Esophagitis Disposition Home Total Time Total Time Spent Total Time Spent (In Minutes): 54 minutes Discharge Plan Discharge Items Patient Disposition: Home - Self-Care Reason For Visit: ABDOMINAL PAIN, ABNORMAL EKG Discharge Diagnosis: Esophagitis Atypical chest pain Activity: Per Instructions section Exercise/Sports: Wait until after follow-up appointment Non-emergency contact: Primary Care Provider and Sales And Marketing Specialist Call non-emergency contact if: you have any medication questions, your symptoms worsen, your pain is concerning for you and you have a fever Follow-up/Referrals: Sara Sena MD [Primary Care Provider] - (Date & Time 11/19/2022 11:40 AM Provider Janes Nicholas MD [facility] ) Diet: Carb Consistent or DM2 and Heart Healthy Diet Texture: Pureed (blended smooth) Addtl Attending Provider Instructions: Follow-up with your primary care physician Dr. Sena on 11/19/2022 11:40 AM Follow-up with your compressor repairer for endoscopy as outpatient -Start taking Protonix and Pepcid 2 times a day as recommended by your compressor repairer. Seek immediate medical attention if your symptoms reoccur or worsen Please take all medications as instructed on discharge list below. Please call if you have any questions or problems. You can reach a [facility] hospitalist on duty at [facility] 24 hours a day by calling [phone] Pending Studies at Discharge: No Stand-Alone Forms: My [facility] Rare Pink, Smoking Cessation Medications and DC Order Prescriptions: New oxycodone 5 mg Tablet 5 mg PO Q4H PRN (Reason: pain) Qty: 10 0RF famotidine [Pepcid] 20 mg tablet 20 mg PO BID 30 Days Qty: 60 1RF Continued bupropion HCl [Wellbutrin XL] 300 mg Tablet Extended Release 24 Hr 300 mg PO QAM Rx [facility]: [facility] Januvia 25 mg Tablet 50 mg PO DAILY melatonin 3 mg Tablet 6 mg PO HS trazodone 100 mg tablet 100 mg PO HS Rx Instructions: [facility] hydrocortisone 10 mg tablet 10 mg PO QPM Rx Instructions: Take 10mg with lunch and HS azathioprine [Imuran] 50 mg tablet 100 mg PO QAM Rx Instructions: EMERGENCY USE ONLY azithromycin 250 mg tablet 250 mg PO 3XWK Rx Instructions: Take mon, wed, fri sumatriptan succinate 50 mg tablet 50 mg PO DAILY PRN (Reason: Migraine Headache) metoprolol tartrate 25 mg tablet 50 mg PO BID Rx Instructions: [facility] everolimus (immunosuppressive) 0.5 mg tablet 0.5 mg PO UD Rx Instructions: 3 tabs AM and 4 Tabs PM belatacept 250 mg Recon Soln 250 mg IV MONTHLY Rx Instructions: Inject 5 mh/kg into the vein monthly, USUALLY LAST SATURDAY OF . hydrocortisone 20 mg tablet 20 mg PO QAM fluoxetine 40 mg capsule 40 mg PO DAILY Rx Instructions: [facility] oxybutynin chloride 5 mg tablet extended release 24hr 5 mg PO QAM Rx Instructions: [facility] fluoxetine 20 mg Capsule 20 mg PO DAILY Rx Instructions: take with 40 mg [facility] pravastatin 40 mg tablet 40 mg PO DAILY sulfamethoxazole-trimethoprim 400-80 mg tablet 1 tab PO USEASDIRECTD Rx Instructions: three times per week: Mon, Wed, Fri montelukast [Singulair] 10 mg Tablet 10 mg PO HS ezetimibe [Zetia] 10 mg Tablet 10 mg PO DAILY Prolia 60 mg/mL Syringe 60 mg SUBCUT UD Rx Instructions: Q 6 months (Feb due) pantoprazole 40 mg tablet,delayed release (DR/EC) 40 mg PO BID Qty: 60 1RF Discontinued Pepcid 20 mg PO HS Discharge Orders: Discharge Order (Routine); Ordered 11/14/22 Ordered By: Pablo Watkins Admission Data Admit Date/Time: 11/13/22 15:01 Attending Provider: Pablo Watkins Admit Provider: Pablo Watkins Primary Care Provider: Sara Sena Other Providers: Pablo Watkins ; Bi Mccord ; Blanca Carranza ; Amari Pringle ; Vanessa Menjivar ; Ellie Day ; Mikaela Bain ; Isabel Kolb ; Jese Neves ; Rashad Knox ; Harleen Owen ; Raghu Levi ; Bravo Espinal ; Amira Olvera ; Nancy Rosario ; Angelina Delgadillo ; Becky Reno ; Jenny Lubin ; Colton Solorzano ; Dank Martines ; Sobia Ch ; Rach Norman Jr
== END 2022-11-14 14:48 | disposition home or self-care (01) | DRG 392 ==
LOC: ED 08:20 → 2E 08:20 → SUATTDRO 17:16 → 2E 18:40 → SUATTDRO 11-13 15:01
DX: Z87.09 Personal history of other diseases of the respiratory system; E27.40 Unspecified adrenocortical insufficiency; Z79.620 Long term (current) use of immunosuppressive biologic; Z79.899 Other long term (current) drug therapy; E66.2 Morbid (severe) obesity with alveolar hypoventilation; Z79.84 Long term (current) use of oral hypoglycemic drugs; Z68.33 Body mass index [BMI] 33.0-33.9, adult; N18.2 Chronic kidney disease, stage 2 (mild); Y92.838 Other recreation area as the place of occurrence of the external cause; E83.52 Hypercalcemia; Z94.2 Lung transplant status; E11.22 Type 2 diabetes mellitus with diabetic chronic kidney disease; S29.9XXA Unspecified injury of thorax, initial encounter; F41.9 Anxiety disorder, unspecified; Z79.69 Long term (current) use of other immunomodulators and immunosuppressants; R94.31 Abnormal electrocardiogram [ECG] [EKG]; I12.9 Hypertensive chronic kidney disease with stage 1 through stage 4 chronic kidney disease, or unspecified chronic kidney disease; G47.00 Insomnia, unspecified; F32.A Depression, unspecified; Z79.52 Long term (current) use of systemic steroids; F31.9 Bipolar disorder, unspecified; R07.89 Other chest pain; Z87.891 Personal history of nicotine dependence; E11.51 Type 2 diabetes mellitus with diabetic peripheral angiopathy without gangrene; Z88.0 Allergy status to penicillin; K27.9 Peptic ulcer, site unspecified, unspecified as acute or chronic, without hemorrhage or perforation; Y99.8 Other external cause status; K21.00 Gastro-esophageal reflux disease with esophagitis, without bleeding; X58.XXXA Exposure to other specified factors, initial encounter